=== PATIENT | female | born 1930 ===

== ENCOUNTER 2017-01-09 14:21 | Inpatient (IN) | payer MEDICAID, OTHER ==
--- NOTE | 2017-01-09 15:48 | C.PDOC ---
History Of Present Illness 86 y/o female, with history of left sided hemiparesis s/p stroke 2 months ago, presents to ED for evaluation of ulcer to left heel with drainage for the past week. Daughter states that pt recently immigrated to this country. As per daughter, pt was admitted at [facility] for stroke but was not provided with any referral for follow up or rehab due to insurance reasons. Pt is currently being cared at home by daughter. Pt also complaints of burning on urination, and redness to left axilla and perineum area. Otherwise, denies any nausea, vomiting , abdominal pain, hematuria, back pain, chest pain, shortness of breath, headache, dizziness, fever, chills, or any other associated symptoms at this time. Chief Complaint (Nursing): Abnormal Skin Integrity History Per: Patient, Family History/Exam Limitations: no limitations Onset/Duration Of Symptoms: Days (1 week) Current Symptoms Are (Timing): Still Present Location Of Injury: Left: Foot Quality Of Symptoms: Draining Recent travel outside of the [place]: Yes Additional History Per: Patient Past Medical History Reviewed: Historical Data, Nursing Documentation, Vital Signs Vital Signs: Last Vital Signs Temp 97.9 F 01/09/17 17:15 Pulse 118 H 01/09/17 17:57 Resp 18 01/09/17 17:57 BP 121/72 01/09/17 17:57 Pulse Ox 97 01/09/17 18:13 - Medical History PMH: Cardia Arrhythmia, Kidney Stones Surgical History: Appendectomy Family History: States: Unknown Family Hx - Social History Hx Alcohol Use: No Hx Substance Use: No - Immunization History Hx Tetanus Toxoid Vaccination: No Hx Influenza Vaccination: No Hx Pneumococcal Vaccination: No Review Of Systems Except As Marked, All Systems Reviewed And Found Negative. Constitutional: Negative for: Fever, Chills Cardiovascular: Negative for: Chest Pain, Palpitations Respiratory: Negative for: Cough, Shortness of Breath Gastrointestinal: Negative for: Nausea, Vomiting, Abdominal Pain Genitourinary: Positive for: Dysuria. Negative for: Frequency, Hematuria Musculoskeletal: Negative for: Back Pain Skin: Positive for: Rash (left axilla, and perineum area), Other (ulcer to left heel) Neurological: Negative for: Weakness, Numbness, Headache, Dizziness Physical Exam - Physical Exam Appears: Non-toxic, No Acute Distress Skin: Warm, Dry, Rash (erythematous rash to left axilla and perineal area), Other (left heel open wound with foul discharge) Head: Atraumatic, Normacephalic Eye(s): bilateral: Other (gaze turned to right) Oral Mucosa: Moist Neck: Supple Cardiovascular: Rhythm Regular, No Murmur Respiratory: Normal Breath Sounds, No Rales, No Rhonchi, No Wheezing Gastrointestinal/Abdominal: Soft, No Tenderness Extremity: No Deformity, Other (left side hemiparesis ) Pulses: Left Dorsalis Pedis: Normal, Right Dorsalis Pedis: Normal Neurological/Psych: Oriented x3, Normal Speech ED Course And Treatment - Laboratory Results Result Diagrams: 01/09/17 16:21 01/09/17 16:21 ECG: Interpreted By Me, Viewed By Me ECG Rhythm: Atrial Fibrillation, R BBB ECG Interpretation: Abnormal Rate From EC (bpm) O2 Sat by Pulse Oximetry: 97 (RA) Pulse Ox Interpretation: Normal - Other Rad Left heel x-ray X-Ray: Viewed By Me, Read By Radiologist Interpretation: PROCEDURE: Radiographs of the left calcaneus/hindfoot. HISTORY : pressure ulcer. COMPARISON: None available. TECHNIQUE: Frontal and lateral radiographs of the calcaneus. FINDINGS: No acute displaced fracture or dislocation identified. Mild soft tissue irregularity posterior heel. No evidence of radiopaque foreign body. IMPRESSION: Mild soft tissue irregularity involving the posterior heel. No acute osseous abnormality is detected. Progress Note: Plan: Blood work, urinalysis, urine/blood/wound culture, left heel x-ray, EKG. Pt was given Vancomycin, Fentanyl, Maxipime, Lopressor, and Cardizem. On re-eval,still in rapid afib. case was d/w who accepted patient to [facility] for admission. Disposition - Disposition Disposition: HOSPITALIZED Disposition Time: 17:41 Condition: FAIR - Clinical Impression Clinical Impression: Rapid atrial fibrillation, Hemiparesis, UTI (urinary tract infection), Pressure ulcer of left heel, Fungal infection of skin - PA / FLOODPLAIN MANAGER / Resident Statement MD/DO has reviewed & agrees with the documentation as recorded. - Scribe Statement The provider has reviewed the documentation as recorded by the Scribe Pro Ray All medical record entries made by the Scribe were at my direction and personally dictated by me. I have reviewed the chart and agree that the record accurately reflects my personal performance of the history, physical exam, medical decision making, and the department course for this patient. I have also personally directed, reviewed, and agree with the discharge instructions and disposition. Decision To Admit - Pt Status Changed To: Hospital Disposition Of: Inpatient - Admit Certification Admit to Inpatient:: After my assessment, the patient will require hospitalization for at least two midnights. This is because of the severity of symptoms shown, intensity of services needed, and/or the medical risk in this patient being treated as an outpatient. - InPatient: Physician Admission Certification: I certify that this patient requires 2 or more midnights of care for the following reason:: Pt will need IV antibiotics for more than 2 days. - . Bed Request Type: Telemetry Admitting Physician: Ezekiel Baer Patient Diagnosis: Rapid atrial fibrillation, Hemiparesis, UTI (urinary tract infection), Pressure ulcer of left heel, Fungal infection of skin
[2017-01-09] MEDS ORDERED: Cefepime 1 GM in Sodium Chloride 0.9% 50 ML IVPB STA (15:50)
[2017-01-09] MEDS ORDERED: Cefepime 1 GM in Sodium Chloride 0.9% 100 ML IVPB STA (16:08)
[2017-01-09 16:23] LABS: BASO % 0.5 % (0.0-2.0); EOS # 0.2 K/uL (0.0-0.7); EOS % 3.3 % (0.0-4.0); HEMATOCRIT 38.8 % (34.0-47.0); LYMPH # 1.7 K/uL (1.0-4.3); LYMPH % 24.2 % (20.0-40.0); MEAN CELL VOLUME 93.8 fL (81.0-99.0); MEAN CORPUSCULAR HEMOGLOBIN 31.3 pg (27.0-31.0); MEAN CORPUSCULAR HGB CONC 33.3 g/dL (33.0-37.0); MEAN PLATELET VOLUME 8.6 fL (7.2-11.7); MONO # 0.7 K/uL (0.0-0.8); MONO % 10.6 % (0.0-10.0); RED CELL DISTRIBUTION WIDTH 16.5 % (11.5-14.5)
[2017-01-09 16:34] LABS: POTASSIUM 4.7 mmol/L (3.6-5.2)
[2017-01-09 16:36] LABS: BILIRUBIN,TOTAL 0.7 mg/dL (0.2-1.3)
[2017-01-09 16:37] LABS: ALB/GLOB RATIO 1.1 (1.0-2.1); CALCIUM 8.8 mg/dl (8.6-10.4); TOTAL PROTEIN 6.2 g/dL (6.3-8.3)
[2017-01-09 16:38] LABS: INR 1.7
--- NOTE | 2017-01-09 16:47 | RAD ---
PROCEDURE: Radiographs of the left calcaneus/hindfoot. HISTORY: pressure ulcer COMPARISON: None available. TECHNIQUE: Frontal and lateral radiographs of the calcaneus. FINDINGS: No acute displaced fracture or dislocation identified. Mild soft tissue irregularity posterior heel. No evidence of radiopaque foreign body. IMPRESSION: Mild soft tissue irregularity involving the posterior heel. No acute osseous abnormality is detected.
[2017-01-09 16:48] LABS: TROPONIN I 0.027 ng/mL (0.00-0.120)
[2017-01-09 16:57] LABS: RBC URINE 24 /hpf (0-3); URINE BACTERIA MANY (<OCC); URINE BILIRUBIN NEGATIVE (NEGATIVE); URINE BLOOD 1+ (NEGATIVE); URINE COLOR Yellow (YELLOW); URINE GLUCOSE (UA) NORMAL (Normal); URINE KETONE TRACE mg/dL (NEGATIVE); URINE LEUKOCYTE ESTERASE 2+ Leu/uL (Negative); URINE PROTEIN 3+ mg/dL (NEGATIVE); URINE UROBILINOGEN NORMAL mg/dL (0.2-1.0); WBC URINE 397 /hpf (0-5)
[2017-01-09] MEDS ORDERED: Metoprolol 1 mg/ml Inj IVP STA (17:21)
[2017-01-09] MEDS ORDERED: Metoprolol 1 mg/ml Inj IVP ONE (17:30)
[2017-01-09] MEDS ORDERED: Vancomycin 1 GM 1 GM/250 ML BAG IV STA (17:39)
[2017-01-09] MEDS ORDERED: Sodium Chloride 0.9% 1,000 ML ONE (19:05)
[2017-01-09] MEDS ORDERED: Vancomycin 1 GM 1 GM/250 ML BAG IVPB ONE (19:05)
[2017-01-09] MEDS: Sodium Chloride 0.9% 1,000 ML IV SCH (19:15)
--- NOTE | 2017-01-09 19:18 | CP.PCM.HP ---
<Troy Arvizu - Last Filed: 01/09/17 19:45> History of Present Illness - History of Present Illness History of Present Illness: PGY1 Note for Dr. Baer HPI: Patient is a 86 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 Daughter provides the history. It started 1 week ago and is associated with L. sided pain, insomnia, and mild constipation. She is also complaining of a cough, PRASAD, abdominal pain and increased Urine output. She denies any blood in her urine. She denies recent travel or sick contacts. Patient arrived here from [place] to Live with her daughter. PMH: Stroke, HLD, afib, gluacoma PSH: Carla Leung leg surgery FH: Mom had an DC, Dad was healthy, cancer and DM in the siblings SH: patient lives with her daughter, son in law and grandson, Denies smoking, etoh or illegal drugs Meds: eliquis 2.5, metoprolol 50, atorvastatin 40mg Allergies: none FULL CODE Present on Admission - Present on Admission Any Indicators Present on Admission: No History of DVT/PE: No History of Uncontrolled Diabetes: No Urinary Catheter: No Decubitus Ulcer Present: No Review of Systems - Constitutional Constitutional: As Per HPI - EENT Eyes: As Per HPI Ears: As Per HPI Nose/Mouth/Throat: As Per HPI - Breasts Breasts: As Per HPI - Cardiovascular Cardiovascular: As Per HPI - Respiratory Respiratory: As Per HPI - Gastrointestinal Gastrointestinal: As Per HPI - Genitourinary Genitourinary: As Per HPI - Reproductive: Female Reproductive:Female: As Per HPI - Menstruation Menstruation: As Per HPI - Musculoskeletal Musculoskeletal: As Per HPI - Integumentary Integumentary: As Per HPI - Neurological Neurological: As Per HPI - Psychiatric Psychiatric: As Per HPI - Endocrine Endocrine: As Per HPI - Hematologic/Lymphatic Hematologic: As Per HPI Past Patient History - Past Social History Smoking Status: Never Smoked - CARDIAC Hx Cardia Arrhythmia: Yes - NEUROLOGICAL HX Cerebrovascular Accident: Yes - HEENT Hx Glaucoma: Yes - RENAL Hx Kidney Stones: Yes - PSYCHIATRIC Hx Substance Use: No - SURGICAL HISTORY Hx Appendectomy: Yes - ANESTHESIA Hx Anesthesia: Yes Hx Anesthesia Reactions: No Meds Allergies/Adverse Reactions: Allergies Allergy/AdvReac Type Severity Reaction Status Date / Time No Known Allergies Allergy Verified 01/09/17 15:07 Physical Exam - Constitutional Appears: Confused, Cachectic - Head Exam Head Exam: ATRAUMATIC, NORMAL INSPECTION, NORMOCEPHALIC - Eye Exam Eye Exam: absent: Conjunctival injection, Periorbital swelling - ENT Exam ENT Exam: Mucous Membranes Moist - Respiratory Exam Respiratory Exam: Clear to Auscultation Bilateral, NORMAL BREATHING PATTERN. absent: Rales, Rhonchi, Wheezes, Stridor - Cardiovascular Exam Cardiovascular Exam: Tachycardia, REGULAR RHYTHM - GI/Abdominal Exam GI & Abdominal Exam: Normal Bowel Sounds, Soft. absent: Distended, Firm, Tenderness - Extremities Exam Extremities exam: Negative for: joint swelling Additional comments: L. heel ulcer with necrotic tissue in the center - Neurological Exam Neurological exam: Altered, Motor Sensory Deficit - Psychiatric Exam Psychiatric exam: Normal Affect, Normal Mood - Skin Skin Exam: Dry, Intact, Normal Color, Warm Results - Vital Signs Recent Vital Signs: Last Vital Signs Temp 97.9 F 01/09/17 17:15 Pulse 118 H 01/09/17 17:57 Resp 18 01/09/17 17:57 BP 121/72 01/09/17 17:57 Pulse Ox 97 01/09/17 18:38 - Labs Result Diagrams: 01/09/17 16:21 01/09/17 16:21 Assessment & Plan - Assessment and Plan (Free Text) Assessment: UTI * Cefepime 1g IV Q12 * Vanco 1g IV Q24 * Vanc trough Heel Ulcer * Consulted Podiatry ([facility]) - F/U reccs Afib * Eliquis 2.5 mg BID * Cardazim 30 mg Q6 AMS * CT of head w/o contrast - F/U PPX * Pepcid 20mg QD * PT consult - Date & Time Date: 01/09/17 Time: 20:11 Decision To Admit - Pt Status Changed To: Hospital Disposition Of: Inpatient - Admit Certification Admit to Inpatient:: After my assessment, the patient will require hospitalization for at least two midnights. This is because of the severity of symptoms shown, intensity of services needed, and/or the medical risk in this patient being treated as an outpatient. - InPatient: Physician Admission Certification:: . - . Bed Request Type: Telemetry <Ezekiel Baer - Last Filed: 01/10/17 14:18> Results - Vital Signs Recent Vital Signs: Last Vital Signs Temp 98.3 F 01/10/17 07:07 Pulse 73 01/10/17 11:38 Resp 18 01/10/17 07:07 BP 106/69 01/10/17 07:07 Pulse Ox 94 L 01/10/17 11:38 - Labs Result Diagrams: 01/10/17 06:46 01/10/17 06:46 Labs: Laboratory Results - last 24 hr 01/10/17 01/10/17 01/10/17 06:46 06:46 06:46 WBC 6.3 RBC 3.96 Hgb 12.2 Hct 37.5 MCV 94.5 MCH 30.8 MCHC 32.6 L RDW 16.9 H Plt Count 211 MPV 8.9 Neut % (Auto) 60.9 Lymph % (Auto) 25.2 Ransom % (Auto) 9.2 Eos % (Auto) 4.4 H Baso % (Auto) 0.3 Neut # 3.8 Lymph # 1.6 Ransom # 0.6 Eos # 0.3 Baso # 0.0 PT 15.4 H INR 1.4 APTT 33 Sodium 138 Potassium 4.5 Chloride 108 H Carbon Dioxide 21 L Anion Gap 14 BUN 37 H Creatinine 0.8 Est GFR ( Amer) > 60 Est GFR (Non-Af Amer) > 60 Random Glucose 88 Calcium 8.6 Total Bilirubin 0.7 AST 31 ALT 37 Alkaline Phosphatase 106 Total Protein 5.6 L Albumin 2.8 L Globulin 2.8 Albumin/Globulin Ratio 1.0 Vancomycin Trough 01/10/17 06:46 WBC RBC Hgb Hct MCV MCH MCHC RDW Plt Count MPV Neut % (Auto) Lymph % (Auto) Ransom % (Auto) Eos % (Auto) Baso % (Auto) Neut # Lymph # Ransom # Eos # Baso # PT INR APTT Sodium Potassium Chloride Carbon Dioxide Anion Gap BUN Creatinine Est GFR ( Amer) Est GFR (Non-Af Amer) Random Glucose Calcium Total Bilirubin AST ALT Alkaline Phosphatase Total Protein Albumin Globulin Albumin/Globulin Ratio Vancomycin Trough 24.9 H Attending/Attestation - Attestation I have personally seen and examined this patient.: Yes I have fully participated in the care of the patient.: Yes I have reviewed all pertinent clinical information: Yes Notes (Text): 01/10/17 14:17 Patient was seen and examined at bedside with the resident Patient to has an ulcer on the left heel. We will start IV antibiotics and we will request podiatry consultation for possible debridement Patient also has UTI and we'll start antibiotics. We will obtain a CT scan of the head to rule out any new intracranial bleed We will also request physical therapy evaluation for the patient I discussed the plan of care with the family at bedside Discussed the plan of care with the resident and agree with the history and physical and assessment/plan documented.
[2017-01-09] MEDS ORDERED: Bacitracin 500 Units/gm Oint Foilpak UD ONE (20:29)
--- NOTE | 2017-01-09 20:36 | CP.PCM.CON ---
History of Present Illness - History of Present Illness History of Present Illness: 86 y/o female with PMHx of strokes, arrhythmia, hyperlipidemia, glaucoma presents to ED with chills and nausea x2 days with constipation and bladder pain. Patient seen by podiatry in ED for left heel ulceration. Patient's daughter relays patient history. Daughter states that the patient recently traveled here from [place] approx 4 months ago but had a stroke in October which has since made her bed bound. Patient's daughter denies any trauma to the heel or lower extremity. Patient's daughter denies any history of foot complaints or diabetes and states this is the first time she has ever had a wound like this. Patient's daughter states she has had the heel wound for 1 week now and admits to seeing only blood draining from the heel. Patient's daughter denies seeing any redness in the area of the foot outside the area of the wound. Patient's daughter applied Neosporin and a bandaid to the area for the past few days. Patient's daughter denies that her mother has experienced any fever or vomiting. Patient has been experiencing intermittent pain in the area of the heel throughout the week, specifically when something touches the wound. PSHx: glaucoma surgery, right ankle surgery, peritonitis, cholecystectomy, recurrent UTIs All: NKDA Review of Systems - Review of Systems All systems: reviewed and no additional remarkable complaints except (per HPI) Past Patient History - Past Social History Smoking Status: Never Smoked - CARDIAC Hx Cardia Arrhythmia: Yes - NEUROLOGICAL HX Cerebrovascular Accident: Yes - HEENT Hx Glaucoma: Yes - RENAL Hx Kidney Stones: Yes - PSYCHIATRIC Hx Substance Use: No - SURGICAL HISTORY Hx Appendectomy: Yes - ANESTHESIA Hx Anesthesia: Yes Hx Anesthesia Reactions: No Meds Allergies/Adverse Reactions: Allergies Allergy/AdvReac Type Severity Reaction Status Date / Time No Known Allergies Allergy Verified 01/09/17 15:07 - Medications Medications: Current Medications Acetaminophen (Tylenol 325mg Tab) 650 mg PO Q6 PRN PRN Reason: Fever >100.4 F Apixaban (Eliquis) 2.5 mg PO BID [facility] Collagenase (Santyl) 0 gm TOP DAILY [facility] Diltiazem HCl (Cardizem) 30 mg PO Q6 [facility] Docusate Sodium (Colace) 100 mg PO BID [facility] Famotidine (Pepcid) 20 mg PO DAILY [facility] Sodium Chloride (Sodium Chloride 0.9%) 1,000 mls @ 75 mls/hr IV .[id number] [facility] Last Admin: 01/09/17 19:15 Dose: 75 mls/hr Vancomycin HCl 1 gm/ Sodium (Chloride) 250 mls @ 166.7 mls/hr IVPB Q24H [facility] Cefepime HCl 1 gm/ Sodium (Chloride) 100 mls @ 100 mls/hr IVPB Q12H [facility] Ondansetron HCl (Zofran Inj) 4 mg IVP Q6 PRN PRN Reason: Nausea/Vomiting Rosuvastatin Calcium (Crestor) 5 mg PO HS [facility] Physical Exam - Constitutional Appears: Well, Non-toxic, No Acute Distress - Extremities Exam Additional comments: Lower extremity focused examination: Vasc: DP/PT pulses 2/4 B/L. CFT < 3 sec to all digits. Temperature gradient warm to cool from proximal to distal. No pedal edema. Neuro: Protective sensation grossly diminished on L, grossly intact on R. Derm: 3.3 cm x 1.8 cm x 0.1cm ulceration noted to posteroplantar L heel. Fibrotic base noted. No malodor, no active drainage, no tunneling, no undermining, no fluctuance, no probe to bone. No clinical signs of infection present. Ortho: tenderness to palpation of left plantar posterior heel ulceration - Neurological Exam Neurological exam: Alert, Oriented x3 - Psychiatric Exam Psychiatric exam: Normal Affect, Normal Mood Results - Vital Signs Recent Vital Signs: Last Vital Signs Temp 97.9 F 01/09/17 20:10 Pulse 118 H 01/09/17 20:10 Resp 18 01/09/17 20:10 BP 102/67 01/09/17 20:10 Pulse Ox 98 01/09/17 20:10 - Labs Result Diagrams: 01/09/17 16:21 01/09/17 16:21 Assessment & Plan - Assessment and Plan (Free Text) Assessment: 86 y/o female with left heel pressure ulceration secondary to recent bed immobilization following stroke Plan: Pt seen and evaluated in ED Discussed plan in detail with attending Dr. Hilliard X-rays of L heel reviewed: revealed mild soft tissue irregularity, no osseous changes, no evidence of OM, no fractures or dislocations Applied Bacitracin and DSD to L heel Rx Santyl to be applied daily with DSD Ordered offloading boots to be worn at all times Pt currently on Cefepime and Vancomycin due to possible UTI Podiatry will continue to follow while in house thank you for this consult
--- NOTE | 2017-01-09 20:47 | CT ---
EXAM: CT Head Without Intravenous Contrast EXAM DATE/TIME: Exam ordered 01/09/2017 6:49 PM CLINICAL HISTORY: 86 years old, female; Signs and symptoms; Altered mental status/memory loss; Additional info: AMS TECHNIQUE: Axial computed tomography images of the head/brain without intravenous contrast. All CT scans at this facility use one or more dose reduction techniques, viz.: automated exposure control; ma/kV adjustment per patient size (including targeted exams where dose is matched to indication; i.e. head); or iterative reconstruction technique. COMPARISON: No relevant prior studies available. FINDINGS: Brain: There is a large area of abnormal low density noted within the right temporal parietal lobe representing encephalomalacia or. Encephalomalacia extends into the right frontal lobe as well. An area of cystic encephalomalacia is noted within the right basal ganglia. Calcification is suggested within the area of cystic change.No hemorrhage. Ventricles: There is dilatation of the ipsilateral right lateral ventricle. Bones/joints: Unremarkable. No acute fracture. Soft tissues: Unremarkable. Sinuses: Unremarkable as visualized. No acute sinusitis. Mastoid air cells: There is soft tissue opacification noted of the left mastoid antrum. Air fluid level is noted in the right mastoid antrum. There is sclerosis of both mastoids. Other findings: IMPRESSION: 1. No acute findings. 2. 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 Cystic encephalomalacia with laminar necrosis. 3. 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
[2017-01-09] MEDS ORDERED: Cefepime 1 GM in Sodium Chloride 0.9% 100 ML IVPB SCH (21:00)
[2017-01-09] MEDS ORDERED: Tmp-Smz 800 mg-160 mg DS Tab ONE (23:31)
[2017-01-10] MEDS: Cefepime 1 GM in Sodium Chloride 0.9% 100 ML IVPB SCH ×2 (05:44→17:21)
[2017-01-10 07:13] LABS: CHLORIDE 108 mmol/L (98-107); SODIUM 138 mmol/L (132-148)
[2017-01-10 07:14] LABS: POTASSIUM 4.5 mmol/L (3.6-5.2)
[2017-01-10 07:16] LABS: ALKALINE PHOSPHATASE 106 U/L (38-126); ALT/SGPT 37 U/L (9-52); AST/SGOT 31 U/L (14-36); BILIRUBIN,TOTAL 0.7 mg/dL (0.2-1.3); BLOOD UREA NITROGEN 37 mg/dL (7-17); CALCIUM 8.6 mg/dl (8.6-10.4); CARBON DIOXIDE 21 mmol/L (22-30); GFR AFRICAN-AMERICAN > 60; GLUCOSE,RANDOM 88 mg/dL (65-105); TOTAL PROTEIN 5.6 g/dL (6.3-8.3)
[2017-01-10 07:20] LABS: INR 1.4
[2017-01-10 07:22] LABS: BASO % 0.3 % (0.0-2.0); EOS # 0.3 K/uL (0.0-0.7); EOS % 4.4 % (0.0-4.0); HEMATOCRIT 37.5 % (34.0-47.0); LYMPH # 1.6 K/uL (1.0-4.3); LYMPH % 25.2 % (20.0-40.0); MEAN CELL VOLUME 94.5 fL (81.0-99.0); MEAN CORPUSCULAR HEMOGLOBIN 30.8 pg (27.0-31.0); MEAN CORPUSCULAR HGB CONC 32.6 g/dL (33.0-37.0); MEAN PLATELET VOLUME 8.9 fL (7.2-11.7); MONO # 0.6 K/uL (0.0-0.8); MONO % 9.2 % (0.0-10.0); RED CELL DISTRIBUTION WIDTH 16.9 % (11.5-14.5); WHITE BLOOD COUNT 6.3 K/uL (4.8-10.8)
--- NOTE | 2017-01-10 07:50 | RAD ---
HISTORY: admission COMPARISON: No prior. FINDINGS: LUNGS: No active pulmonary disease. PLEURA: No significant pleural effusion identified, no pneumothorax apparent. CARDIOVASCULAR: Suspicious for cardiomegaly. OSSEOUS STRUCTURES: No significant abnormalities. VISUALIZED UPPER ABDOMEN: Normal. OTHER FINDINGS: None. IMPRESSION: Suspicious for cardiomegaly. No evidence of acute pulmonary disease.
--- NOTE | 2017-01-10 09:25 | CP.PCM.PN ---
Subjective - Date & Time of Evaluation Date of Evaluation: 01/10/17 Time of Evaluation: 09:25 - Subjective Subjective: 86 y/o female was seen resting comfortably in bed for left heel ulceration. Patient NAD. Objective - Vital Signs/Intake and Output Vital Signs (last 24 hours): Temp Pulse Resp BP Pulse Ox 98.3 F 96 H 18 106/69 99 01/10/17 07:07 01/10/17 07:07 01/10/17 07:07 01/10/17 07:07 01/10/17 07:07 - Medications Medications: Current Medications Acetaminophen (Tylenol 325mg Tab) 650 mg PO Q6 PRN PRN Reason: Fever >100.4 F Apixaban (Eliquis) 2.5 mg PO BID [facility] Collagenase (Santyl) 0 gm TOP DAILY [facility] Diltiazem HCl (Cardizem) 30 mg PO Q6 [facility] Last Admin: 01/10/17 05:45 Dose: 30 mg Docusate Sodium (Colace) 100 mg PO BID [facility] Famotidine (Pepcid) 20 mg PO DAILY [facility] Sodium Chloride (Sodium Chloride 0.9%) 1,000 mls @ 75 mls/hr IV .[id number] [facility] Last Admin: 01/09/17 19:15 Dose: 75 mls/hr Vancomycin HCl 1 gm/ Sodium (Chloride) 250 mls @ 166.7 mls/hr IVPB Q24H [facility] Last Admin: 01/09/17 22:55 Dose: 166.7 mls/hr Cefepime HCl 1 gm/ Sodium (Chloride) 100 mls @ 100 mls/hr IVPB Q12H [facility] Last Admin: 01/10/17 05:44 Dose: 100 mls/hr Ondansetron HCl (Zofran Inj) 4 mg IVP Q6 PRN PRN Reason: Nausea/Vomiting Rosuvastatin Calcium (Crestor) 5 mg PO HS [facility] Last Admin: 01/09/17 22:55 Dose: 5 mg - Labs Labs: 01/10/17 06:46 01/10/17 06:46 PT 15.4 SECONDS (9.7-12.2) H 01/10/17 06:46 INR 1.4 01/10/17 06:46 APTT 33 SECONDS (21-34) 01/10/17 06:46 - Constitutional Appears: Non-toxic, No Acute Distress - Extremities Exam Additional comments: Left lower extremity focused examination: Vasc: DP and PT pulses 2/4. CFT < 3 sec to all digits. Temperature gradient warm to cool from proximal to distal. No pedal edema. Neuro: Protective sensation grossly diminished Derm: An approximately 3.3 cm x 1.8 cm x 0.1 cm ulceration noted to posteroplantar L heel. Fibrotic base noted. No malodor, no active drainage, no tunneling, no undermining, no fluctuance, no probe to bone. No clinical signs of infection present. Ortho: tenderness to palpation of left plantar posterior heel ulceration - Neurological Exam Neurological Exam: Alert, Awake Assessment and Plan - Assessment and Plan (Free Text) Assessment: 86 y/o female with left heel pressure ulceration secondary to recent bed immobilization following stroke Plan: Pt seen and evaluated Discussed with attending Dr. Hilliard X-rays of L heel reviewed: revealed mild soft tissue irregularity, no osseous changes, no evidence of OM, no fractures or dislocations Left heel dressed with DSD Rx Santyl to be applied daily with DSD Ordered offloading boots to be worn at all times, currently patient only has offloading boot on her left LE Continue IV abx Podiatry will continue to follow while in house
[2017-01-10] MEDS: Sodium Chloride 0.9% 1,000 ML IV SCH ×3 (10:16→23:35)
[2017-01-10] MEDS: Collagenase 250 Units/gm Ointment(30 gm) TOP SCH (10:16)
--- NOTE | 2017-01-10 17:18 | RAD ---
PROCEDURE: Radiographs of the chest and abdomen (obstructive series) HISTORY: Constipation COMPARISON: Chest x-ray performed 01/09/17 FINDINGS: CHEST: Examination limited by habitus and patient obliquity. The patient's chin obscures evaluation of the lung apices, in particular the right lung apex. Cardiomegaly. Dense atherosclerotic calcifications of the aorta. Mild bibasilar atelectasis. No significant pleural effusion or definite pneumothorax. Please note that chest x-ray has limited sensitivity for the detection of pulmonary masses. Degenerative changes of the spine and shoulders. Density involving the mid thoracic spine, possibly related to prior vertebroplasty suboptimally visualized on AP views; correlate with clinical history. ABDOMEN AND PELVIS: Right upper quadrant surgical clips. Nonobstructive bowel gas pattern. Calcifications and possible tiny radiopaque densities project over the left and right pelvic wings. Osseous demineralization. Degenerative changes of the spine and pelvis. IMPRESSION: Cardiomegaly. Nonspecific bowel gas pattern. Additional findings as above.
--- NOTE | 2017-01-10 17:30 | CP.PCM.PN ---
Subjective - Date & Time of Evaluation Date of Evaluation: 01/10/17 Time of Evaluation: 17:26 - Subjective Subjective: PGY1 Note for Maria Victoria HPI: Patient seen and examined at bedside. Pt is nonverbal due to a previous stroke but looks more comfortable than yesterday. Objective - Vital Signs/Intake and Output Vital Signs (last 24 hours): Temp Pulse Resp BP Pulse Ox 98.1 F 73 20 116/69 100 01/10/17 15:00 01/10/17 15:00 01/10/17 15:00 01/10/17 17:21 01/10/17 15:00 Intake and Output: 01/10/17 01/10/17 06:59 18:59 Output Total 250 Balance -250 - Medications Medications: Current Medications Acetaminophen (Tylenol 325mg Tab) 650 mg PO Q6 PRN PRN Reason: Fever >100.4 F Last Admin: 01/10/17 14:10 Dose: 650 mg Apixaban (Eliquis) 2.5 mg PO BID [facility] Last Admin: 01/10/17 17:20 Dose: 2.5 mg Collagenase (Santyl) 0 gm TOP DAILY [facility] Last Admin: 01/10/17 10:16 Dose: Not Given Diltiazem HCl (Cardizem) 30 mg PO Q6 [facility] Last Admin: 01/10/17 17:20 Dose: 30 mg Docusate Sodium (Colace) 100 mg PO BID [facility] Last Admin: 01/10/17 17:20 Dose: 100 mg Famotidine (Pepcid) 20 mg PO DAILY [facility] Last Admin: 01/10/17 10:16 Dose: 20 mg Sodium Chloride (Sodium Chloride 0.9%) 1,000 mls @ 75 mls/hr IV .[id number] [facility] Last Admin: 01/10/17 10:16 Dose: Not Given Vancomycin HCl 1 gm/ Sodium (Chloride) 250 mls @ 166.7 mls/hr IVPB Q24H [facility] Last Admin: 01/09/17 22:55 Dose: 166.7 mls/hr Cefepime HCl 1 gm/ Sodium (Chloride) 100 mls @ 100 mls/hr IVPB Q12H [facility] Last Admin: 01/10/17 17:21 Dose: 100 mls/hr Metoprolol Tartrate (Lopressor) 25 mg PO BID [facility] Last Admin: 01/10/17 17:21 Dose: 25 mg Ondansetron HCl (Zofran Inj) 4 mg IVP Q6 PRN PRN Reason: Nausea/Vomiting Rosuvastatin Calcium (Crestor) 5 mg PO HS [facility] Last Admin: 01/09/17 22:55 Dose: 5 mg - Labs Labs: 01/10/17 06:46 01/10/17 06:46 PT 15.4 SECONDS (9.7-12.2) H 01/10/17 06:46 INR 1.4 01/10/17 06:46 APTT 33 SECONDS (21-34) 01/10/17 06:46 - Constitutional Appears: Cachectic, Chronically Ill - Head Exam Head Exam: ATRAUMATIC, NORMAL INSPECTION, NORMOCEPHALIC - ENT Exam ENT Exam: Mucous Membranes Moist - Respiratory Exam Respiratory Exam: Clear to Ausculation Bilateral - Cardiovascular Exam Cardiovascular Exam: Tachycardia, Irregular Rhythm - GI/Abdominal Exam GI & Abdominal Exam: Soft, Normal Bowel Sounds. absent: Distended, Tenderness - Neurological Exam Neurological Exam: Alert, Awake - Skin Skin Exam: Dry, Intact, Normal Color, Warm Assessment and Plan - Assessment and Plan (Free Text) Assessment: UTI * Cefepime 1g IV Q12 * Vanco 1g IV Q24 * Gleason Heel Ulcer * Consulted Podiatry ([facility]) * Bacitracin applied * Santyl and DSD daily Afib * Eliquis 2.5 mg BID * Cardazim 30 mg Q6 AMS * CT of head w/o contrast - no acute findings * Probably 2/2 UTI * looked much calmer today Constipation * Abdominal xray did not show any sings of obstruction * Colace 100mg BID PPX * Pepcid 20mg QD * PT consult
--- NOTE | 2017-01-10 18:02 | CARD ---
APPROVED REPORT EKG Measurement Heart [id number] <Conclusion> Atrial fibrillation with rapid ventricular response Right bundle branch block Left anterior fascicular block Bifascicular block Abnormal ECG
[2017-01-10] MEDS ORDERED: Tramadol 25 mg PO ONE (21:45)
[2017-01-11] MEDS: Cefepime 1 GM in Sodium Chloride 0.9% 100 ML IVPB SCH ×2 (05:40→17:47)
[2017-01-11] MEDS: Collagenase 250 Units/gm Ointment(30 gm) TOP SCH (11:03)
[2017-01-11] MEDS: Sodium Chloride 0.9% 1,000 ML IV SCH (11:03)
--- NOTE | 2017-01-11 11:04 | CP.PCM.PN ---
Subjective - Date & Time of Evaluation Date of Evaluation: 01/11/17 Time of Evaluation: 11:01 - Subjective Subjective: 86 year old female was seen resting comfortably at bedside this morning regarding left heel ulceration. Patient NAD. Objective - Vital Signs/Intake and Output Vital Signs (last 24 hours): Temp Pulse Resp BP Pulse Ox 97.5 F L 112 H 20 113/74 98 01/11/17 08:00 01/11/17 09:10 01/11/17 08:00 01/11/17 08:00 01/11/17 08:00 Intake and Output: 01/11/17 01/11/17 06:59 18:59 Intake Total 940 Output Total 600 Balance 340 - Medications Medications: Current Medications Acetaminophen (Tylenol 325mg Tab) 650 mg PO Q6 PRN PRN Reason: Fever >100.4 F Last Admin: 01/11/17 11:00 Dose: 650 mg Apixaban (Eliquis) 2.5 mg PO BID [facility] Last Admin: 01/11/17 10:40 Dose: 2.5 mg Collagenase (Santyl) 0 gm TOP DAILY [facility] Last Admin: 01/10/17 10:16 Dose: Not Given Diltiazem HCl (Cardizem) 30 mg PO Q6 [facility] Last Admin: 01/11/17 05:39 Dose: 30 mg Docusate Sodium (Colace) 100 mg PO BID [facility] Last Admin: 01/11/17 10:34 Dose: 100 mg Famotidine (Pepcid) 20 mg PO DAILY [facility] Last Admin: 01/11/17 10:34 Dose: 20 mg Sodium Chloride (Sodium Chloride 0.9%) 1,000 mls @ 75 mls/hr IV .[id number] [facility] Last Admin: 01/10/17 23:35 Dose: 75 mls/hr Cefepime HCl 1 gm/ Sodium (Chloride) 100 mls @ 100 mls/hr IVPB Q12H [facility] Last Admin: 01/11/17 05:40 Dose: 100 mls/hr Metoprolol Tartrate (Lopressor) 25 mg PO BID [facility] Last Admin: 01/11/17 10:40 Dose: Not Given Ondansetron HCl (Zofran Inj) 4 mg IVP Q6 PRN PRN Reason: Nausea/Vomiting Last Admin: 01/10/17 18:49 Dose: 4 mg Rosuvastatin Calcium (Crestor) 5 mg PO HS [facility] Last Admin: 01/10/17 21:53 Dose: 5 mg - Labs Labs: 01/10/17 06:46 01/10/17 06:46 PT 15.4 SECONDS (9.7-12.2) H 01/10/17 06:46 INR 1.4 01/10/17 06:46 APTT 33 SECONDS (21-34) 01/10/17 06:46 - Constitutional Appears: Non-toxic, No Acute Distress - Extremities Exam Additional comments: Left lower extremity focused examination: Vasc: DP and PT pulses 2/4. CFT < 3 sec to all digits. Temperature gradient warm to cool from proximal to distal. No pedal edema. Neuro: Protective sensation grossly diminished Derm: An approximately 3.3 cm x 1.8 cm x 0.1 cm ulceration noted to posteroplantar L heel. Fibrotic base noted. No malodor, no active drainage, no tunneling, no undermining, no fluctuance, no probe to bone. No clinical signs of infection present. Ortho: tenderness to palpation of left plantar posterior heel ulceration - Neurological Exam Neurological Exam: Alert, Awake - Psychiatric Exam Psychiatric exam: Normal Affect Assessment and Plan - Assessment and Plan (Free Text) Assessment: 86 y/o female with left heel pressure ulceration secondary to recent bed immobilization following stroke Plan: Pt seen and evaluated Discussed with attending Dr. Babak azevedo, chart, vitals reviewed X-rays of L heel reviewed: revealed mild soft tissue irregularity, no osseous changes, no evidence of OM, no fractures or dislocations Left heel dressed with santyl, DSD Offloading boots to be worn at all times, currently patient only has offloading boot on her left LE Continue IV abx Patient stable for d/c from podiatry stand point Podiatry will continue to follow while in house
[2017-01-11 11:43] LABS: BASO % 0.2 % (0.0-2.0); EOS # 0.2 K/uL (0.0-0.7); EOS % 2.7 % (0.0-4.0); HEMATOCRIT 33.4 % (34.0-47.0); LYMPH # 1.3 K/uL (1.0-4.3); MEAN CELL VOLUME 94.2 fL (81.0-99.0); MEAN CORPUSCULAR HEMOGLOBIN 30.7 pg (27.0-31.0); MEAN CORPUSCULAR HGB CONC 32.6 g/dL (33.0-37.0); MEAN PLATELET VOLUME 8.9 fL (7.2-11.7); MONO # 0.5 K/uL (0.0-0.8); MONO % 7.6 % (0.0-10.0); RED CELL DISTRIBUTION WIDTH 16.3 % (11.5-14.5); WHITE BLOOD COUNT 6.1 K/uL (4.8-10.8)
[2017-01-11 11:58] LABS: CHLORIDE 108 mmol/L (98-107)
[2017-01-11 11:59] LABS: POTASSIUM 3.8 mmol/L (3.6-5.2); SODIUM 137 mmol/L (132-148)
[2017-01-11 12:01] LABS: BILIRUBIN,TOTAL 0.7 mg/dL (0.2-1.3); CARBON DIOXIDE 21 mmol/L (22-30); GFR AFRICAN-AMERICAN > 60
[2017-01-11 12:02] LABS: ALKALINE PHOSPHATASE 100 U/L (38-126); ALT/SGPT 39 U/L (9-52); AST/SGOT 30 U/L (14-36); BLOOD UREA NITROGEN 15 mg/dL (7-17); CALCIUM 8.4 mg/dl (8.6-10.4); GLUCOSE,RANDOM 78 mg/dL (65-105)
--- NOTE | 2017-01-11 14:22 | CP.PCM.DIS ---
Provider - Provider Date of Admission: 01/09/17 17:39 Attending physician: Ezekiel Baer MD Primary care physician: Clinic Consults: Podiatry Time Spent in preparation of Discharge (in minutes): 60 Hospital Course - Lab Results Lab Results: Most Recent Lab Values WBC 6.1 K/uL (4.8-10.8) 01/11/17 11:30 RBC 3.55 Mil/uL (3.80-5.20) L 01/11/17 11:30 Hgb 10.9 g/dL (11.0-16.0) L 01/11/17 11:30 Hct 33.4 % (34.0-47.0) L 01/11/17 11:30 MCV 94.2 fL (81.0-99.0) 01/11/17 11:30 MCH 30.7 pg (27.0-31.0) 01/11/17 11:30 MCHC 32.6 g/dL (33.0-37.0) L 01/11/17 11:30 RDW 16.3 % (11.5-14.5) H 01/11/17 11:30 Plt Count 182 K/uL (130-400) 01/11/17 11:30 MPV 8.9 fL (7.2-11.7) 01/11/17 11:30 Neut % (Auto) 68.5 % (50.0-75.0) 01/11/17 11:30 Lymph % (Auto) 21.0 % (20.0-40.0) 01/11/17 11:30 Surry % (Auto) 7.6 % (0.0-10.0) 01/11/17 11:30 Eos % (Auto) 2.7 % (0.0-4.0) 01/11/17 11:30 Baso % (Auto) 0.2 % (0.0-2.0) 01/11/17 11:30 Neut # 4.2 K/uL (1.8-7.0) 01/11/17 11:30 Lymph # 1.3 K/uL (1.0-4.3) 01/11/17 11:30 Surry # 0.5 K/uL (0.0-0.8) 01/11/17 11:30 Eos # 0.2 K/uL (0.0-0.7) 01/11/17 11:30 Baso # 0.0 K/uL (0.0-0.2) 01/11/17 11:30 PT 15.4 SECONDS (9.7-12.2) H 01/10/17 06:46 INR 1.4 01/10/17 06:46 APTT 33 SECONDS (21-34) 01/10/17 06:46 Sodium 137 mmol/L (132-148) 01/11/17 11:30 Potassium 3.8 mmol/L (3.6-5.2) 01/11/17 11:30 Chloride 108 mmol/L (98-107) H 01/11/17 11:30 Carbon Dioxide 21 mmol/L (22-30) L 01/11/17 11:30 Anion Gap 12 (10-20) 01/11/17 11:30 BUN 15 mg/dL (7-17) 01/11/17 11:30 Creatinine 0.6 MG/DL (0.7-1.2) L 01/11/17 11:30 Est GFR ( Amer) > 60 01/11/17 11:30 Est GFR (Non-Af Amer) > 60 01/11/17 11:30 Random Glucose 78 mg/dL (65-105) 01/11/17 11:30 Calcium 8.4 mg/dl (8.6-10.4) L 01/11/17 11:30 Total Bilirubin 0.7 mg/dL (0.2-1.3) 01/11/17 11:30 AST 30 U/L (14-36) 01/11/17 11:30 ALT 39 U/L (9-52) 01/11/17 11:30 Alkaline Phosphatase 100 U/L (38-126) 01/11/17 11:30 Total Creatine Kinase 426 U/L (30-135) H 01/09/17 16:21 Troponin I 0.0270 ng/mL (0.00-0.120) 01/09/17 16:21 Total Protein 5.0 g/dL (6.3-8.3) L 01/11/17 11:30 Albumin 2.5 g/dL (3.5-5.0) L 01/11/17 11:30 Globulin 2.5 gm/dL (2.2-3.9) 01/11/17 11:30 Albumin/Globulin Ratio 1.0 (1.0-2.1) 01/11/17 11:30 Urine Color Yellow (YELLOW) 01/09/17 15:56 Urine Clarity Turbid (Clear) 01/09/17 15:56 Urine pH 7.0 (5.0-8.0) 01/09/17 15:56 Ur Specific [place] 1.023 (1.003-1.030) 01/09/17 15:56 Urine Protein 3+ mg/dL (NEGATIVE) H 01/09/17 15:56 Urine Glucose (UA) Normal mg/dL (Normal) 01/09/17 15:56 Urine Ketones Trace mg/dL (NEGATIVE) 01/09/17 15:56 Urine Blood 1+ (NEGATIVE) H 01/09/17 15:56 Urine Nitrate Negative (NEGATIVE) 01/09/17 15:56 Urine Bilirubin Negative (NEGATIVE) 01/09/17 15:56 Urine Urobilinogen Normal mg/dL (0.2-1.0) 01/09/17 15:56 Ur Leukocyte Esterase 2+ Esequiel/uL (Negative) H 01/09/17 15:56 Urine WBC (Auto) 397 /hpf (0-5) H 01/09/17 15:56 Urine RBC (Auto) 24 /hpf (0-3) H 01/09/17 15:56 Urine Bacteria Many (<OCC) H 01/09/17 15:56 Vancomycin Trough 24.9 ug/mL (5.0-10.0) H 01/10/17 06:46 - Hospital Course Hospital Course: Patient is a 86 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 Daughter provides the history. It started 1 week ago and is associated with L. sided pain, insomnia, and mild constipation. She is also complaining of a cough, PRASAD, abdominal pain and increased Urine output. She denies any blood in her urine. She denies recent travel or sick contacts. Patient arrived here from [place] to Live with her daughter. 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 EKG done in ED showed A fib with rapid ventricular response, RBBB, and Left anterior fascicular block. CXR done in ED showed no evidence of pulmonary disease, possible cardiomegaly. Heel XR done in ED showed mild soft tissue irregularity in posterior left heel with no bone abnormalities. Patient admitted on 01/09/17 due to severity of symptoms and intensity of services needed. Head CT performed on 01/09/17 showed abnormal areas in the right temporal parietal lobe representing encephalomalacia extending into right frontal lobe, cystic area of encephalomalacia noted in right basal ganglia with suggested calcification within the cystic change, and dilation of the ipsilateral right lateral ventricle. Dr. Serrano consulted on 01/10/17 for podiatry issues. Abdominal obstructive series performed on 01/10/17 and showed nonobstructive bowel gas patterns and cardiomegaly. Pt seen at beside by Dr. Arvizu on 01/11/17 and was in no acute distress, pt is nonverbal but appeared comfortable. - Date & Time of H&P Date of H&P: 01/09/17 Time of H&P: 18:59 Discharge Exam - Head Exam Head Exam: ATRAUMATIC, NORMAL INSPECTION, NORMOCEPHALIC - ENT Exam ENT Exam: Mucous Membranes Moist - Respiratory Exam Respiratory Exam: NORMAL BREATHING PATTERN. absent: Clear to PA & Lateral, Stridor - Cardiovascular Exam Cardiovascular Exam: Irregular Rhythm - GI/Abdominal Exam GI & Abdominal Exam: Normal Bowel Sounds, Soft. absent: Distended, Firm, Guarding, Tenderness - Neurological Exam Neurological exam: Alert, Oriented x3 - Psychiatric Exam Psychiatric exam: Normal Affect, Normal Mood - Skin Skin Exam: Dry, Intact, Normal Color, Warm Discharge Plan - Discharge Medications Prescriptions: Apixaban [Eliquis] 2.5 mg PO BID #60 tab Atorvastatin [Lipitor] 40 mg PO ONCE #30 tab [id number] CD [Cardizem CD] 120 mg PO DAILY #30 c24 Docusate [Colace] 100 mg PO BID #60 cap Famotidine [Pepcid] 20 mg PO DAILY #30 tab Metoprolol Tartrate [Lopressor] 50 mg PO BID #60 tab - Follow Up Plan Condition: FAIR Disposition: HOME/ ROUTINE Instructions: Urinary Tract Infection in Women (DC), Urinary Tract Infection in Men (DC), Dysuria (GEN) Additional Instructions: Patient is medically stable and cleared for D/c Patient is cleared for d/c by podiatry Patient needs to follow up in the clinic for management of her heel ulcer and Afib given her recent change in medication. If symptoms return patient should return to the ER Prescription instructions to be provided at D/c Referrals: at [facility] [Outside]
[2017-01-11] MEDS ORDERED: Tramadol 25 mg PO ONE (21:19)
--- NOTE | 2017-01-12 05:49 | CP.PCM.PN ---
Subjective - Date & Time of Evaluation Date of Evaluation: 01/12/17 Time of Evaluation: 05:46 - Subjective Subjective: PGY1 Note for Dr. Irene HPI: patient was seen and examined at bedside. Was supposed to leave yesterday but daughter was unable to pick her up. Complaining of mild pain in her arm. Has a mitten on her L. arm. ROS unattainable because of previous stroke Objective - Vital Signs/Intake and Output Vital Signs (last 24 hours): Temp Pulse Resp BP Pulse Ox 97.6 F 78 20 107/74 98 01/11/17 23:27 01/11/17 23:27 01/11/17 23:27 01/11/17 23:27 01/11/17 23:27 Intake and Output: 01/11/17 01/12/17 18:59 06:59 Intake Total 560 Output Total 350 300 Balance -350 260 - Medications Medications: Current Medications Acetaminophen (Tylenol 325mg Tab) 650 mg PO Q6 PRN PRN Reason: Fever >100.4 F Last Admin: 01/11/17 17:47 Dose: 650 mg Apixaban (Eliquis) 2.5 mg PO BID [facility] Last Admin: 01/11/17 17:47 Dose: 2.5 mg Collagenase (Santyl) 0 gm TOP DAILY [facility] Last Admin: 01/11/17 11:03 Dose: Not Given Diltiazem HCl (Cardizem) 30 mg PO Q6 [facility] Last Admin: 01/12/17 01:10 Dose: 30 mg Docusate Sodium (Colace) 100 mg PO BID [facility] Last Admin: 01/11/17 17:47 Dose: 100 mg Famotidine (Pepcid) 20 mg PO DAILY [facility] Last Admin: 01/11/17 10:34 Dose: 20 mg Sodium Chloride (Sodium Chloride 0.9%) 1,000 mls @ 75 mls/hr IV .[id number] [facility] Last Admin: 01/11/17 11:03 Dose: Not Given Cefepime HCl 1 gm/ Sodium (Chloride) 100 mls @ 100 mls/hr IVPB Q12H [facility] Last Admin: 01/11/17 17:47 Dose: 100 mls/hr Metoprolol Tartrate (Lopressor) 50 mg PO BID [facility] Ondansetron HCl (Zofran Inj) 4 mg IVP Q6 PRN PRN Reason: Nausea/Vomiting Last Admin: 01/10/17 18:49 Dose: 4 mg Rosuvastatin Calcium (Crestor) 5 mg PO HS [facility] Last Admin: 01/11/17 21:37 Dose: 5 mg Tramadol HCl (Ultram) 25 mg PO TID [facility] - Labs Labs: 01/11/17 11:30 01/11/17 11:30 PT 15.4 SECONDS (9.7-12.2) H 01/10/17 06:46 INR 1.4 01/10/17 06:46 APTT 33 SECONDS (21-34) 01/10/17 06:46 - Constitutional Appears: Chronically Ill - Head Exam Head Exam: ATRAUMATIC, NORMAL INSPECTION, NORMOCEPHALIC - ENT Exam ENT Exam: Mucous Membranes Moist - Respiratory Exam Respiratory Exam: Clear to Ausculation Bilateral. absent: Rhonchi, Wheezes, Stridor - Cardiovascular Exam Cardiovascular Exam: REGULAR RHYTHM - GI/Abdominal Exam GI & Abdominal Exam: Soft. absent: Distended, Rigid, Tenderness Additional comments: suprapubic fullnes - Extremities Exam Additional comments: ] Podiatry boot on R. foot - Neurological Exam Neurological Exam: Awake - Skin Skin Exam: Abrasion, Dry, Intact, Normal Color, Warm Assessment and Plan - Assessment and Plan (Free Text) Assessment: Urinary Retention * Repeat bladder scan @ 0930 * Follow up U/A * Tramadol 25mg PO Once * Straight cath
[2017-01-12] MEDS: Cefepime 1 GM in Sodium Chloride 0.9% 100 ML IVPB SCH ×2 (06:40→18:00)
[2017-01-12] MEDS: Sodium Chloride 0.9% 1,000 ML IV SCH ×3 (06:46→18:03)
[2017-01-12] MEDS: Tramadol 25 mg PO SCH ×3 (10:55→18:00)
[2017-01-12] MEDS: Collagenase 250 Units/gm Ointment(30 gm) TOP SCH (11:00)
[2017-01-12 11:43] LABS: BASO % 0.2 % (0.0-2.0); EOS # 0.1 K/uL (0.0-0.7); EOS % 1.6 % (0.0-4.0); HEMATOCRIT 34.6 % (34.0-47.0); LYMPH # 1.1 K/uL (1.0-4.3); LYMPH % 17.2 % (20.0-40.0); MEAN CELL VOLUME 94.2 fL (81.0-99.0); MEAN CORPUSCULAR HEMOGLOBIN 30.7 pg (27.0-31.0); MEAN CORPUSCULAR HGB CONC 32.6 g/dL (33.0-37.0); MEAN PLATELET VOLUME 8.7 fL (7.2-11.7); MONO # 0.5 K/uL (0.0-0.8); MONO % 7.8 % (0.0-10.0); RED CELL DISTRIBUTION WIDTH 16.4 % (11.5-14.5); WHITE BLOOD COUNT 6.2 K/uL (4.8-10.8)
[2017-01-12 11:50] LABS: CHLORIDE 108 mmol/L (98-107)
[2017-01-12 11:51] LABS: POTASSIUM 3.4 mmol/L (3.6-5.2); SODIUM 137 mmol/L (132-148)
[2017-01-12 11:53] LABS: BILIRUBIN,TOTAL 0.6 mg/dL (0.2-1.3); GFR AFRICAN-AMERICAN > 60
[2017-01-12 11:54] LABS: ALB/GLOB RATIO 0.9 (1.0-2.1); ALKALINE PHOSPHATASE 98 U/L (38-126); ALT/SGPT 38 U/L (9-52); AST/SGOT 30 U/L (14-36); BLOOD UREA NITROGEN 11 mg/dL (7-17); CALCIUM 8.4 mg/dl (8.6-10.4); CARBON DIOXIDE 19 mmol/L (22-30); GLUCOSE,RANDOM 116 mg/dL (65-105); TOTAL PROTEIN 5.2 g/dL (6.3-8.3)
--- NOTE | 2017-01-12 14:49 | CP.PCM.PN ---
Subjective - Date & Time of Evaluation Date of Evaluation: 01/12/17 Time of Evaluation: 14:48 - Subjective Subjective: 86 year old female was seen resting comfortably at bedside this afternoon regarding left heel ulceration. Patient NAD. Objective - Vital Signs/Intake and Output Vital Signs (last 24 hours): Temp Pulse Resp BP Pulse Ox 98.9 F 85 20 106/56 L 95 01/12/17 07:00 01/12/17 07:00 01/12/17 07:00 01/12/17 07:00 01/12/17 07:00 Intake and Output: 01/12/17 01/12/17 06:59 18:59 Intake Total 560 Output Total 300 Balance 260 - Labs Labs: 01/12/17 11:34 01/12/17 11:34 PT 15.4 SECONDS (9.7-12.2) H 01/10/17 06:46 INR 1.4 01/10/17 06:46 APTT 33 SECONDS (21-34) 01/10/17 06:46 - Constitutional Appears: Non-toxic, No Acute Distress - Extremities Exam Additional comments: Left lower extremity focused examination: Vasc: DP and PT pulses 2/4. CFT < 3 sec to all digits. Temperature gradient warm to cool from proximal to distal. No pedal edema. Neuro: Protective sensation grossly diminished Derm: An approximately 3.3 cm x 1.8 cm x 0.1 cm ulceration noted to posteroplantar L heel. Fibrotic base noted. No malodor, no active drainage, no tunneling, no undermining, no fluctuance, no probe to bone. No clinical signs of infection present. Ortho: tenderness to palpation of left plantar posterior heel ulceration - Neurological Exam Neurological Exam: Alert, Awake - Psychiatric Exam Psychiatric exam: Normal Affect, Normal Mood Assessment and Plan - Assessment and Plan (Free Text) Assessment: 86 year old female with left heel pressure ulceration secondary to recent bed immobilization following stroke Plan: Pt seen and evaluated Discussed with attending Dr. Hilliard lab, chart, vitals reviewed Left heel dressed with santyl, DSD Offloading boots to be worn at all times Continue IV abx Patient stable for d/c from podiatry stand point Podiatry will continue to follow while in house
[2017-01-12 16:48] LABS: RBC URINE 41 /hpf (0-3); URINE BILIRUBIN NEGATIVE (NEGATIVE); URINE BLOOD 2+ (NEGATIVE); URINE COLOR Yellow (YELLOW); URINE GLUCOSE (UA) NORMAL (Normal); URINE KETONE TRACE mg/dL (NEGATIVE); URINE LEUKOCYTE ESTERASE TRACE Leu/uL (Negative); URINE PROTEIN NEGATIVE (NEGATIVE); URINE UROBILINOGEN NORMAL mg/dL (0.2-1.0); WBC URINE 14 /hpf (0-5)
[2017-01-13] MEDS: Cefepime 1 GM in Sodium Chloride 0.9% 100 ML IVPB SCH ×2 (05:55→18:01)
[2017-01-13] MEDS: Tramadol 25 mg PO SCH ×3 (10:21→18:01)
[2017-01-13] MEDS: Collagenase 250 Units/gm Ointment(30 gm) TOP SCH (10:23)
[2017-01-13] MEDS: Sodium Chloride 0.9% 1,000 ML IV SCH ×2 (10:24→21:15)
--- NOTE | 2017-01-13 12:01 | CP.PCM.PN ---
<Troy Arvizu - Last Filed: 01/13/17 11:58> Subjective - Date & Time of Evaluation Date of Evaluation: 01/13/17 Time of Evaluation: 11:58 - Subjective Subjective: PGY1 Note for Dr. Coates HPI: Patient seen and examined at bedside. Doing well with no complaints at this time. Pateint is s/p stroke so ROS was not easily obtained but she does look much more comfortable than she did previously. Currently her only problem is urinary retention. Objective - Vital Signs/Intake and Output Vital Signs (last 24 hours): Temp Pulse Resp BP Pulse Ox 98.5 F 91 H 18 116/75 97 01/13/17 07:20 01/13/17 07:20 01/13/17 07:20 01/13/17 07:20 01/13/17 07:20 Intake and Output: 01/13/17 01/13/17 06:59 18:59 Output Total 400 Balance -400 - Medications Medications: Current Medications Acetaminophen (Tylenol 325mg Tab) 650 mg PO Q6 PRN PRN Reason: Pain, Mild (1-3) Apixaban (Eliquis) 2.5 mg PO BID [facility] Last Admin: 01/13/17 10:23 Dose: 2.5 mg Collagenase (Santyl) 0 gm TOP DAILY [facility] Last Admin: 01/13/17 10:23 Dose: 1 applic Diltiazem HCl (Cardizem) 30 mg PO Q6 [facility] Last Admin: 01/13/17 05:49 Dose: Not Given Docusate Sodium (Colace) 100 mg PO BID [facility] Last Admin: 01/13/17 10:21 Dose: 100 mg Famotidine (Pepcid) 20 mg PO DAILY [facility] Last Admin: 01/13/17 10:22 Dose: 20 mg Cefepime HCl 1 gm/ Sodium (Chloride) 100 mls @ 100 mls/hr IVPB Q12H [facility] Last Admin: 01/13/17 05:55 Dose: 100 mls/hr Sodium Chloride (Sodium Chloride 0.9%) 1,000 mls @ 75 mls/hr IV .[id number] [facility] Last Admin: 01/13/17 10:24 Dose: Not Given Potassium Chloride (Potassium Chloride 20 Meq/100 Ml) 20 meq in 100 mls @ 50 mls/hr IVPB ONCE ONE Stop: 01/13/17 13:51 Metoprolol Tartrate (Lopressor) 50 mg PO BID [facility] Last Admin: 01/13/17 10:22 Dose: 50 mg Ondansetron HCl (Zofran Inj) 4 mg IVP Q6 PRN PRN Reason: Nausea/Vomiting Rosuvastatin Calcium (Crestor) 5 mg PO HS [facility] Last Admin: 01/12/17 22:08 Dose: 5 mg Tramadol HCl (Ultram) 25 mg PO TID [facility] Last Admin: 01/13/17 10:21 Dose: 25 mg - Labs Labs: 01/12/17 11:34 01/12/17 11:34 PT 15.4 SECONDS (9.7-12.2) H 01/10/17 06:46 INR 1.4 01/10/17 06:46 APTT 33 SECONDS (21-34) 01/10/17 06:46 - Constitutional Appears: Well, No Acute Distress - ENT Exam ENT Exam: Mucous Membranes Moist - Respiratory Exam Respiratory Exam: Clear to Ausculation Bilateral - Cardiovascular Exam Cardiovascular Exam: Tachycardia - GI/Abdominal Exam GI & Abdominal Exam: Soft. absent: Distended, Firm, Rigid, Tenderness - Neurological Exam Neurological Exam: Alert, Awake - Psychiatric Exam Psychiatric exam: Normal Affect, Normal Mood - Skin Skin Exam: Dry, Intact, Normal Color, Warm Assessment and Plan - Assessment and Plan (Free Text) Assessment: Urinary Retention * U/A * 2+ blood * 14 WBC * 41 RBC * Much improved since admission * Leggett * Uro (Mary Carmen Schofield) consulted - F/U reccs AMS * Much improved since admission * Most likely secondary to UTI Heel Ulcer * Off loading boot per podiatry * Following while in house * F/U in clinic after D/c <Bernard Coates H - Last Filed: 01/13/17 13:21> Objective - Vital Signs/Intake and Output Vital Signs (last 24 hours): Temp Pulse Resp BP Pulse Ox 98.5 F 91 H 18 116/75 97 01/13/17 07:20 01/13/17 07:20 01/13/17 07:20 01/13/17 07:20 01/13/17 07:20 Intake and Output: 01/13/17 01/13/17 06:59 18:59 Output Total 400 Balance -400 - Medications Medications: Current Medications Acetaminophen (Tylenol 325mg Tab) 650 mg PO Q6 PRN PRN Reason: Pain, Mild (1-3) Apixaban (Eliquis) 2.5 mg PO BID [facility] Last Admin: 01/13/17 10:23 Dose: 2.5 mg Collagenase (Santyl) 0 gm TOP DAILY [facility] Last Admin: 01/13/17 10:23 Dose: 1 applic Diltiazem HCl (Cardizem) 30 mg PO Q6 [facility] Last Admin: 01/13/17 05:49 Dose: Not Given Docusate Sodium (Colace) 100 mg PO BID [facility] Last Admin: 01/13/17 10:21 Dose: 100 mg Famotidine (Pepcid) 20 mg PO DAILY [facility] Last Admin: 01/13/17 10:22 Dose: 20 mg Cefepime HCl 1 gm/ Sodium (Chloride) 100 mls @ 100 mls/hr IVPB Q12H [facility] Last Admin: 01/13/17 05:55 Dose: 100 mls/hr Sodium Chloride (Sodium Chloride 0.9%) 1,000 mls @ 75 mls/hr IV .[id number] [facility] Last Admin: 01/13/17 10:24 Dose: Not Given Potassium Chloride (Potassium Chloride 20 Meq/100 Ml) 20 meq in 100 mls @ 50 mls/hr IVPB ONCE ONE Stop: 01/13/17 13:51 Metoprolol Tartrate (Lopressor) 50 mg PO BID [facility] Last Admin: 01/13/17 10:22 Dose: 50 mg Ondansetron HCl (Zofran Inj) 4 mg IVP Q6 PRN PRN Reason: Nausea/Vomiting Rosuvastatin Calcium (Crestor) 5 mg PO HS [facility] Last Admin: 01/12/17 22:08 Dose: 5 mg Tramadol HCl (Ultram) 25 mg PO TID [facility] Last Admin: 01/13/17 10:21 Dose: 25 mg - Labs Labs: 01/13/17 12:45 01/13/17 12:45 PT 15.2 SECONDS (9.7-12.2) H 01/13/17 12:45 INR 1.3 01/13/17 12:45 APTT 35 SECONDS (21-34) H 01/13/17 12:45 Attending/Attestation - Attestation I have personally seen and examined this patient.: Yes I have fully participated in the care of the patient.: Yes I have reviewed all pertinent clinical information, including history, physical exam and plan: Yes Notes (Text): Medical Attending: Patient was seen and examined by me. Agree with the above note by the resident. The patient is currently on IV Cefepime, as mentioned previously the urine culture as well as wound culture are showing growth of E coli and Proteus that is sensitive to the Cefepime From what I understand, the plan was for patient to be discharged previously however it was noted that she has been retaining a lot of urine and has required straight cath several times and now has a leggett cathter. There is a history of a recent stroke that occured in the past. thank you Bernard Coates
[2017-01-13 12:56] LABS: BASO % 0.5 % (0.0-2.0); EOS # 0.1 K/uL (0.0-0.7); EOS % 2.7 % (0.0-4.0); HEMATOCRIT 32.7 % (34.0-47.0); LYMPH # 1.1 K/uL (1.0-4.3); LYMPH % 20.7 % (20.0-40.0); MEAN CELL VOLUME 93.5 fL (81.0-99.0); MEAN CORPUSCULAR HEMOGLOBIN 30.4 pg (27.0-31.0); MEAN CORPUSCULAR HGB CONC 32.5 g/dL (33.0-37.0); MEAN PLATELET VOLUME 8.4 fL (7.2-11.7); MONO # 0.5 K/uL (0.0-0.8); MONO % 9.4 % (0.0-10.0); NRBC % 0.1 % (0.0-2.0); RED CELL DISTRIBUTION WIDTH 17.1 % (11.5-14.5); WHITE BLOOD COUNT 5.1 K/uL (4.8-10.8)
[2017-01-13 13:03] LABS: INR 1.3
[2017-01-13 13:07] LABS: CHLORIDE 109 mmol/L (98-107)
[2017-01-13 13:08] LABS: POTASSIUM 3.4 mmol/L (3.6-5.2); SODIUM 136 mmol/L (132-148)
[2017-01-13 13:10] LABS: ALB/GLOB RATIO 0.9 (1.0-2.1); AST/SGOT 35 U/L (14-36); BILIRUBIN,TOTAL 0.7 mg/dL (0.2-1.3); CARBON DIOXIDE 20 mmol/L (22-30); GFR AFRICAN-AMERICAN > 60; TOTAL PROTEIN 4.9 g/dL (6.3-8.3)
[2017-01-13 13:11] LABS: ALKALINE PHOSPHATASE 82 U/L (38-126); ALT/SGPT 38 U/L (9-52); BLOOD UREA NITROGEN 6 mg/dL (7-17); CALCIUM 8.2 mg/dl (8.6-10.4); GLUCOSE,RANDOM 86 mg/dL (65-105); MAGNESIUM 1.7 mg/dL (1.6-2.3); PHOSPHOROUS 2.4 mg/dL (2.5-4.5)
[2017-01-13 13:25] VITALS: RESP 20
--- NOTE | 2017-01-13 14:27 | CP.PCM.PN ---
Subjective - Date & Time of Evaluation Date of Evaluation: 01/13/17 Time of Evaluation: 11:40 - Subjective Subjective: 86 year old female was seen resting comfortably at bedside this afternoon regarding left heel ulceration. Patient NAD. Objective - Vital Signs/Intake and Output Vital Signs (last 24 hours): Temp Pulse Resp BP Pulse Ox 98 F 122 H 20 105/77 98 01/13/17 13:24 01/13/17 13:24 01/13/17 13:24 01/13/17 13:24 01/13/17 13:24 Intake and Output: 01/13/17 01/13/17 06:59 18:59 Output Total 400 Balance -400 - Medications Medications: Current Medications Acetaminophen (Tylenol 325mg Tab) 650 mg PO Q6 PRN PRN Reason: Pain, Mild (1-3) Apixaban (Eliquis) 2.5 mg PO BID [facility] Last Admin: 01/13/17 10:23 Dose: 2.5 mg Collagenase (Santyl) 0 gm TOP DAILY [facility] Last Admin: 01/13/17 10:23 Dose: 1 applic Diltiazem HCl (Cardizem) 30 mg PO Q6 [facility] Last Admin: 01/13/17 13:32 Dose: 30 mg Docusate Sodium (Colace) 100 mg PO BID [facility] Last Admin: 01/13/17 10:21 Dose: 100 mg Famotidine (Pepcid) 20 mg PO DAILY [facility] Last Admin: 01/13/17 10:22 Dose: 20 mg Cefepime HCl 1 gm/ Sodium (Chloride) 100 mls @ 100 mls/hr IVPB Q12H [facility] Last Admin: 01/13/17 05:55 Dose: 100 mls/hr Sodium Chloride (Sodium Chloride 0.9%) 1,000 mls @ 75 mls/hr IV .[id number] [facility] Last Admin: 01/13/17 10:24 Dose: Not Given Metoprolol Tartrate (Lopressor) 50 mg PO BID [facility] Last Admin: 01/13/17 10:22 Dose: 50 mg Ondansetron HCl (Zofran Inj) 4 mg IVP Q6 PRN PRN Reason: Nausea/Vomiting Rosuvastatin Calcium (Crestor) 5 mg PO HS [facility] Last Admin: 01/12/17 22:08 Dose: 5 mg Tramadol HCl (Ultram) 25 mg PO TID [facility] Last Admin: 01/13/17 13:31 Dose: 25 mg - Labs Labs: 01/13/17 12:45 01/13/17 12:45 PT 15.2 SECONDS (9.7-12.2) H 01/13/17 12:45 INR 1.3 01/13/17 12:45 APTT 35 SECONDS (21-34) H 01/13/17 12:45 - Constitutional Appears: Well, Non-toxic, No Acute Distress - Extremities Exam Additional comments: Left lower extremity focused examination: Vasc: DP and PT pulses 2/4. CFT < 3 sec to all digits. Temperature gradient warm to cool from proximal to distal. No pedal edema. Neuro: Protective sensation grossly diminished Derm: An approximately 3.3 cm x 1.8 cm x 0.1 cm ulceration noted to posteroplantar L heel. Fibrotic base noted. No malodor, no active drainage, no tunneling, no undermining, no fluctuance, no probe to bone. No clinical signs of infection present. Ortho: tenderness to palpation of left plantar posterior heel ulceration - Neurological Exam Neurological Exam: Alert, Awake, Oriented x3 Assessment and Plan - Assessment and Plan (Free Text) Assessment: 86 year old female with left heel pressure ulceration secondary to recent bed immobilization following stroke Plan: Pt seen and evaluated Discussed with attending Dr. Hilliard lab, chart, vitals reviewed Left heel dressed with santyl, DSD Offloading boots to be worn at all times Continue IV abx Patient stable for d/c from podiatry stand point Podiatry will continue to follow while in house
--- NOTE | 2017-01-14 02:04 | CP.PCM.PN ---
Addendum entered and electronically signed by Troy Arvizu DO 01/14/17 10: 49: L. Arm Swelling * Has been present on admission * If there is a thrombosis causing the swelling she is already on the proper anticoagulation and has been since admission Original Note: <Garima Cooley - Last Filed: 01/14/17 02:01> Subjective - Date & Time of Evaluation Date of Evaluation: 01/14/17 Time of Evaluation: 02:00 - Subjective Subjective: Medicine Note for Dr. Kishan Ray Patient was seen and examined at bedside. Patient is resting. No acute complaints. Denied fever, chills, headache, chest pain, abdominal pain, n/v/d/c , or urinary symptoms Objective - Vital Signs/Intake and Output Vital Signs (last 24 hours): Temp Pulse Resp BP Pulse Ox 98.7 F 99 H 20 108/74 95 01/13/17 23:15 01/13/17 23:40 01/13/17 23:15 01/13/17 23:15 01/13/17 23:15 Intake and Output: 01/13/17 01/14/17 18:59 06:59 Intake Total 1080 Output Total 650 500 Balance 430 -500 - Medications Medications: Current Medications Acetaminophen (Tylenol 325mg Tab) 650 mg PO Q6 PRN PRN Reason: Pain, Mild (1-3) Last Admin: 01/13/17 22:11 Dose: 650 mg Apixaban (Eliquis) 2.5 mg PO BID [facility] Last Admin: 01/13/17 18:01 Dose: 2.5 mg Collagenase (Santyl) 0 gm TOP DAILY [facility] Last Admin: 01/13/17 10:23 Dose: 1 applic Diltiazem HCl (Cardizem) 30 mg PO Q6 [facility] Last Admin: 01/14/17 00:09 Dose: 30 mg Docusate Sodium (Colace) 100 mg PO BID [facility] Last Admin: 01/13/17 18:01 Dose: 100 mg Famotidine (Pepcid) 20 mg PO DAILY [facility] Last Admin: 01/13/17 10:22 Dose: 20 mg Cefepime HCl 1 gm/ Sodium (Chloride) 100 mls @ 100 mls/hr IVPB Q12H [facility] Last Admin: 01/13/17 18:01 Dose: 100 mls/hr Sodium Chloride (Sodium Chloride 0.9%) 1,000 mls @ 75 mls/hr IV .[id number] [facility] Last Admin: 01/13/17 21:15 Dose: 75 mls/hr Metoprolol Tartrate (Lopressor) 50 mg PO BID [facility] Last Admin: 01/13/17 18:01 Dose: 50 mg Ondansetron HCl (Zofran Inj) 4 mg IVP Q6 PRN PRN Reason: Nausea/Vomiting Rosuvastatin Calcium (Crestor) 5 mg PO HS [facility] Last Admin: 01/13/17 22:11 Dose: 5 mg Tramadol HCl (Ultram) 25 mg PO TID [facility] Last Admin: 01/13/17 18:01 Dose: 25 mg - Labs Labs: 01/13/17 12:45 01/13/17 12:45 PT 15.2 SECONDS (9.7-12.2) H 01/13/17 12:45 INR 1.3 01/13/17 12:45 APTT 35 SECONDS (21-34) H 01/13/17 12:45 - Constitutional Appears: No Acute Distress - Head Exam Head Exam: NORMAL INSPECTION, NORMOCEPHALIC - Eye Exam Eye Exam: EOMI, Normal appearance, PERRL - ENT Exam ENT Exam: Mucous Membranes Moist - Respiratory Exam Respiratory Exam: Clear to Ausculation Bilateral, NORMAL BREATHING PATTERN - Cardiovascular Exam Cardiovascular Exam: REGULAR RHYTHM. absent: RRR - GI/Abdominal Exam GI & Abdominal Exam: Soft, Normal Bowel Sounds. absent: Distended, Tenderness - Extremities Exam Extremities Exam: Normal Inspection. absent: Pedal Edema, Tenderness - Neurological Exam Neurological Exam: Alert, Awake, Oriented x3 - Psychiatric Exam Psychiatric exam: Normal Affect, Normal Mood - Skin Skin Exam: Dry, Intact, Normal Color, Warm Assessment and Plan - Assessment and Plan (Free Text) Plan: UTI * U/A: 2+ LE * UC: E coli and Proteus * Started on Cefepime * Urine culture as well as wound culture are showing growth of that is sensitive to the Cefepime Urinary Retention * Gleason inserted * Uro (Mary Carmen Schofield) consulted - F/U reccs AMS * Much improved since admission * Most likely secondary to UTI Heel Ulcer * Off loading boot per podiatry * Following while in house * F/U in clinic after D/C <Frederic Ray - Last Filed: 01/14/17 16:52> Objective - Vital Signs/Intake and Output Vital Signs (last 24 hours): Temp Pulse Resp BP Pulse Ox 97.0 F L 103 H 20 99/61 L 95 01/14/17 10:00 01/14/17 14:00 01/14/17 10:00 01/14/17 11:42 01/13/17 23:15 Intake and Output: 01/14/17 01/14/17 06:59 18:59 Output Total 900 Balance -900 - Medications Medications: Current Medications Acetaminophen (Tylenol 325mg Tab) 650 mg PO Q6 PRN PRN Reason: Pain, Mild (1-3) Last Admin: 01/13/17 22:11 Dose: 650 mg Apixaban (Eliquis) 2.5 mg PO BID [facility] Last Admin: 01/14/17 09:32 Dose: 2.5 mg Collagenase (Santyl) 0 gm TOP DAILY [facility] Last Admin: 01/14/17 10:34 Dose: Not Given Diltiazem HCl (Cardizem) 30 mg PO Q6 [facility] Last Admin: 01/14/17 11:42 Dose: Not Given Docusate Sodium (Colace) 100 mg PO BID [facility] Last Admin: 01/14/17 09:32 Dose: 100 mg Famotidine (Pepcid) 20 mg PO DAILY [facility] Last Admin: 01/14/17 09:32 Dose: 20 mg Cefepime HCl 1 gm/ Sodium (Chloride) 100 mls @ 100 mls/hr IVPB Q12H [facility] Last Admin: 01/14/17 05:51 Dose: 100 mls/hr Sodium Chloride (Sodium Chloride 0.9%) 1,000 mls @ 75 mls/hr IV .[id number] [facility] Last Admin: 01/14/17 12:48 Dose: 75 mls/hr Metoprolol Tartrate (Lopressor) 50 mg PO BID [facility] Last Admin: 01/14/17 09:32 Dose: 50 mg Ondansetron HCl (Zofran Inj) 4 mg IVP Q6 PRN PRN Reason: Nausea/Vomiting Rosuvastatin Calcium (Crestor) 5 mg PO HS [facility] Last Admin: 01/13/17 22:11 Dose: 5 mg Tramadol HCl (Ultram) 25 mg PO TID [facility] Last Admin: 01/14/17 13:42 Dose: 25 mg - Labs Labs: 01/14/17 08:32 01/14/17 08:32 PT 15.2 SECONDS (9.7-12.2) H 01/13/17 12:45 INR 1.3 01/13/17 12:45 APTT 35 SECONDS (21-34) H 01/13/17 12:45 Attending/Attestation - Attestation I have personally seen and examined this patient.: Yes I have fully participated in the care of the patient.: Yes I have reviewed all pertinent clinical information, including history, physical exam and plan: Yes Notes (Text): 01/14/17 16:46 Patient was seen and examined at 10:30 AM 01/14/17 556 B ROS Not possible Exam including the above: Left Heal Stage II Ulcer Left Arm greater in circumference than the Right Arm (this is a chronic issue) Assessments: UTI: E.coli and treated with Vanco and Cefepime. F/U Repeat Urine Culture done today 01/14/17 Left Heal Ulcer: Podiatry Dr. Hilliard. Bacitracin and Santyl Hx Atrial Fibrillation: rate controlled. Eliquis 2.5 mg PO 2x/day, Cardizem 30 mg PO Q6H Hx AMS: CT Head showed NO acute findings. Likely secondary to UTI Hx Constipation: no bowel movement today as per nurse. Obstruction Series showed nonspecific bowel gas pattern. Colace 100 mg PO 2x/day Possible Urinary Retention: Gleason is currently in place. Pending Urology Dr. Schofield evaluation. Medicine Team will discontinue the Gleason on morning 01/15/17 and note Urine output and there is none then will order Bladder Scan to note if there is any retention by 1 PM 01/15/17. Frederic Ray D.O.
[2017-01-14] MEDS: Cefepime 1 GM in Sodium Chloride 0.9% 100 ML IVPB SCH ×2 (05:51→17:32)
[2017-01-14 08:57] LABS: BASO % 0.5 % (0.0-2.0); EOS # 0.3 K/uL (0.0-0.7); EOS % 5.3 % (0.0-4.0); LYMPH # 1.6 K/uL (1.0-4.3); LYMPH % 27.1 % (20.0-40.0); MEAN PLATELET VOLUME 8.4 fL (7.2-11.7); MONO # 0.6 K/uL (0.0-0.8); MONO % 9.3 % (0.0-10.0); RED CELL DISTRIBUTION WIDTH 16.7 % (11.5-14.5)
[2017-01-14] MEDS: Tramadol 25 mg PO SCH ×3 (09:34→17:31)
[2017-01-14 09:42] LABS: ALKALINE PHOSPHATASE 100 U/L (38-126); ALT/SGPT 37 U/L (9-52); AST/SGOT 42 U/L (14-36); BILIRUBIN,TOTAL 0.6 mg/dL (0.2-1.3); BLOOD UREA NITROGEN 4 mg/dL (7-17); CALCIUM 8.6 mg/dl (8.6-10.4); CARBON DIOXIDE 23 mmol/L (22-30); CHLORIDE 106 mmol/L (98-107); GFR AFRICAN-AMERICAN > 60; GLUCOSE,RANDOM 81 mg/dL (65-105); MAGNESIUM 1.8 mg/dL (1.6-2.3); PHOSPHOROUS 2.4 mg/dL (2.5-4.5); POTASSIUM 3.3 mmol/L (3.6-5.2); SODIUM 136 mmol/L (132-148); TOTAL PROTEIN 5.2 g/dL (6.3-8.3)
--- NOTE | 2017-01-14 10:21 | CP.PCM.PN ---
Subjective - Date & Time of Evaluation Date of Evaluation: 01/14/17 Time of Evaluation: 11:10 - Subjective Subjective: 86 year old female was seen resting comfortably at bedside this afternoon regarding left heel ulceration. Pt is still confused and muttering incoherently , though nursing reports she is no longer erratic. Patient NAD. Objective - Vital Signs/Intake and Output Vital Signs (last 24 hours): Temp Pulse Resp BP Pulse Ox 98.7 F 99 H 20 114/77 95 01/13/17 23:15 01/14/17 07:00 01/13/17 23:15 01/14/17 05:50 01/13/17 23:15 Intake and Output: 01/14/17 01/14/17 06:59 18:59 Output Total 900 Balance -900 - Medications Medications: Current Medications Acetaminophen (Tylenol 325mg Tab) 650 mg PO Q6 PRN PRN Reason: Pain, Mild (1-3) Last Admin: 01/13/17 22:11 Dose: 650 mg Apixaban (Eliquis) 2.5 mg PO BID [facility] Last Admin: 01/14/17 09:32 Dose: 2.5 mg Collagenase (Santyl) 0 gm TOP DAILY [facility] Last Admin: 01/13/17 10:23 Dose: 1 applic Diltiazem HCl (Cardizem) 30 mg PO Q6 [facility] Last Admin: 01/14/17 05:51 Dose: 30 mg Docusate Sodium (Colace) 100 mg PO BID [facility] Last Admin: 01/14/17 09:32 Dose: 100 mg Famotidine (Pepcid) 20 mg PO DAILY [facility] [place] Last Admin: 01/14/17 09:32 Dose: 20 mg Cefepime HCl 1 gm/ Sodium (Chloride) 100 mls @ 100 mls/hr IVPB Q12H [facility] Last Admin: 01/14/17 05:51 Dose: 100 mls/hr Sodium Chloride (Sodium Chloride 0.9%) 1,000 mls @ 75 mls/hr IV .[id number] [facility] Last Admin: 01/13/17 21:15 Dose: 75 mls/hr Metoprolol Tartrate (Lopressor) 50 mg PO BID [facility] Last Admin: 01/14/17 09:32 Dose: 50 mg Ondansetron HCl (Zofran Inj) 4 mg IVP Q6 PRN PRN Reason: Nausea/Vomiting Rosuvastatin Calcium (Crestor) 5 mg PO HS [facility] Last Admin: 01/13/17 22:11 Dose: 5 mg Tramadol HCl (Ultram) 25 mg PO TID [facility] Last Admin: 01/14/17 09:34 Dose: 25 mg - Labs Labs: 01/14/17 08:32 01/14/17 08:32 PT 15.2 SECONDS (9.7-12.2) H 01/13/17 12:45 INR 1.3 01/13/17 12:45 APTT 35 SECONDS (21-34) H 01/13/17 12:45 - Constitutional Appears: Well, Non-toxic, No Acute Distress, Confused - Extremities Exam Additional comments: Left lower extremity focused examination: Vasc: DP and PT pulses 2/4. CFT < 3 sec to all digits. Temperature gradient warm to cool from proximal to distal. No pedal edema. Neuro: Protective sensation grossly diminished Derm: An approximately 3.3 cm x 1.8 cm x 0.1 cm ulceration noted to posteroplantar L heel. Fibrotic base noted. No malodor, no active drainage, no tunneling, no undermining, no fluctuance, no probe to bone. No clinical signs of infection present. Ortho: tenderness to palpation of left plantar posterior heel ulceration - Neurological Exam Neurological Exam: Alert, Altered, Awake Assessment and Plan - Assessment and Plan (Free Text) Assessment: 86 year old female with left heel pressure ulceration secondary to recent bed immobilization following stroke Plan: Pt seen and evaluated Discussed with attending Dr. Hilliard Lab, chart, vitals reviewed Left heel dressed with santyl, DSD Offloading boots to be worn at all times Continue IV abx Patient stable for d/c from podiatry stand point Podiatry will continue to follow while in house
[2017-01-14] MEDS: Collagenase 250 Units/gm Ointment(30 gm) TOP SCH (10:34)
[2017-01-14] MEDS: Sodium Chloride 0.9% 1,000 ML IV SCH (12:48)
[2017-01-15] MEDS: Sodium Chloride 0.9% 1,000 ML IV SCH ×2 (04:22→20:46)
[2017-01-15] MEDS: Cefepime 1 GM in Sodium Chloride 0.9% 100 ML IVPB SCH ×2 (05:19→17:26)
--- NOTE | 2017-01-15 08:26 | CP.PCM.PN ---
Subjective - Date & Time of Evaluation Date of Evaluation: 01/15/17 Time of Evaluation: 08:26 - Subjective Subjective: 86 year old female was seen resting comfortably at bedside this afternoon with attending, Dr. Hilliard regarding left heel ulceration. Patient NAD. Objective - Vital Signs/Intake and Output Vital Signs (last 24 hours): Temp Pulse Resp BP Pulse Ox 98.6 F 93 H 20 96/57 L 95 01/15/17 00:00 01/15/17 04:05 01/15/17 00:00 01/15/17 00:00 01/15/17 00:00 Intake and Output: 01/15/17 01/15/17 06:59 18:59 Intake Total 600 Output Total 1650 Balance -1050 - Medications Medications: Current Medications Acetaminophen (Tylenol 325mg Tab) 650 mg PO Q6 PRN PRN Reason: Pain, Mild (1-3) Last Admin: 01/13/17 22:11 Dose: 650 mg Apixaban (Eliquis) 2.5 mg PO BID [facility] Last Admin: 01/14/17 18:00 Dose: 2.5 mg Collagenase (Santyl) 0 gm TOP DAILY [facility] Last Admin: 01/14/17 10:34 Dose: Not Given Diltiazem HCl (Cardizem) 30 mg PO Q6 [facility] Last Admin: 01/15/17 05:43 Dose: Not Given Docusate Sodium (Colace) 100 mg PO BID [facility] Last Admin: 01/14/17 17:32 Dose: 100 mg Famotidine (Pepcid) 20 mg PO DAILY [facility] Last Admin: 01/14/17 09:32 Dose: 20 mg Gabapentin (Neurontin) 300 mg PO BID [facility] Last Admin: 01/14/17 22:11 Dose: 300 mg Cefepime HCl 1 gm/ Sodium (Chloride) 100 mls @ 100 mls/hr IVPB Q12H [facility] Last Admin: 01/15/17 05:19 Dose: 100 mls/hr Sodium Chloride (Sodium Chloride 0.9%) 1,000 mls @ 75 mls/hr IV .[id number] [facility] Last Admin: 01/15/17 04:22 Dose: 75 mls/hr Metoprolol Tartrate (Lopressor) 50 mg PO BID [facility] Last Admin: 01/14/17 17:32 Dose: 50 mg Ondansetron HCl (Zofran Inj) 4 mg IVP Q6 PRN PRN Reason: Nausea/Vomiting Rosuvastatin Calcium (Crestor) 5 mg PO HS [facility] Last Admin: 01/14/17 22:12 Dose: 5 mg - Labs Labs: 01/14/17 08:32 01/14/17 08:32 PT 15.2 SECONDS (9.7-12.2) H 01/13/17 12:45 INR 1.3 01/13/17 12:45 APTT 35 SECONDS (21-34) H 01/13/17 12:45 - Constitutional Appears: No Acute Distress, Confused - Extremities Exam Additional comments: Left lower extremity focused examination: Vasc: DP and PT pulses 2/4. CFT < 3 sec to all digits. Temperature gradient warm to cool from proximal to distal. No pedal edema. Neuro: Protective sensation grossly diminished Derm: An approximately 3.3 cm x 1.8 cm x 0.1 cm ulceration noted to posteroplantar left heel with a fibrotic base, the periwound is granular, with healing noted. No malodor, no active drainage, no tunneling, no undermining, no fluctuance, no probe to bone. No clinical signs of infection present. Ortho: tenderness to palpation of left plantar posterior heel ulceration - Neurological Exam Neurological Exam: Awake Assessment and Plan - Assessment and Plan (Free Text) Assessment: 86 year old female with left heel pressure ulceration secondary to recent bed immobilization following stroke Plan: Pt examined and evaluated with attending Dr. Hilliard lab, chart, vitals reviewed Left heel dressed with santyl, DSD Offloading boots to be worn at all times Continue IV abx Patient stable for d/c from podiatry stand point Podiatry will continue to follow while in house
--- NOTE | 2017-01-15 09:05 | CP.PCM.PN ---
<Troy Arvizu - Last Filed: 01/15/17 15:57> Subjective - Date & Time of Evaluation Date of Evaluation: 01/15/17 Time of Evaluation: 09:05 - Subjective Subjective: PGY1 Note for Dr. Ray HPI: Patient was seen and examined at bedside. Not as confused as yesterday. Patient with history of stroke, no acute distress. Pt confirmed bilateral leg pain and denied fever, headache, nausea, vomiting. No longer yelling for Sachin. Kept saying she wanted me to feed the chickens in [place]. No other complaints at this time. Objective - Vital Signs/Intake and Output Vital Signs (last 24 hours): Temp Pulse Resp BP Pulse Ox 97.8 F 77 20 107/73 94 L 01/15/17 08:00 01/15/17 08:00 01/15/17 08:00 01/15/17 08:00 01/15/17 08:00 Intake and Output: 01/15/17 01/15/17 06:59 18:59 Intake Total 600 Output Total 1650 Balance -1050 - Medications Medications: Current Medications Acetaminophen (Tylenol 325mg Tab) 650 mg PO Q6 PRN PRN Reason: Pain, Mild (1-3) Last Admin: 01/13/17 22:11 Dose: 650 mg Apixaban (Eliquis) 2.5 mg PO BID [facility] Last Admin: 01/14/17 18:00 Dose: 2.5 mg Collagenase (Santyl) 0 gm TOP DAILY [facility] Last Admin: 01/14/17 10:34 Dose: Not Given Diltiazem HCl (Cardizem) 30 mg PO Q6 [facility] Last Admin: 01/15/17 05:43 Dose: Not Given Docusate Sodium (Colace) 100 mg PO BID [facility] Last Admin: 01/14/17 17:32 Dose: 100 mg Famotidine (Pepcid) 20 mg PO DAILY [facility] Last Admin: 01/14/17 09:32 Dose: 20 mg Gabapentin (Neurontin) 300 mg PO BID [facility] Last Admin: 01/14/17 22:11 Dose: 300 mg Cefepime HCl 1 gm/ Sodium (Chloride) 100 mls @ 100 mls/hr IVPB Q12H [facility] Last Admin: 01/15/17 05:19 Dose: 100 mls/hr Sodium Chloride (Sodium Chloride 0.9%) 1,000 mls @ 75 mls/hr IV .[id number] [facility] Last Admin: 01/15/17 04:22 Dose: 75 mls/hr Metoprolol Tartrate (Lopressor) 50 mg PO BID [facility] Last Admin: 01/14/17 17:32 Dose: 50 mg Ondansetron HCl (Zofran Inj) 4 mg IVP Q6 PRN PRN Reason: Nausea/Vomiting Rosuvastatin Calcium (Crestor) 5 mg PO HS [facility] Last Admin: 01/14/17 22:12 Dose: 5 mg - Labs Labs: 01/14/17 08:32 01/14/17 08:32 PT 15.2 SECONDS (9.7-12.2) H 01/13/17 12:45 INR 1.3 01/13/17 12:45 APTT 35 SECONDS (21-34) H 01/13/17 12:45 - Constitutional Appears: Non-toxic, No Acute Distress, Cachectic, Chronically Ill - Head Exam Head Exam: ATRAUMATIC, NORMAL INSPECTION, NORMOCEPHALIC - ENT Exam ENT Exam: Mucous Membranes Moist - Respiratory Exam Respiratory Exam: Clear to Ausculation Bilateral, Wheezes - Cardiovascular Exam Cardiovascular Exam: Tachycardia, Irregular Rhythm - GI/Abdominal Exam GI & Abdominal Exam: Soft, Normal Bowel Sounds. absent: Distended, Tenderness - Neurological Exam Neurological Exam: Alert, Awake. absent: Oriented x3 - Skin Skin Exam: Dry, Intact, Normal Color, Warm Assessment and Plan - Assessment and Plan (Free Text) Assessment: L. Arm Swelling * Has been present on admission * If there is a thrombosis causing the swelling she is already on the proper anticoagulation and has been since admission SOB * CXR = small pleural effusion. Atalectasis UTI * U/A: 2+ LE * UC: E coli and Proteus * Started on Cefepime * Urine culture as well as wound culture are showing growth of that is sensitive to the Cefepime Urinary Retention * Removed leggett. Will do bladder scan and see of still retaining. * Uro (Mary Carmen Schofield) consulted - F/U reccs AMS * Much improved since admission * Most likely secondary to UTI Heel Ulcer * Off loading boot per podiatry * Following while in house * F/U in clinic after D/C <Frederic Ray - Last Filed: 01/15/17 19:09> Objective - Vital Signs/Intake and Output Vital Signs (last 24 hours): Temp Pulse Resp BP Pulse Ox 98.6 F 102 H 20 96/68 L 96 01/15/17 15:32 01/15/17 15:32 01/15/17 15:32 01/15/17 15:32 01/15/17 15:32 Intake and Output: 01/15/17 01/16/17 18:59 06:59 Intake Total 810 Output Total 500 Balance 310 - Medications Medications: Current Medications Acetaminophen (Tylenol 325mg Tab) 650 mg PO Q6 PRN PRN Reason: Pain, Mild (1-3) Last Admin: 01/13/17 22:11 Dose: 650 mg Apixaban (Eliquis) 2.5 mg PO BID [facility] Last Admin: 01/15/17 17:28 Dose: 2.5 mg Collagenase (Santyl) 0 gm TOP DAILY [facility] Last Admin: 01/15/17 10:45 Dose: 1 applic Diltiazem HCl (Cardizem) 30 mg PO Q6 [facility] Last Admin: 01/15/17 17:28 Dose: 30 mg Docusate Sodium (Colace) 100 mg PO BID [facility] Last Admin: 01/15/17 17:28 Dose: 100 mg Famotidine (Pepcid) 20 mg PO DAILY [facility] Last Admin: 01/15/17 10:45 Dose: 20 mg Gabapentin (Neurontin) 300 mg PO BID [facility] Last Admin: 01/15/17 17:28 Dose: 300 mg Cefepime HCl 1 gm/ Sodium (Chloride) 100 mls @ 100 mls/hr IVPB Q12H [facility] Last Admin: 01/15/17 17:26 Dose: 100 mls/hr Sodium Chloride (Sodium Chloride 0.9%) 1,000 mls @ 75 mls/hr IV .[id number] [facility] Last Admin: 01/15/17 04:22 Dose: 75 mls/hr Metoprolol Tartrate (Lopressor) 50 mg PO BID [facility] Last Admin: 01/15/17 17:28 Dose: 50 mg Ondansetron HCl (Zofran Inj) 4 mg IVP Q6 PRN PRN Reason: Nausea/Vomiting Rosuvastatin Calcium (Crestor) 5 mg PO HS [facility] Last Admin: 01/14/17 22:12 Dose: 5 mg - Labs Labs: 01/15/17 10:57 01/15/17 10:57 PT 15.2 SECONDS (9.7-12.2) H 01/13/17 12:45 INR 1.3 01/13/17 12:45 APTT 35 SECONDS (21-34) H 01/13/17 12:45 Attending/Attestation - Attestation I have personally seen and examined this patient.: Yes I have fully participated in the care of the patient.: Yes I have reviewed all pertinent clinical information, including history, physical exam and plan: Yes Notes (Text): 01/15/17 19:03 Patient was seen and examined at 5 PM 01/15/17 556 B ROS Not possible Exam including the above: Left Heal Stage II Ulcer Left Arm greater in circumference than the Right Arm (this is a chronic issue) Assessments: UTI: E.coli and treated with Vanco and Cefepime. F/U Repeat Urine Culture done and it shows NO growth Left Heal Ulcer: Podiatry Dr. Hilliard. Bacitracin and Santyl Hx Atrial Fibrillation: rate controlled. Eliquis 2.5 mg PO 2x/day, Cardizem 30 mg PO Q6H Hx AMS: CT Head showed NO acute findings. Likely secondary to UTI. Neurology Consultation obtained with Dr. Aiden Tracey at the request of family (Rob [phone] Ketty and Son in law) to determine if patient has dementia. I spoke with Dr. Tracey and he recommended evaluation for dementia once her acute issues have resolved as an outpatient. Hx Constipation: no bowel movement today as per nurse. Obstruction Series showed nonspecific bowel gas pattern. Colace 100 mg PO 2x/day Possible Urinary Retention: Leggett was discontinued at 1 PM today 01/15/17 and by 5 PM, bladder scan showed 128 ml urine in bladder. Nurse notified Dr. Rosa Schofield of results and ok without leggett from his standpoint as per nurse. I have asked Nurse to repeat Bladder Scan at 10 PM tonight 01/15/17. I spoke with Training Administrator Adriana and patient does not qualify for [facility] or Home PT because of lack of insurance. Patient will likely be discharged back to home tomorrow 01/16/17. Frederic Ray D.O.
[2017-01-15] MEDS: Collagenase 250 Units/gm Ointment(30 gm) TOP SCH (10:45)
[2017-01-15 11:10] LABS: BASO % 0.4 % (0.0-2.0); EOS # 0.3 K/uL (0.0-0.7); EOS % 5.3 % (0.0-4.0); HEMATOCRIT 34.7 % (34.0-47.0); LYMPH # 1.4 K/uL (1.0-4.3); LYMPH % 23.7 % (20.0-40.0); MEAN CELL VOLUME 93.8 fL (81.0-99.0); MEAN CORPUSCULAR HEMOGLOBIN 30.8 pg (27.0-31.0); MEAN CORPUSCULAR HGB CONC 32.9 g/dL (33.0-37.0); MEAN PLATELET VOLUME 8.5 fL (7.2-11.7); MONO # 0.5 K/uL (0.0-0.8); NRBC % 0.1 % (0.0-2.0); RED CELL DISTRIBUTION WIDTH 17.3 % (11.5-14.5); WHITE BLOOD COUNT 5.7 K/uL (4.8-10.8)
[2017-01-15 11:23] LABS: CHLORIDE 109 mmol/L (98-107); SODIUM 139 mmol/L (132-148)
[2017-01-15 11:24] LABS: POTASSIUM 3.2 mmol/L (3.6-5.2)
[2017-01-15 11:26] LABS: ALKALINE PHOSPHATASE 81 U/L (38-126); AST/SGOT 30 U/L (14-36); BILIRUBIN,TOTAL 0.6 mg/dL (0.2-1.3); BLOOD UREA NITROGEN 4 mg/dL (7-17); CARBON DIOXIDE 20 mmol/L (22-30); GFR AFRICAN-AMERICAN > 60; GLUCOSE,RANDOM 83 mg/dL (65-105); PHOSPHOROUS 2.6 mg/dL (2.5-4.5); TOTAL PROTEIN 4.8 g/dL (6.3-8.3)
[2017-01-15 11:27] LABS: ALB/GLOB RATIO 0.8 (1.0-2.1); ALT/SGPT 33 U/L (9-52); CALCIUM 8.1 mg/dl (8.6-10.4); MAGNESIUM 1.7 mg/dL (1.6-2.3)
--- NOTE | 2017-01-15 13:04 | RAD ---
HISTORY: Wheezing COMPARISON: Alec made with prior chest radiograph 01/09/2017 FINDINGS: LUNGS: Suspect minor bibasilar atelectasis with questionable small left-sided effusion PLEURA: As above. No pneumothorax apparent. CARDIOVASCULAR: Heart remains enlarged. Aorta is slightly ectatic and uncoiled with calcification of the aortic knob OSSEOUS STRUCTURES: No significant abnormalities. VISUALIZED UPPER ABDOMEN: Normal. OTHER FINDINGS: IMPRESSION: Suspect minor bibasilar atelectasis with questionable small left-sided effusion. Cardiomegaly.
--- NOTE | 2017-01-15 16:57 | PCM.URO ---
Urology Progress Note - Subjective Abdominal Pain: Yes Hematuria: Yes Other: retention - Objective Lab Studies: Reviewed Lab Results Last 24 Hours: Laboratory Results - last 24 hr 01/14/17 01/15/17 01/15/17 20:12 10:57 10:57 WBC 5.7 RBC 3.70 L Hgb 11.4 Hct 34.7 MCV 93.8 MCH 30.8 MCHC 32.9 L RDW 17.3 H Plt Count 187 MPV 8.5 Neut % (Auto) 61.6 Lymph % (Auto) 23.7 [place] % (Auto) 9.0 Eos % (Auto) 5.3 H Baso % (Auto) 0.4 Neut # 3.5 Lymph # 1.4 [place] # 0.5 Eos # 0.3 Baso # 0.0 Sodium 139 Potassium 3.2 L Chloride 109 H Carbon Dioxide 20 L Anion Gap 13 BUN 4 L Creatinine 0.3 L Est GFR ( Amer) > 60 Est GFR (Non-Af Amer) > 60 Random Glucose 83 Calcium 8.1 L Phosphorus 2.6 Magnesium 1.7 Total Bilirubin 0.6 AST 30 ALT 33 Alkaline Phosphatase 81 Troponin I 0.0170 Total Protein 4.8 L Albumin 2.2 L Globulin 2.6 Albumin/Globulin Ratio 0.8 L Intake & Output: Intake & Output 01/14/17 01/15/17 01/15/17 18:59 06:59 18:59 Intake Total 600 650 Output Total 1650 500 Balance -1050 150 Intake: Intake, IV Amount 600 600 Right Antecubital 600 600 Oral 50 Output: Urine 1650 500 Urethral (Gleason) 1650 500 Vital Signs: Vital Signs - 24 hr 01/14/17 01/14/17 01/15/17 18:00 23:00 00:00 Temperature 98.6 F Pulse Rate 91 H 112 H 97 H Respiratory 20 Rate Blood Pressure 96/57 L O2 Sat by Pulse 95 Oximetry 01/15/17 01/15/17 01/15/17 04:05 08:00 15:32 Temperature 97.8 F 98.6 F Pulse Rate 93 H 77 102 H Respiratory 20 20 Rate Blood Pressure 107/73 96/68 L O2 Sat by Pulse 94 L 96 Oximetry
[2017-01-15] MEDS ORDERED: Potassium Chloride 20 mEq/15 ml LIQ UD PO ONE (20:30)
[2017-01-16] MEDS: Sodium Chloride 0.9% 1,000 ML IV SCH ×2 (04:51→12:39)
[2017-01-16] MEDS: Cefepime 1 GM in Sodium Chloride 0.9% 100 ML IVPB SCH (05:12)
--- NOTE | 2017-01-16 05:51 | CON ---
DATE: 01/15/2017 CHIEF COMPLAINT: Evaluation for dementia. HISTORY OF PRESENT ILLNESS: This is an 86-year-old woman with past medical history of hypertension, frequent urinary tract infections, and dyslipidemia, who came into the hospital with urinary retention, found to have urinary tract infection, growing E. coli and Proteus, on cefepime and had some left arm swelling and shortness of breath, for which has been evaluated, was consulted to evaluate for dementia. A CAT scan of the head on 01/09/2017, showed chronic infarct in the right frontotemporal lobe area with cystic encephalomalacia and laminar necrosis. She also had transient cerebral hypoperfusion with low systolic and diastolic blood pressures seen on her trend of vital signs and metabolic derangements. She follows simple commands. She is moving all extremities and has slight spastic left-sided weakness from prior CVA. She withdraws from noxious stimulus. Follows simple commands, dos not know the month, date, or year, but follows simple commands. PAST MEDICAL HISTORY: History of right frontotemporal lobe infarct, history of mild residual weakness, degenerative arthritis, hypertension, dyslipidemia. FAMILY HISTORY: Noncontributory. SOCIAL HISTORY: No illicit drug use, smoking, or EtOH abuse. REVIEW OF SYSTEMS: A 14-point review systems as per HPI. ALLERGIES: NO KNOWN DRUG ALLERGIES. MEDICATIONS: Reviewed by nurse practitioner, see med reconciliation sheet. PHYSICAL EXAMINATION GENERAL: The patient is seen up in bed, in no distress. VITAL SIGNS: Temperature 98.6, pulse rate of 77, blood pressure 98/68, respiratory rate 20, O2 saturation 96% on room air. HEENT: Atraumatic and normocephalic. PERRLA. Extraocular muscles intact. NECK: Supple. No JVD. No adenopathy noted. LUNGS: Clear to auscultation. No adventitious sounds. HEART: S1, S2. Normal rate and rhythm. No murmurs, rubs, or gallops. ABDOMEN: Soft, nontender, and nondistended. Bowel sounds present. EXTREMITIES: No clubbing, no cyanosis. Peripheral pulses 2+ felt bilaterally. NEUROLOGIC: The patient is alert, oriented to person and place, but not year. Recall after 5 minutes, 0/2. Poor attention. Slow thought process. Cranial nerve II through XII intact. Motor exam, slight increased tone throughout, has some spastic movement and left-sided weakness from prior CVA. DTRs are 2+ throughout and 1 at the ankles. Coordination, [id number] intact. No tremors seen. Sensory exam, withdraws from noxious stimulus. Light touch is intact, as well as proprioception. ASSESSMENT: This is an 86-year-old woman with history of hypertension and dyslipidemia, who came in with change in mental status, having urinary retention. She is being followed by Urology and was consulted to evaluate for dementia. She has underlying urinary tract infection with her urine culture growing Escherichia coli and Proteus and is on cefepime. She has some small pleural effusion on chest x-ray and transient drop in systolic and diastolic blood pressures along with metabolic derangements. Altered mental status is likely secondary to underlying urinary tract infection and is superimposed on underlying likely vascular dementia. At this time, I recommend, 1. To better assess her degree of dementia, it would be better when she is outside of the hospital setting, to evaluate in my office. 2. Continue Namenda XR 14 mg p.o. daily for underlying cognitive impairment as well as Coenzyme Q10 400 mg p.o. daily for cognition. 3. Monitor electrolytes and correct accordingly. 4. Continue with treatment for underlying urinary tract infection with cefepime given that it is sensitive to Escherichia coli and Proteus. Cefepime can cause altered mental status also in an elderly patient, so Infectious Disease's recommendation is to a better medication, otherwise. 5. Keep her systolic blood pressures above 120. 6. Likely will need some underlying subacute rehab, generalized weakness, and deconditioned state. At this time, continue current present medical management. Xu Tracey MD
[2017-01-16 07:44] LABS: BASO % 0.5 % (0.0-2.0); EOS # 0.3 K/uL (0.0-0.7); EOS % 5.1 % (0.0-4.0); HEMATOCRIT 35.2 % (34.0-47.0); LYMPH % 30.4 % (20.0-40.0); MEAN CELL VOLUME 93.8 fL (81.0-99.0); MEAN CORPUSCULAR HEMOGLOBIN 30.9 pg (27.0-31.0); MEAN CORPUSCULAR HGB CONC 32.9 g/dL (33.0-37.0); MEAN PLATELET VOLUME 8.4 fL (7.2-11.7); MONO # 0.7 K/uL (0.0-0.8); MONO % 10.1 % (0.0-10.0); NRBC % 0.1 % (0.0-2.0); RED CELL DISTRIBUTION WIDTH 17.9 % (11.5-14.5); WHITE BLOOD COUNT 6.5 K/uL (4.8-10.8)
[2017-01-16 07:50] LABS: CHLORIDE 111 mmol/L (98-107)
[2017-01-16 07:51] LABS: POTASSIUM 3.5 mmol/L (3.6-5.2); SODIUM 141 mmol/L (132-148)
[2017-01-16 07:53] LABS: BILIRUBIN,TOTAL 0.6 mg/dL (0.2-1.3); CARBON DIOXIDE 22 mmol/L (22-30); GFR AFRICAN-AMERICAN > 60
[2017-01-16 07:54] LABS: ALB/GLOB RATIO 0.9 (1.0-2.1); ALKALINE PHOSPHATASE 89 U/L (38-126); ALT/SGPT 33 U/L (9-52); AST/SGOT 29 U/L (14-36); BLOOD UREA NITROGEN 3 mg/dL (7-17); CALCIUM 8.4 mg/dl (8.6-10.4); GLUCOSE,RANDOM 75 mg/dL (65-105); PHOSPHOROUS 2.6 mg/dL (2.5-4.5); TOTAL PROTEIN 4.9 g/dL (6.3-8.3)
[2017-01-16 07:55] LABS: MAGNESIUM 1.6 mg/dL (1.6-2.3)
[2017-01-16 08:35] VITALS: PULSE 78
[2017-01-16] MEDS: Collagenase 250 Units/gm Ointment(30 gm) TOP SCH (09:46)
--- NOTE | 2017-01-16 11:18 | CP.PCM.PN ---
Subjective - Date & Time of Evaluation Date of Evaluation: 01/16/17 Time of Evaluation: 10:40 - Subjective Subjective: Hospitalist Progress Note Patient was seen and examined at 10:40 AM 01/16/17 ROS She does not answer ROS questions and she is confused and likely has dementia Review of Nursing notes indicated that she did void urine on her own last night and therefore second Bladder Scan was not done Moved her bowels this morning - Constitutional Appears: No Acute Distress - Head Exam Head Exam: NORMAL INSPECTION, NORMOCEPHALIC - Eye Exam Eye Exam: EOMI, Normal appearance, PERRL - ENT Exam ENT Exam: Mucous Membranes Moist - Respiratory Exam Respiratory Exam: Clear to Ausculation Bilateral, NORMAL BREATHING PATTERN - Cardiovascular Exam Cardiovascular Exam: REGULAR RHYTHM. absent: RRR - GI/Abdominal Exam GI & Abdominal Exam: Soft, Normal Bowel Sounds. absent: Distended, Tenderness - Extremities Exam Extremities Exam: Normal Inspection. absent: Pedal Edema, Tenderness Left heal ulcer without surrounding signs of cellulitis. Stage II - Neurological Exam Neurological Exam: She is awake but she is not oriented to person place or time and follows instructions - Skin Skin Exam: Dry, Intact, Normal Color, Warm Assessments: UTI: E.coli and treated with Vanco and Cefepime. F/U Repeat Urine Culture done and it shows NO growth Left Heal Ulcer: Podiatry Dr. Hilliard. Bacitracin and Santyl Hx Atrial Fibrillation: rate controlled. Eliquis 2.5 mg PO 2x/day, Cardizem 30 mg PO Q6H Hx AMS: CT Head showed NO acute findings. Likely secondary to UTI. Neurology Consultation obtained with Dr. Aiden Tracey at the request of family (Rob [phone] [facility] and Son in law) to determine if patient has dementia. I spoke with Dr. Tracey 01/15/17 and he recommended evaluation for dementia once her acute issues have resolved as an outpatient. Hx Constipation: bowel movement today. Obstruction Series 01/10/17 showed nonspecific bowel gas pattern. Colace 100 mg PO 2x/day Possible Urinary Retention: Leggett was discontinued at 1 PM 01/15/17 and by 5 PM, bladder scan showed 128 ml urine in bladder. Nurse notified Dr. Rosa Schofield of results and ok without leggett from his standpoint as per nurse. Patient spontaneously voided during the night therefore second Bladder Scan was not done. The following instructions should be provided to patient Daughter upon discharge : 1). Schedule follow up wit the [facility] Floor [address] in [address] in [place], [place] before you are discharged to home today. Through this clinic you will need to arrange follow up with the following doctors: Neurology for evaluation of Dementia Podiatry for follow up of the left heal ulcer 2). You were provided with the following precriptions: Cardizem 60 mg, 1 tablet by mouth 4x/day (7 AM, 12 PM, 5 PM, 10 PM), Disp #120, NO refills Eliquis 2.5 mg, 1 tablet by mouth 2x/day (breakfast and dinner), Disp #60, NO refills Colace 100 mg, 1 tablet by mouth 2x/day (breakfast and dinner), Disp #60, NO refills Gabapentin 300 mg, 1 tablet by mouth 2x/day (breakfast and dinner) , Disp #30, NO refills Metoprolol Tartrate 50 mg, 1 tablet by mouth 2x/day (10 AM and 10 PM), Disp #60 , NO refills Lipitor 40 mg, 1 tablet by mouth 1x/day (dinner), Disp #30, NO refills Collagenase 250 units/gram ointment, Apply to the Left Heal 1x/day in the morning and then place nonadhesive dressing over the ulcer and then wrap with bandage, Disp 50 gram tube, NO refills Rx stating that you have the following medical problems: Chronic Left Heal Ulcer , Atrial Fibrillation, Constipation, Likely Dementia, CVA, [place] 3). You were provided with nonadhesive dressings and wrap bandages. 4). Please take care and be well. Frederic Ray D.O. Objective - Vital Signs/Intake and Output Vital Signs (last 24 hours): Temp Pulse Resp BP Pulse Ox 98.7 F 78 20 118/79 96 01/16/17 08:00 01/16/17 08:00 01/16/17 08:00 01/16/17 08:00 01/16/17 08:00 Intake and Output: 01/16/17 01/16/17 06:59 18:59 Intake Total 1115 Balance 1115 - Medications Medications: Current Medications Acetaminophen (Tylenol 325mg Tab) 650 mg PO Q6 PRN PRN Reason: Pain, Mild (1-3) Last Admin: 01/13/17 22:11 Dose: 650 mg Apixaban (Eliquis) 2.5 mg PO BID [facility] Last Admin: 01/16/17 09:47 Dose: 2.5 mg Collagenase (Santyl) 0 gm TOP DAILY [facility] Last Admin: 01/16/17 09:46 Dose: Not Given Diltiazem HCl (Cardizem) 30 mg PO Q6 [facility] Last Admin: 01/16/17 05:13 Dose: 30 mg Docusate Sodium (Colace) 100 mg PO BID [facility] Last Admin: 01/16/17 09:46 Dose: 100 mg Famotidine (Pepcid) 20 mg PO DAILY [facility] Last Admin: 01/16/17 09:46 Dose: 20 mg Gabapentin (Neurontin) 300 mg PO BID [facility] Last Admin: 01/16/17 09:46 Dose: 300 mg Cefepime HCl 1 gm/ Sodium (Chloride) 100 mls @ 100 mls/hr IVPB Q12H [facility] Last Admin: 01/16/17 05:12 Dose: 100 mls/hr Sodium Chloride (Sodium Chloride 0.9%) 1,000 mls @ 75 mls/hr IV .[id number] [facility] Last Admin: 01/16/17 04:51 Dose: Not Given Metoprolol Tartrate (Lopressor) 50 mg PO BID [facility] Last Admin: 01/16/17 09:46 Dose: 50 mg Ondansetron HCl (Zofran Inj) 4 mg IVP Q6 PRN PRN Reason: Nausea/Vomiting Rosuvastatin Calcium (Crestor) 5 mg PO HS [facility] Last Admin: 01/15/17 21:27 Dose: 5 mg - Labs Labs: 01/16/17 07:20 01/16/17 07:20 PT 15.2 SECONDS (9.7-12.2) H 01/13/17 12:45 INR 1.3 01/13/17 12:45 APTT 35 SECONDS (21-34) H 01/13/17 12:45
--- NOTE | 2017-01-16 11:55 | CP.PCM.DIS ---
Provider - Provider Date of Admission: 01/09/17 17:39 Attending physician: Ezekiel Baer MD Consults: Podiatry Chase Mijares Time Spent in preparation of Discharge (in minutes): 60 Hospital Course - Lab Results Lab Results: Micro Results 01/14/17 11:10 Urine,Leggett Urine Culture - Final No Growth (<1,000 CFU/ML) Most Recent Lab Values WBC 6.5 K/uL (4.8-10.8) 01/16/17 07:20 RBC 3.75 Mil/uL (3.80-5.20) L 01/16/17 07:20 Hgb 11.6 g/dL (11.0-16.0) 01/16/17 07:20 Hct 35.2 % (34.0-47.0) 01/16/17 07:20 MCV 93.8 fL (81.0-99.0) 01/16/17 07:20 MCH 30.9 pg (27.0-31.0) 01/16/17 07:20 MCHC 32.9 g/dL (33.0-37.0) L 01/16/17 07:20 RDW 17.9 % (11.5-14.5) H 01/16/17 07:20 Plt Count 186 K/uL (130-400) 01/16/17 07:20 MPV 8.4 fL (7.2-11.7) 01/16/17 07:20 Neut % (Auto) 53.9 % (50.0-75.0) 01/16/17 07:20 Lymph % (Auto) 30.4 % (20.0-40.0) 01/16/17 07:20 Haywood % (Auto) 10.1 % (0.0-10.0) H 01/16/17 07:20 Eos % (Auto) 5.1 % (0.0-4.0) H 01/16/17 07:20 Baso % (Auto) 0.5 % (0.0-2.0) 01/16/17 07:20 Neut # 3.5 K/uL (1.8-7.0) 01/16/17 07:20 Lymph # 2.0 K/uL (1.0-4.3) 01/16/17 07:20 Haywood # 0.7 K/uL (0.0-0.8) 01/16/17 07:20 Eos # 0.3 K/uL (0.0-0.7) 01/16/17 07:20 Baso # 0.0 K/uL (0.0-0.2) 01/16/17 07:20 PT 15.2 SECONDS (9.7-12.2) H 01/13/17 12:45 INR 1.3 01/13/17 12:45 APTT 35 SECONDS (21-34) H 01/13/17 12:45 Sodium 141 mmol/L (132-148) 01/16/17 07:20 Potassium 3.5 mmol/L (3.6-5.2) L 01/16/17 07:20 Chloride 111 mmol/L (98-107) H 01/16/17 07:20 Carbon Dioxide 22 mmol/L (22-30) 01/16/17 07:20 Anion Gap 11 (10-20) 01/16/17 07:20 BUN 3 mg/dL (7-17) L 01/16/17 07:20 Creatinine 0.4 MG/DL (0.7-1.2) L 01/16/17 07:20 Est GFR ( Amer) > 60 01/16/17 07:20 Est GFR (Non-Af Amer) > 60 01/16/17 07:20 POC Glucose (mg/dL) 131 mg/dL (65-110) H 01/15/17 21:03 Random Glucose 75 mg/dL (65-105) 01/16/17 07:20 Calcium 8.4 mg/dl (8.6-10.4) L 01/16/17 07:20 Phosphorus 2.6 mg/dL (2.5-4.5) 01/16/17 07:20 Magnesium 1.6 mg/dL (1.6-2.3) 01/16/17 07:20 Total Bilirubin 0.6 mg/dL (0.2-1.3) 01/16/17 07:20 AST 29 U/L (14-36) 01/16/17 07:20 ALT 33 U/L (9-52) 01/16/17 07:20 Alkaline Phosphatase 89 U/L (38-126) 01/16/17 07:20 Total Creatine Kinase 426 U/L (30-135) H 01/09/17 16:21 Troponin I 0.0170 ng/mL (0.00-0.120) 01/14/17 20:12 Total Protein 4.9 g/dL (6.3-8.3) L 01/16/17 07:20 Albumin 2.3 g/dL (3.5-5.0) L 01/16/17 07:20 Globulin 2.6 gm/dL (2.2-3.9) 01/16/17 07:20 Albumin/Globulin Ratio 0.9 (1.0-2.1) L 01/16/17 07:20 Urine Color Yellow (YELLOW) 01/12/17 07:07 Urine Clarity Clear (Clear) 01/12/17 07:07 Urine pH 6.0 (5.0-8.0) 01/12/17 07:07 Ur Specific [place] 1.013 (1.003-1.030) 01/12/17 07:07 Urine Protein Negative mg/dL (NEGATIVE) 01/12/17 07:07 Urine Glucose (UA) Normal mg/dL (Normal) 01/12/17 07:07 Urine Ketones Trace mg/dL (NEGATIVE) 01/12/17 07:07 Urine Blood 2+ (NEGATIVE) H 01/12/17 07:07 Urine Nitrate Negative (NEGATIVE) 01/12/17 07:07 Urine Bilirubin Negative (NEGATIVE) 01/12/17 07:07 Urine Urobilinogen Normal mg/dL (0.2-1.0) 01/12/17 07:07 Ur Leukocyte Esterase Trace Esequiel/uL (Negative) 01/12/17 07:07 Urine WBC (Auto) 14 /hpf (0-5) H 01/12/17 07:07 Urine RBC (Auto) 41 /hpf (0-3) H 01/12/17 07:07 Ur Squamous Epith Cells 3 /hpf (0-5) 01/12/17 07:07 Urine Bacteria Many (<OCC) H 01/09/17 15:56 Vancomycin Trough 24.9 ug/mL (5.0-10.0) H 01/10/17 06:46 - Hospital Course Hospital Course: Patient is a 86 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 Daughter provides the history. It started 1 week ago and is associated with L. sided pain, insomnia, and mild constipation. She is also complaining of a cough, PRASAD, abdominal pain and increased Urine output. She denies any blood in her urine. She denies recent travel or sick contacts. Patient arrived here from [place] [facility] [place] with her daughter. 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 EKG done in ED showed A fib with rapid ventricular response, RBBB, and Left anterior fascicular block. CXR done in ED showed no evidence of pulmonary disease, possible cardiomegaly. Heel XR done in ED showed mild soft tissue irregularity in posterior left heel with no bone abnormalities. Patient admitted on 01/09/17 due to severity of symptoms and intensity of services needed. Head CT performed on 01/09/17 showed abnormal areas in the right temporal parietal lobe representing encephalomalacia extending into right frontal lobe, cystic area of encephalomalacia noted in right basal ganglia with suggested calcification within the cystic change, and dilation of the ipsilateral right lateral ventricle. Dr. Serrano consulted on 01/10/17 for podiatry issues. Abdominal obstructive series performed on 01/10/17 and showed nonobstructive bowel gas patterns and cardiomegaly. Pt seen at beside by Dr. Avrizu on 01/11/17 and was in no acute distress later the patients leggett was removed and a bladder scan was done which showed urinary retention. The leggett was reinserted and urology was consulted. Urology recommended that we send her home with the leggett in or try to remove it again and see if she was continue to retain. The leggett was later removed and a bladder scan was done again. This time the bladder scan did not show any significant retention. She urinated on her own and the patient was sent home in a stable condition. - Date & Time of H&P Date of H&P: 01/09/17 Time of H&P: 18:59 Discharge Exam - Head Exam Head Exam: ATRAUMATIC, NORMAL INSPECTION, NORMOCEPHALIC Discharge Plan - Discharge Medications Prescriptions: Apixaban [Eliquis] 2.5 mg PO BID #60 tab Atorvastatin [Lipitor] 40 mg PO ONCE #30 tab diltiaZEM [Cardizem] 60 mg PO Q6 #120 tab Docusate [Colace] 100 mg PO BID #60 cap Gabapentin [Neurontin] 300 mg PO BID #60 cap Metoprolol Tartrate [Lopressor] 50 mg PO BID #60 tab - Follow Up Plan Condition: FAIR Disposition: HOME/ ROUTINE Instructions: Metoprolol (By mouth), Diltiazem (By mouth), Laxative, Stool Softeners (By mouth), Gabapentin (By mouth), Atorvastatin (By mouth), Apixaban ( By mouth), Urinary Tract Infection in Women (DC), Urinary Tract Infection in Men (DC), Diabetic Foot Care (GEN), Acute Urinary Retention in Women (GEN), Chronic Urinary Retention in Women (GEN), Dysuria (GEN), Diabetes and Your Skin (GEN), Venous Insufficiency (GEN) Additional Instructions: Patient is medically stable and cleared for D/c Patient is cleared for d/c by podiatry Patient needs to follow up in the clinic for management of her heel ulcer and Afib given her recent change in medication. If symptoms return patient should return to the ER Prescription instructions to be provided at D/C. Paciente esta estable para dealta a casa. Paciente tiene que pedir chung en la clinica para tratamiento de el ulcero del marino reese y fibrilacion auricular. Si los simptomas regresan, porfavor regresar a la rafa de emergencia. Las recetas escritas son para medicaciones que la paciente debe de ame especificamente benedicto ordenadas. 1. Con la chung en la clinica, debes de organizar para evaluacion de neurologia y podologia. 2. Las prescripciones suministradas son: Cardizem 60mg, 1 tableta por boca 4 veces/leigh. (7AM, 12PM, 5PM, 10PM) Eliquis 2.5mg, 1 tableta por boca 2 veces/leigh. (desayuno y comida) Colace 100mg, 1 tableta por boca 2 veces/leigh (desayuno y comida) Gabapentin 300mg, 1 tableta por boca 2 veces/leigh (desayuno y comida) Metoprolol Tartate 50mg, 1 tableta por boca 2 veces/leigh (10AM, 10PM) Lipitor 40mg, 1 tableta por la noche antes de dormir Medihoney, applicar a tobillo reese 1 vez en la manana y tapar con gasa. 3. Ann prescripcion con los problemas medicos de la paciente fue suministrada. Referrals: [facility] [Outside]
--- NOTE | 2017-01-16 14:25 | CP.PCM.PN ---
Subjective - Date & Time of Evaluation Date of Evaluation: 01/16/17 Time of Evaluation: 14:23 - Subjective Subjective: 86 year old female was seen resting comfortably at bedside this afternoon regarding left heel ulceration. Patient NAD. Her daughter was present at bedside. Objective - Vital Signs/Intake and Output Vital Signs (last 24 hours): Temp Pulse Resp BP Pulse Ox 98.7 F 78 20 118/79 96 01/16/17 08:00 01/16/17 08:00 01/16/17 08:00 01/16/17 08:00 01/16/17 08:00 Intake and Output: 01/16/17 01/16/17 06:59 18:59 Intake Total 1115 Balance 1115 - Medications Medications: Current Medications Acetaminophen (Tylenol 325mg Tab) 650 mg PO Q6 PRN PRN Reason: Pain, Mild (1-3) Last Admin: 01/13/17 22:11 Dose: 650 mg Apixaban (Eliquis) 2.5 mg PO BID [facility] Last Admin: 01/16/17 09:47 Dose: 2.5 mg Collagenase (Santyl) 0 gm TOP DAILY [facility] Last Admin: 01/16/17 09:46 Dose: Not Given Diltiazem HCl (Cardizem) 30 mg PO Q6 [facility] Last Admin: 01/16/17 12:37 Dose: 30 mg Docusate Sodium (Colace) 100 mg PO BID [facility] Last Admin: 01/16/17 09:46 Dose: 100 mg Famotidine (Pepcid) 20 mg PO DAILY [facility] Last Admin: 01/16/17 09:46 Dose: 20 mg Gabapentin (Neurontin) 300 mg PO BID [facility] Last Admin: 01/16/17 09:46 Dose: 300 mg Cefepime HCl 1 gm/ Sodium (Chloride) 100 mls @ 100 mls/hr IVPB Q12H [facility] Last Admin: 01/16/17 05:12 Dose: 100 mls/hr Sodium Chloride (Sodium Chloride 0.9%) 1,000 mls @ 75 mls/hr IV .[id number] [facility] Last Admin: 01/16/17 12:39 Dose: 75 mls/hr Metoprolol Tartrate (Lopressor) 50 mg PO BID [facility] Last Admin: 01/16/17 09:46 Dose: 50 mg Ondansetron HCl (Zofran Inj) 4 mg IVP Q6 PRN PRN Reason: Nausea/Vomiting Rosuvastatin Calcium (Crestor) 5 mg PO HS [facility] Last Admin: 01/15/17 21:27 Dose: 5 mg - Labs Labs: 01/16/17 07:20 01/16/17 07:20 PT 15.2 SECONDS (9.7-12.2) H 01/13/17 12:45 INR 1.3 01/13/17 12:45 APTT 35 SECONDS (21-34) H 01/13/17 12:45 - Constitutional Appears: Non-toxic, No Acute Distress - Extremities Exam Additional comments: Left lower extremity focused examination: Vasc: DP and PT pulses 2/4. CFT < 3 sec to all digits. Temperature gradient warm to cool from proximal to distal. No pedal edema. Neuro: Protective sensation grossly diminished Derm: An approximately 3.1 cm x 1.8 cm x 0.1 cm ulceration noted to posteroplantar left heel with a fibrotic base, the periwound is granular, with healing noted. No malodor, no active drainage, no tunneling, no undermining, no fluctuance, no probe to bone. No clinical signs of infection present. Ortho: tenderness to palpation of left plantar posterior heel ulceration - Neurological Exam Neurological Exam: Awake Assessment and Plan - Assessment and Plan (Free Text) Assessment: 86 year old female with left heel pressure ulceration secondary to recent bed immobilization following stroke Plan: Pt examined and evaluated with attending Dr. Hilliard lab, chart, vitals reviewed Left heel dressed with santyl, DSD Offloading boots to be worn at all times Continue IV abx Patient stable for d/c from podiatry stand point Patient to f/u in podiatry clinic upon D/C Podiatry will continue to follow while in house
--- NOTE | 2017-01-16 15:55 | PCM.URO ---
Urology Progress Note - Objective Lab Results Last 24 Hours: Laboratory Results - last 24 hr 01/15/17 01/15/17 01/16/17 18:51 21:03 07:20 WBC 6.5 RBC 3.75 L Hgb 11.6 Hct 35.2 MCV 93.8 MCH 30.9 MCHC 32.9 L RDW 17.9 H Plt Count 186 MPV 8.4 Neut % (Auto) 53.9 Lymph % (Auto) 30.4 Loving % (Auto) 10.1 H Eos % (Auto) 5.1 H Baso % (Auto) 0.5 Neut # 3.5 Lymph # 2.0 Loving # 0.7 Eos # 0.3 Baso # 0.0 Sodium Potassium Chloride Carbon Dioxide Anion Gap BUN Creatinine Est GFR ( Amer) Est GFR (Non-Af Amer) POC Glucose (mg/dL) 97 131 H Random Glucose Calcium Phosphorus Magnesium Total Bilirubin AST ALT Alkaline Phosphatase Total Protein Albumin Globulin Albumin/Globulin Ratio 01/16/17 07:20 WBC RBC Hgb Hct MCV MCH MCHC RDW Plt Count MPV Neut % (Auto) Lymph % (Auto) Loving % (Auto) Eos % (Auto) Baso % (Auto) Neut # Lymph # Loving # Eos # Baso # Sodium 141 Potassium 3.5 L Chloride 111 H Carbon Dioxide 22 Anion Gap 11 BUN 3 L Creatinine 0.4 L Est GFR ( Amer) > 60 Est GFR (Non-Af Amer) > 60 POC Glucose (mg/dL) Random Glucose 75 Calcium 8.4 L Phosphorus 2.6 Magnesium 1.6 Total Bilirubin 0.6 AST 29 ALT 33 Alkaline Phosphatase 89 Total Protein 4.9 L Albumin 2.3 L Globulin 2.6 Albumin/Globulin Ratio 0.9 L Intake & Output: Intake & Output 01/15/17 01/16/17 01/16/17 18:59 06:59 18:59 Intake Total 810 1115 625 Output Total 500 Balance 310 1115 625 Intake: Intake, IV Amount 700 945 525 Right Antecubital 700 945 525 Oral 110 170 100 Output: Urine 500 Urethral (Gleason) 500 Other: # Voids Urethral (Gleason) 1 1 Urine, Voided 0 Vital Signs: Vital Signs - 24 hr 01/15/17 01/16/17 01/16/17 23:19 05:00 08:00 Temperature 98.3 F 98.7 F Pulse Rate 108 H 90 78 Respiratory 20 20 Rate Blood Pressure 117/72 112/68 118/79 O2 Sat by Pulse 93 L 94 L 96 Oximetry
[2017-01-16 16:11] VITALS: BP 113/72; TEMP 99.7; O2SAT 99
--- NOTE | 2017-01-16 17:55 | CARD ---
APPROVED REPORT EKG Measurement Heart [id number] <Conclusion> Atrial fibrillation with premature ventricular or aberrantly conducted complexes Right bundle branch block Left anterior fascicular block Bifascicular block Abnormal ECG
--- NOTE | 2017-01-16 17:55 | CARD ---
APPROVED REPORT EKG Measurement Heart [id number] <Conclusion> Atrial fibrillation Right bundle branch block Left anterior fascicular block Bifascicular block Abnormal ECG
[2017-01-16] MEDS ORDERED: Potassium Chloride 20 mEq ER Tab PO ONE (19:30)
== END 2017-01-16 16:22 | disposition home or self-care (01) | DRG 593 ==
LOC: C.ER 14:21 → C.9E 17:39 → C.5T 19:51 → UNDODISIN 01-12 14:43
PROVIDERS: ADMIT Internal Medicine; ATTEND Internal Medicine
DX: L89.622 Pressure ulcer of left heel, stage 2 (principal); N39.0 Urinary tract infection, site not specified; G93.89 Other specified disorders of brain; I69.354 Hemiplegia and hemiparesis following cerebral infarction affecting left non-dominant side; I11.9 Hypertensive heart disease without heart failure; F01.50 Vascular dementia, unspecified severity, without behavioral disturbance, psychotic disturbance, mood disturbance, and anxiety; I48.91 Unspecified atrial fibrillation; B36.9 Superficial mycosis, unspecified; K59.00 Constipation, unspecified; H40.9 Unspecified glaucoma; B96.20 Unspecified Escherichia coli [E. coli] as the cause of diseases classified elsewhere; E78.5 Hyperlipidemia, unspecified; R33.9 Retention of urine, unspecified; I45.10 Unspecified right bundle-branch block; Z79.01 Long term (current) use of anticoagulants; Z87.440 Personal history of urinary (tract) infections; Z83.3 Family history of diabetes mellitus; Z87.442 Personal history of urinary calculi; Z74.01 Bed confinement status

== ENCOUNTER 2017-02-09 12:38 | Inpatient (IN) | payer OTHER ==
[2017-02-09] MEDS ORDERED: Sodium Chloride 0.9% 500 ML IV ONE ×5 (13:29→21:47)
[2017-02-09] MEDS ORDERED: Sodium Chloride 0.9% 1,000 ML ONE ×2 (13:32→23:33)
--- NOTE | 2017-02-09 13:48 | RAD ---
PROCEDURE: CHEST RADIOGRAPH, 1 VIEW HISTORY: CP COMPARISON: 01/15/2017 FINDINGS: LUNGS: Examination limited due to oblique positioning. PLEURA: No pneumothorax or pleural fluid seen. CARDIOVASCULAR: Mild cardiomegaly. No congestive change. OSSEOUS STRUCTURES: No significant abnormalities. VISUALIZED UPPER ABDOMEN: Normal. OTHER FINDINGS: None. IMPRESSION: No active disease.
[2017-02-09 13:51] LABS: BASO # 0.1 K/uL (0.0-0.2); BASO % 0.4 % (0.0-2.0); EOS # 0.3 K/uL (0.0-0.7); EOS % 1.9 % (0.0-4.0); HEMATOCRIT 38.1 % (34.0-47.0); LYMPH # 2.2 K/uL (1.0-4.3); LYMPH % 15.7 % (20.0-40.0); MEAN CELL VOLUME 96.3 fL (81.0-99.0); MEAN CORPUSCULAR HEMOGLOBIN 31.6 pg (27.0-31.0); MEAN CORPUSCULAR HGB CONC 32.8 g/dL (33.0-37.0); MEAN PLATELET VOLUME 7.8 fL (7.2-11.7); MONO # 1.3 K/uL (0.0-0.8); MONO % 9.1 % (0.0-10.0); RED CELL DISTRIBUTION WIDTH 18.8 % (11.5-14.5)
[2017-02-09 13:54] LABS: ALB/GLOB RATIO 0.9 (1.0-2.1); ALKALINE PHOSPHATASE 163 U/L (38-126); ALT/SGPT 32 U/L (9-52); AST/SGOT 21 U/L (14-36); BILIRUBIN,TOTAL 0.3 mg/dL (0.2-1.3); BLOOD UREA NITROGEN 32 mg/dL (7-17); CALCIUM 8.7 mg/dl (8.6-10.4); CARBON DIOXIDE 20 mmol/L (22-30); CHLORIDE 102 mmol/L (98-107); GFR AFRICAN-AMERICAN > 60; GLUCOSE,RANDOM 79 mg/dL (65-105); POTASSIUM 4.1 mmol/L (3.6-5.2); SODIUM 138 mmol/L (132-148); TOTAL PROTEIN 6.2 g/dL (6.3-8.3)
[2017-02-09 13:56] LABS: INR 1.4
[2017-02-09 13:59] LABS: WHITE BLOOD COUNT 14.1 K/uL (4.8-10.8)
[2017-02-09 16:20] LABS: RBC URINE 5 /hpf (0-3); TRANSITIONAL EPITHIAL 1 /hpf (0-3); URINE BACTERIA MANY (<OCC); URINE BILIRUBIN NEGATIVE (NEGATIVE); URINE BLOOD 2+ (NEGATIVE); URINE GLUCOSE (UA) NORMAL (Normal); URINE KETONE NEGATIVE (NEGATIVE); URINE LEUKOCYTE ESTERASE 3+ Leu/uL (Negative); URINE PROTEIN 2+ mg/dL (NEGATIVE); URINE UROBILINOGEN NORMAL mg/dL (0.2-1.0)
[2017-02-09 16:21] LABS: WBC URINE 229 /hpf (0-5)
[2017-02-09 16:25] LABS: URINE COLOR YELLOW (YELLOW)
--- NOTE | 2017-02-09 16:39 | CT ---
PROCEDURE: CT HEAD WITHOUT CONTRAST. HISTORY: Hit head 2 days ago, on oral anticoagulation COMPARISON: Head CT without contrast 01/09/2017. TECHNIQUE: Axial computed tomography images were obtained through the head/brain without intravenous contrast. Radiation dose: Total exam DLP = 3195 mGy-cm. This CT exam was performed using one or more of the following dose reduction techniques: Automated exposure control, adjustment of the mA and/or kV according to patient size, and/or use of iterative reconstruction technique. FINDINGS: HEMORRHAGE: No intracranial hemorrhage. BRAIN: A large chronic right MCA infarct is again identified with ex vacuo expansion of a right lateral ventricle noted. No cortical lucency is appreciated otherwise to suggest an acute separate brain infarction at this time. There is no positive mass effect. The midline brain and appears unremarkable including the craniocervical junction. No suspicious extra-axial fluid collection is identified. Diffuse cerebral atrophy chronic microangiopathy are reiterated. VENTRICLES: No hydrocephalus. CALVARIUM: No fracture or suspicious lytic or blastic change identified. . PARANASAL SINUSES: Unremarkable as visualized. No significant inflammatory changes. MASTOID AIR CELLS: Bilateral mastoid effusions are identified. OTHER FINDINGS: None. IMPRESSION: 1. No acute intracranial findings by standard CT criteria including hemorrhage or fracture. 2. Chronic right MCA distribution infarct again evident. 3. Age-related neuro degenerative changes are identified. 4. No significant interval change appreciated.
--- NOTE | 2017-02-09 16:44 | CT ---
PROCEDURE: CT Cervical Spine without contrast HISTORY: <Hit head 2 days ago> COMPARISON: None available. TECHNIQUE: Axial computed tomography images were obtained of the cervical spine without the use of intravenous contrast. Coronal and sagittal reformatted images were created and reviewed. Radiation dose: Total exam DLP = 439 mGy-cm. This CT exam was performed using one or more of the following dose reduction techniques: Automated exposure control, adjustment of the mA and/or kV according to patient size, and/or use of iterative reconstruction technique. FINDINGS: VERTEBRAE: Normal curvature is appreciate without definite fracture or spondylolisthesis. [id number] multilevel cervical spondylosis appreciated with the C1-2 articulation also degenerate. The craniocervical junction appears intact as well as the cervicothoracic junction. No suspicious lytic or blastic change. Vacuum disc changes are identified at C5-6 and C6-7. DISCS/SPINAL CANAL/NEURAL FORAMINA: Marked degenerative neural foraminal stenosis appears the C4 root foramen, moderate the left C5 root foramen with no definite additional significant foramina appreciate the central canal appears widely patent throughout, as far as bony margins are involved. . PARASPINAL SOFT TISSUES: Unremarkable. OTHER FINDINGS: None. IMPRESSION: No fracture or spondylolisthesis appreciable or suspicious lytic or blastic change. [id number] multilevel cervical spondylosis noted with a few advanced neural foraminal stenoses identified at C4 and C5 root foramina left side only. Further care station divided by MRI if clinically warranted.
[2017-02-09 16:49] LABS: VENOUS BLOOD GAS BASE EXCESS -5.3 mmol/L (0.0-2.0); VENOUS BLOOD GAS PCO2 44 mmHg (40-60); VENOUS BLOOD PH 7.29 (7.32-7.43)
--- NOTE | 2017-02-09 17:05 | CT ---
PROCEDURE: CT Chest, Abdomen and Pelvis without intravenous contrast HISTORY: Chest pain. Hematuria. s/p fall on anticoagulation COMPARISON: None. TECHNIQUE: Radiation dose: Total exam DLP = 790 mGy-cm. This CT exam was performed using one or more of the following dose reduction techniques: Automated exposure control, adjustment of the mA and/or kV according to patient size, and/or use of iterative reconstruction technique. FINDINGS: CT CHEST WITHOUT CONTRAST: LUNGS: Clear. No nodule, mass or consolidation. Trace ground-glass opacity is seen the bilateral apices. MEDIASTINUM: Unremarkable. The ascending thoracic aorta is mildly dilated up to greatest transverse dimension. The main pulmonary artery is normal in caliber. And pulmonary arterial trunk. Normal size heart. LYMPH NODES: Unremarkable. PLEURA: Unremarkable. No pneumothorax. No pleural fluid. BONES: An old healed left 9th rib fractures identified posteriorly. Remaining ribs appear intact as captured. 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 A moderate severe compression fracture of the T7 to body is appreciated a without gross retropulsion of fracture fragments appreciated. These are indeterminate in age. OTHER FINDINGS: None. CT ABDOMEN AND PELVIS: The lack of contrast agents limits the interpretation throughout the abdomen and pelvis LIVER: Unremarkable. No gross lesion or ductal dilatation. GALLBLADDER AND BILE DUCTS: Surgical clips in the gallbladder fossa suggesting prior cholecystectomy. Clinically correlate. PANCREAS: Unremarkable. No gross lesion or ductal dilatation. SPLEEN: Unremarkable. ADRENALS: Unremarkable. No mass. KIDNEYS AND URETERS: A few defects are identified in the periphery of the cortex at the mid pole bilateral kidneys and lower pole right kidney suggestive of chronic infarcts. Punctate intrarenal calcified in the lower pole left kidney with no obstructive uropathy bilaterally. There is a 9 mm hyperdensity in the periphery of the lower pole left kidney probably reflecting a hyperdense cyst. Follow-up CT or MRI without contrast is advised to exclude potential nodule here. VASCULATURE: Unremarkable. No aortic aneurysm. BOWEL: No bowel obstruction appreciated and there is moderate fecal loading throughout the large bowel. Sigmoid diverticula are identified without acute findings to suggest diverticulitis. APPENDIX: Appendix not identified, however, there is no CT pattern of suggest appendicitis at this time. PERITONEUM: Unremarkable. No free fluid. No free air. LYMPH NODES: Unremarkable. No enlarged lymph nodes. BLADDER: Urinary bladder is prominently distended but otherwise unremarkable appearing. REPRODUCTIVE: Prior hysterectomy suggested. BONES: Severe L1 vertebral body compression fracture is appreciated with some retropulsion of the upper endplate posteriorly likely resulting in stenosis. Age of the fracture is indeterminate. OTHER FINDINGS: None. IMPRESSION: 1. A moderate to severe compression fracture T7 vertebral body is with a severe L1-2 but a compression fracture. Age of these fractures is indeterminate. L1 compression fracture results and retropulsion of the upper endplate to cause a central canal stenosis. No additional potential acute fracture appreciable throughout the main of the chest abdomen or pelvis. Old healed left 9th rib fractures appreciated. A likely degenerate spondylolisthesis at L5-S1 is appreciated, minimal. 2. No pleural or pericardial effusion or evidence of pulmonary contusion the chest. No obvious CT pattern of abdominal visceral injury as well. No pneumoperitoneum or hemoperitoneum identified. 3. Sigmoid diverticulosis without diverticulitis. 4. Prior cholecystectomy suggested. Clinically correlate. 5. Prior hysterectomy. 6. Prominent urinary bladder distension with the bladder otherwise unremarkable appearing.
[2017-02-09] MEDS ORDERED: cefTRIAXone IV 1 gm in Dextros 50 ML IVPB STA (17:21)
[2017-02-09] MEDS ORDERED: cefTRIAXone IV 1 gm in Dextros 50 ML IVPB ONE (17:26)
--- NOTE | 2017-02-09 18:04 | C.PDOC ---
History Of Present Illness Pt fell and hit her head 2 days ago. Pt is on oral anticoagulation due to Afib and previous CVA. Pt was found to be hypotensive and lethargic on arrival. - HPI Time Seen by Provider: 02/09/17 13:20 Chief Complaint (Nursing): Trauma History Per: Patient, Family (daughter) History/Exam Limitations: clinical condition Injury Occurred (Timing): Days Ago: (2) Location Of Injury: Anterior: Head Severity: Severe Additional History Per: Prior Records Past Medical History Reviewed: Historical Data, Nursing Documentation, Vital Signs Vital Signs: Last Vital Signs Temp 97.4 F L 02/09/17 17:30 Pulse 127 H 02/09/17 17:30 Resp 22 02/09/17 17:30 BP 118/76 02/09/17 17:30 Pulse Ox 98 02/09/17 17:30 - Medical History PMH: Cardia Arrhythmia (AFIB WITH RVR), CVA (Left sided hemiparesis), Kidney Stones Surgical History: Appendectomy Family History: States: Unknown Family Hx - Social History Hx Alcohol Use: No Hx Substance Use: No - Immunization History Hx Tetanus Toxoid Vaccination: No Hx Influenza Vaccination: No Hx Pneumococcal Vaccination: No Review Of Systems Constitutional: Positive for: Weakness Cardiovascular: Positive for: Chest Pain Respiratory: Negative for: Hemoptysis Gastrointestinal: Negative for: Vomiting Genitourinary: Positive for: Hematuria Musculoskeletal: Positive for: Neck Pain Neurological: Positive for: Weakness (left sided, old), Headache Physical Exam - Physical Exam Appears: In Acute Distress, Chronically Ill, Other (Lethargic) Skin: Warm, Dry Head: Swelling (Forehead contusion) Eye(s): bilateral: Abnormal Pupil (due to glaucoma) Neck: Normal ROM, Midline Cervical Tenderness, Supple Cardiovascular: Rhythm Irregular Respiratory: Normal Breath Sounds Gastrointestinal/Abdominal: Soft Neurological/Psych: No Normal Motor (Left sided hemiparesis due to old CVA), Eyes Open With Command Gait: Unable To Assess ED Course And Treatment - Laboratory Results Result Diagrams: 02/09/17 13:36 02/09/17 13:36 Lab Interpretation: Abnormal Interpretation Of Abnormal: Elevated BUN. Leukocytosis. UTI. ECG: Interpreted By Me, Viewed By Me ECG Rhythm: Atrial Flutter (with variable conduction), Nonspecific Changes ECG Interpretation: Abnormal Rate From EC O2 Sat by Pulse Oximetry: 98 Pulse Ox Interpretation: Normal - Radiology CXR: Viewed By Me, Read By Radiologist CXR Interpretation: Yes: No Acute Disease - CT Scan/US CT head Other Rad Studies (CT/US): Read By Radiologist, Radiology Report Reviewed CT/US Interpretation: IMPRESSION: 1. No acute intracranial findings by standard CT criteria including hemorrhage or fracture. 2. Chronic right MCA distribution infarct again evident. 3. Age-related neuro degenerative changes are identified. 4. No significant interval change appreciated. CT C-spine Other Rad Studies (CT/US): Read By Radiologist, Radiology Report Reviewed CT/US Interpretation: IMPRESSION: No fracture or spondylolisthesis appreciable or suspicious lytic or blastic change. [id number] multilevel cervical spondylosis noted with a few advanced neural foraminal stenoses identified at C4 and C5 root foramina left side only. Further care station divided by MRI if clinically warranted. CT Chest/abd/pelv Other Rad Studies (CT/US): Read By Radiologist, Radiology Report Reviewed CT/US Interpretation: IMPRESSION: 1. A moderate to severe compression fracture T7 vertebral body is with a severe L1-2 but a compression fracture. Age of these fractures is indeterminate. L1 compression fracture results and retropulsion of the upper endplate to cause a central canal stenosis. No additional potential acute fracture appreciable throughout the main of the chest abdomen or pelvis. Old healed left 9th rib fractures appreciated. A likely degenerate spondylolisthesis at L5-S1 is appreciated, minimal. 2. No pleural or pericardial effusion or evidence of pulmonary contusion the chest. No obvious CT pattern of abdominal visceral injury as well. No pneumoperitoneum or hemoperitoneum identified. 3. Sigmoid diverticulosis without diverticulitis. 4. Prior cholecystectomy suggested. Clinically correlate. 5. Prior hysterectomy. 6. Prominent urinary bladder distension with the bladder otherwise unremarkable appearing. Progress Note: Pt is now awake and alert after IV fluids. BP has improved. Reassessment Condition: Improved Progress - Interventions Interventions:: Observation, Intravenous fluid, Oxygen - Data Reviewed Data Reviewed: Lab, Diagnostic imaging, EKG, Old records - Patient Status Patient status: Partially improved - Critical Care Citical Care: Excluding Proc Time Critical Care Time: 60 minutes - Continuity of Care Discussed patient case with:: Patient, Family-HIPPA compliant, ED Nurse, On- call PMD-pt unassigned - Patient Plan Patient Plan: Admission, Telemetry Disposition Discussed With : Viri Garner Comment: She accepted pt on hospitalist service. Doctor Will See Patient In The: Hospital Counseled Patient/Family Regarding: Studies Performed, Diagnosis - Disposition Disposition: HOSPITALIZED Disposition Time: 18:10 Condition: GUARDED - Clinical Impression Clinical Impression: Dehydration, UTI (urinary tract infection), Transient hypotension, Atrial flutter, Closed head injury
[2017-02-09] MEDS ORDERED: Digoxin 500 mcg/2ml (0.5 mg/2ml) Inj IVP ONE (21:47)
[2017-02-09] MEDS ORDERED: Piperacillin/Tazobact 3.375 gm 100 ML IVPB ONE (22:11)
[2017-02-09] MEDS ORDERED: Digoxin 500 mcg/2ml (0.5 mg/2ml) Inj ONE (22:11)
[2017-02-09] MEDS: Piperacillin/Tazobact 3.375 GM in Sodium Chloride 100 ML IVPB SCH (22:24)
--- NOTE | 2017-02-09 22:53 | CP.PCM.HP ---
<HuertasKelly hollowayJh - Last Filed: 02/10/17 04:21> History of Present Illness - History of Present Illness History of Present Illness: CC: Altered Mental Status HPI: Patient is a 86 y/o with a PMH a stroke, HLD, Afib, [place] who presents to the emergency room due to altered mental status and low blood pressure. The daughter states they were at the health clinic earlier today when they went to give a urine sample and it was found to have blood and due to her altered mental status they sent the patient to the ER. The daughter states that about 2 days ago she did fall while sitting to her side and did hit her head but did not loose consciousness. Per daughter she did not bring her mom to the ER because she knew she had the appointment at the clinic in a few days. Since then she has been complaining of pain on urination. Per the daughter the patient asks her to use the bathroom and does urinate on her own but sometimes does urinate in the bed. Per daughter the mother is usually better mentally and this is not her baseline. Per daughter the patient has not had fever, nausea, vomiting, constipation or diarrhea. The daughter states since she was hospitalized 3 months ago for her stroke she has lost about 20lbs. PMD: [facility] at [facility] Past Medical History: Stroke 2017; Atrial fibrillation, HLD; glaucoma Past Surgical History: Lap Jessica, Right leg surgery; appendectomy Family History: Mom had an SC passed at the age of 95; Dad pass of cancer Social: Denies smoking, drinking or illicit drugs; Lives at home with daughter and daughter's Allergies: NKDA Present on Admission - Present on Admission Any Indicators Present on Admission: Yes History of DVT/PE: No Decubitus Ulcer Present: Yes Decubitus Ulcer Location: Left foot Decubitus Ulcer Stage: III Review of Systems - Review of Systems Systems not reviewed;Unavailable: Altered Mental Status - Constitutional Constitutional: Headache. absent: Chills, Fever - EENT Eyes: absent: Blurred Vision, Change in Vision, Pain Ears: absent: Other Nose/Mouth/Throat: absent: Nasal Congestion, Hoarsness, Sore Throat - Cardiovascular Cardiovascular: Chest Pain, Palpitations. absent: Dyspnea, Pedal Edema - Respiratory Respiratory: absent: Cough, Wheezing, Stridor - Gastrointestinal Gastrointestinal: absent: Abdominal Pain, Constipation, Diarrhea, Nausea, Vomiting - Genitourinary Genitourinary: Dysuria, Hematuria - Musculoskeletal Musculoskeletal: Numbness. absent: Tingling - Integumentary Integumentary: Skin Ulcer (left ulcer on heel of foot ) - Neurological Neurological: Focal Weakness. absent: Dizziness - Endocrine Endocrine: Palpitations Past Patient History - Past Medical History & Family History Past Medical History?: Yes - Past Social History Smoking Status: Never Smoked - CARDIAC Hx Cardia Arrhythmia: Yes (AFIB WITH RVR) - PULMONARY Hx Respiratory Disorders: No - NEUROLOGICAL HX Cerebrovascular Accident: Yes (OCTOBER 2016) Other/Comment: HEMIPARESIS POST CVA - HEENT Hx Glaucoma: Yes - RENAL Hx Kidney Stones: Yes - ENDOCRINE/METABOLIC Hx Endocrine Disorders: No - HEMATOLOGICAL/ONCOLOGICAL Hx Blood Disorders: No - INTEGUMENTARY Hx Dermatological Problems: No Other/Comment: PRESSURE ULCER LEFT HEEL - MUSCULOSKELETAL/RHEUMATOLOGICAL Hx Falls: No Hx Myasthenia Gravis: Yes (?) - GASTROINTESTINAL Hx Gastrointestinal Disorders: No - GENITOURINARY/GYNECOLOGICAL Hx Genitourinary Disorders: No Hx Urinary Tract Infection: Yes - PSYCHIATRIC Hx Substance Use: No - SURGICAL HISTORY Hx Appendectomy: Yes - ANESTHESIA Hx Anesthesia: Yes Hx Anesthesia Reactions: No Meds Allergies/Adverse Reactions: Allergies Allergy/AdvReac Type Severity Reaction Status Date / Time No Known Allergies Allergy Verified 02/09/17 12:49 Physical Exam - Constitutional Appears: In Acute Distress - Head Exam Head Exam: absent: ATRAUMATIC (left sided bruise ) - Eye Exam Eye Exam: EOMI, Normal appearance, PERRL Pupil Exam: NORMAL ACCOMODATION - ENT Exam ENT Exam: Mucous Membranes Moist - Respiratory Exam Respiratory Exam: Clear to Auscultation Bilateral, NORMAL BREATHING PATTERN - Cardiovascular Exam Cardiovascular Exam: Tachycardia, REGULAR RHYTHM, RRR, +S1, +S2 - GI/Abdominal Exam GI & Abdominal Exam: Normal Bowel Sounds, Soft, Tenderness (lower abdominal tenderness) - Extremities Exam Extremities exam: Negative for: normal inspection (left heel ulcer stage III) - Neurological Exam Neurological exam: Alert - Expanded Neurological Exam Expanded Neurological exam: Memory Loss-Recent Event Patient oriented to: person, place Cranial nerves: EOM's Intact: Normal Sensory exam: Lower Extremity Light Touch: Abnormal Right, Upper Extremity Light Touch: Abnormal Right Neuro motor strength exam: Left Upper Extremity: 3, Right Upper Extremity: 4, Left Lower Extremity: 3, Right Lower Extremity: 4 Coma Scale Eye Opening: SPONTANEOUS Coma Scale Motor Response: OBEYS COMMANDS Coma Scale Verbal: Oriented Coma Scale Total: 15 - Skin Skin Exam: Normal Color, Warm Additional comments: ulcer on the heel of the left foot Results - Vital Signs Recent Vital Signs: Last Vital Signs Temp 97.4 F L 02/09/17 17:30 Pulse 134 H 02/09/17 22:30 Resp 16 02/09/17 22:30 BP 96/70 L 02/09/17 22:30 Pulse Ox 97 02/09/17 22:30 - Labs Result Diagrams: 02/09/17 13:36 02/09/17 13:36 Assessment & Plan - Assessment and Plan (Free Text) Assessment: AMS secondary possibly to UTI vs. s/p fall Head CT: No acute intracranial findings by standard CT criteria including hemorrhage or fracture. Chronic right MCA distribution infarct again evident; age-related neuro degenerative changes are identified; no significant interval change appreciated Cervical Spine CT: No fracture or spondylolisthesis appreciable or suspicious lytic or blastic change. Mild to moderate multilevel cervical spondylosis noted with a few advanced neural foraminal stenosis identified at C4 and C5 root foramina left side only. Chest/Abdomen/Pelvis CT: 1. A moderate to severe compression fracture T7 vertebral body is with a severe L1-2 but a compression fracture. Age of these fractures is indeterminate. L1 compression fracture results and retropulsion of the upper endplate to cause a central canal stenosis. No additional potential acute fracture appreciable throughout the main of the chest abdomen or pelvis. Old healed left 9th rib fractures appreciated. A likely degenerate spondylolisthesis at L5-S1 is appreciated, minimal. 2. No pleural or pericardial effusion or evidence of pulmonary contusion the chest. No obvious CT pattern of abdominal visceral injury as well. No pneumoperitoneum or hemoperitoneum identified. 3. Sigmoid diverticulosis without diverticulitis. 4. Prior cholecystectomy suggested. Clinically correlate. 5. Prior hysterectomy. 6. Prominent urinary bladder distension with the bladder otherwise unremarkable appearing. * Zyosn 3.375 Q6H * bladder scan/leggett was placed * n/s @100cc/hr * f/u blood and urine culture History of Afib * Eliquis 2.5 mg BID - to start 02/10 * Cardazim 30 mg Q6 - on hold * 0.5mg digoxin once * f/u ECHO History of CAD * Crestor 20mg * f/u ECHO History of Heel Ulcer * wound care PPX * Pepcid 20mg QD * Eliquis 2.5 mg BID * Colace 100mg BID Case discussed with Dr. Jose Cruz Huertas PGY-1 <Cole Billingsley P - Last Filed: 02/10/17 07:49> Results - Vital Signs Recent Vital Signs: Last Vital Signs Temp 98.5 F 02/09/17 23:26 Pulse 101 H 02/10/17 06:20 Resp 16 02/10/17 06:20 BP 101/63 02/10/17 06:20 Pulse Ox 96 02/10/17 06:20 - Labs Result Diagrams: 02/09/17 13:36 02/09/17 13:36 Attending/Attestation - Attestation I have personally seen and examined this patient.: Yes I have fully participated in the care of the patient.: Yes I have reviewed all pertinent clinical information: Yes Notes (Text): Assessment * UTI and urinary retention * Dehydration due to poor intake * Afib with rvr due to above likely, on eliquis * hypotensive mainly from dehydration rather afib * Left hemiperisis, continent for bowel, bladder, can talk and swallow Plan * ABX * Gentle ivf as EF not known * Avoid BP meds till bp improves with ivf, echo today. * Control HR with digoxin started loading 0.5mg last night * DVT prophylaxis with eliquis * PPI * See orders for detail.
[2017-02-10] MEDS: Sodium Chloride 0.9% 1,000 ML IV SCH ×3 (00:02→21:57)
[2017-02-10] MEDS ORDERED: Piperacillin/Tazobact 3.375 gm 100 ML IVPB ONE (06:08)
[2017-02-10] MEDS: Piperacillin/Tazobact 3.375 GM in Sodium Chloride 100 ML IVPB SCH ×4 (06:21→21:55)
[2017-02-10] MEDS ORDERED: Metoprolol 1 mg/ml Inj IVP ONE (10:30)
[2017-02-10] MEDS ORDERED: Digoxin 500 mcg/2ml (0.5 mg/2ml) Inj IVP ONE (15:38)
--- NOTE | 2017-02-10 17:19 | RAD ---
PROCEDURE: Left Foot Radiographs. HISTORY: ulcer COMPARISON: None. FINDINGS: BONES: No evidence of destructive bony lesion. No radiographic evidence of osteomyelitis. Diffuse osteopenia. JOINTS: Moderate arthritic and degenerative changes. SOFT TISSUES: Heterogeneous soft tissue density at the heel. No evidence of soft tissue pneumatosis. OTHER FINDINGS: None. IMPRESSION: No radiographic evidence of osteomyelitis.
--- NOTE | 2017-02-10 18:31 | CP.PCM.PN ---
<Robyn Billings - Last Filed: 02/10/17 18:27> Subjective - Date & Time of Evaluation Date of Evaluation: 02/10/17 Time of Evaluation: 07:00 - Subjective Subjective: PGY1- Medicine Note- Dr. Coates's Service Patient seen and examined at bedside. Patient complaining of left leg and hip pain. Patient confused and full ROS unobtainable. Patient denies shortness of breath or chest pain. Objective - Vital Signs/Intake and Output Vital Signs (last 24 hours): Temp Pulse Resp BP Pulse Ox 99 F 101 H 16 122/62 96 02/10/17 16:00 02/10/17 06:20 02/10/17 06:20 02/10/17 18:05 02/10/17 06:20 Intake and Output: 02/10/17 02/10/17 06:59 18:59 Intake Total 1000 Output Total 450 425 Balance -450 575 - Medications Medications: Current Medications Apixaban (Eliquis) 2.5 mg PO BID [facility] Last Admin: 02/10/17 18:05 Dose: 2.5 mg Diltiazem HCl (Cardizem) 60 mg PO Q6 [facility] Last Admin: 02/10/17 13:36 Dose: 60 mg Docusate Sodium (Colace) 100 mg PO BID [facility] Last Admin: 02/10/17 18:05 Dose: 100 mg Piperacillin Sod/Tazobactam (Sod 3.375 gm/ Sodium Chloride) 100 mls @ 200 mls/ hr IVPB Q6H [facility] Last Admin: 02/10/17 16:20 Dose: 200 mls/hr Sodium Chloride (Sodium Chloride 0.9%) 1,000 mls @ 100 mls/hr IV .Q10H [facility] Last Admin: 02/10/17 09:54 Dose: 100 mls/hr Metoprolol Tartrate (Lopressor) 25 mg PO BID [facility] Last Admin: 02/10/17 18:05 Dose: 25 mg Rosuvastatin Calcium (Crestor) 20 mg PO HS [facility] - Labs Labs: PT 15.3 SECONDS (9.7-12.2) H 02/09/17 13:36 INR 1.4 02/09/17 13:36 APTT 40 SECONDS (21-34) H 02/09/17 13:36 - Constitutional Appears: Non-toxic, No Acute Distress - Head Exam Head Exam: ATRAUMATIC, NORMAL INSPECTION, NORMOCEPHALIC - Eye Exam Eye Exam: EOMI, Normal appearance - ENT Exam ENT Exam: Mucous Membranes Moist - Respiratory Exam Respiratory Exam: Clear to Ausculation Bilateral, NORMAL BREATHING PATTERN. absent: Rales, Rhonchi, Wheezes, Respiratory Distress, Stridor - Cardiovascular Exam Cardiovascular Exam: Irregular Rhythm. absent: Gallop, Rubs, Murmur - GI/Abdominal Exam GI & Abdominal Exam: Soft, Normal Bowel Sounds - Extremities Exam Additional comments: left foot internally rotated legs b/l in offloading boots left heel ulcer wrapped in dry, clean, intact dressing - Neurological Exam Neurological Exam: Alert, Awake. absent: Oriented x3 - Psychiatric Exam Psychiatric exam: Normal Affect, Normal Mood - Skin Skin Exam: Intact, Normal Color, Warm Additional comments: left heel ulcer stage 3 Assessment and Plan - Assessment and Plan (Free Text) Assessment: AMS secondary possibly to UTI vs. s/p fall Head CT: No acute intracranial findings by standard CT criteria including hemorrhage or fracture. Chronic right MCA distribution infarct again evident; age-related neuro degenerative changes are identified; no significant interval change appreciated Cervical Spine CT: No fracture or spondylolisthesis appreciable or suspicious lytic or blastic change. Mild to moderate multilevel cervical spondylosis noted with a few advanced neural foraminal stenosis identified at C4 and C5 root foramina left side only. Chest/Abdomen/Pelvis CT: 1. A moderate to severe compression fracture T7 vertebral body is with a severe L1-2 but a compression fracture. Age of these fractures is indeterminate. L1 compression fracture results and retropulsion of the upper endplate to cause a central canal stenosis. No additional potential acute fracture appreciable throughout the main of the chest abdomen or pelvis. Old healed left 9th rib fractures appreciated. A likely degenerate spondylolisthesis at L5-S1 is appreciated, minimal. 2. No pleural or pericardial effusion or evidence of pulmonary contusion the chest. No obvious CT pattern of abdominal visceral injury as well. No pneumoperitoneum or hemoperitoneum identified. 3. Sigmoid diverticulosis without diverticulitis. 4. Prior cholecystectomy suggested. Clinically correlate. 5. Prior hysterectomy. 6. Prominent urinary bladder distension with the bladder otherwise unremarkable appearing. * Zyosn 3.375 Q6H * bladder scan/leggett was placed * n/s @100cc/hr * urine culture- prelim gram neg nanda * f/u blood culture * f/u abg shock panel History of Afib * Eliquis 2.5 mg BID - to start 02/10 * Cardazim 30 mg Q6 - on hold * 0.5mg digoxin once * f/u ECHO History of CAD * Crestor 20mg * f/u ECHO History of Heel Ulcer * wound care * podiatry consulted, Dr. Roland, help appreciated Left leg and foot pain * foot xray: no radiographic evidence of osteomyelitis * f/u left hip xray * morphine 1 mg q4h prn PPX * Pepcid 20mg QD * Eliquis 2.5 mg BID * Colace 100mg BID Case discussed with Dr. Jose Cruz Huertas PGY-1 <Bernard Coates - Last Filed: 02/12/17 07:48> Objective - Vital Signs/Intake and Output Vital Signs (last 24 hours): Temp Pulse Resp BP Pulse Ox 98 F 69 13 104/58 L 100 02/12/17 06:00 02/12/17 06:00 02/12/17 06:00 02/12/17 06:00 02/12/17 06:00 Intake and Output: 02/12/17 02/12/17 06:59 18:59 Intake Total 200 Output Total 200 Balance 0 - Medications Medications: Current Medications Apixaban (Eliquis) 2.5 mg PO BID [facility] Last Admin: 02/11/17 17:21 Dose: 2.5 mg Collagenase (Santyl) 0 gm TOP DAILY [facility] Last Admin: 02/11/17 11:47 Dose: 1 applic Digoxin (Lanoxin) 0.25 mg PO DAILY@1800 [facility] Last Admin: 02/11/17 17:21 Dose: 0.25 mg Diltiazem HCl (Cardizem) 60 mg PO Q6 [facility] Last Admin: 02/12/17 05:22 Dose: 60 mg Docusate Sodium (Colace) 100 mg PO BID [facility] Last Admin: 02/11/17 17:20 Dose: 100 mg Meropenem 1 gm/ Sodium (Chloride) 100 mls @ 100 mls/hr IVPB Q12H [facility] Last Admin: 02/12/17 00:20 Dose: 100 mls/hr Metoprolol Tartrate (Lopressor) 25 mg PO BID [facility] Last Admin: 02/11/17 17:21 Dose: 25 mg Morphine Sulfate (Morphine) 1 mg IVP Q8 PRN PRN Reason: Pain, severe (8-10) Last Admin: 02/11/17 21:57 Dose: 1 mg Rosuvastatin Calcium (Crestor) 20 mg PO HS [facility] Last Admin: 02/11/17 21:57 Dose: 20 mg Tramadol HCl (Ultram) 25 mg PO TID PRN PRN Reason: Pain, moderate (4-7) Last Admin: 02/11/17 18:44 Dose: 25 mg - Labs Labs: 02/11/17 11:32 02/11/17 11:32 PT 15.3 SECONDS (9.7-12.2) H 02/09/17 13:36 INR 1.4 02/09/17 13:36 APTT 40 SECONDS (21-34) H 02/09/17 13:36 Attending/Attestation - Attestation I have personally seen and examined this patient.: Yes I have fully participated in the care of the patient.: Yes I have reviewed all pertinent clinical information, including history, physical exam and plan: Yes Notes (Text): Medical Attending: Patient was seen and examined by me as well. Agree with the above note by the resident. She is having likely some source of infection and so at this moment are still pending blood as well as urine cultures. The patient also has atrial fibrillation as well - per discussion with nursing the patient will sometimes take her PO rate control medication and sometimes would not so will add on digoxin as well. thank you Bernard Coates
[2017-02-10 18:54] LABS: DRAW SITE RRA
[2017-02-10] MEDS ORDERED: Sod Polystyrene Sulf 15 gm/60 ml Susp PO ONE ×2 (19:07→20:45)
[2017-02-10] MEDS ORDERED: Calcium Gluconate 4.65 mEq/10 ml Inj IVP ONE ×2 (19:07→21:15)
[2017-02-10 21:15] LABS: CHLORIDE 113 mmol/L (98-107); POTASSIUM 3.6 mmol/L (3.6-5.2); SODIUM 139 mmol/L (132-148)
[2017-02-10 21:18] LABS: BLOOD UREA NITROGEN 10 mg/dL (7-17); CARBON DIOXIDE 18 mmol/L (22-30); GFR AFRICAN-AMERICAN > 60; GLUCOSE,RANDOM 78 mg/dL (65-105)
[2017-02-10 21:19] LABS: CALCIUM 7.4 mg/dl (8.6-10.4)
[2017-02-11] MEDS: Piperacillin/Tazobact 3.375 GM in Sodium Chloride 100 ML IVPB SCH ×2 (04:30→10:50)
[2017-02-11] MEDS: Sodium Chloride 0.9% 1,000 ML IV SCH ×3 (05:41→10:51)
[2017-02-11] MEDS ORDERED: Meropenem 1 GM in Sodium Chloride 0.9% 100 ML IVPB SCH (10:00)
--- NOTE | 2017-02-11 10:16 | RAD ---
PROCEDURE: Left Hip X-ray Radiographs. HISTORY: internal rotation, hip pain COMPARISON: None. FINDINGS: BONES: Diffuse osteopenia seen. No evidence of acute fracture. JOINTS: [id number] osteoarthritic changes. The pubic symphysis is not clearly visualized. SOFT TISSUES: Normal. OTHER FINDINGS: None. IMPRESSION: No evidence of acute fracture or dislocation.
[2017-02-11 11:39] LABS: BASO # 0.1 K/uL (0.0-0.2); BASO % 0.5 % (0.0-2.0); EOS # 0.2 K/uL (0.0-0.7); EOS % 1.7 % (0.0-4.0); HEMATOCRIT 33.3 % (34.0-47.0); LYMPH # 1.4 K/uL (1.0-4.3); LYMPH % 13.7 % (20.0-40.0); MEAN CELL VOLUME 95.8 fL (81.0-99.0); MEAN CORPUSCULAR HEMOGLOBIN 32.1 pg (27.0-31.0); MEAN CORPUSCULAR HGB CONC 33.5 g/dL (33.0-37.0); MEAN PLATELET VOLUME 7.4 fL (7.2-11.7); MONO # 0.8 K/uL (0.0-0.8); MONO % 7.4 % (0.0-10.0); RED CELL DISTRIBUTION WIDTH 18.7 % (11.5-14.5); WHITE BLOOD COUNT 10.2 K/uL (4.8-10.8)
[2017-02-11] MEDS: Collagenase 250 Units/gm Ointment(30 gm) TOP SCH (11:47)
[2017-02-11 11:52] LABS: ALB/GLOB RATIO 0.9 (1.0-2.1); ALKALINE PHOSPHATASE 139 U/L (38-126); ALT/SGPT 33 U/L (9-52); AST/SGOT 23 U/L (14-36); BILIRUBIN,TOTAL 0.5 mg/dL (0.2-1.3); BLOOD UREA NITROGEN 5 mg/dL (7-17); CALCIUM 7.7 mg/dl (8.6-10.4); CARBON DIOXIDE 18 mmol/L (22-30); CHLORIDE 111 mmol/L (98-107); GFR AFRICAN-AMERICAN > 60; GLUCOSE,RANDOM 78 mg/dL (65-105); MAGNESIUM 1.6 mg/dL (1.6-2.3); PHOSPHOROUS 2.6 mg/dL (2.5-4.5); POTASSIUM 3.6 mmol/L (3.6-5.2); SODIUM 141 mmol/L (132-148); TOTAL PROTEIN 5.1 g/dL (6.3-8.3)
[2017-02-11] MEDS: Meropenem 1 GM in Sodium Chloride 0.9% 100 ML IVPB SCH (13:45)
--- NOTE | 2017-02-11 14:59 | CP.PCM.CON ---
History of Present Illness - History of Present Illness History of Present Illness: 86 y/o female with PMHx of stroke, arrhythmia, atrial fibrillation, HLD and glaucoma seen by podiatry at bedside in ICU for left plantar heel ulceration. . Pt is known to Dr. Hilliard's service and was recently treated for left heel ulceration. Patient's daughter relays patient history. Patient's daughter denies any trauma to the heel or lower extremity. Pt fell and hit her head approx 4 days ago but sustained no traumatic injury to the left heel. Daughter states that they were planning to have her follow up at podiatry clinic but she has been in and out of the hospital for urinary tract infections. Daughter states that she has cleaned and changed dressings to her mother's foot in the mean time using Neosporin and gauze. Patient denies any significant pain to the left heel wound but says that she has diffuse pain in the feet. Daughter states that her mother spends the majority of her time in bed. PSHx: glaucoma surgery, right ankle surgery, peritonitis, cholecystectomy, recurrent UTIs All: NKDA Review of Systems - Review of Systems All systems: reviewed and no additional remarkable complaints except (per HPI) Past Patient History - Past Medical History & Family History Past Medical History?: Yes - Past Social History Smoking Status: Never Smoked - CARDIAC Hx Cardia Arrhythmia: Yes (AFIB WITH RVR) - PULMONARY Hx Respiratory Disorders: No - NEUROLOGICAL HX Cerebrovascular Accident: Yes (OCTOBER 2016) Other/Comment: HEMIPARESIS POST CVA - HEENT Hx Glaucoma: Yes - RENAL Hx Kidney Stones: Yes - ENDOCRINE/METABOLIC Hx Endocrine Disorders: No - HEMATOLOGICAL/ONCOLOGICAL Hx Blood Disorders: No - INTEGUMENTARY Hx Dermatological Problems: No Other/Comment: PRESSURE ULCER LEFT HEEL - MUSCULOSKELETAL/RHEUMATOLOGICAL Hx Falls: Yes - GASTROINTESTINAL Hx Gastrointestinal Disorders: No - GENITOURINARY/GYNECOLOGICAL Hx Genitourinary Disorders: No Hx Urinary Tract Infection: Yes - PSYCHIATRIC Hx Substance Use: No - SURGICAL HISTORY Hx Appendectomy: Yes - ANESTHESIA Hx Anesthesia: Yes Hx Anesthesia Reactions: No Meds Allergies/Adverse Reactions: Allergies Allergy/AdvReac Type Severity Reaction Status Date / Time No Known Allergies Allergy Verified 02/09/17 12:49 - Medications Medications: Current Medications Apixaban (Eliquis) 2.5 mg PO BID [facility] Last Admin: 02/11/17 10:25 Dose: 2.5 mg Collagenase (Santyl) 0 gm TOP DAILY [facility] Last Admin: 02/11/17 11:47 Dose: 1 applic Diltiazem HCl (Cardizem) 60 mg PO Q6 [facility] Last Admin: 02/11/17 13:44 Dose: 60 mg Docusate Sodium (Colace) 100 mg PO BID [facility] Last Admin: 02/11/17 10:25 Dose: 100 mg Meropenem 1 gm/ Sodium (Chloride) 100 mls @ 100 mls/hr IVPB Q12H [facility] Last Admin: 02/11/17 13:45 Dose: 100 mls/hr Metoprolol Tartrate (Lopressor) 25 mg PO BID [facility] Last Admin: 02/11/17 10:25 Dose: 25 mg Morphine Sulfate (Morphine) 1 mg IVP Q8 PRN PRN Reason: Pain, severe (8-10) Rosuvastatin Calcium (Crestor) 20 mg PO HS [facility] Last Admin: 02/10/17 21:58 Dose: 20 mg Physical Exam - Constitutional Appears: Well, Non-toxic, No Acute Distress - Extremities Exam Additional comments: Left lower extremity focused examination: Vasc: DP and PT pulses 2/4. CFT < 3 sec to all digits. Temperature gradient warm to cool from proximal to distal. No pedal edema. Neuro: Protective sensation grossly diminished Derm: An approximately 3.0cm x 1.2 cm x 0.1 cm ulceration noted to posteroplantar left heel with a fibrotic base, the periwound is granular, with healing noted to distal aspect of wound with new skin growing in over ulceration. No malodor, no active drainage, no tunneling, no undermining, no fluctuance, no probe to bone. No clinical signs of infection present. Ortho: minimal tenderness to palpation of left plantar posterior heel ulceration - Neurological Exam Neurological exam: Alert, Oriented x3 - Psychiatric Exam Psychiatric exam: Normal Affect, Normal Mood Results - Vital Signs Recent Vital Signs: Last Vital Signs Temp 97.3 F L 02/10/17 22:00 Pulse 94 H 02/11/17 08:00 Resp 17 02/11/17 06:00 BP 110/66 02/11/17 10:25 Pulse Ox 96 02/11/17 06:00 - Labs Result Diagrams: 02/11/17 11:32 02/11/17 11:32 Labs: Laboratory Results - last 24 hr 02/10/17 02/10/17 02/11/17 18:45 20:53 11:32 WBC 10.2 RBC 3.48 L Hgb 11.2 Hct 33.3 L MCV 95.8 MCH 32.1 H MCHC 33.5 RDW 18.7 H Plt Count 330 MPV 7.4 Neut % (Auto) 76.7 H Lymph % (Auto) 13.7 L [place] % (Auto) 7.4 Eos % (Auto) 1.7 Baso % (Auto) 0.5 Neut # 7.9 H Lymph # 1.4 [place] # 0.8 Eos # 0.2 Baso # 0.1 Puncture Site Rra pCO2 21 L pO2 162 H HCO3 18.6 L ABG pH 7.43 ABG Total CO2 14.5 L ABG O2 Saturation 105.5 H ABG Base Excess -8.2 L Fredi Test Na ABG Potassium 7.5 H* A-a O2 Difference -39.0 Respiratory Index -0.2 Sodium 137.0 139 Chloride 122.0 H 113 H Glucose 79 Lactate 1.1 FiO2 21.0 Crit Value Called To [facility] nurse beulah Crit Value Called By Ranjit rt Crit Value Read Back Y Blood Gas Notified Time 1854 Potassium 3.6 Carbon Dioxide 18 L Anion Gap 12 BUN 10 Creatinine 0.4 L Est GFR ( Amer) > 60 Est GFR (Non-Af Amer) > 60 Random Glucose 78 Calcium 7.4 L Phosphorus Magnesium Total Bilirubin AST ALT Alkaline Phosphatase Total Protein Albumin Globulin Albumin/Globulin Ratio Arterial Blood Potassium 7.5 H* 02/11/17 11:32 WBC RBC Hgb Hct MCV MCH MCHC RDW Plt Count MPV Neut % (Auto) Lymph % (Auto) [place] % (Auto) Eos % (Auto) Baso % (Auto) Neut # Lymph # [place] # Eos # Baso # Puncture Site pCO2 pO2 HCO3 ABG pH ABG Total CO2 ABG O2 Saturation ABG Base Excess Fredi Test ABG Potassium A-a O2 Difference Respiratory Index Sodium 141 Chloride 111 H Glucose Lactate FiO2 Crit Value Called To Crit Value Called By Crit Value Read Back Blood Gas Notified Time Potassium 3.6 Carbon Dioxide 18 L Anion Gap 16 BUN 5 L Creatinine 0.3 L Est GFR ( Amer) > 60 Est GFR (Non-Af Amer) > 60 Random Glucose 78 Calcium 7.7 L Phosphorus 2.6 Magnesium 1.6 Total Bilirubin 0.5 AST 23 ALT 33 Alkaline Phosphatase 139 H Total Protein 5.1 L Albumin 2.4 L Globulin 2.7 Albumin/Globulin Ratio 0.9 L Arterial Blood Potassium Assessment & Plan - Assessment and Plan (Free Text) Assessment: 86 year old female with left heel pressure ulceration secondary to bed bound status Plan: Pt examined and evaluated Discussed plan with attending Dr. Hilliard lab, chart, vitals reviewed - afebrile, WBC 10.2 Left heel dressed with santyl, DSD Offloading boots to be worn at all times in bed Continue IV abx Patient to f/u in podiatry clinic upon D/C Podiatry will continue to follow while in house
--- NOTE | 2017-02-11 15:50 | CP.PCM.PN ---
<Robyn Billings - Last Filed: 02/11/17 17:44> Subjective - Date & Time of Evaluation Date of Evaluation: 02/11/17 Time of Evaluation: 07:00 - Subjective Subjective: PGY1- Medicine Note- Dr. Irene's Service Patient seen and examined at bedside and in no acute distress. Patient complaining of left leg and hip pain. Patient having some nausea and suprapubic pain. Patient confused and full ROS unobtainable. Patient denies shortness of breath or chest pain. Objective - Vital Signs/Intake and Output Vital Signs (last 24 hours): Temp Pulse Resp BP Pulse Ox 97.3 F L 94 H 17 110/66 96 02/10/17 22:00 02/11/17 08:00 02/11/17 06:00 02/11/17 10:25 02/11/17 06:00 Intake and Output: 02/11/17 02/11/17 06:59 18:59 Intake Total 700 20 Output Total 300 300 Balance 400 -280 - Medications Medications: Current Medications Apixaban (Eliquis) 2.5 mg PO BID [facility] Last Admin: 02/11/17 10:25 Dose: 2.5 mg Collagenase (Santyl) 0 gm TOP DAILY [facility] Last Admin: 02/11/17 11:47 Dose: 1 applic Diltiazem HCl (Cardizem) 60 mg PO Q6 [facility] Last Admin: 02/11/17 13:44 Dose: 60 mg Docusate Sodium (Colace) 100 mg PO BID [facility] Last Admin: 02/11/17 10:25 Dose: 100 mg Meropenem 1 gm/ Sodium (Chloride) 100 mls @ 100 mls/hr IVPB Q12H [facility] Last Admin: 02/11/17 13:45 Dose: 100 mls/hr Metoprolol Tartrate (Lopressor) 25 mg PO BID [facility] Last Admin: 02/11/17 10:25 Dose: 25 mg Morphine Sulfate (Morphine) 1 mg IVP Q8 PRN PRN Reason: Pain, severe (8-10) Rosuvastatin Calcium (Crestor) 20 mg PO HS [facility] Last Admin: 02/10/17 21:58 Dose: 20 mg - Labs Labs: 02/11/17 11:32 02/11/17 11:32 PT 15.3 SECONDS (9.7-12.2) H 02/09/17 13:36 INR 1.4 02/09/17 13:36 APTT 40 SECONDS (21-34) H 02/09/17 13:36 - Constitutional Appears: Non-toxic, No Acute Distress, Chronically Ill - Head Exam Head Exam: ATRAUMATIC, NORMAL INSPECTION, NORMOCEPHALIC - Eye Exam Eye Exam: EOMI, Normal appearance - ENT Exam ENT Exam: Mucous Membranes Moist - Neck Exam Neck Exam: Full ROM. absent: Tenderness - Respiratory Exam Respiratory Exam: Clear to Ausculation Bilateral, NORMAL BREATHING PATTERN. absent: Rales, Rhonchi, Wheezes, Respiratory Distress, Stridor - Cardiovascular Exam Cardiovascular Exam: Tachycardia, Irregular Rhythm - GI/Abdominal Exam GI & Abdominal Exam: Soft, Tenderness, Normal Bowel Sounds - Extremities Exam Extremities Exam: Tenderness. absent: Full ROM, Pedal Edema - Neurological Exam Neurological Exam: Alert, Awake. absent: Oriented x3 - Psychiatric Exam Psychiatric exam: Agitated, Normal Affect - Skin Skin Exam: Intact, Normal Color, Rash, Warm Additional comments: stage 3 ulcer on left heel - present since admission stage 3 sacral ulcer- present sine admission rash under breasts b/l Assessment and Plan - Assessment and Plan (Free Text) Assessment: AMS secondary possibly to UTI vs. s/p fall Head CT: No acute intracranial findings by standard CT criteria including hemorrhage or fracture. Chronic right MCA distribution infarct again evident; age-related neuro degenerative changes are identified; no significant interval change appreciated Cervical Spine CT: No fracture or spondylolisthesis appreciable or suspicious lytic or blastic change. Mild to moderate multilevel cervical spondylosis noted with a few advanced neural foraminal stenosis identified at C4 and C5 root foramina left side only. Chest/Abdomen/Pelvis CT: 1. A moderate to severe compression fracture T7 vertebral body is with a severe L1-2 but a compression fracture. Age of these fractures is indeterminate. L1 compression fracture results and retropulsion of the upper endplate to cause a central canal stenosis. No additional potential acute fracture appreciable throughout the main of the chest abdomen or pelvis. Old healed left 9th rib fractures appreciated. A likely degenerate spondylolisthesis at L5-S1 is appreciated, minimal. 2. No pleural or pericardial effusion or evidence of pulmonary contusion the chest. No obvious CT pattern of abdominal visceral injury as well. No pneumoperitoneum or hemoperitoneum identified. 3. Sigmoid diverticulosis without diverticulitis. 4. Prior cholecystectomy suggested. Clinically correlate. 5. Prior hysterectomy. 6. Prominent urinary bladder distension with the bladder otherwise unremarkable appearing. * Zyosn 3.375 Q6H * n/s @100cc/hr stopped on 02/11 * urine culture- ESBL positive, meropenem 1 gm q12h started by Dr. Fitzgerald on () * blood culture negative * abg shock panel : pC02 21, p02 162, HCO3 18.6 pH 7.43 ABG K: 7.5 * bmp ordered: K+: 3.6 History of Afib * Eliquis 2.5 mg BID - to start 02/10 * Cardizem 30 mg Q6 * cardiology consulted, Dr. Reddy, help appreciated * f/u ECHO History of CAD * Crestor 20mg * f/u ECHO History of Heel Ulcer * wound care * podiatry consulted, Dr. Roland, help appreciated Left leg and foot pain * foot xray: no radiographic evidence of osteomyelitis * left hip xray: no evidence of acute fracture or dislocation * morphine 1 mg q8h prn * ortho consulted, Dr. Oneill, help appreciated PPX * Pepcid 20mg QD * Eliquis 2.5 mg BID * Colace 100mg BID * leggett removed on 02/[address] Irene <Raymond Irene - Last Filed: 02/13/17 12:11> Objective - Vital Signs/Intake and Output Vital Signs (last 24 hours): Temp Pulse Resp BP Pulse Ox 98.7 F 84 17 109/57 L 97 02/13/17 11:29 02/13/17 07:30 02/13/17 06:00 02/13/17 09:15 02/13/17 06:00 Intake and Output: 02/13/17 02/13/17 06:59 18:59 Intake Total 200 70 Balance 200 70 - Medications Medications: Current Medications Apixaban (Eliquis) 2.5 mg PO BID [facility] Last Admin: 02/13/17 09:15 Dose: 2.5 mg Betamethasone/Clotrimazole (Lotrisone) 0 gm TOP BID [facility] Last Admin: 02/13/17 09:17 Dose: 1 applic Collagenase (Santyl) 0 gm TOP DAILY [facility] Last Admin: 02/13/17 09:17 Dose: 1 applic Digoxin (Lanoxin) 0.25 mg IVP DAILY@1800 [facility] Last Admin: 02/12/17 17:15 Dose: 0.25 mg Diltiazem HCl (Cardizem) 60 mg PO Q6 [facility] Last Admin: 02/13/17 06:41 Dose: 60 mg Docusate Sodium (Colace) 100 mg PO BID [facility] Last Admin: 02/13/17 09:15 Dose: 100 mg Meropenem 1 gm/ Sodium (Chloride) 100 mls @ 100 mls/hr IVPB Q12H [facility] Last Admin: 02/13/17 00:01 Dose: 100 mls/hr Sodium Chloride (Sodium Chloride 0.9%) 1,000 mls @ 75 mls/hr IV .[id number] ON [facility] Last Admin: 02/13/17 09:00 Dose: 75 mls/hr Potassium Chloride (Potassium Chloride 20 Meq/100 Ml) 20 meq in 100 mls @ 50 mls/hr IVPB ONCE ONE Stop: 02/13/17 13:59 Ketorolac Tromethamine (Toradol) 30 mg IVP Q6 PRN PRN Reason: Pain, moderate (4-7) Metoprolol Tartrate (Lopressor) 25 mg PO BID [facility] Last Admin: 02/13/17 09:15 Dose: 25 mg Morphine Sulfate (Morphine) 1 mg IVP Q8 PRN PRN Reason: Pain, severe (8-10) Last Admin: 02/12/17 21:49 Dose: 1 mg Rosuvastatin Calcium (Crestor) 20 mg PO HS [facility] Last Admin: 02/12/17 21:49 Dose: 20 mg - Labs Labs: 02/13/17 06:19 02/13/17 06:19 PT 15.3 SECONDS (9.7-12.2) H 02/09/17 13:36 INR 1.4 02/09/17 13:36 APTT 40 SECONDS (21-34) H 02/09/17 13:36 Attending/Attestation - Attestation I have personally seen and examined this patient.: Yes I have fully participated in the care of the patient.: Yes I have reviewed all pertinent clinical information, including history, physical exam and plan: Yes Notes (Text): UTI with Change in metal status Toxic metabolic encephalopathy Heel Ulcer Afib - rate controlled currently
[2017-02-11] MEDS ORDERED: Digoxin 250 mcg (0.25 mg) Tab PO SCH (18:00)
[2017-02-11] MEDS: Tramadol 25 mg PO PRN (18:44)
--- NOTE | 2017-02-11 19:08 | CP.PCM.CON ---
History of Present Illness - History of Present Illness History of Present Illness: dictated Past Patient History - Past Medical History & Family History Past Medical History?: Yes - Past Social History Smoking Status: Never Smoked - CARDIAC Hx Cardia Arrhythmia: Yes (AFIB WITH RVR) - PULMONARY Hx Respiratory Disorders: No - NEUROLOGICAL HX Cerebrovascular Accident: Yes (OCTOBER 2016) Other/Comment: HEMIPARESIS POST CVA - HEENT Hx Glaucoma: Yes - RENAL Hx Kidney Stones: Yes - ENDOCRINE/METABOLIC Hx Endocrine Disorders: No - HEMATOLOGICAL/ONCOLOGICAL Hx Blood Disorders: No - INTEGUMENTARY Hx Dermatological Problems: No Other/Comment: PRESSURE ULCER LEFT HEEL - MUSCULOSKELETAL/RHEUMATOLOGICAL Hx Falls: Yes - GASTROINTESTINAL Hx Gastrointestinal Disorders: No - GENITOURINARY/GYNECOLOGICAL Hx Genitourinary Disorders: No Hx Urinary Tract Infection: Yes - PSYCHIATRIC Hx Substance Use: No - SURGICAL HISTORY Hx Appendectomy: Yes - ANESTHESIA Hx Anesthesia: Yes Hx Anesthesia Reactions: No Meds Allergies/Adverse Reactions: Allergies Allergy/AdvReac Type Severity Reaction Status Date / Time No Known Allergies Allergy Verified 02/09/17 12:49 - Medications Medications: Current Medications Apixaban (Eliquis) 2.5 mg PO BID [facility] Last Admin: 02/11/17 17:21 Dose: 2.5 mg Collagenase (Santyl) 0 gm TOP DAILY [facility] Last Admin: 02/11/17 11:47 Dose: 1 applic Digoxin (Lanoxin) 0.25 mg PO DAILY@1800 [facility] Last Admin: 02/11/17 17:21 Dose: 0.25 mg Diltiazem HCl (Cardizem) 60 mg PO Q6 [facility] Last Admin: 02/11/17 17:21 Dose: 60 mg Docusate Sodium (Colace) 100 mg PO BID [facility] Last Admin: 02/11/17 17:20 Dose: 100 mg Meropenem 1 gm/ Sodium (Chloride) 100 mls @ 100 mls/hr IVPB Q12H [facility] Last Admin: 02/11/17 13:45 Dose: 100 mls/hr Metoprolol Tartrate (Lopressor) 25 mg PO BID [facility] Last Admin: 02/11/17 17:21 Dose: 25 mg Morphine Sulfate (Morphine) 1 mg IVP Q8 PRN PRN Reason: Pain, severe (8-10) Rosuvastatin Calcium (Crestor) 20 mg PO HS [facility] Last Admin: 02/10/17 21:58 Dose: 20 mg Tramadol HCl (Ultram) 25 mg PO TID PRN PRN Reason: Pain, moderate (4-7) Last Admin: 02/11/17 18:44 Dose: 25 mg Results - Vital Signs Recent Vital Signs: Last Vital Signs Temp 98.5 F 02/11/17 14:00 Pulse 103 H 02/11/17 14:00 Resp 15 02/11/17 14:00 BP 116/68 02/11/17 17:21 Pulse Ox 99 02/11/17 14:00 - Labs Result Diagrams: 02/11/17 11:32 02/11/17 11:32 Labs: Laboratory Results - last 24 hr 02/10/17 02/11/17 02/11/17 20:53 11:32 11:32 WBC 10.2 RBC 3.48 L Hgb 11.2 Hct 33.3 L MCV 95.8 MCH 32.1 H MCHC 33.5 RDW 18.7 H Plt Count 330 MPV 7.4 Neut % (Auto) 76.7 H Lymph % (Auto) 13.7 L [place] % (Auto) 7.4 Eos % (Auto) 1.7 Baso % (Auto) 0.5 Neut # 7.9 H Lymph # 1.4 [place] # 0.8 Eos # 0.2 Baso # 0.1 Sodium 139 141 Potassium 3.6 3.6 Chloride 113 H 111 H Carbon Dioxide 18 L 18 L Anion Gap 12 16 BUN 10 5 L Creatinine 0.4 L 0.3 L Est GFR ( Amer) > 60 > 60 Est GFR (Non-Af Amer) > 60 > 60 Random Glucose 78 78 Calcium 7.4 L 7.7 L Phosphorus 2.6 Magnesium 1.6 Total Bilirubin 0.5 AST 23 ALT 33 Alkaline Phosphatase 139 H Total Protein 5.1 L Albumin 2.4 L Globulin 2.7 Albumin/Globulin Ratio 0.9 L Assessment & Plan (1) Infection due to ESBL-producing Escherichia coli Status: Acute (2) Atrial flutter Status: Acute (3) Closed head injury Status: Acute (4) Hemiparesis Status: Acute
[2017-02-12] MEDS: Meropenem 1 GM in Sodium Chloride 0.9% 100 ML IVPB SCH ×2 (00:20→12:17)
[2017-02-12] MEDS: Tramadol 25 mg PO PRN (09:05)
--- NOTE | 2017-02-12 12:19 | CON ---
DATE: INFECTIOUS DISEASE CONSULTATION REQUESTED BY: Dr. Bernard Coates. HISTORY OF PRESENT ILLNESS: This patient is an 86-year-old female. She has history of stroke, hyperlipidemia, atrial fibrillation, and glaucoma. She was following up with the doctor in the clinic yesterday and then as there was some urine infection and she has history of altered mental, she was sent to the ER with altered mental status. She also complained of some left-sided pain on the chest and two days ago she had fallen and she showed a bump on her forehead and the doctor at that time got concerned about the head trauma and the patient was sent for evaluation. At present, the patient is in ICU. I am asked to see her and the daughter says that she also had an urine infection few months ago and she has had many strokes in the past and she was yelling and verbalizing and while she was alone in the room, so she may have suffered from dementia because of the stroke and the daughter just walked in when I saw with her . The patient has no fever, no nausea, no vomiting, has had urine infection in the past and I told them it is a resistant urine infection and she is in isolation. PAST MEDICAL HISTORY: Significant for stroke in 2017, three months ago I think, atrial fibrillation, hyperlipidemia, glaucoma. PAST SURGICAL HISTORY: Cholecystectomy, laparoscopic, right leg surgery and appendicectomy. FAMILY HISTORY: She has a family history of mother had NM and father of cancer recorded by the resident. SOCIAL HISTORY: Negative for smoking or drinking and the daughter takes care of her with her . ALLERGIES: SHE IS NOT ALLERGIC TO ANY MEDICINES. MEDICATIONS: At the present time, she is on Eliquis 250 b.i.d., Santyl, Lenoxin, Cardizem, Colace and I just started her on meropenem and she is on metoprolol and Crestor and also Ultram. She came in on 02/09/2017 and her urine culture was reported to be Escherichia coli, urine culture, which was on the 02/09/2017, it is ESBL positive and sensitive only to meropenem, imipenem, gentamicin, ertapenem, and nitrofurantoin. The patient was seen, but she has slight dementia from [facility]. PHYSICAL EXAMINATION: VITAL SIGNS: T max is 98.5, heart rate is 103. She is also incontinent of urine, blood pressure is 101/65, respirations are 15. HEENT: Head is atraumatic, normocephalic. No head trauma noted. She does have some ecchymosis on the left forehead. Head is atraumatic otherwise. Pupils are reacting to light. Eye movements are unremarkable. Mucous membrane is moist. NECK: Supple. No tenderness. LUNGS: Clear. No crackles or rales present. HEART: S1, S2, is irregularly irregular. Tachycardia present. ABDOMEN: Soft and nontender. No guarding. No rigidity present. EXTREMITIES: Were with foot protectors. She does have stage III sacral ulcer, which is reported and stage III ulcer on the left heel. We will evaluate when she is more stable. ASSESSMENT AND PLAN: At this time, she came in after a fall and also has resisting UTI and is on meropenem. She has history of cerebrovascular accident. She also had chest, abdomen and pelvis CT and she had other CT to rule out fractures and she does have a [id number] compression fracture on T7 with severe L1-L2 as a result of some fractures, old healed rib fractures, likely degenerative spondylolisthesis, but the liver, gallbladder, pancreas, and kidneys show chronic few defects in the periphery of the cortex, bilateral kidney and lower pole suggestive of chronic infarcts, some punctate lesions, calcified with no obstructive uropathy. There is a 9 mm hyperdensity in the periphery of the lower pole, left kidney, probably reflecting the hypodense cyst that she may have a cyst, other than that there is nothing acute for me to follow, so we will put her on meropenem. Blood culture is negative and follow with the team and she will be on . Walt Fitzgerald MD
--- NOTE | 2017-02-12 13:26 | CP.PCM.CON ---
History of Present Illness - History of Present Illness History of Present Illness: Orthopedic consultation requested Dr. Oneill for left leg pain 86F complains of left leg pain since admission. Patient admitted for blood in urine and AMS. History per chart, daughter stated patient did have fall a few days prior to admission. When asked, patient complains of pain in her left leg and points to lower thigh and knee area. She also complains of pain in her back when asked specifically. She denies pain in her right side. During exam she keeps complaining of so pain in her left leg. Admits to sensation, follows some commands only. patient with heel and sacral decubiti PMH: CVA with left hemiplegia EBSL+ UTI on admit Review of Systems - Review of Systems Systems not reviewed;Unavailable: Altered Mental Status All systems: reviewed and no additional remarkable complaints except - Musculoskeletal Musculoskeletal: As Per HPI - Neurological Neurological: As Per HPI Past Patient History - Past Medical History & Family History Past Medical History?: Yes Past Family History: Reviewed and not pertinent - Past Social History Smoking Status: Never Smoked - CARDIAC Hx Cardia Arrhythmia: Yes (AFIB WITH RVR) - PULMONARY Hx Respiratory Disorders: No - NEUROLOGICAL HX Cerebrovascular Accident: Yes (OCTOBER 2016) Other/Comment: HEMIPARESIS POST CVA - HEENT Hx Glaucoma: Yes - RENAL Hx Kidney Stones: Yes - ENDOCRINE/METABOLIC Hx Endocrine Disorders: No - HEMATOLOGICAL/ONCOLOGICAL Hx Blood Disorders: No - INTEGUMENTARY Hx Dermatological Problems: No Other/Comment: PRESSURE ULCER LEFT HEEL - MUSCULOSKELETAL/RHEUMATOLOGICAL Hx Falls: Yes - GASTROINTESTINAL Hx Gastrointestinal Disorders: No - GENITOURINARY/GYNECOLOGICAL Hx Genitourinary Disorders: No Hx Urinary Tract Infection: Yes - PSYCHIATRIC Hx Substance Use: No - SURGICAL HISTORY Hx Appendectomy: Yes - ANESTHESIA Hx Anesthesia: Yes Hx Anesthesia Reactions: No Meds Allergies/Adverse Reactions: Allergies Allergy/AdvReac Type Severity Reaction Status Date / Time No Known Allergies Allergy Verified 02/09/17 12:49 - Medications Medications: Current Medications Apixaban (Eliquis) 2.5 mg PO BID [facility] Last Admin: 02/12/17 09:03 Dose: 2.5 mg Collagenase (Santyl) 0 gm TOP DAILY [facility] Last Admin: 02/11/17 11:47 Dose: 1 applic Digoxin (Lanoxin) 0.25 mg PO DAILY@1800 [facility] Last Admin: 02/11/17 17:21 Dose: 0.25 mg Diltiazem HCl (Cardizem) 60 mg PO Q6 [facility] Last Admin: 02/12/17 12:16 Dose: 60 mg Docusate Sodium (Colace) 100 mg PO BID [facility] Last Admin: 02/12/17 09:03 Dose: 100 mg Meropenem 1 gm/ Sodium (Chloride) 100 mls @ 100 mls/hr IVPB Q12H [facility] Last Admin: 02/12/17 12:17 Dose: 100 mls/hr Metoprolol Tartrate (Lopressor) 25 mg PO BID [facility] Last Admin: 02/12/17 09:27 Dose: 25 mg Morphine Sulfate (Morphine) 1 mg IVP Q8 PRN PRN Reason: Pain, severe (8-10) Last Admin: 02/12/17 11:05 Dose: 1 mg Rosuvastatin Calcium (Crestor) 20 mg PO HS [facility] Last Admin: 02/11/17 21:57 Dose: 20 mg Tramadol HCl (Ultram) 25 mg PO TID PRN PRN Reason: Pain, moderate (4-7) Last Admin: 02/12/17 09:05 Dose: 25 mg Physical Exam - Constitutional Appears: Well - Extremities Exam Additional comments: LLE: complains of TTP to mid 1/3 left thigh and to lumbar spine No TTP knee or hip or lower leg calves soft NT neg homans sensation appears intact +ROM ankle DF/PF,, doesn't bend knee when instructed No pain with passive flex/ext/int/ext rotation/log roll/loading of left hip no pain with palpation of knee or PROM of knee no lax to varus/valgus/lizzy no swelling or discoloration to leg neg SLR - Back Exam Back exam: NORMAL INSPECTION, paraspinal tenderness, vertebral tenderness - Neurological Exam Neurological exam: Alert - Psychiatric Exam Psychiatric exam: Normal Affect - Skin Skin Exam: Dry, Intact, Normal Color, Warm Results - Vital Signs Recent Vital Signs: Last Vital Signs Temp 98 F 02/12/17 06:00 Pulse 69 02/12/17 06:00 Resp 13 02/12/17 06:00 BP 102/70 02/12/17 09:27 Pulse Ox 100 02/12/17 06:00 - Labs Result Diagrams: 02/11/17 11:32 02/11/17 11:32 Assessment & Plan (1) Compression fracture of L1 lumbar vertebra Assessment and Plan: unclear if due to recent fall Could be lumbar radiculopathy to LLE MRI lumbar spine recommend spine/neurosurgical consultation Status: Acute (2) Leg pain, left Assessment and Plan: 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 Oneill, agrees with above Status: Acute Radiology Interpretation - Radiology Interpretation #2 Interpretation: Patient Name / ID : NOLA CRUZ / [id number] Exam Date : 02/10/2017 19:04:43 ( Approved ) Study Comment : Sex / Age : F / 86Y Creator : William Truong Dictator : William Truong Senior Radiation Therapist : Inspector Filters : William Truong Approver2 : Report Date : 02/11/2017 10:11:13 My Comment : PROCEDURE: Left Hip X-ray Radiographs. HISTORY: internal rotation, hip pain COMPARISON: None. FINDINGS: BONES: Diffuse osteopenia seen. No evidence of acute fracture. JOINTS: [id number] osteoarthritic changes. The pubic symphysis is not clearly visualized. SOFT TISSUES: Normal. OTHER FINDINGS: None. IMPRESSION: No evidence of acute fracture or dislocation. Patient Name / ID : NOLA CRUZ / [id number] Exam Date : 02/09/2017 14:56:22 ( Approved ) Study Comment : Sex / Age : F / 86Y Creator : Troy Naranjo MD Dictator : Troy Naranjo MD Senior Radiation Therapist : Inspector Filters : Troy Naranjo MD Approver2 : Report Date : 02/09/2017 17:03:38 My Comment : PROCEDURE: CT Chest, Abdomen and Pelvis without intravenous contrast HISTORY: Chest pain. Hematuria. s/p fall on anticoagulation COMPARISON: None. TECHNIQUE: Radiation dose: Total exam DLP = 790 mGy-cm. This CT exam was performed using one or more of the following dose reduction techniques: Automated exposure control, adjustment of the mA and/or kV according to patient size, and/or use of iterative reconstruction technique. FINDINGS: CT CHEST WITHOUT CONTRAST: LUNGS: Clear. No nodule, mass or consolidation. Trace ground-glass opacity is seen the bilateral apices. MEDIASTINUM: Unremarkable. The ascending thoracic aorta is mildly dilated up to greatest transverse dimension. The main pulmonary artery is normal in caliber. And pulmonary arterial trunk. Normal size heart. LYMPH NODES: Unremarkable. PLEURA: Unremarkable. No pneumothorax. No pleural fluid. BONES: An old healed left 9th rib fractures identified posteriorly. Remaining ribs appear intact as captured. 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 A moderate severe compression fracture of the T7 to body is appreciated a without gross retropulsion of fracture fragments appreciated. These are indeterminate in age. OTHER FINDINGS: None. CT ABDOMEN AND PELVIS: The lack of contrast agents limits the interpretation throughout the abdomen and pelvis LIVER: Unremarkable. No gross lesion or ductal dilatation. GALLBLADDER AND BILE DUCTS: Surgical clips in the gallbladder fossa suggesting prior cholecystectomy. Clinically correlate. PANCREAS: Unremarkable. No gross lesion or ductal dilatation. SPLEEN: Unremarkable. ADRENALS: Unremarkable. No mass. KIDNEYS AND URETERS: A few defects are identified in the periphery of the cortex at the mid pole bilateral kidneys and lower pole right kidney suggestive of chronic infarcts. Punctate intrarenal calcified in the lower pole left kidney with no obstructive uropathy bilaterally. There is a 9 mm hyperdensity in the periphery of the lower pole left kidney probably reflecting a hyperdense cyst. Follow-up CT or MRI without contrast is advised to exclude potential nodule here. VASCULATURE: Unremarkable. No aortic aneurysm. BOWEL: No bowel obstruction appreciated and there is moderate fecal loading throughout the large bowel. Sigmoid diverticula are identified without acute findings to suggest diverticulitis. APPENDIX: Appendix not identified, however, there is no CT pattern of suggest appendicitis at this time. PERITONEUM: Unremarkable. No free fluid. No free air. LYMPH NODES: Unremarkable. No enlarged lymph nodes. BLADDER: Urinary bladder is prominently distended but otherwise unremarkable appearing. REPRODUCTIVE: Prior hysterectomy suggested. BONES: Severe L1 vertebral body compression fracture is appreciated with some retropulsion of the upper endplate posteriorly likely resulting in stenosis. Age of the fracture is indeterminate. OTHER FINDINGS: None. IMPRESSION: 1. A moderate to severe compression fracture T7 vertebral body is with a severe L1-2 but a compression fracture. Age of these fractures is indeterminate. L1 compression fracture results and retropulsion of the upper endplate to cause a central canal stenosis. No additional potential acute fracture appreciable throughout the main of the chest abdomen or pelvis. Old healed left 9th rib fractures appreciated. A likely degenerate spondylolisthesis at L5-S1 is appreciated, minimal. 2. No pleural or pericardial effusion or evidence of pulmonary contusion the chest. No obvious CT pattern of abdominal visceral injury as well. No pneumoperitoneum or hemoperitoneum identified. 3. Sigmoid diverticulosis without diverticulitis. 4. Prior cholecystectomy suggested. Clinically correlate. 5. Prior hysterectomy. 6. Prominent urinary bladder distension with the bladder otherwise unremarkable appearing.
[2017-02-12] MEDS: Collagenase 250 Units/gm Ointment(30 gm) TOP SCH (13:36)
[2017-02-12] MEDS ORDERED: Digoxin 250 mcg (0.25 mg) Tab PO SCH (15:14)
[2017-02-12] MEDS: Digoxin 500 mcg/2ml (0.5 mg/2ml) Inj IVP SCH (17:15)
--- NOTE | 2017-02-12 17:57 | CP.PCM.PN ---
<Troy Arvizu - Last Filed: 02/12/17 17:54> Subjective - Date & Time of Evaluation Date of Evaluation: 02/12/17 Time of Evaluation: 17:54 - Subjective Subjective: PGY1 Note for Dr. Coates HPI: Patient seen and examined at bedside. Patient appears comfortable. ROS unattainable due to history of stroke Objective - Vital Signs/Intake and Output Vital Signs (last 24 hours): Temp Pulse Resp BP Pulse Ox 98.3 F 69 13 105/67 100 02/12/17 15:33 02/12/17 06:00 02/12/17 06:00 02/12/17 17:14 02/12/17 06:00 Intake and Output: 02/12/17 02/12/17 06:59 18:59 Intake Total 200 120 Output Total 200 300 Balance 0 -180 - Medications Medications: Current Medications Apixaban (Eliquis) 2.5 mg PO BID [facility] Last Admin: 02/12/17 17:13 Dose: 2.5 mg Collagenase (Santyl) 0 gm TOP DAILY [facility] Last Admin: 02/12/17 13:36 Dose: 1 applic Digoxin (Lanoxin) 0.25 mg IVP DAILY@1800 [facility] Last Admin: 02/12/17 17:15 Dose: 0.25 mg Diltiazem HCl (Cardizem) 60 mg PO Q6 [facility] Last Admin: 02/12/17 17:13 Dose: 60 mg Docusate Sodium (Colace) 100 mg PO BID [facility] Last Admin: 02/12/17 17:13 Dose: 100 mg Meropenem 1 gm/ Sodium (Chloride) 100 mls @ 100 mls/hr IVPB Q12H [facility] Last Admin: 02/12/17 12:17 Dose: 100 mls/hr Metoprolol Tartrate (Lopressor) 25 mg PO BID [facility] Last Admin: 02/12/17 17:14 Dose: 25 mg Morphine Sulfate (Morphine) 1 mg IVP Q8 PRN PRN Reason: Pain, severe (8-10) Last Admin: 02/12/17 11:05 Dose: 1 mg Rosuvastatin Calcium (Crestor) 20 mg PO HS [facility] Last Admin: 02/11/17 21:57 Dose: 20 mg Tramadol HCl (Ultram) 25 mg PO TID PRN PRN Reason: Pain, moderate (4-7) Last Admin: 02/12/17 09:05 Dose: 25 mg - Labs Labs: 02/11/17 11:32 02/11/17 11:32 PT 15.3 SECONDS (9.7-12.2) H 02/09/17 13:36 INR 1.4 02/09/17 13:36 APTT 40 SECONDS (21-34) H 02/09/17 13:36 - Constitutional Appears: Non-toxic, No Acute Distress, Chronically Ill - Head Exam Head Exam: ATRAUMATIC, NORMAL INSPECTION, NORMOCEPHALIC - Eye Exam Eye Exam: EOMI Pupil Exam: NORMAL ACCOMODATION - ENT Exam ENT Exam: Mucous Membranes Moist - Respiratory Exam Respiratory Exam: Clear to Ausculation Bilateral, NORMAL BREATHING PATTERN - Cardiovascular Exam Cardiovascular Exam: REGULAR RHYTHM - GI/Abdominal Exam GI & Abdominal Exam: Soft, Normal Bowel Sounds. absent: Distended, Tenderness - Extremities Exam Extremities Exam: absent: Joint Swelling, Tenderness - Neurological Exam Neurological Exam: Awake - Psychiatric Exam Psychiatric exam: Normal Affect, Normal Mood - Skin Skin Exam: Dry, Intact, Normal Color, Warm Assessment and Plan - Assessment and Plan (Free Text) Assessment: AMS secondary possibly to UTI vs. s/p fall * Head CT: No acute intracranial findings by standard CT criteria including hemorrhage or fracture. Chronic right MCA distribution infarct * Cervical Spine CT: No fracture * Chest/Abdomen/Pelvis CT: 1. A moderate to severe compression fracture T7 vertebral body is with a severe L1-2 but a compression fracture. Age of these fractures is indeterminate. L1 compression fracture results and retropulsion of the upper endplate to cause a central canal stenosis. Prominent urinary bladder distension with the bladder otherwise unremarkable appearing. * Zyosn 3.375 Q6H * n/s @100cc/hr stopped on 02/11 * urine culture - ESBL positive, meropenem 1 gm q12h started by Dr. Fitzgerald on ( 02/11) * blood culture negative History of Afib * Eliquis 2.5 mg BID - to start 02/10 * Cardizem 30 mg Q6 * Dig IV 0.25mg @ 1800 * cardiology consulted, Dr. Reddy, help appreciated * f/u ECHO History of CAD * Crestor 20mg * f/u ECHO History of Heel Ulcer * wound care * podiatry consulted, Dr. Roland, help appreciated Left leg and foot pain * foot xray: no radiographic evidence of osteomyelitis * left hip xray: no evidence of acute fracture or dislocation * morphine 1 mg q8h prn * ortho consulted, Dr. Oneill, help appreciated PPX * Pepcid 20mg QD * Toradol IV 30mg Q6 * Eliquis 2.5 mg BID * Colace 100mg BID * leggett removed on 02/11 <Bernard Coates H - Last Filed: 02/12/17 18:54> Objective - Vital Signs/Intake and Output Vital Signs (last 24 hours): Temp Pulse Resp BP Pulse Ox 98.3 F 69 13 105/67 100 02/12/17 15:33 02/12/17 06:00 02/12/17 06:00 02/12/17 17:14 02/12/17 06:00 Intake and Output: 02/12/17 02/12/17 06:59 18:59 Intake Total 200 240 Output Total 200 500 Balance 0 -260 - Medications Medications: Current Medications Apixaban (Eliquis) 2.5 mg PO BID [facility] Last Admin: 02/12/17 17:13 Dose: 2.5 mg Betamethasone/Clotrimazole (Lotrisone) 0 gm TOP BID [facility] Collagenase (Santyl) 0 gm TOP DAILY [facility] Last Admin: 02/12/17 13:36 Dose: 1 applic Digoxin (Lanoxin) 0.25 mg IVP DAILY@1800 [facility] Last Admin: 02/12/17 17:15 Dose: 0.25 mg Diltiazem HCl (Cardizem) 60 mg PO Q6 [facility] Last Admin: 02/12/17 17:13 Dose: 60 mg Docusate Sodium (Colace) 100 mg PO BID [facility] Last Admin: 02/12/17 17:13 Dose: 100 mg Meropenem 1 gm/ Sodium (Chloride) 100 mls @ 100 mls/hr IVPB Q12H [facility] Last Admin: 02/12/17 12:17 Dose: 100 mls/hr Ketorolac Tromethamine (Toradol) 30 mg IVP Q6 [facility] Metoprolol Tartrate (Lopressor) 25 mg PO BID [facility] Last Admin: 02/12/17 17:14 Dose: 25 mg Morphine Sulfate (Morphine) 1 mg IVP Q8 PRN PRN Reason: Pain, severe (8-10) Last Admin: 02/12/17 11:05 Dose: 1 mg Rosuvastatin Calcium (Crestor) 20 mg PO HS [facility] Last Admin: 02/11/17 21:57 Dose: 20 mg - Labs Labs: 02/11/17 11:32 02/11/17 11:32 PT 15.3 SECONDS (9.7-12.2) H 02/09/17 13:36 INR 1.4 02/09/17 13:36 APTT 40 SECONDS (21-34) H 02/09/17 13:36 Attending/Attestation - Attestation I have personally seen and examined this patient.: Yes I have fully participated in the care of the patient.: Yes I have reviewed all pertinent clinical information, including history, physical exam and plan: Yes Notes (Text): 02/12/17 18:52 Medical attending: Patient was seen and examined by me. The patient since I last saw her has + ESBL E coli. Currently recivieng IV meropenem 1 gm Her HR is still relatively fast with the telemetry in the 110s to 120s. Added IV digoxin. Per my discussion with nursing sometimes the patient is refusing her PO medications for rate control. Also her mental status is confused - however she is much more awake and alert than when I first met her on Sunday. thank you Bernard Coates
[2017-02-12] MEDS ORDERED: Digoxin 500 mcg/2ml (0.5 mg/2ml) Inj IVP SCH ×2 (18:00)
[2017-02-12] MEDS: Clotrimazole/Betamethasone Cream(15 gm) TOP SCH (19:18)
--- NOTE | 2017-02-12 21:30 | CP.PCM.PN ---
Subjective - Date & Time of Evaluation Date of Evaluation: 02/12/17 Time of Evaluation: 05:00 - Subjective Subjective: dictated Objective - Vital Signs/Intake and Output Vital Signs (last 24 hours): Temp Pulse Resp BP Pulse Ox 98.3 F 69 13 105/67 100 02/12/17 15:33 02/12/17 06:00 02/12/17 06:00 02/12/17 17:14 02/12/17 06:00 Intake and Output: 02/12/17 02/13/17 18:59 06:59 Intake Total 240 Output Total 500 Balance -260 - Medications Medications: Current Medications Apixaban (Eliquis) 2.5 mg PO BID [facility] Last Admin: 02/12/17 17:13 Dose: 2.5 mg Betamethasone/Clotrimazole (Lotrisone) 0 gm TOP BID [facility] Last Admin: 02/12/17 19:18 Dose: 1 applic Collagenase (Santyl) 0 gm TOP DAILY [facility] Last Admin: 02/12/17 13:36 Dose: 1 applic Digoxin (Lanoxin) 0.25 mg IVP DAILY@1800 [facility] Last Admin: 02/12/17 17:15 Dose: 0.25 mg Diltiazem HCl (Cardizem) 60 mg PO Q6 [facility] Last Admin: 02/12/17 17:13 Dose: 60 mg Docusate Sodium (Colace) 100 mg PO BID [facility] Last Admin: 02/12/17 17:13 Dose: 100 mg Meropenem 1 gm/ Sodium (Chloride) 100 mls @ 100 mls/hr IVPB Q12H [facility] Last Admin: 02/12/17 12:17 Dose: 100 mls/hr Ketorolac Tromethamine (Toradol) 30 mg IVP Q6 [facility] Metoprolol Tartrate (Lopressor) 25 mg PO BID [facility] Last Admin: 02/12/17 17:14 Dose: 25 mg Morphine Sulfate (Morphine) 1 mg IVP Q8 PRN PRN Reason: Pain, severe (8-10) Last Admin: 02/12/17 11:05 Dose: 1 mg Rosuvastatin Calcium (Crestor) 20 mg PO HS [facility] Last Admin: 02/11/17 21:57 Dose: 20 mg - Labs Labs: 02/11/17 11:32 02/11/17 11:32 PT 15.3 SECONDS (9.7-12.2) H 02/09/17 13:36 INR 1.4 02/09/17 13:36 APTT 40 SECONDS (21-34) H 02/09/17 13:36 Assessment and Plan (1) Infection due to ESBL-producing Escherichia coli Status: Acute (2) Atrial flutter Status: Acute (3) Closed head injury Status: Acute (4) Hemiparesis Status: Acute
[2017-02-13] MEDS: Meropenem 1 GM in Sodium Chloride 0.9% 100 ML IVPB SCH ×2 (00:01→14:05)
--- NOTE | 2017-02-13 02:48 | PN ---
SUBJECTIVE: The patient is seen today and she remains in atrial fibrillation with tachycardia, and the patient's nurse told me that she had hematuria and she also keeps verbalizing and remains confused, but she has had history of stroke and she is however awake, appears to be in no acute respiratory distress. She did complain of lower extremity pain and was seen by orthopedics, and she has CVA with left hemiplegia. PHYSICAL EXAMINATION VITAL SIGNS: Today 98.3, pulse remains 117 in atrial fibrillation and blood pressure 105/67, respirations are 18. HEENT: Head is atraumatic and normocephalic. NECK: Supple. LUNGS: Clear. No crackles or rales present at this time. HEART: S1 and S2, irregularly irregular. ABDOMEN: Soft and nontender. No guarding, no rigidity present. EXTREMITIES: She has left hemiplegia. LABORATORY DATA: Noted. Labs show white count is 10.2 today, it is better than 14.1 on . This from yesterday and has no new labs today and BUN is 16, creatinine 0.3. The patient is having hematuria with UTI, maybe she has hemorrhagic cystitis; however, she has atrial fibrillation and she is also on Eliquis, so we have to monitor and if she continues to bleed, we may need urology eval; otherwise, she has a UTI with ESBL. 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 Walt Fitzgerald MD
[2017-02-13 06:25] LABS: BASO % 0.5 % (0.0-2.0); EOS # 0.4 K/uL (0.0-0.7); EOS % 6.1 % (0.0-4.0); HEMATOCRIT 30.2 % (34.0-47.0); LYMPH # 1.5 K/uL (1.0-4.3); LYMPH % 23.9 % (20.0-40.0); MEAN CELL VOLUME 95.2 fL (81.0-99.0); MEAN CORPUSCULAR HEMOGLOBIN 32.2 pg (27.0-31.0); MEAN CORPUSCULAR HGB CONC 33.8 g/dL (33.0-37.0); MEAN PLATELET VOLUME 7.7 fL (7.2-11.7); MONO # 0.7 K/uL (0.0-0.8); MONO % 11.6 % (0.0-10.0); RED CELL DISTRIBUTION WIDTH 18.4 % (11.5-14.5); WHITE BLOOD COUNT 6.1 K/uL (4.8-10.8)
[2017-02-13 06:51] LABS: CHLORIDE 106 mmol/L (98-107); SODIUM 141 mmol/L (132-148)
[2017-02-13 06:52] LABS: POTASSIUM 3.1 mmol/L (3.6-5.2)
[2017-02-13 06:54] LABS: ALB/GLOB RATIO 0.9 (1.0-2.1); ALKALINE PHOSPHATASE 130 U/L (38-126); ALT/SGPT 31 U/L (9-52); AST/SGOT 18 U/L (14-36); BILIRUBIN,TOTAL 0.3 mg/dL (0.2-1.3); BLOOD UREA NITROGEN 3 mg/dL (7-17); CARBON DIOXIDE 25 mmol/L (22-30); GFR AFRICAN-AMERICAN > 60; GLUCOSE,RANDOM 88 mg/dL (65-105); TOTAL PROTEIN 4.7 g/dL (6.3-8.3)
[2017-02-13 06:55] LABS: CALCIUM 8.1 mg/dl (8.6-10.4)
--- NOTE | 2017-02-13 07:28 | CP.PCM.PN ---
<Troy Arvizu - Last Filed: 02/13/17 19:32> Subjective - Date & Time of Evaluation Date of Evaluation: 02/13/17 Time of Evaluation: 07:23 - Subjective Subjective: PGY1 Note for Dr. Coates HPI: Patient seen and examined at bedside. ROS unattainable due to previous stroke. Pateint loos much more calm and comfortable than prior interviews. She is able to answer some questions. Objective - Vital Signs/Intake and Output Vital Signs (last 24 hours): Temp Pulse Resp BP Pulse Ox 98.6 F 82 17 92/49 L 97 02/13/17 06:00 02/13/17 06:00 02/13/17 06:00 02/13/17 06:00 02/13/17 06:00 Intake and Output: 02/13/17 02/13/17 06:59 18:59 Intake Total 200 Balance 200 - Medications Medications: Current Medications Apixaban (Eliquis) 2.5 mg PO BID [facility] Last Admin: 02/12/17 17:13 Dose: 2.5 mg Betamethasone/Clotrimazole (Lotrisone) 0 gm TOP BID [facility] Last Admin: 02/12/17 19:18 Dose: 1 applic Collagenase (Santyl) 0 gm TOP DAILY [facility] Last Admin: 02/12/17 13:36 Dose: 1 applic Digoxin (Lanoxin) 0.25 mg IVP DAILY@1800 [facility] Last Admin: 02/12/17 17:15 Dose: 0.25 mg Diltiazem HCl (Cardizem) 60 mg PO Q6 [facility] Last Admin: 02/13/17 06:41 Dose: 60 mg Docusate Sodium (Colace) 100 mg PO BID [facility] Last Admin: 02/12/17 17:13 Dose: 100 mg Meropenem 1 gm/ Sodium (Chloride) 100 mls @ 100 mls/hr IVPB Q12H [facility] Last Admin: 02/13/17 00:01 Dose: 100 mls/hr Ketorolac Tromethamine (Toradol) 30 mg IVP Q6 [facility] Metoprolol Tartrate (Lopressor) 25 mg PO BID [facility] Last Admin: 02/12/17 17:14 Dose: 25 mg Morphine Sulfate (Morphine) 1 mg IVP Q8 PRN PRN Reason: Pain, severe (8-10) Last Admin: 02/12/17 21:49 Dose: 1 mg Rosuvastatin Calcium (Crestor) 20 mg PO HS [facility] Last Admin: 02/12/17 21:49 Dose: 20 mg - Labs Labs: 02/13/17 06:19 02/13/17 06:19 PT 15.3 SECONDS (9.7-12.2) H 02/09/17 13:36 INR 1.4 02/09/17 13:36 APTT 40 SECONDS (21-34) H 02/09/17 13:36 - Constitutional Appears: Well, Non-toxic, Chronically Ill - Head Exam Head Exam: ATRAUMATIC, NORMAL INSPECTION, NORMOCEPHALIC - Eye Exam Eye Exam: EOMI Pupil Exam: NORMAL ACCOMODATION - ENT Exam ENT Exam: Mucous Membranes Moist - Respiratory Exam Respiratory Exam: Clear to Ausculation Bilateral, NORMAL BREATHING PATTERN - Cardiovascular Exam Cardiovascular Exam: REGULAR RHYTHM - GI/Abdominal Exam GI & Abdominal Exam: Soft, Normal Bowel Sounds. absent: Distended, Tenderness - Extremities Exam Extremities Exam: absent: Joint Swelling, Tenderness - Neurological Exam Neurological Exam: Altered - Skin Skin Exam: Dry, Intact, Normal Color, Warm Assessment and Plan - Assessment and Plan (Free Text) Assessment: AMS secondary 2/2 UTI (ESBL) * Head CT: No acute intracranial findings by standard CT criteria including hemorrhage or fracture. Chronic right MCA distribution infarct * Cervical Spine CT: No fracture * Chest/Abdomen/Pelvis CT: 1. A moderate to severe compression fracture T7 vertebral body is with a severe L1-2 but a compression fracture. Age of these fractures is indeterminate. L1 compression fracture results and retropulsion of the upper endplate to cause a central canal stenosis. Prominent urinary bladder distension with the bladder otherwise unremarkable appearing. * NS @75 * ID (Amilcar) * Merem 1g Q12 (02/11) * blood culture negative History of Afib * Eliquis 2.5 mg BID - to start 02/10 * Cardizem 30 mg Q6 * Dig IV 0.25mg @ 1800 * cardiology consulted, Dr. Reddy * f/u ECHO History of CAD * Crestor 20mg * f/u ECHO History of Heel Ulcer * wound care * podiatry consulted, Dr. Roland, help appreciated Left leg and foot pain * foot xray: no radiographic evidence of osteomyelitis * left hip xray: no evidence of acute fracture or dislocation * morphine 1 mg q8h prn * ortho consulted, Dr. Oneill, help appreciated Hypokalemia * IV KCl 20mg once PPX * Pepcid 20mg QD * Toradol IV 30mg Q6 * Eliquis 2.5 mg BID * Colace 100mg BID * leggett removed on 02/11 <Bernard Coates H - Last Filed: 02/14/17 07:50> Objective - Vital Signs/Intake and Output Vital Signs (last 24 hours): Temp Pulse Resp BP Pulse Ox 99 F 94 H 20 111/65 97 02/13/17 23:40 02/13/17 23:40 02/13/17 23:40 02/13/17 23:40 02/13/17 23:40 - Medications Medications: Current Medications Apixaban (Eliquis) 2.5 mg PO BID [facility] Last Admin: 02/13/17 19:29 Dose: 2.5 mg Betamethasone/Clotrimazole (Lotrisone) 0 gm TOP BID [facility] Last Admin: 02/13/17 17:27 Dose: 1 applic Collagenase (Santyl) 0 gm TOP DAILY [facility] Last Admin: 02/13/17 09:17 Dose: 1 applic Digoxin (Lanoxin) 0.25 mg IVP DAILY@1800 [facility] Last Admin: 02/13/17 17:27 Dose: 0.25 mg Diltiazem HCl (Cardizem) 60 mg PO Q6 [facility] Last Admin: 02/14/17 06:42 Dose: Not Given Docusate Sodium (Colace) 100 mg PO BID [facility] Last Admin: 02/13/17 19:29 Dose: 100 mg Meropenem 1 gm/ Sodium (Chloride) 100 mls @ 100 mls/hr IVPB Q12H [facility] Last Admin: 02/14/17 01:08 Dose: 100 mls/hr Sodium Chloride (Sodium Chloride 0.9%) 1,000 mls @ 75 mls/hr IV .[id number] [facility] Last Admin: 02/14/17 04:22 Dose: 75 mls/hr Ketorolac Tromethamine (Toradol) 30 mg IVP Q6 PRN PRN Reason: Pain, moderate (4-7) Metoprolol Tartrate (Lopressor) 25 mg PO BID [facility] Last Admin: 02/13/17 19:26 Dose: 25 mg Morphine Sulfate (Morphine) 1 mg IVP Q8 PRN PRN Reason: Pain, severe (8-10) Last Admin: 02/13/17 21:18 Dose: 1 mg Rosuvastatin Calcium (Crestor) 20 mg PO HS [facility] Last Admin: 02/13/17 21:18 Dose: 20 mg - Labs Labs: 02/14/17 07:12 02/13/17 06:19 PT 15.3 SECONDS (9.7-12.2) H 02/09/17 13:36 INR 1.4 02/09/17 13:36 APTT 40 SECONDS (21-34) H 02/09/17 13:36 Attending/Attestation - Attestation I have personally seen and examined this patient.: Yes I have fully participated in the care of the patient.: Yes I have reviewed all pertinent clinical information, including history, physical exam and plan: Yes Notes (Text): 02/14/17 07:47 Medical Attending: Patient was seen and examined by me. Agree with the above note by the resident. The patient from what I understand has returned to her baseline mental status. There is dementa, however she is able to follow some basic commands in [place] - she is very awake and alert - however dementia. at this time we are continue with the IV abx for the ESBL E coli. Will need to recheck blood and urine cultures at this time as well. thank you Bernard Coates
--- NOTE | 2017-02-13 07:44 | CP.PCM.PN ---
Subjective - Date & Time of Evaluation Date of Evaluation: 02/13/17 Time of Evaluation: 07:41 - Subjective Subjective: Patient sleeping, when awakened, immediately complains of left leg pain. WHen asked about back, she complains of back pain also. Review of Systems - Review of Systems Systems not reviewed;Unavailable: Altered Mental Status Objective - Vital Signs/Intake and Output Vital Signs (last 24 hours): Temp Pulse Resp BP Pulse Ox 98.6 F 82 17 92/49 L 97 02/13/17 06:00 02/13/17 06:00 02/13/17 06:00 02/13/17 06:00 02/13/17 06:00 Intake and Output: 02/13/17 02/13/17 06:59 18:59 Intake Total 200 Balance 200 - Medications Medications: Current Medications Apixaban (Eliquis) 2.5 mg PO BID [facility] Last Admin: 02/12/17 17:13 Dose: 2.5 mg Betamethasone/Clotrimazole (Lotrisone) 0 gm TOP BID [facility] Last Admin: 02/12/17 19:18 Dose: 1 applic Collagenase (Santyl) 0 gm TOP DAILY [facility] Last Admin: 02/12/17 13:36 Dose: 1 applic Digoxin (Lanoxin) 0.25 mg IVP DAILY@1800 [facility] Last Admin: 02/12/17 17:15 Dose: 0.25 mg Diltiazem HCl (Cardizem) 60 mg PO Q6 [facility] Last Admin: 02/13/17 06:41 Dose: 60 mg Docusate Sodium (Colace) 100 mg PO BID [facility] Last Admin: 02/12/17 17:13 Dose: 100 mg Meropenem 1 gm/ Sodium (Chloride) 100 mls @ 100 mls/hr IVPB Q12H [facility] Last Admin: 02/13/17 00:01 Dose: 100 mls/hr Sodium Chloride (Sodium Chloride 0.9%) 1,000 mls @ 75 mls/hr IV .[id number] [facility] Ketorolac Tromethamine (Toradol) 30 mg IVP Q6 [facility] Metoprolol Tartrate (Lopressor) 25 mg PO BID [facility] Last Admin: 02/12/17 17:14 Dose: 25 mg Morphine Sulfate (Morphine) 1 mg IVP Q8 PRN PRN Reason: Pain, severe (8-10) Last Admin: 02/12/17 21:49 Dose: 1 mg Rosuvastatin Calcium (Crestor) 20 mg PO HS [facility] Last Admin: 02/12/17 21:49 Dose: 20 mg - Labs Labs: 02/13/17 06:19 02/13/17 06:19 PT 15.3 SECONDS (9.7-12.2) H 02/09/17 13:36 INR 1.4 02/09/17 13:36 APTT 40 SECONDS (21-34) H 02/09/17 13:36 - Constitutional Appears: No Acute Distress - Extremities Exam Additional comments: reacts to light touch to foot, toes, lower leg\ no pain with PROM hip or knee admits to pain with palpation left anterior thigh, no TTP knee, lateral thigh - Neurological Exam Neurological Exam: Awake Neuro motor strength exam: Left Lower Extremity: 5 (great toe extension, flexion of toes (patient moves toes with much prompting, doesn't move ankle when asked)) - Skin Skin Exam: Dry, Intact, Normal Color, Warm Assessment and Plan (1) Compression fracture of L1 lumbar vertebra Assessment & Plan: awaiting MRI f/u official readings lumbar spine and femur imaging recommend neurosurgery consultation, on CT pelvis appeared to be some retropulsion of fragments Status: Acute (2) Leg pain, left Assessment & Plan: f/u femur films possibly radicular pain mild left hip DJD, no fracture of left hip noted on xrays or pelvis CT d/w Dr. Oneill, agrees with above Status: Acute (3) Spondylolisthesis at L5-S1 level Assessment & Plan: appears Gr I recommend neurosurgery consultation Status: Acute
[2017-02-13] MEDS: Sodium Chloride 0.9% 1,000 ML IV SCH ×2 (09:00→20:54)
[2017-02-13] MEDS: Clotrimazole/Betamethasone Cream(15 gm) TOP SCH ×2 (09:17→17:27)
[2017-02-13] MEDS: Collagenase 250 Units/gm Ointment(30 gm) TOP SCH (09:17)
--- NOTE | 2017-02-13 13:00 | CP.PCM.PN ---
Subjective - Date & Time of Evaluation Date of Evaluation: 02/13/17 Time of Evaluation: 11:00 - Subjective Subjective: 86 y/o female patient seen at bedside in ICU today for f/u of left plantar heel ulceration. Pt seen resting in bed at time of visit. Pt does complain of some back pain and leg pain today, but denies any foot pain at this time. Offloading heel cushions seen applied to bilateral feet. Objective - Vital Signs/Intake and Output Vital Signs (last 24 hours): Temp Pulse Resp BP Pulse Ox 98.7 F 84 17 109/57 L 97 02/13/17 11:29 02/13/17 07:30 02/13/17 06:00 02/13/17 09:15 02/13/17 06:00 Intake and Output: 02/13/17 02/13/17 06:59 18:59 Intake Total 200 70 Balance 200 70 - Medications Medications: Current Medications Apixaban (Eliquis) 2.5 mg PO BID [facility] Last Admin: 02/13/17 09:15 Dose: 2.5 mg Betamethasone/Clotrimazole (Lotrisone) 0 gm TOP BID [facility] Last Admin: 02/13/17 09:17 Dose: 1 applic Collagenase (Santyl) 0 gm TOP DAILY [facility] Last Admin: 02/13/17 09:17 Dose: 1 applic Digoxin (Lanoxin) 0.25 mg IVP DAILY@1800 [facility] Last Admin: 02/12/17 17:15 Dose: 0.25 mg Diltiazem HCl (Cardizem) 60 mg PO Q6 [facility] Last Admin: 02/13/17 06:41 Dose: 60 mg Docusate Sodium (Colace) 100 mg PO BID [facility] Last Admin: 02/13/17 09:15 Dose: 100 mg Meropenem 1 gm/ Sodium (Chloride) 100 mls @ 100 mls/hr IVPB Q12H [facility] Last Admin: 02/13/17 00:01 Dose: 100 mls/hr Sodium Chloride (Sodium Chloride 0.9%) 1,000 mls @ 75 mls/hr IV .[id number] [facility] Last Admin: 02/13/17 09:00 Dose: 75 mls/hr Potassium Chloride (Potassium Chloride 20 Meq/100 Ml) 20 meq in 100 mls @ 50 mls/hr IVPB ONCE ONE Stop: 02/13/17 13:59 Ketorolac Tromethamine (Toradol) 30 mg IVP Q6 PRN PRN Reason: Pain, moderate (4-7) Metoprolol Tartrate (Lopressor) 25 mg PO BID [facility] Last Admin: 02/13/17 09:15 Dose: 25 mg Morphine Sulfate (Morphine) 1 mg IVP Q8 PRN PRN Reason: Pain, severe (8-10) Last Admin: 02/12/17 21:49 Dose: 1 mg Rosuvastatin Calcium (Crestor) 20 mg PO [facility] Last Admin: 02/12/17 21:49 Dose: 20 mg - Labs Labs: 02/13/17 06:19 02/13/17 06:19 PT 15.3 SECONDS (9.7-12.2) H 02/09/17 13:36 INR 1.4 02/09/17 13:36 APTT 40 SECONDS (21-34) H 02/09/17 13:36 - Constitutional Appears: Non-toxic, No Acute Distress - Extremities Exam Additional comments: Left lower extremity exam: Vasc: DP/PT pulses palpable, skin temp runs warm to cool (proximal to distal), cap refill < 3sec to all digits, no pedal edema noted Neuro: light and sharp touch intact Derm: An approximately 3.0cm x 1.2 cm x 0.1 cm ulceration noted to posteroplantar left heel with a fibrotic base, the periwound is granular, with healing noted to distal aspect of wound with new skin growing in over ulceration. No malodor, no active drainage, no tunneling, no undermining, no fluctuance, no probe to bone. No clinical signs of infection present. Ortho: minimal tenderness to palpation of left plantar posterior heel ulceration - Psychiatric Exam Additional comments: unable to assess Assessment and Plan - Assessment and Plan (Free Text) Assessment: 86 year old female with superficial left heel ulceration 2/2 to pressure Plan: Pt S&E Discussed plan with attending Dr. Hilliard lab, chart, vitals reviewed: afebrile, no leukocytosis Left heel cleansed with sterile normal saline, santyl and DSD applied Offloading boots to be worn at all times in bed Continue IV abx Patient to f/u in podiatry clinic upon D/C Podiatry will continue to follow while in house
--- NOTE | 2017-02-13 14:09 | RAD ---
PROCEDURE: Radiographs of the Lumbar Spine. HISTORY: LBP COMPARISON: Obstructive series 01/10/2017 FINDINGS: BONES: . Marked osteopenia. Probable osteopenic compression fracture type L1 -chronicity unknown greater than 50 percent loss of vertebral body height suspect. No gross retropulsion of ossific fragments into the spinal canal apparent lesser degrees of superior compression deformity and/or prominent Schmorl's node indentations superior L2 and L3 and possibly L4 endplates 7 to 8 mm anterior subluxation of L5 relative to S1. . Marked facet hypertrophic arthrosis. Subluxation likely due to ligamentous laxity. DISC SPACES: Unremarkable. OTHER FINDINGS: Prominent coaster cartilaginous junctional calcifications. Cholecystectomy clips. In each lower quadrant of the abdomen pelvis are multiple metallic like densities probably relating to old injury IMPRESSION: Marked osteopenia. Marked L1 compression fracture and osteopenic osteoporotic type inferred. Gross retropulsion. Chronicity unknown. Probable Schmorl's node indentations and/or much lesser degrees of superior endplate compression deformities of other lumbar spine vertebrae Bilateral L5-S1 facet hypertrophic arthrosis with mild anterior subluxation of L5 relative to S1 attributed to ligamentous laxity.
--- NOTE | 2017-02-13 14:11 | RAD ---
PROCEDURE: HISTORY: left thigh pain COMPARISON: None TECHNIQUE: Five views FINDINGS: Generalized osteopenia. No fracture or dislocation appreciated Mild left hip arthrosis and left knee arthrosis IMPRESSION: No fracture or lytic lesion. Generalized osteopenia Left hip and left knee arthrosis
[2017-02-13] MEDS: Digoxin 500 mcg/2ml (0.5 mg/2ml) Inj IVP SCH (17:27)
[2017-02-13] MEDS ORDERED: Metoprolol 1 mg/ml Inj IVP ONE (18:08)
--- NOTE | 2017-02-13 19:16 | CP.PCM.CON ---
History of Present Illness - History of Present Illness History of Present Illness: Consult requested for evaluation and treatment of atrial fibrillation HPI: 86-year-old female with past medical history significant for multiple CVAs chronic atrial fibrillation on oral anticoagulation with Eliquis hyperlipidemia glaucoma who was brought in on 16 secondary to altered mental status and low blood pressure. According to the patient's daughter she there were at the healthcare clinic when a urine sample was noted to have some degree of hematuria and secondary to her altered mental status she was sent to the emergency room. Patient apparently had a fall 2 days prior to presentation while she was sitting his thumb to her side and hit her head and lost consciousness. Patient unable to give any meaningful information and most of the history obtained from review of medical records and talking to the nursing staff I was eval consulted for evaluation and treatment of atrial fibrillation. Patient at the time of my evaluation in the ICU heart rate was in the low 100s at which time the nurse was going to give her dose of Cardizem and digoxin. Past medical history as stated above significant for multiple recurrent CVAs chronic atrial fibrillation hyperlipidemia and glaucoma past surgical history significant for cholecystectomy right lower lower extremity surgery and appendectomy family history significant for [place] mom of [place] at age of 95 dad of cancer social history no history of smoking alcohol or illicit drug use lives at home with her niece and her daughter's allergies no known drug allergies. Review of Systems - Review of Systems All systems: reviewed and no additional remarkable complaints except - Constitutional Constitutional: As Per HPI - EENT Eyes: As Per HPI Ears: As Per HPI Nose/Mouth/Throat: As Per HPI - Breasts Breasts: As Per HPI - Cardiovascular Cardiovascular: As Per HPI - Respiratory Respiratory: As Per HPI - Gastrointestinal Gastrointestinal: As Per HPI - Genitourinary Genitourinary: As Per HPI, Hematuria - Reproductive: Female Reproductive:Female: As Per HPI - Menstruation Menstruation: As Per HPI - Musculoskeletal Musculoskeletal: As Per HPI - Integumentary Integumentary: As Per HPI - Neurological Neurological: As Per HPI - Psychiatric Psychiatric: As Per HPI - Endocrine Endocrine: As Per HPI - Hematologic/Lymphatic Hematologic: As Per HPI Past Patient History - Past Medical History & Family History Past Medical History?: Yes Past Family History: Reviewed and not pertinent - Past Social History Smoking Status: Never Smoked - CARDIAC Hx Cardia Arrhythmia: Yes (AFIB WITH RVR) - PULMONARY Hx Respiratory Disorders: No - NEUROLOGICAL HX Cerebrovascular Accident: Yes (OCTOBER 2016) Other/Comment: HEMIPARESIS POST CVA - HEENT Hx Glaucoma: Yes - RENAL Hx Kidney Stones: Yes - ENDOCRINE/METABOLIC Hx Endocrine Disorders: No - HEMATOLOGICAL/ONCOLOGICAL Hx Blood Disorders: No - INTEGUMENTARY Hx Dermatological Problems: No Other/Comment: PRESSURE ULCER LEFT HEEL - MUSCULOSKELETAL/RHEUMATOLOGICAL Hx Falls: Yes - GASTROINTESTINAL Hx Gastrointestinal Disorders: No - GENITOURINARY/GYNECOLOGICAL Hx Genitourinary Disorders: No Hx Urinary Tract Infection: Yes - PSYCHIATRIC Hx Substance Use: No - SURGICAL HISTORY Hx Appendectomy: Yes - ANESTHESIA Hx Anesthesia: Yes Hx Anesthesia Reactions: No Meds Allergies/Adverse Reactions: Allergies Allergy/AdvReac Type Severity Reaction Status Date / Time No Known Allergies Allergy Verified 02/09/17 12:49 - Medications Medications: Current Medications Apixaban (Eliquis) 2.5 mg PO BID [facility] Last Admin: 02/13/17 18:00 Dose: Not Given Betamethasone/Clotrimazole (Lotrisone) 0 gm TOP BID [facility] Last Admin: 02/13/17 17:27 Dose: 1 applic Collagenase (Santyl) 0 gm TOP DAILY [facility] Last Admin: 02/13/17 09:17 Dose: 1 applic Digoxin (Lanoxin) 0.25 mg IVP DAILY@1800 [facility] Last Admin: 02/13/17 17:27 Dose: 0.25 mg Diltiazem HCl (Cardizem) 60 mg PO Q6 [facility] Last Admin: 02/13/17 12:00 Dose: Not Given Docusate Sodium (Colace) 100 mg PO BID [facility] Last Admin: 02/13/17 09:15 Dose: 100 mg Meropenem 1 gm/ Sodium (Chloride) 100 mls @ 100 mls/hr IVPB Q12H [facility] Last Admin: 02/13/17 14:05 Dose: 100 mls/hr Sodium Chloride (Sodium Chloride 0.9%) 1,000 mls @ 75 mls/hr IV .[id number] [facility] Last Admin: 02/13/17 09:00 Dose: 75 mls/hr Ketorolac Tromethamine (Toradol) 30 mg IVP Q6 PRN PRN Reason: Pain, moderate (4-7) Metoprolol Tartrate (Lopressor) 25 mg PO BID [facility] Last Admin: 02/13/17 09:15 Dose: 25 mg Morphine Sulfate (Morphine) 1 mg IVP Q8 PRN PRN Reason: Pain, severe (8-10) Last Admin: 02/12/17 21:49 Dose: 1 mg Rosuvastatin Calcium (Crestor) 20 mg PO HS [facility] Last Admin: 02/12/17 21:49 Dose: 20 mg Physical Exam - Constitutional Appears: Well, Confused - Head Exam Head Exam: ATRAUMATIC, NORMAL INSPECTION, NORMOCEPHALIC - Eye Exam Eye Exam: EOMI, Normal appearance, PERRL Pupil Exam: NORMAL ACCOMODATION, PERRL - ENT Exam ENT Exam: Mucous Membranes Dry, Normal Exam - Neck Exam Neck exam: Positive for: Normal Inspection - Respiratory Exam Respiratory Exam: Clear to Auscultation Bilateral, NORMAL BREATHING PATTERN - Cardiovascular Exam Cardiovascular Exam: Irregular Rhythm, +S1, +S2, Systolic Murmur - GI/Abdominal Exam GI & Abdominal Exam: Normal Bowel Sounds, Soft. absent: Tenderness - Extremities Exam Extremities exam: Positive for: normal inspection - Neurological Exam Neurological exam: Altered, Reflexes Normal - Psychiatric Exam Psychiatric exam: Flat Affect - Skin Skin Exam: Dry, Intact, Normal Color, Warm Results - Vital Signs Recent Vital Signs: Last Vital Signs Temp 98.3 F 02/13/17 15:56 Pulse 97 H 02/13/17 14:00 Resp 17 02/13/17 06:00 BP 118/77 02/13/17 14:00 Pulse Ox 97 02/13/17 06:00 - Labs Result Diagrams: 02/13/17 06:19 02/13/17 06:19 Labs: Laboratory Results - last 24 hr 02/13/17 02/13/17 06:19 06:19 WBC 6.1 RBC 3.17 L Hgb 10.2 L Hct 30.2 L MCV 95.2 MCH 32.2 H MCHC 33.8 RDW 18.4 H Plt Count 307 MPV 7.7 Neut % (Auto) 57.9 Lymph % (Auto) 23.9 Bleck[place] % (Auto) 11.6 H Eos % (Auto) 6.1 H Baso % (Auto) 0.5 Neut # 3.5 Lymph # 1.5 [place] # 0.7 Eos # 0.4 Baso # 0.0 Sodium 141 Potassium 3.1 L Chloride 106 Carbon Dioxide 25 Anion Gap 13 BUN 3 L Creatinine 0.3 L Est GFR ( Amer) > 60 Est GFR (Non-Af Amer) > 60 Random Glucose 88 Calcium 8.1 L Total Bilirubin 0.3 AST 18 ALT 31 Alkaline Phosphatase 130 H Total Protein 4.7 L Albumin 2.2 L Globulin 2.4 Albumin/Globulin Ratio 0.9 L Assessment & Plan (1) Rapid atrial fibrillation Assessment and Plan: cont with BB and CCB cont with eliquis 2.5mg po bid echo reviewed - low normal LVEF, grade II diastolic dysfunction, moderately sclerotic AV with no , mild to mod MR Status: Acute (2) Closed head injury Status: Acute (3) Dehydration Assessment and Plan: gentle hydration Status: Acute (4) Infection due to ESBL-producing Escherichia coli Assessment and Plan: abx per primary team Status: Acute (5) Transient hypotension Status: Acute (6) UTI (urinary tract infection) Status: Acute (7) Hemiparesis Status: Acute
--- NOTE | 2017-02-13 19:16 | CP.PCM.PN ---
Subjective - Date & Time of Evaluation Date of Evaluation: 02/13/17 Time of Evaluation: 19:16 - Subjective Subjective: HR controlled more awake and responsive today niece at bedside feeding patient Objective - Vital Signs/Intake and Output Vital Signs (last 24 hours): Temp Pulse Resp BP Pulse Ox 98.3 F 97 H 17 118/77 97 02/13/17 15:56 02/13/17 14:00 02/13/17 06:00 02/13/17 14:00 02/13/17 06:00 Intake and Output: 02/13/17 02/14/17 18:59 06:59 Intake Total 70 Balance 70 - Medications Medications: Current Medications Apixaban (Eliquis) 2.5 mg PO BID [facility] Last Admin: 02/13/17 18:00 Dose: Not Given Betamethasone/Clotrimazole (Lotrisone) 0 gm TOP BID [facility] Last Admin: 02/13/17 17:27 Dose: 1 applic Collagenase (Santyl) 0 gm TOP DAILY [facility] Last Admin: 02/13/17 09:17 Dose: 1 applic Digoxin (Lanoxin) 0.25 mg IVP DAILY@1800 [facility] Last Admin: 02/13/17 17:27 Dose: 0.25 mg Diltiazem HCl (Cardizem) 60 mg PO Q6 [facility] Last Admin: 02/13/17 12:00 Dose: Not Given Docusate Sodium (Colace) 100 mg PO BID [facility] Last Admin: 02/13/17 09:15 Dose: 100 mg Meropenem 1 gm/ Sodium (Chloride) 100 mls @ 100 mls/hr IVPB Q12H [facility] Last Admin: 02/13/17 14:05 Dose: 100 mls/hr Sodium Chloride (Sodium Chloride 0.9%) 1,000 mls @ 75 mls/hr IV .[id number] [facility] Last Admin: 02/13/17 09:00 Dose: 75 mls/hr Ketorolac Tromethamine (Toradol) 30 mg IVP Q6 PRN PRN Reason: Pain, moderate (4-7) Metoprolol Tartrate (Lopressor) 25 mg PO BID [facility] Last Admin: 02/13/17 09:15 Dose: 25 mg Morphine Sulfate (Morphine) 1 mg IVP Q8 PRN PRN Reason: Pain, severe (8-10) Last Admin: 02/12/17 21:49 Dose: 1 mg Rosuvastatin Calcium (Crestor) 20 mg PO HS [facility] Last Admin: 02/12/17 21:49 Dose: 20 mg - Labs Labs: 02/13/17 06:19 02/13/17 06:19 PT 15.3 SECONDS (9.7-12.2) H 02/09/17 13:36 INR 1.4 02/09/17 13:36 APTT 40 SECONDS (21-34) H 02/09/17 13:36 - Constitutional Appears: Well - Head Exam Head Exam: ATRAUMATIC, NORMAL INSPECTION, NORMOCEPHALIC - Eye Exam Eye Exam: EOMI, Normal appearance, PERRL Pupil Exam: NORMAL ACCOMODATION, PERRL - ENT Exam ENT Exam: Mucous Membranes Moist, Normal Exam - Neck Exam Neck Exam: Full ROM, Normal Inspection. absent: Lymphadenopathy - Respiratory Exam Respiratory Exam: Clear to Ausculation Bilateral, Rales, NORMAL BREATHING PATTERN - Cardiovascular Exam Cardiovascular Exam: Irregular Rhythm, +S1, +S2, Murmur - GI/Abdominal Exam GI & Abdominal Exam: Soft, Normal Bowel Sounds. absent: Tenderness - Extremities Exam Extremities Exam: Full ROM, Normal Capillary Refill, Normal Inspection. absent : Joint Swelling, Pedal Edema - Back Exam Back Exam: NORMAL INSPECTION - Neurological Exam Neurological Exam: Alert, Awake Neuro motor strength exam: Left Upper Extremity: 2/1, Left Lower Extremity: 2/1 - Psychiatric Exam Psychiatric exam: Flat Affect - Skin Skin Exam: Dry, Intact, Normal Color, Warm Assessment and Plan (1) Rapid atrial fibrillation Assessment & Plan: cont BB, CCB cont with eliquis Status: Acute (2) Dehydration Status: Acute (3) Infection due to ESBL-producing Escherichia coli Assessment & Plan: abx per primary team Status: Acute (4) Transient hypotension Status: Acute (5) UTI (urinary tract infection) Status: Acute
--- NOTE | 2017-02-13 23:21 | PN ---
DATE: SUBJECTIVE: The patient is drowsy today when I saw. No new complaints. She was going to be moved to the floor. PHYSICAL EXAMINATION: VITAL SIGNS: HEENT: Head atraumatic. NECK: Supple. LUNGS: Clear. HEART: S1 and S2, irregularly irregular. ABDOMEN: Soft, nontender. No guarding. No rigidity present. EXTREMITIES: She had cushions present. He is being treated for UTI. Her urine from 02/09/2017 had ESBL and she is on Merrem and she is on blood thinner and we will repeat the urine culture tomorrow and we will follow. Walt Fitzgerald MD
--- NOTE | 2017-02-13 23:25 | CP.PCM.PN ---
Subjective - Date & Time of Evaluation Date of Evaluation: 02/13/17 Time of Evaluation: 03:15 - Subjective Subjective: dictated Objective - Vital Signs/Intake and Output Vital Signs (last 24 hours): Temp Pulse Resp BP Pulse Ox 97.5 F L 82 18 105/67 82 L 02/13/17 22:56 02/13/17 22:56 02/13/17 22:56 02/13/17 22:56 02/13/17 22:56 Intake and Output: 02/13/17 02/14/17 18:59 06:59 Intake Total 1470 Balance 1470 - Medications Medications: Current Medications Apixaban (Eliquis) 2.5 mg PO BID [facility] Last Admin: 02/13/17 19:29 Dose: 2.5 mg Betamethasone/Clotrimazole (Lotrisone) 0 gm TOP BID [facility] Last Admin: 02/13/17 17:27 Dose: 1 applic Collagenase (Santyl) 0 gm TOP DAILY [facility] Last Admin: 02/13/17 09:17 Dose: 1 applic Digoxin (Lanoxin) 0.25 mg IVP DAILY@1800 [facility] Last Admin: 02/13/17 17:27 Dose: 0.25 mg Diltiazem HCl (Cardizem) 60 mg PO Q6 [facility] Last Admin: 02/13/17 19:26 Dose: 60 mg Docusate Sodium (Colace) 100 mg PO BID [facility] Last Admin: 02/13/17 19:29 Dose: 100 mg Meropenem 1 gm/ Sodium (Chloride) 100 mls @ 100 mls/hr IVPB Q12H [facility] Last Admin: 02/13/17 14:05 Dose: 100 mls/hr Sodium Chloride (Sodium Chloride 0.9%) 1,000 mls @ 75 mls/hr IV .[id number] [facility] Last Admin: 02/13/17 20:54 Dose: Not Given Ketorolac Tromethamine (Toradol) 30 mg IVP Q6 PRN PRN Reason: Pain, moderate (4-7) Metoprolol Tartrate (Lopressor) 25 mg PO BID [facility] Last Admin: 02/13/17 19:26 Dose: 25 mg Morphine Sulfate (Morphine) 1 mg IVP Q8 PRN PRN Reason: Pain, severe (8-10) Last Admin: 02/13/17 21:18 Dose: 1 mg Rosuvastatin Calcium (Crestor) 20 mg PO HS [facility] Last Admin: 02/13/17 21:18 Dose: 20 mg - Labs Labs: 02/13/17 06:19 02/13/17 06:19 PT 15.3 SECONDS (9.7-12.2) H 02/09/17 13:36 INR 1.4 02/09/17 13:36 APTT 40 SECONDS (21-34) H 02/09/17 13:36 Assessment and Plan (1) Infection due to ESBL-producing Escherichia coli Status: Acute (2) Atrial flutter Status: Acute (3) Closed head injury Status: Acute (4) Hemiparesis Status: Acute
[2017-02-14] MEDS: Meropenem 1 GM in Sodium Chloride 0.9% 100 ML IVPB SCH ×2 (01:08→12:46)
[2017-02-14] MEDS: Sodium Chloride 0.9% 1,000 ML IV SCH ×3 (04:22→22:27)
[2017-02-14 07:29] LABS: BASO % 0.5 % (0.0-2.0); EOS # 0.5 K/uL (0.0-0.7); EOS % 8.7 % (0.0-4.0); HEMATOCRIT 30.3 % (34.0-47.0); LYMPH # 1.4 K/uL (1.0-4.3); LYMPH % 25.1 % (20.0-40.0); MEAN CORPUSCULAR HEMOGLOBIN 32.6 pg (27.0-31.0); MEAN CORPUSCULAR HGB CONC 34.3 g/dL (33.0-37.0); MEAN PLATELET VOLUME 7.6 fL (7.2-11.7); MONO # 0.7 K/uL (0.0-0.8); MONO % 12.3 % (0.0-10.0); NRBC % 0.1 % (0.0-2.0); RED CELL DISTRIBUTION WIDTH 18.8 % (11.5-14.5); WHITE BLOOD COUNT 5.4 K/uL (4.8-10.8)
[2017-02-14 07:43] LABS: CHLORIDE 109 mmol/L (98-107)
[2017-02-14 07:44] LABS: POTASSIUM 3.4 mmol/L (3.6-5.2); SODIUM 139 mmol/L (132-148)
[2017-02-14 07:46] LABS: ALKALINE PHOSPHATASE 119 U/L (38-126); AST/SGOT 21 U/L (14-36); BILIRUBIN,TOTAL 0.4 mg/dL (0.2-1.3); CARBON DIOXIDE 24 mmol/L (22-30); GFR AFRICAN-AMERICAN > 60; GLUCOSE,RANDOM 78 mg/dL (65-105); TOTAL PROTEIN 4.8 g/dL (6.3-8.3)
[2017-02-14 07:47] LABS: ALT/SGPT 32 U/L (9-52); CALCIUM 7.5 mg/dl (8.6-10.4)
[2017-02-14 07:50] LABS: ALB/GLOB RATIO 0.8 (1.0-2.1); BLOOD UREA NITROGEN < 2 mg/dL (7-17)
--- NOTE | 2017-02-14 09:03 | CP.PCM.PN ---
<Troy Arvizu - Last Filed: 02/14/17 20:16> Subjective - Date & Time of Evaluation Date of Evaluation: 02/14/17 Time of Evaluation: 09:01 - Subjective Subjective: PGY1 Note for Dr. Coates HPI: Patient seen and examined at bedside. Doing well. ROS unattainable due to previous stroke. Seems more comfortable and less altered. Objective - Vital Signs/Intake and Output Vital Signs (last 24 hours): Temp Pulse Resp BP Pulse Ox 98.9 F 92 H 20 136/82 99 02/14/17 08:00 02/14/17 08:00 02/14/17 08:00 02/14/17 08:00 02/14/17 08:00 - Medications Medications: Current Medications Apixaban (Eliquis) 2.5 mg PO BID [facility] Last Admin: 02/13/17 19:29 Dose: 2.5 mg Betamethasone/Clotrimazole (Lotrisone) 0 gm TOP BID [facility] Last Admin: 02/13/17 17:27 Dose: 1 applic Collagenase (Santyl) 0 gm TOP DAILY [facility] Last Admin: 02/13/17 09:17 Dose: 1 applic Digoxin (Lanoxin) 0.25 mg IVP DAILY@1800 [facility] Last Admin: 02/13/17 17:27 Dose: 0.25 mg Diltiazem HCl (Cardizem) 60 mg PO Q6 [facility] Last Admin: 02/14/17 06:42 Dose: Not Given Docusate Sodium (Colace) 100 mg PO BID [facility] Last Admin: 02/13/17 19:29 Dose: 100 mg Meropenem 1 gm/ Sodium (Chloride) 100 mls @ 100 mls/hr IVPB Q12H [facility] Last Admin: 02/14/17 01:08 Dose: 100 mls/hr Sodium Chloride (Sodium Chloride 0.9%) 1,000 mls @ 75 mls/hr IV .[id number] [facility] Last Admin: 02/14/17 04:22 Dose: 75 mls/hr Ketorolac Tromethamine (Toradol) 30 mg IVP Q6 PRN PRN Reason: Pain, moderate (4-7) Metoprolol Tartrate (Lopressor) 25 mg PO BID [facility] Last Admin: 02/13/17 19:26 Dose: 25 mg Morphine Sulfate (Morphine) 1 mg IVP Q8 PRN PRN Reason: Pain, severe (8-10) Last Admin: 02/13/17 21:18 Dose: 1 mg Rosuvastatin Calcium (Crestor) 20 mg PO HS [facility] Last Admin: 02/13/17 21:18 Dose: 20 mg - Labs Labs: 02/14/17 07:12 02/14/17 07:12 PT 15.3 SECONDS (9.7-12.2) H 02/09/17 13:36 INR 1.4 02/09/17 13:36 APTT 40 SECONDS (21-34) H 02/09/17 13:36 - Constitutional Appears: Chronically Ill - Head Exam Head Exam: ATRAUMATIC, NORMAL INSPECTION, NORMOCEPHALIC - Eye Exam Eye Exam: EOMI - ENT Exam ENT Exam: Mucous Membranes Moist - Respiratory Exam Respiratory Exam: Clear to Ausculation Bilateral, NORMAL BREATHING PATTERN - Cardiovascular Exam Cardiovascular Exam: REGULAR RHYTHM - GI/Abdominal Exam GI & Abdominal Exam: Soft, Normal Bowel Sounds. absent: Distended, Tenderness - Extremities Exam Extremities Exam: absent: Joint Swelling, Tenderness - Back Exam Back Exam: absent: CVA tenderness (L), CVA tenderness (R) - Neurological Exam Neurological Exam: Alert - Skin Skin Exam: Dry, Intact, Normal Color, Warm Assessment and Plan - Assessment and Plan (Free Text) Assessment: AMS secondary 2/2 UTI (ESBL) * Head CT: No acute intracranial findings by standard CT criteria including hemorrhage or fracture. Chronic right MCA distribution infarct * Cervical Spine CT: No fracture * Chest/Abdomen/Pelvis CT: 1. A moderate to severe compression fracture T7 vertebral body is with a severe L1-2 but a compression fracture. Age of these fractures is indeterminate. L1 compression fracture results and retropulsion of the upper endplate to cause a central canal stenosis. Prominent urinary bladder distension with the bladder otherwise unremarkable appearing. * NS @75 * ID (Amilcar) * Merem 1g Q12 (02/11) * blood culture negative * Repeat Blood and Urine cultures History of Afib * Eliquis 2.5 mg BID - to start 02/10 * Cardizem 30 mg Q6 * Dig IV 0.25mg @ 1800 * cardiology consulted, Dr. Reddy * f/u ECHO History of CAD * Crestor 20mg * f/u ECHO History of Heel Ulcer * wound care * podiatry consulted, Dr. Roland, help appreciated Left leg and foot pain * foot xray: no radiographic evidence of osteomyelitis * left hip xray: no evidence of acute fracture or dislocation * morphine 1 mg q8h prn * ortho consulted, Dr. Oneill, help appreciated Hypokalemia * IV KCl 20mg once PPX * Pepcid 20mg QD * Toradol IV 30mg Q6 * Eliquis 2.5 mg BID * Colace 100mg BID * leggett removed on 02/11 <Bernard Coates H - Last Filed: 02/15/17 09:43> Objective - Vital Signs/Intake and Output Vital Signs (last 24 hours): Temp Pulse Resp BP Pulse Ox 98.1 F 78 20 103/75 96 02/15/17 00:13 02/15/17 00:13 02/15/17 00:13 02/15/17 00:13 02/15/17 00:13 Intake and Output: 02/15/17 02/15/17 06:59 18:59 Intake Total 800 Balance 800 - Medications Medications: Current Medications Apixaban (Eliquis) 2.5 mg PO BID [facility] Last Admin: 02/14/17 18:53 Dose: 2.5 mg Betamethasone/Clotrimazole (Lotrisone) 0 gm TOP BID [facility] Last Admin: 02/14/17 18:54 Dose: 1 applic Collagenase (Santyl) 0 gm TOP DAILY [facility] Last Admin: 02/14/17 12:46 Dose: 1 applic Digoxin (Lanoxin) 0.25 mg IVP DAILY@1800 [facility] Last Admin: 02/14/17 18:51 Dose: 0.25 mg Diltiazem HCl (Cardizem) 60 mg PO Q6 [facility] Last Admin: 02/15/17 05:49 Dose: 60 mg Docusate Sodium (Colace) 100 mg PO BID [facility] Last Admin: 02/14/17 18:53 Dose: 100 mg Meropenem 1 gm/ Sodium (Chloride) 100 mls @ 100 mls/hr IVPB Q12H [facility] Last Admin: 02/15/17 00:04 Dose: Not Given Sodium Chloride (Sodium Chloride 0.9%) 1,000 mls @ 75 mls/hr IV .[id number] [facility] Last Admin: 02/14/17 22:27 Dose: 75 mls/hr Lorazepam (Ativan) 0.25 mg IVP Q6H PRN PRN Reason: Anxiety Last Admin: 02/14/17 18:53 Dose: 0.25 mg Metoprolol Tartrate (Lopressor) 25 mg PO BID [facility] Last Admin: 02/14/17 18:53 Dose: 25 mg Morphine Sulfate (Morphine) 1 mg IVP Q8 PRN PRN Reason: Pain, severe (8-10) Last Admin: 02/15/17 06:18 Dose: 1 mg Rosuvastatin Calcium (Crestor) 20 mg PO HS [facility] Last Admin: 02/14/17 21:13 Dose: 20 mg - Labs Labs: 02/14/17 07:12 02/15/17 08:16 PT 15.3 SECONDS (9.7-12.2) H 02/09/17 13:36 INR 1.4 02/09/17 13:36 APTT 40 SECONDS (21-34) H 02/09/17 13:36 Attending/Attestation - Attestation I have personally seen and examined this patient.: Yes I have fully participated in the care of the patient.: Yes I have reviewed all pertinent clinical information, including history, physical exam and plan: Yes Notes (Text): Medical Attending: Patient was seen and examined by me. Agree with the above note by the resident. The patient as mentioned previously is very awake and alert however has susbtatial dementia. From what I understand this is the patient's baseline mental status. She is currently being treated for a ESBL+ E coli in urine cultures. She remains on IV meropenom at this time. The blood cultures have been negative at this time/ thank you Bernard Coates 02/15/17 09:42
--- NOTE | 2017-02-14 09:11 | CP.PCM.PN ---
Subjective - Date & Time of Evaluation Date of Evaluation: 02/14/17 Time of Evaluation: 09:10 - Subjective Subjective: Patient more cooperate and alert today. She denies pain at first, and when specifically asked about her leg, she admits to feeling cramping pain in her left leg. Review of Systems - Review of Systems Systems not reviewed;Unavailable: Altered Mental Status All systems: reviewed and no additional remarkable complaints except - Cardiovascular Cardiovascular: UNREMARKABLE - Respiratory Respiratory: UNREMARKABLE - Musculoskeletal Musculoskeletal: As Par HPI - Integumentary Integumentary: UNREMARKABLE - Neurological Neurological: Radicular Pain - Hematologic/Lymphatic Hematologic: UNREMARKABLE Objective - Vital Signs/Intake and Output Vital Signs (last 24 hours): Temp Pulse Resp BP Pulse Ox 98.9 F 92 H 20 136/82 99 02/14/17 08:00 02/14/17 08:00 02/14/17 08:00 02/14/17 08:00 02/14/17 08:00 - Medications Medications: Current Medications Apixaban (Eliquis) 2.5 mg PO BID [facility] Last Admin: 02/13/17 19:29 Dose: 2.5 mg Betamethasone/Clotrimazole (Lotrisone) 0 gm TOP BID [facility] Last Admin: 02/13/17 17:27 Dose: 1 applic Collagenase (Santyl) 0 gm TOP DAILY [facility] Last Admin: 02/13/17 09:17 Dose: 1 applic Digoxin (Lanoxin) 0.25 mg IVP DAILY@1800 [facility] Last Admin: 02/13/17 17:27 Dose: 0.25 mg Diltiazem HCl (Cardizem) 60 mg PO Q6 [facility] Last Admin: 02/14/17 06:42 Dose: Not Given Docusate Sodium (Colace) 100 mg PO BID [facility] Last Admin: 02/13/17 19:29 Dose: 100 mg Meropenem 1 gm/ Sodium (Chloride) 100 mls @ 100 mls/hr IVPB Q12H [facility] Last Admin: 02/14/17 01:08 Dose: 100 mls/hr Sodium Chloride (Sodium Chloride 0.9%) 1,000 mls @ 75 mls/hr IV .[id number] [facility] Last Admin: 02/14/17 04:22 Dose: 75 mls/hr Ketorolac Tromethamine (Toradol) 30 mg IVP Q6 PRN PRN Reason: Pain, moderate (4-7) Metoprolol Tartrate (Lopressor) 25 mg PO BID [facility] Last Admin: 02/13/17 19:26 Dose: 25 mg Morphine Sulfate (Morphine) 1 mg IVP Q8 PRN PRN Reason: Pain, severe (8-10) Last Admin: 02/13/17 21:18 Dose: 1 mg Rosuvastatin Calcium (Crestor) 20 mg PO HS [facility] Last Admin: 02/13/17 21:18 Dose: 20 mg - Labs Labs: 02/14/17 07:12 02/14/17 07:12 PT 15.3 SECONDS (9.7-12.2) H 02/09/17 13:36 INR 1.4 02/09/17 13:36 APTT 40 SECONDS (21-34) H 02/09/17 13:36 - Constitutional Appears: Well, No Acute Distress - Head Exam Head Exam: ATRAUMATIC - Respiratory Exam Respiratory Exam: NORMAL BREATHING PATTERN - Cardiovascular Exam Additional comments: calves soft NT neg homans +DP/PT pulses - Neurological Exam Neurological Exam: Alert, Awake Neuro motor strength exam: Left Lower Extremity: 5 (+ROM ankle/toes, actively moving knee and hip more, no pain with passive ROM) - Psychiatric Exam Psychiatric exam: Normal Affect, Normal Mood - Skin Skin Exam: Dry, Intact, Normal Color, Warm Assessment and Plan (1) Compression fracture of L1 lumbar vertebra Assessment & Plan: patient more alert and comfortable today recommend neurosurgery consultation MRI reading pending, noted central cord compression, d/w resident regarding spine consult as outside of Dr. Oneill scope femur films negative d/w Dr. Oneill, agrees with above Status: Acute (2) Leg pain, left Assessment & Plan: improving clinically patient complaining much less today recommend PT/OT Status: Acute (3) Spondylolisthesis at L5-S1 level Assessment & Plan: chronic Status: Chronic Radiology Interpretation - Radiology Interpretation #3 Interpretation: Patient Name / ID : NOLA CRUZ / [id number] Exam Date : 02/12/2017 16:38:47 ( Approved ) Study Comment : Sex / Age : F / 86Y Creator : Jasmin Cantrell V. Dictator : Jasmin Cantrell V. Real Property Evaluator : Helper Electrical : Jasmin Cantrell V. Approver2 : Report Date : 02/13/2017 14:05:23 My Comment : PROCEDURE: HISTORY: left thigh pain COMPARISON: None TECHNIQUE: Five views FINDINGS: Generalized osteopenia. No fracture or dislocation appreciated Mild left hip arthrosis and left knee arthrosis IMPRESSION: No fracture or lytic lesion. Generalized osteopenia Left hip and left knee arthrosis Patient Name / ID : NOLA CRUZ / [id number] Exam Date : 02/12/2017 16:32:03 ( Approved ) Study Comment : Sex / Age : F / 86Y Creator : Jasmin Cantrell V. Dictator : Jasmin Cantrell V. Real Property Evaluator : Helper Electrical : Jasmin Cantrell V. Approver2 : Report Date : 02/13/2017 14:03:16 My Comment : PROCEDURE: Radiographs of the Lumbar Spine. HISTORY: LBP COMPARISON: Obstructive series 01/10/2017 FINDINGS: BONES: . Marked osteopenia. Probable osteopenic compression fracture type L1 - chronicity unknown greater than 50 percent loss of vertebral body height suspect. No gross retropulsion of ossific fragments into the spinal canal apparent lesser degrees of superior compression deformity and/or prominent Schmorl's node indentations superior L2 and L3 and possibly L4 endplates 7 to 8 mm anterior subluxation of L5 relative to S1. . Marked facet hypertrophic arthrosis. Subluxation likely due to ligamentous laxity. DISC SPACES: Unremarkable. OTHER FINDINGS: Prominent coaster cartilaginous junctional calcifications. Cholecystectomy clips. In each lower quadrant of the abdomen pelvis are multiple metallic like densities probably relating to old injury IMPRESSION: Marked osteopenia. Marked L1 compression fracture and osteopenic osteoporotic type inferred. Gross retropulsion. Chronicity unknown. Probable Schmorl's node indentations and/or much lesser degrees of superior endplate compression deformities of other lumbar spine vertebrae Bilateral L5-S1 facet hypertrophic arthrosis with mild anterior subluxation of L5 relative to S1 attributed to ligamentous laxity.
[2017-02-14] MEDS: Collagenase 250 Units/gm Ointment(30 gm) TOP SCH (12:46)
[2017-02-14] MEDS: Clotrimazole/Betamethasone Cream(15 gm) TOP SCH ×2 (12:46→18:54)
--- NOTE | 2017-02-14 14:29 | MRI ---
PROCEDURE: MR LUMBAR SPINE WITHOUT CONTRAST HISTORY: L1 compression fracture COMPARISON: None available. TECHNIQUE: Multiecho multiplanar sequences were performed through the lumbar spine without the use of intravenous contrast. FINDINGS: There is mild approximately 4 millimeter anterior spondylolisthesis of L5 relative to S1. There is moderate to severe compression deformity of L1 vertebral body. The STIR images demonstrate no bone marrow edema to suggest acute or subacute infarct. Heterogeneous bone marrow signal without evidence of bone marrow edema or destructive bony lesion. Conus medullaris unremarkable at the level of T12-L1 Paraspinal soft tissues are unremarkable. T12-L1: There is bony retropulsion at T12-L1 associated with mild spinal stenosis. L1-2: No disc herniation, spinal canal stenosis or neural foraminal narrowing. L2-3: No disc herniation, spinal canal stenosis or neural foraminal narrowing. L3-4: No disc herniation, spinal canal stenosis or neural foraminal narrowing. L4-5: There is a broad-based disc bulging associated with posterior ligament and facet joint hypertrophy which resulting in [id number] spinal stenosis. L5-S1: No There is broad-based disc bulging associated with posterior ligament and facet joint hypertrophy which resulting in moderate to mildly severe spinal stenosis. Disc herniation, spinal canal stenosis or neural foraminal narrowing. OTHER FINDINGS: None. IMPRESSION: Moderate to mildly severe compression deformity of L1 vertebral body without evidence of bone marrow edema suggestive of old fracture. Moderate degenerative disc changes. Bony retropulsion at T12-L1 associated with mild to moderate spinal stenosis. Osteophyte disc bulge complex at L4-L5 associated with posterior ligament hypertrophy which resulting in [id number] spinal stenosis. Moderate size disc bulge associated with posterior ligament and facet joint hypertrophy at L5-S1 which resulting in moderate to mildly severe spinal stenosis.
[2017-02-14] MEDS: Digoxin 500 mcg/2ml (0.5 mg/2ml) Inj IVP SCH (18:51)
--- NOTE | 2017-02-14 21:12 | CP.PCM.PN ---
Subjective - Date & Time of Evaluation Date of Evaluation: 02/14/17 Time of Evaluation: 05:30 - Subjective Subjective: dictated Objective - Vital Signs/Intake and Output Vital Signs (last 24 hours): Temp Pulse Resp BP Pulse Ox 98.3 F 84 20 134/81 98 02/14/17 15:21 02/14/17 15:21 02/14/17 15:21 02/14/17 18:53 02/14/17 15:21 Intake and Output: 02/14/17 02/15/17 18:59 06:59 Intake Total 575 Balance 575 - Medications Medications: Current Medications Apixaban (Eliquis) 2.5 mg PO BID [facility] Last Admin: 02/14/17 18:53 Dose: 2.5 mg Betamethasone/Clotrimazole (Lotrisone) 0 gm TOP BID [facility] Last Admin: 02/14/17 18:54 Dose: 1 applic Collagenase (Santyl) 0 gm TOP DAILY [facility] Last Admin: 02/14/17 12:46 Dose: 1 applic Digoxin (Lanoxin) 0.25 mg IVP DAILY@1800 [facility] Last Admin: 02/14/17 18:51 Dose: 0.25 mg Diltiazem HCl (Cardizem) 60 mg PO Q6 [facility] Last Admin: 02/14/17 18:53 Dose: 60 mg Docusate Sodium (Colace) 100 mg PO BID [facility] Last Admin: 02/14/17 18:53 Dose: 100 mg Meropenem 1 gm/ Sodium (Chloride) 100 mls @ 100 mls/hr IVPB Q12H [facility] Last Admin: 02/14/17 12:46 Dose: 100 mls/hr Sodium Chloride (Sodium Chloride 0.9%) 1,000 mls @ 75 mls/hr IV .[id number] [facility] Last Admin: 02/14/17 11:55 Dose: Not Given Ketorolac Tromethamine (Toradol) 30 mg IVP Q6 PRN PRN Reason: Pain, moderate (4-7) Lorazepam (Ativan) 0.25 mg IVP Q6H PRN PRN Reason: Anxiety Last Admin: 02/14/17 18:53 Dose: 0.25 mg Metoprolol Tartrate (Lopressor) 25 mg PO BID [facility] Last Admin: 02/14/17 18:53 Dose: 25 mg Morphine Sulfate (Morphine) 1 mg IVP Q8 PRN PRN Reason: Pain, severe (8-10) Last Admin: 02/13/17 21:18 Dose: 1 mg Rosuvastatin Calcium (Crestor) 20 mg PO HS [facility] Last Admin: 02/13/17 21:18 Dose: 20 mg - Labs Labs: 02/14/17 07:12 02/14/17 07:12 PT 15.3 SECONDS (9.7-12.2) H 02/09/17 13:36 INR 1.4 02/09/17 13:36 APTT 40 SECONDS (21-34) H 02/09/17 13:36 Assessment and Plan (1) Infection due to ESBL-producing Escherichia coli Status: Acute (2) Atrial flutter Status: Acute (3) Closed head injury Status: Acute (4) Hemiparesis Status: Acute
--- NOTE | 2017-02-14 22:37 | CP.PCM.PN ---
Subjective - Date & Time of Evaluation Date of Evaluation: 02/14/17 Time of Evaluation: 02:30 - Subjective Subjective: more awake and responsive today Objective - Vital Signs/Intake and Output Vital Signs (last 24 hours): Temp Pulse Resp BP Pulse Ox 98.3 F 87 20 134/81 98 02/14/17 15:21 02/14/17 18:00 02/14/17 15:21 02/14/17 18:53 02/14/17 15:21 Intake and Output: 02/14/17 02/15/17 18:59 06:59 Intake Total 575 Balance 575 - Medications Medications: Current Medications Apixaban (Eliquis) 2.5 mg PO BID [facility] Last Admin: 02/14/17 18:53 Dose: 2.5 mg Betamethasone/Clotrimazole (Lotrisone) 0 gm TOP BID [facility] Last Admin: 02/14/17 18:54 Dose: 1 applic Collagenase (Santyl) 0 gm TOP DAILY [facility] Last Admin: 02/14/17 12:46 Dose: 1 applic Digoxin (Lanoxin) 0.25 mg IVP DAILY@1800 [facility] Last Admin: 02/14/17 18:51 Dose: 0.25 mg Diltiazem HCl (Cardizem) 60 mg PO Q6 [facility] Last Admin: 02/14/17 18:53 Dose: 60 mg Docusate Sodium (Colace) 100 mg PO BID [facility] Last Admin: 02/14/17 18:53 Dose: 100 mg Meropenem 1 gm/ Sodium (Chloride) 100 mls @ 100 mls/hr IVPB Q12H [facility] Last Admin: 02/14/17 12:46 Dose: 100 mls/hr Sodium Chloride (Sodium Chloride 0.9%) 1,000 mls @ 75 mls/hr IV .[id number] [facility] Last Admin: 02/14/17 22:27 Dose: 75 mls/hr Ketorolac Tromethamine (Toradol) 30 mg IVP Q6 PRN PRN Reason: Pain, moderate (4-7) Lorazepam (Ativan) 0.25 mg IVP Q6H PRN PRN Reason: Anxiety Last Admin: 02/14/17 18:53 Dose: 0.25 mg Metoprolol Tartrate (Lopressor) 25 mg PO BID [facility] Last Admin: 09/20/17 18:53 Dose: 25 mg Morphine Sulfate (Morphine) 1 mg IVP Q8 PRN PRN Reason: Pain, severe (8-10) Last Admin: 02/13/17 21:18 Dose: 1 mg Rosuvastatin Calcium (Crestor) 20 mg PO HS [facility] Last Admin: 02/14/17 21:13 Dose: 20 mg - Labs Labs: 02/14/17 07:12 02/14/17 07:12 PT 15.3 SECONDS (9.7-12.2) H 02/09/17 13:36 INR 1.4 02/09/17 13:36 APTT 40 SECONDS (21-34) H 02/09/17 13:36 - Constitutional Appears: Well, No Acute Distress - Head Exam Head Exam: ATRAUMATIC, NORMAL INSPECTION, NORMOCEPHALIC - Eye Exam Eye Exam: EOMI, Normal appearance, PERRL Pupil Exam: NORMAL ACCOMODATION, PERRL - ENT Exam ENT Exam: Mucous Membranes Moist, Normal Exam - Neck Exam Neck Exam: Full ROM, Normal Inspection. absent: Lymphadenopathy - Respiratory Exam Respiratory Exam: Clear to Ausculation Bilateral, NORMAL BREATHING PATTERN - Cardiovascular Exam Cardiovascular Exam: Irregular Rhythm, +S1, +S2, Murmur - GI/Abdominal Exam GI & Abdominal Exam: Soft, Normal Bowel Sounds. absent: Tenderness - Extremities Exam Extremities Exam: Full ROM, Normal Capillary Refill, Normal Inspection. absent : Joint Swelling, Pedal Edema - Back Exam Back Exam: NORMAL INSPECTION - Neurological Exam Neurological Exam: Alert, Awake, CN II-XII Intact Neuro motor strength exam: Left Upper Extremity: 2/1, Left Lower Extremity: 2/1 - Psychiatric Exam Psychiatric exam: Flat Affect, Normal Mood - Skin Skin Exam: Dry, Intact, Normal Color, Warm Assessment and Plan (1) Rapid atrial fibrillation Assessment & Plan: rate controlled on bb,ccb on eliquis Status: Acute (2) Dehydration Assessment & Plan: improving on gentle hydration Status: Acute (3) Infection due to ESBL-producing Escherichia coli Assessment & Plan: on meropenem per ID Status: Acute (4) Transient hypotension Status: Acute (5) UTI (urinary tract infection) Status: Acute
[2017-02-15] MEDS: Meropenem 1 GM in Sodium Chloride 0.9% 100 ML IVPB SCH ×2 (00:04→15:12)
--- NOTE | 2017-02-15 00:11 | CARD ---
APPROVED REPORT EXAM: Two-dimensional and M-mode echocardiogram with Doppler and color Doppler. Other Information Technically limited study due to INDICATION Chest Pain M-Mode DIMENSIONS Left Atrium (MM)5.31 (2.5-4.0cm)IVSd1.28 (0.7-1.1cm) Aortic Root3.05 (2.2-3.7cm)LVDd5.28 (4.0-5.6cm) Aortic Cusp Exc.1.25 (1.5-2.0cm)PWd1.28 (0.7-1.1cm) FS (%) 30 %LVDs3.71 (2.0-3.8cm) LVEF (%)56 (>50%) Mitral Valve MV E Eewdwdsd873.3cm/sMV A Rraimvic21.0cm/sE/A ratio2.4 TDI E/Lateral E'0.0E/Medial E'0.0 Tricuspid Valve TR Peak Sdrsidtp291gt/sTR Peak Gr.[id number] LEFT VENTRICLE The left ventricle is normal size. There is mild concentric left ventricular hypertrophy. The left ventricular function is normal. The left ventricular ejection fraction is within the normal range. There is normal LV segmental wall motion. ABNORMAL, AT LEAST GRADE 1 No left ventricle thrombus noted on this study. RIGHT VENTRICLE The right ventricle is normal size. There is normal right ventricular wall thickness. The right ventricular systolic function is normal. ATRIA The left atrium is severely dilated. The right atrium is mildly dilated. The interatrial septum is intact with no evidence for an atrial septal defect. AORTIC VALVE The aortic valve is mildly to moderately sclerotic. The aortic valve is mildly calcified. No aortic regurgitation is present. There is no aortic valvular stenosis. MITRAL VALVE Mitral annular calcification is mild. There is no evidence of mitral valve prolapse. There is no mitral valve stenosis. Mitral regurgitation is AT LEAST mild. TRICUSPID VALVE The tricuspid valve is normal in structure. There is mild tricuspid regurgitation. There is no tricuspid valve prolapse or vegetation. There is no tricuspid valve stenosis. PULMONIC VALVE NWV There is no pulmonic valvular regurgitation. There is no pulmonic valvular stenosis. GREAT VESSELS The aortic root is normal in size. The ascending aorta is normal in size. The IVC is normal in size and collapses >50% with inspiration. <Conclusion> PT IS IN AFIB, LIMITING THE EVALUATION OF EF, DIASTOLIC FUNCTION AND SEVERITY OF VALVULAR DISEASE. There is mild concentric left ventricular hypertrophy. The left ventricular ejection fraction is within the normal range. ABNORMAL, AT LEAST GRADE 1 The left atrium is severely dilated. The right atrium is mildly dilated. The aortic valve is mildly to moderately sclerotic. The aortic valve is mildly calcified. Mitral annular calcification is mild. Mitral regurgitation is AT LEAST mild. There is mild tricuspid regurgitation.
--- NOTE | 2017-02-15 01:01 | CARD ---
APPROVED REPORT EKG Measurement Heart [id number] <Conclusion> Atrial flutter with variable AV block Left axis deviation Right bundle branch block Abnormal ECG
--- NOTE | 2017-02-15 01:19 | PN ---
SUBJECTIVE: The patient is verbalizing, keeps on talking, mostly in Romanian, but she is in no acute respiratory distress, has left hemiplegia, is not in any acute distress. PHYSICAL EXAMINATION: VITAL SIGNS: T-max is 98.9, blood pressure is 134/81, respirations are 20, heart rate is 76. She is on antibiotics for UTI which is meropenem and I had ordered a repeat UA and urine culture to see if we can get one, but she is probably incontinent and we will give meropenem for 5 to 7 days to cover for UTI and cystitis at this time and this was started on , today is the 4th day. We will follow. Walt Fitzgerald MD
--- NOTE | 2017-02-15 07:26 | CP.PCM.PN ---
Subjective - Date & Time of Evaluation Date of Evaluation: 02/15/17 Time of Evaluation: 07:54 - Subjective Subjective: Patient says she only has pain in her left leg when you push it too much. Denies back pain today. Denies new pain. Denies CP/SOB/nausea/vomiting/tingling. Review of Systems - Review of Systems All systems: reviewed and no additional remarkable complaints except - Cardiovascular Cardiovascular: As Per HPI - Respiratory Respiratory: As Per HPI - Musculoskeletal Musculoskeletal: As Par HPI - Integumentary Integumentary: UNREMARKABLE - Neurological Neurological: As Per HPI Objective - Vital Signs/Intake and Output Vital Signs (last 24 hours): Temp Pulse Resp BP Pulse Ox 98.1 F 78 20 103/75 96 02/15/17 00:13 02/15/17 00:13 02/15/17 00:13 02/15/17 00:13 02/15/17 00:13 Intake and Output: 02/15/17 02/15/17 06:59 18:59 Intake Total 800 Balance 800 - Medications Medications: Current Medications Apixaban (Eliquis) 2.5 mg PO BID [facility] Last Admin: 02/14/17 18:53 Dose: 2.5 mg Betamethasone/Clotrimazole (Lotrisone) 0 gm TOP BID [facility] Last Admin: 02/14/17 18:54 Dose: 1 applic Collagenase (Santyl) 0 gm TOP DAILY [facility] Last Admin: 02/14/17 12:46 Dose: 1 applic Digoxin (Lanoxin) 0.25 mg IVP DAILY@1800 [facility] Last Admin: 02/14/17 18:51 Dose: 0.25 mg Diltiazem HCl (Cardizem) 60 mg PO Q6 [facility] Last Admin: 02/15/17 05:49 Dose: 60 mg Docusate Sodium (Colace) 100 mg PO BID [facility] Last Admin: 02/14/17 18:53 Dose: 100 mg Meropenem 1 gm/ Sodium (Chloride) 100 mls @ 100 mls/hr IVPB Q12H [facility] Last Admin: 02/14/17 12:46 Dose: 100 mls/hr Sodium Chloride (Sodium Chloride 0.9%) 1,000 mls @ 75 mls/hr IV .[id number] [facility] Last Admin: 02/14/17 22:27 Dose: 75 mls/hr Ketorolac Tromethamine (Toradol) 30 mg IVP Q6 PRN PRN Reason: Pain, moderate (4-7) Lorazepam (Ativan) 0.25 mg IVP Q6H PRN PRN Reason: Anxiety Last Admin: 02/14/17 18:53 Dose: 0.25 mg Metoprolol Tartrate (Lopressor) 25 mg PO BID [facility] Last Admin: 02/14/17 18:53 Dose: 25 mg Morphine Sulfate (Morphine) 1 mg IVP Q8 PRN PRN Reason: Pain, severe (8-10) Last Admin: 02/15/17 06:18 Dose: 1 mg Rosuvastatin Calcium (Crestor) 20 mg PO HS [facility] Last Admin: 02/14/17 21:13 Dose: 20 mg - Labs Labs: 02/14/17 07:12 02/14/17 07:12 PT 15.3 SECONDS (9.7-12.2) H 02/09/17 13:36 INR 1.4 02/09/17 13:36 APTT 40 SECONDS (21-34) H 02/09/17 13:36 - Constitutional Appears: Well, No Acute Distress - Respiratory Exam Respiratory Exam: NORMAL BREATHING PATTERN - Extremities Exam Additional comments: admits to sensation calves soft NT neg homans - Neurological Exam Neurological Exam: Alert, Awake Neuro motor strength exam: Left Lower Extremity: 5 (complains of pain with attempts to passively move leg today, more spasms/stiff today), Right Lower Extremity: 5 - Psychiatric Exam Psychiatric exam: Normal Affect, Normal Mood - Skin Skin Exam: Dry, Intact, Normal Color, Warm Assessment and Plan (1) Compression fracture of L1 lumbar vertebra Assessment & Plan: Per radiology, mod to severe old fracture, mild stenosis from retropulsion PT/OT recommend neurosurgery consult [facility] proph d/w Dr. Oneill, agrees with above Status: Acute (2) Leg pain, left Assessment & Plan: improving clinically Status: Acute (3) Spondylolisthesis at L5-S1 level Assessment & Plan: mod to severe stenosis with disc bulge L4/5 and moderate stenosis Status: Chronic Radiology Interpretation - Artistic Director Artistic Director:: Radiologist - Radiology Interpretation #2 Interpretation: Patient Name / ID : NOLA CRUZ / [id number] Exam Date : 02/14/2017 10:27:47 ( Approved ) Study Comment : Sex / Age : F / 86Y Creator : William Truong Dictator : William Truong Lan Specialist : Craft Demonstrator : William Truong Approver2 : Report Date : 02/14/2017 14:23:48 My Comment : PROCEDURE: MR LUMBAR SPINE WITHOUT CONTRAST HISTORY: L1 compression fracture COMPARISON: None available. TECHNIQUE: Multiecho multiplanar sequences were performed through the lumbar spine without the use of intravenous contrast. FINDINGS: There is mild approximately 4 millimeter anterior spondylolisthesis of L5 relative to S1. There is moderate to severe compression deformity of L1 vertebral body. The STIR images demonstrate no bone marrow edema to suggest acute or subacute infarct. Heterogeneous bone marrow signal without evidence of bone marrow edema or destructive bony lesion. Conus medullaris unremarkable at the level of T12-L1 Paraspinal soft tissues are unremarkable. T12-L1: There is bony retropulsion at T12-L1 associated with mild spinal stenosis. L1-2: No disc herniation, spinal canal stenosis or neural foraminal narrowing. L2-3: No disc herniation, spinal canal stenosis or neural foraminal narrowing. L3-4: No disc herniation, spinal canal stenosis or neural foraminal narrowing. L4-5: There is a broad-based disc bulging associated with posterior ligament and facet joint hypertrophy which resulting in [id number] spinal stenosis. L5-S1: No There is broad-based disc bulging associated with posterior ligament and facet joint hypertrophy which resulting in moderate to mildly severe spinal stenosis. Disc herniation, spinal canal stenosis or neural foraminal narrowing. OTHER FINDINGS: None. IMPRESSION: Moderate to mildly severe compression deformity of L1 vertebral body without evidence of bone marrow edema suggestive of old fracture. Moderate degenerative disc changes. Bony retropulsion at T12-L1 associated with mild to moderate spinal stenosis. Osteophyte disc bulge complex at L4-L5 associated with posterior ligament hypertrophy which resulting in [id number]-[id number] spinal stenosis. Moderate size disc bulge associated with posterior ligament and facet joint hypertrophy at L5-S1 which resulting in moderate to mildly severe spinal stenosis.
[2017-02-15 08:48] LABS: CHLORIDE 107 mmol/L (98-107); POTASSIUM 3.7 mmol/L (3.6-5.2); SODIUM 137 mmol/L (132-148)
[2017-02-15 08:50] LABS: AST/SGOT 35 U/L (14-36); BILIRUBIN,TOTAL 0.7 mg/dL (0.2-1.3); CARBON DIOXIDE 22 mmol/L (22-30); GFR AFRICAN-AMERICAN > 60
[2017-02-15 08:51] LABS: ALB/GLOB RATIO 0.9 (1.0-2.1); ALKALINE PHOSPHATASE 121 U/L (38-126); ALT/SGPT 27 U/L (9-52); CALCIUM 7.6 mg/dl (8.6-10.4); GLUCOSE,RANDOM 85 mg/dL (65-105); TOTAL PROTEIN 5.4 g/dL (6.3-8.3)
[2017-02-15 08:53] LABS: BLOOD UREA NITROGEN < 2 mg/dL (7-17)
--- NOTE | 2017-02-15 08:55 | CP.PCM.PN ---
<Troy Arvizu - Last Filed: 02/15/17 14:36> Subjective - Date & Time of Evaluation Date of Evaluation: 02/15/17 Time of Evaluation: 08:53 - Subjective Subjective: PGY1 Note for Dr. Coates HPI: Patient seen and examined at bedside. Looks comfortable. Further ROS unavailable due to previous CVA. Objective - Vital Signs/Intake and Output Vital Signs (last 24 hours): Temp Pulse Resp BP Pulse Ox 98.1 F 78 20 103/75 96 02/15/17 00:13 02/15/17 00:13 02/15/17 00:13 02/15/17 00:13 02/15/17 00:13 Intake and Output: 02/15/17 02/15/17 06:59 18:59 Intake Total 800 Balance 800 - Medications Medications: Current Medications Apixaban (Eliquis) 2.5 mg PO BID [facility] Last Admin: 02/14/17 18:53 Dose: 2.5 mg Betamethasone/Clotrimazole (Lotrisone) 0 gm TOP BID [facility] Last Admin: 02/14/17 18:54 Dose: 1 applic Collagenase (Santyl) 0 gm TOP DAILY [facility] Last Admin: 02/14/17 12:46 Dose: 1 applic Digoxin (Lanoxin) 0.25 mg IVP DAILY@1800 [facility] Last Admin: 02/14/17 18:51 Dose: 0.25 mg Diltiazem HCl (Cardizem) 60 mg PO Q6 [facility] Last Admin: 02/15/17 05:49 Dose: 60 mg Docusate Sodium (Colace) 100 mg PO BID [facility] Last Admin: 02/14/17 18:53 Dose: 100 mg Meropenem 1 gm/ Sodium (Chloride) 100 mls @ 100 mls/hr IVPB Q12H [facility] Last Admin: 02/15/17 00:04 Dose: Not Given Sodium Chloride (Sodium Chloride 0.9%) 1,000 mls @ 75 mls/hr IV .[id number] [facility] Last Admin: 02/14/17 22:27 Dose: 75 mls/hr Lorazepam (Ativan) 0.25 mg IVP Q6H PRN PRN Reason: Anxiety Last Admin: 02/14/17 18:53 Dose: 0.25 mg Metoprolol Tartrate (Lopressor) 25 mg PO BID [facility] Last Admin: 02/14/17 18:53 Dose: 25 mg Morphine Sulfate (Morphine) 1 mg IVP Q8 PRN PRN Reason: Pain, severe (8-10) Last Admin: 02/15/17 06:18 Dose: 1 mg Rosuvastatin Calcium (Crestor) 20 mg PO HS [facility] Last Admin: 02/14/17 21:13 Dose: 20 mg - Labs Labs: 02/14/17 07:12 02/15/17 08:16 PT 15.3 SECONDS (9.7-12.2) H 02/09/17 13:36 INR 1.4 02/09/17 13:36 APTT 40 SECONDS (21-34) H 02/09/17 13:36 - Constitutional Appears: Chronically Ill - Head Exam Head Exam: ATRAUMATIC, NORMAL INSPECTION, NORMOCEPHALIC - Eye Exam Eye Exam: EOMI Pupil Exam: NORMAL ACCOMODATION - ENT Exam ENT Exam: Mucous Membranes Moist - Respiratory Exam Respiratory Exam: Clear to Ausculation Bilateral, NORMAL BREATHING PATTERN - Cardiovascular Exam Cardiovascular Exam: Tachycardia, Irregular Rhythm Additional comments: afib on tele - GI/Abdominal Exam GI & Abdominal Exam: Soft, Normal Bowel Sounds. absent: Distended, Tenderness - Extremities Exam Extremities Exam: absent: Joint Swelling, Tenderness - Back Exam Back Exam: absent: CVA tenderness (L), CVA tenderness (R) - Neurological Exam Neurological Exam: Alert, Awake, Oriented x3 - Psychiatric Exam Psychiatric exam: Normal Affect, Normal Mood - Skin Skin Exam: Dry, Intact, Normal Color, Warm Assessment and Plan - Assessment and Plan (Free Text) Assessment: AMS secondary 2/2 UTI (ESBL) * Head CT: No acute intracranial findings by standard CT criteria including hemorrhage or fracture. Chronic right MCA distribution infarct * Cervical Spine CT: No fracture * Chest/Abdomen/Pelvis CT: 1. A moderate to severe compression fracture T7 vertebral body is with a severe L1-2 but a compression fracture. Age of these fractures is indeterminate. L1 compression fracture results and retropulsion of the upper endplate to cause a central canal stenosis. Prominent urinary bladder distension with the bladder otherwise unremarkable appearing. * NS @75 * ID (Amilcar) * Merem 1g Q12 (02/11) * blood culture negative * Repeat Blood and Urine cultures History of Afib * Eliquis 2.5 mg BID - to start 02/10 * Cardizem 30 mg Q6 * Dig IV 0.25mg @ 1800 * cardiology consulted, Dr. Reddy * ECHO - EF 56%, Afib * today she spit up her eliquis and BB so I gave the BB IV (Lopressor 5mg). Will try again to taker the PO Eliquis History of CAD * Crestor 20mg * ECHO - EF 56%, Afib History of Heel Ulcer * wound care * podiatry consulted, Dr. Roland, help appreciated Left leg and foot pain * foot xray: no radiographic evidence of osteomyelitis * left hip xray: no evidence of acute fracture or dislocation * MRI showed significant compression. Ortho is recommending neurosurgical consult. Patient has been bed bound since her stroke and has multiple comorbidities. Neurosurgical intervention in not practical in this case. * morphine 1 mg q8h prn * ortho consulted, Dr. Oneill Hypokalemia * IV KCl 20mg once PPX * Pepcid 20mg QD * Toradol IV 30mg Q6 * Eliquis 2.5 mg BID * Colace 100mg BID * leggett removed on 02/11 <Bernard Coates H - Last Filed: 02/15/17 16:02> Objective - Vital Signs/Intake and Output Vital Signs (last 24 hours): Temp Pulse Resp BP Pulse Ox 98.7 F 83 20 114/73 96 02/15/17 15:05 02/15/17 15:05 02/15/17 15:05 02/15/17 15:05 02/15/17 15:05 Intake and Output: 02/15/17 02/15/17 06:59 18:59 Intake Total 800 Balance 800 - Medications Medications: Current Medications Apixaban (Eliquis) 2.5 mg PO BID [facility] Last Admin: 02/15/17 11:03 Dose: Not Given Collagenase (Santyl) 0 gm TOP DAILY [facility] Last Admin: 02/15/17 10:48 Dose: 1 applic Digoxin (Lanoxin) 0.25 mg IVP DAILY@1800 [facility] Last Admin: 02/14/17 18:51 Dose: 0.25 mg Diltiazem HCl (Cardizem) 60 mg PO Q6 [facility] Last Admin: 02/15/17 05:49 Dose: 60 mg Docusate Sodium (Colace) 100 mg PO BID [facility] Last Admin: 02/15/17 11:02 Dose: Not Given Meropenem 1 gm/ Sodium (Chloride) 100 mls @ 100 mls/hr IVPB Q12H [facility] Last Admin: 02/15/17 15:12 Dose: 100 mls/hr Sodium Chloride (Sodium Chloride 0.9%) 1,000 mls @ 75 mls/hr IV .[id number] [facility] Last Admin: 02/14/17 22:27 Dose: 75 mls/hr Lorazepam (Ativan) 0.25 mg IVP Q6H PRN PRN Reason: Anxiety Last Admin: 02/14/17 18:53 Dose: 0.25 mg Metoprolol Tartrate (Lopressor) 25 mg PO BID [facility] Last Admin: 02/15/17 11:03 Dose: Not Given Morphine Sulfate (Morphine) 1 mg IVP Q8 PRN PRN Reason: Pain, severe (8-10) Last Admin: 02/15/17 15:13 Dose: 1 mg Rosuvastatin Calcium (Crestor) 20 mg PO HS [facility] Last Admin: 02/14/17 21:13 Dose: 20 mg - Labs Labs: 02/14/17 07:12 02/15/17 08:16 PT 15.3 SECONDS (9.7-12.2) H 02/09/17 13:36 INR 1.4 02/09/17 13:36 APTT 40 SECONDS (21-34) H 02/09/17 13:36 Attending/Attestation - Attestation I have personally seen and examined this patient.: Yes I have fully participated in the care of the patient.: Yes I have reviewed all pertinent clinical information, including history, physical exam and plan: Yes Notes (Text): Medical attending: Patient was seen and examined by me, agree with the above note by nuclear medical tech. As mentioned previously the the patient has been awake alert, and has a very pleasant affect. However it needs to be pointed out that she has rather extensive dementia. Furthermore were treating the patient for an ESBL Escherichia coli. She is currently receiving IV meropenem. An MRI of her lumbar spine was done was suggestive of moderate to mild the severe stenosis. The patient from what I understand has not been able to walk for quite some time now on this is secondary to a complication from a CVA. In light of the MRI findings I am more concerned about potential urinary retention. We will check some bladder scans to see if she is retaining urine as this could be a significant problem she may develop another UTI become uroseptic again With regards to the patient's atrial fibrillation, were currently giving the patient IV digoxin. She also has PO Cardizem for rate control as well however per my understanding the nurses say that she oftentimes is very picky about her medications and can refuse her oral medications. So if she does have rapid runs of A. fib we might have to give such as IV Lopressor or IV Cardizem pushes if her blood pressure tolerates this Thank you very much, Bernard Coates
[2017-02-15] MEDS: Collagenase 250 Units/gm Ointment(30 gm) TOP SCH (10:48)
[2017-02-15] MEDS: Clotrimazole/Betamethasone Cream(15 gm) TOP SCH (10:51)
--- NOTE | 2017-02-15 11:20 | CP.PCM.PN ---
Subjective - Date & Time of Evaluation Date of Evaluation: 02/15/17 Time of Evaluation: 10:30 - Subjective Subjective: Podiatry Progress Note- Dr. Hilliard 86 y/o female patient seen at bedside today for f/u of left plantar heel ulceration. Pt seen resting in bed at time of visit, appears quite lethargic and unable to respond to questions at this time. Is responsive to painful stimulus to foot. Offloading heel cushions seen applied to b/l lower extremities. Objective - Vital Signs/Intake and Output Vital Signs (last 24 hours): Temp Pulse Resp BP Pulse Ox 98.1 F 78 20 103/75 96 02/15/17 00:13 02/15/17 00:13 02/15/17 00:13 02/15/17 00:13 02/15/17 00:13 Intake and Output: 02/15/17 02/15/17 06:59 18:59 Intake Total 800 Balance 800 - Medications Medications: Current Medications Apixaban (Eliquis) 2.5 mg PO BID [facility] Last Admin: 02/15/17 11:03 Dose: Not Given Betamethasone/Clotrimazole (Lotrisone) 0 gm TOP BID [facility] Last Admin: 02/15/17 10:51 Dose: Not Given Collagenase (Santyl) 0 gm TOP DAILY [facility] Last Admin: 02/15/17 10:48 Dose: 1 applic Digoxin (Lanoxin) 0.25 mg IVP DAILY@1800 [facility] Last Admin: 02/14/17 18:51 Dose: 0.25 mg Diltiazem HCl (Cardizem) 60 mg PO Q6 [facility] Last Admin: 02/15/17 05:49 Dose: 60 mg Docusate Sodium (Colace) 100 mg PO BID [facility] Last Admin: 02/15/17 11:02 Dose: Not Given Meropenem 1 gm/ Sodium (Chloride) 100 mls @ 100 mls/hr IVPB Q12H [facility] Last Admin: 02/15/17 00:04 Dose: Not Given Sodium Chloride (Sodium Chloride 0.9%) 1,000 mls @ 75 mls/hr IV .[id number] [facility] Last Admin: 02/14/17 22:27 Dose: 75 mls/hr Lorazepam (Ativan) 0.25 mg IVP Q6H PRN PRN Reason: Anxiety Last Admin: 02/14/17 18:53 Dose: 0.25 mg Metoprolol Tartrate (Lopressor) 25 mg PO BID [facility] Last Admin: 02/15/17 11:03 Dose: Not Given Morphine Sulfate (Morphine) 1 mg IVP Q8 PRN PRN Reason: Pain, severe (8-10) Last Admin: 02/15/17 06:18 Dose: 1 mg Rosuvastatin Calcium (Crestor) 20 mg PO HS [facility] Last Admin: 02/14/17 21:13 Dose: 20 mg - Labs Labs: 02/14/17 07:12 02/15/17 08:16 PT 15.3 SECONDS (9.7-12.2) H 02/09/17 13:36 INR 1.4 02/09/17 13:36 APTT 40 SECONDS (21-34) H 02/09/17 13:36 - Constitutional Appears: Non-toxic, No Acute Distress - Extremities Exam Additional comments: Left lower extremity exam: Vasc: DP/PT pulses palpable, skin temp runs warm to cool (proximal to distal), cap refill < 3sec to all digits, no pedal edema noted Neuro: light and sharp touch intact Derm: An approximately 3.0cm x 1.2 cm x 0.1 cm ulceration noted to posteroplantar left heel with a fibrotic base, the periwound is granular, with healing noted to distal aspect of wound with new skin growing in over ulceration. No malodor, no active drainage, no tunneling, no undermining, no fluctuance, no probe to bone. No clinical signs of infection present. Ortho: minimal tenderness to palpation of left plantar posterior heel ulceration - Neurological Exam Neurological Exam: absent: Awake - Psychiatric Exam Additional comments: unable to assess Assessment and Plan - Assessment and Plan (Free Text) Assessment: 86 year old female with superficial left heel ulceration 2/2 to pressure Plan: Pt S&E Discussed plan with attending Dr. Hilliard Chart, labs, vitals reviewed: afebrile, no leukocytosis Left heel cleansed with sterile normal saline, santyl and DSD applied Offloading boots to be worn at all times in bed Continue IV abx Patient to f/u in podiatry clinic upon D/C Podiatry will continue to follow while in house
[2017-02-15] MEDS ORDERED: Metoprolol 1 mg/ml Inj IVP ONE (12:30)
[2017-02-15] MEDS: Sodium Chloride 0.9% 1,000 ML IV SCH (13:05)
[2017-02-15] MEDS: Digoxin 500 mcg/2ml (0.5 mg/2ml) Inj IVP SCH (18:14)
--- NOTE | 2017-02-15 19:14 | CP.PCM.PN ---
Subjective - Date & Time of Evaluation Date of Evaluation: 02/15/17 Time of Evaluation: 04:00 - Subjective Subjective: dictated Objective - Vital Signs/Intake and Output Vital Signs (last 24 hours): Temp Pulse Resp BP Pulse Ox 98.7 F 75 20 144/71 96 02/15/17 15:05 02/15/17 15:30 02/15/17 15:05 02/15/17 18:14 02/15/17 15:05 Intake and Output: 02/15/17 02/16/17 18:59 06:59 Intake Total 585 Balance 585 - Medications Medications: Current Medications Apixaban (Eliquis) 2.5 mg PO BID [facility] Last Admin: 02/15/17 18:14 Dose: 2.5 mg Clotrimazole (Lotrimin 1%) 1 gm TOP DAILY [facility] Collagenase (Santyl) 0 gm TOP DAILY [facility] Last Admin: 02/15/17 10:48 Dose: 1 applic Digoxin (Lanoxin) 0.25 mg IVP DAILY@1800 [facility] Last Admin: 02/15/17 18:14 Dose: 0.25 mg Diltiazem HCl (Cardizem) 60 mg PO Q6 [facility] Last Admin: 02/15/17 12:30 Dose: Not Given Docusate Sodium (Colace) 100 mg PO BID [facility] Last Admin: 02/15/17 18:14 Dose: 100 mg Meropenem 1 gm/ Sodium (Chloride) 100 mls @ 100 mls/hr IVPB Q12H [facility] Last Admin: 02/15/17 15:12 Dose: 100 mls/hr Sodium Chloride (Sodium Chloride 0.9%) 1,000 mls @ 75 mls/hr IV .[id number] [facility] Last Admin: 02/15/17 13:05 Dose: Not Given Lorazepam (Ativan) 0.25 mg IVP Q6H PRN PRN Reason: Anxiety Last Admin: 02/15/17 18:02 Dose: 0.25 mg Metoprolol Tartrate (Lopressor) 25 mg PO BID [facility] Last Admin: 02/15/17 18:14 Dose: 25 mg Morphine Sulfate (Morphine) 1 mg IVP Q8 PRN PRN Reason: Pain, severe (8-10) Last Admin: 02/15/17 15:13 Dose: 1 mg Rosuvastatin Calcium (Crestor) 20 mg PO HS [facility] Last Admin: 02/14/17 21:13 Dose: 20 mg - Labs Labs: 02/14/17 07:12 02/15/17 08:16 PT 15.3 SECONDS (9.7-12.2) H 02/09/17 13:36 INR 1.4 02/09/17 13:36 APTT 40 SECONDS (21-34) H 02/09/17 13:36 Assessment and Plan (1) Infection due to ESBL-producing Escherichia coli Status: Acute (2) Atrial flutter Status: Acute (3) Closed head injury Status: Acute (4) Hemiparesis Status: Acute
--- NOTE | 2017-02-15 22:56 | PN ---
DATE: SUBJECTIVE: Patient's daughter was at the bedside when I went in and she was saying that the patient is complaining of pain in the chest. However, this patient is confused and it is unclear and she also has left hemiplegia. She was complaining there is an ulcer on her heel, which I could not even see. She is on meropenem for the UTI. We will follow that tomorrow. PHYSICAL EXAMINATION: VITAL SIGNS: T-max was 98.7, pulse 75, blood pressure 115/70, respirations are 20. They were trying to do EKG, and her exam was unchanged however. LUNGS: Clear. HEART: S1 and S2 is regular. ABDOMEN: Soft, nontender. She did had left hemiplegia. LABORATORY DATA: Remains stable with hemoglobin 10.4, and her creatinine is 0.3 and I am looking for another repeat urine, so that I can decide about the antibiotics and she also went for a lumbar spine MRI. She has been complaining of back pain and has moderate to mild severe compression deformity of L1 without evidence of bone marrow edema suggestive of old fracture, moderate degenerative disk disease, bony retropulsion of T12, L1, so she does have disease in the spine and is being followed. Walt Fitzgerald MD
[2017-02-15 23:16] LABS: RBC URINE 68 /hpf (0-3); TRANSITIONAL EPITHIAL < 1 /hpf (0-3); URINE BACTERIA FEW (<OCC); URINE BILIRUBIN NEGATIVE (NEGATIVE); URINE BLOOD 3+ (NEGATIVE); URINE COLOR Straw (YELLOW); URINE GLUCOSE (UA) NORMAL (Normal); URINE KETONE TRACE mg/dL (NEGATIVE); URINE LEUKOCYTE ESTERASE 3+ Leu/uL (Negative); URINE PROTEIN NEGATIVE (NEGATIVE); URINE UROBILINOGEN NORMAL mg/dL (0.2-1.0); WBC URINE 40 /hpf (0-5)
[2017-02-16] MEDS: Meropenem 1 GM in Sodium Chloride 0.9% 100 ML IVPB SCH ×2 (00:28→12:24)
[2017-02-16] MEDS: Sodium Chloride 0.9% 1,000 ML IV SCH ×2 (02:10→11:22)
--- NOTE | 2017-02-16 07:53 | CP.PCM.PN ---
Subjective - Date & Time of Evaluation Date of Evaluation: 02/15/17 Time of Evaluation: 15:00 - Subjective Subjective: feeling fine c/o left sided pain ( post stroke per daughter ) daughter at bedside more awake and responsive HR controlled Objective - Vital Signs/Intake and Output Vital Signs (last 24 hours): Temp Pulse Resp BP Pulse Ox 98.1 F 80 20 115/71 99 02/15/17 23:50 02/16/17 01:00 02/15/17 23:50 02/15/17 23:50 02/15/17 23:50 - Medications Medications: Current Medications Apixaban (Eliquis) 2.5 mg PO BID [facility] Last Admin: 02/15/17 18:14 Dose: 2.5 mg Clotrimazole (Lotrimin 1%) 1 gm TOP DAILY [facility] Collagenase (Santyl) 0 gm TOP DAILY [facility] Last Admin: 02/15/17 10:48 Dose: 1 applic Digoxin (Lanoxin) 0.25 mg IVP DAILY@1800 [facility] Last Admin: 02/15/17 18:14 Dose: 0.25 mg Diltiazem HCl (Cardizem) 60 mg PO Q6 [facility] Last Admin: 02/16/17 06:00 Dose: Not Given Docusate Sodium (Colace) 100 mg PO BID [facility] Last Admin: 02/15/17 18:14 Dose: 100 mg Meropenem 1 gm/ Sodium (Chloride) 100 mls @ 100 mls/hr IVPB Q12H [facility] Last Admin: 02/16/17 00:28 Dose: 100 mls/hr Sodium Chloride (Sodium Chloride 0.9%) 1,000 mls @ 75 mls/hr IV .[id number] [facility] Last Admin: 02/16/17 02:10 Dose: Not Given Lorazepam (Ativan) 0.25 mg IVP Q6H PRN PRN Reason: Anxiety Last Admin: 02/16/17 04:00 Dose: 0.25 mg Metoprolol Tartrate (Lopressor) 25 mg PO BID [facility] Last Admin: 02/15/17 18:14 Dose: 25 mg Morphine Sulfate (Morphine) 1 mg IVP Q8 PRN PRN Reason: Pain, severe (8-10) Last Admin: 02/15/17 15:13 Dose: 1 mg Rosuvastatin Calcium (Crestor) 20 mg PO HS [facility] Last Admin: 02/15/17 22:07 Dose: 20 mg - Labs Labs: 02/14/17 07:12 02/15/17 08:16 PT 15.3 SECONDS (9.7-12.2) H 02/09/17 13:36 INR 1.4 02/09/17 13:36 APTT 40 SECONDS (21-34) H 02/09/17 13:36 - Constitutional Appears: Well - Head Exam Head Exam: ATRAUMATIC, NORMAL INSPECTION, NORMOCEPHALIC - Eye Exam Eye Exam: EOMI, Normal appearance, PERRL Pupil Exam: NORMAL ACCOMODATION, PERRL - ENT Exam ENT Exam: Mucous Membranes Moist, Normal Exam - Neck Exam Neck Exam: Full ROM, Normal Inspection. absent: Lymphadenopathy - Respiratory Exam Respiratory Exam: Clear to Ausculation Bilateral, NORMAL BREATHING PATTERN - Cardiovascular Exam Cardiovascular Exam: Irregular Rhythm, +S1, +S2, Murmur - GI/Abdominal Exam GI & Abdominal Exam: Soft, Normal Bowel Sounds. absent: Tenderness - Extremities Exam Extremities Exam: Normal Capillary Refill, Normal Inspection. absent: Joint Swelling, Pedal Edema - Back Exam Back Exam: NORMAL INSPECTION - Neurological Exam Neurological Exam: Alert, Awake Neuro motor strength exam: Left Upper Extremity: 2/1, Left Lower Extremity: 2/1 - Psychiatric Exam Psychiatric exam: Flat Affect, Normal Mood - Skin Skin Exam: Dry, Intact, Normal Color, Warm Assessment and Plan (1) Rapid atrial fibrillation Assessment & Plan: rate controlled on CCB and metoprolol dig x 1 given cont with eliquis Status: Acute (2) Dehydration Assessment & Plan: IVF hydration Status: Acute (3) Infection due to ESBL-producing Escherichia coli Assessment & Plan: On abx Status: Acute (4) Transient hypotension Status: Acute (5) UTI (urinary tract infection) Status: Acute
[2017-02-16] MEDS: Collagenase 250 Units/gm Ointment(30 gm) TOP SCH (11:20)
[2017-02-16] MEDS: Clotrimazole 1% Cream 15 GM TUBE TOP SCH (11:20)
[2017-02-16 11:57] LABS: BASO % 0.5 % (0.0-2.0); EOS # 0.3 K/uL (0.0-0.7); EOS % 4.7 % (0.0-4.0); HEMATOCRIT 34.4 % (34.0-47.0); LYMPH # 1.1 K/uL (1.0-4.3); LYMPH % 20.7 % (20.0-40.0); MEAN CORPUSCULAR HEMOGLOBIN 32.3 pg (27.0-31.0); MONO # 0.7 K/uL (0.0-0.8); RED CELL DISTRIBUTION WIDTH 18.9 % (11.5-14.5); WHITE BLOOD COUNT 5.5 K/uL (4.8-10.8)
[2017-02-16 12:08] LABS: CHLORIDE 105 mmol/L (98-107); POTASSIUM 3.2 mmol/L (3.6-5.2); SODIUM 139 mmol/L (132-148)
[2017-02-16 12:10] LABS: ALB/GLOB RATIO 0.9 (1.0-2.1); ALKALINE PHOSPHATASE 123 U/L (38-126); AST/SGOT 35 U/L (14-36); BILIRUBIN,TOTAL 0.6 mg/dL (0.2-1.3); CARBON DIOXIDE 25 mmol/L (22-30); GFR AFRICAN-AMERICAN > 60; TOTAL PROTEIN 5.3 g/dL (6.3-8.3)
[2017-02-16 12:11] LABS: ALT/SGPT 33 U/L (9-52); CALCIUM 7.5 mg/dl (8.6-10.4); GLUCOSE,RANDOM 66 mg/dL (65-105)
[2017-02-16 12:12] LABS: BLOOD UREA NITROGEN < 2 mg/dL (7-17)
--- NOTE | 2017-02-16 17:02 | CP.PCM.PN ---
Subjective - Date & Time of Evaluation Date of Evaluation: 02/16/17 Time of Evaluation: 03:45 - Subjective Subjective: dictated Objective - Vital Signs/Intake and Output Vital Signs (last 24 hours): Temp Pulse Resp BP Pulse Ox 98.6 F 96 H 20 131/86 93 L 02/16/17 15:00 02/16/17 15:00 02/16/17 15:00 02/16/17 15:00 02/16/17 15:00 Intake and Output: 02/16/17 02/16/17 06:59 18:59 Intake Total 810 Balance 810 - Medications Medications: Current Medications Apixaban (Eliquis) 2.5 mg PO BID [facility] Last Admin: 02/16/17 11:19 Dose: 2.5 mg Clotrimazole (Lotrimin 1%) 1 gm TOP DAILY [facility] Last Admin: 02/16/17 11:20 Dose: Not Given Collagenase (Santyl) 0 gm TOP DAILY [facility] Last Admin: 02/16/17 11:20 Dose: 1 applic Digoxin (Lanoxin) 0.25 mg IVP DAILY@1800 [facility] Last Admin: 02/15/17 18:14 Dose: 0.25 mg Diltiazem HCl (Cardizem) 60 mg PO Q6 [facility] Last Admin: 02/16/17 11:19 Dose: 60 mg Docusate Sodium (Colace) 100 mg PO BID [facility] Last Admin: 02/16/17 11:18 Dose: 100 mg Meropenem 1 gm/ Sodium (Chloride) 100 mls @ 100 mls/hr IVPB Q12H [facility] Last Admin: 02/16/17 12:24 Dose: 100 mls/hr Sodium Chloride (Sodium Chloride 0.9%) 1,000 mls @ 75 mls/hr IV .[id number] [facility] Last Admin: 02/16/17 11:22 Dose: 75 mls/hr Potassium Chloride (Potassium Chloride 20 Meq/100 Ml) 20 meq in 100 mls @ 50 mls/hr IVPB ONCE ONE Stop: 02/16/17 17:59 Lorazepam (Ativan) 0.25 mg IVP Q6H PRN PRN Reason: Anxiety Last Admin: 02/16/17 04:00 Dose: 0.25 mg Metoprolol Tartrate (Lopressor) 25 mg PO BID [facility] Last Admin: 02/16/17 11:18 Dose: 25 mg Morphine Sulfate (Morphine) 1 mg IVP Q8 PRN PRN Reason: Pain, severe (8-10) Last Admin: 02/16/17 12:25 Dose: 1 mg Rosuvastatin Calcium (Crestor) 20 mg PO HS [facility] Last Admin: 02/15/17 22:07 Dose: 20 mg - Labs Labs: 02/16/17 10:45 02/16/17 10:45 PT 15.3 SECONDS (9.7-12.2) H 02/09/17 13:36 INR 1.4 02/09/17 13:36 APTT 40 SECONDS (21-34) H 02/09/17 13:36 Assessment and Plan (1) Infection due to ESBL-producing Escherichia coli Status: Acute (2) Atrial flutter Status: Acute (3) Closed head injury Status: Acute (4) Hemiparesis Status: Acute
--- NOTE | 2017-02-16 17:35 | CP.PCM.PN ---
<Kelly Huertas - Last Filed: 02/16/17 17:35> Subjective - Date & Time of Evaluation Date of Evaluation: 02/16/17 Time of Evaluation: 07:50 - Subjective Subjective: Medicine Progress Note: Patient seen and examined at bedside in the AM. Patient is sleeping and look comfortable. Per nurse the patient was a bit feisty overnight as she could nto fall asleep. Per nurse the patient does not want to take the oral medications. Further ROS unavailable due to previous CVA. Objective - Vital Signs/Intake and Output Vital Signs (last 24 hours): Temp Pulse Resp BP Pulse Ox 98.6 F 96 H 20 131/86 93 L 02/16/17 15:00 02/16/17 15:00 02/16/17 15:00 02/16/17 15:00 02/16/17 15:00 Intake and Output: 02/16/17 02/16/17 06:59 18:59 Intake Total 810 Balance 810 - Medications Medications: Current Medications Apixaban (Eliquis) 2.5 mg PO BID [facility] Last Admin: 02/16/17 11:19 Dose: 2.5 mg Clotrimazole (Lotrimin 1%) 1 gm TOP DAILY [facility] Last Admin: 02/16/17 11:20 Dose: Not Given Collagenase (Santyl) 0 gm TOP DAILY [facility] Last Admin: 02/16/17 11:20 Dose: 1 applic Digoxin (Lanoxin) 0.25 mg IVP DAILY@1800 [facility] Last Admin: 02/15/17 18:14 Dose: 0.25 mg Diltiazem HCl (Cardizem) 60 mg PO Q6 [facility] Last Admin: 02/16/17 11:19 Dose: 60 mg Docusate Sodium (Colace) 100 mg PO BID [facility] Last Admin: 02/16/17 11:18 Dose: 100 mg Meropenem 1 gm/ Sodium (Chloride) 100 mls @ 100 mls/hr IVPB Q12H [facility] Last Admin: 02/16/17 12:24 Dose: 100 mls/hr Sodium Chloride (Sodium Chloride 0.9%) 1,000 mls @ 75 mls/hr IV .[id number] [facility] Last Admin: 02/16/17 11:22 Dose: 75 mls/hr Potassium Chloride (Potassium Chloride 20 Meq/100 Ml) 20 meq in 100 mls @ 50 mls/hr IVPB ONCE ONE Stop: 02/16/17 17:59 Lorazepam (Ativan) 0.25 mg IVP Q6H PRN PRN Reason: Anxiety Last Admin: 02/16/17 04:00 Dose: 0.25 mg Metoprolol Tartrate (Lopressor) 25 mg PO BID [facility] Last Admin: 02/16/17 11:18 Dose: 25 mg Morphine Sulfate (Morphine) 1 mg IVP Q8 PRN PRN Reason: Pain, severe (8-10) Last Admin: 02/16/17 12:25 Dose: 1 mg Rosuvastatin Calcium (Crestor) 20 mg PO HS [facility] Last Admin: 02/15/17 22:07 Dose: 20 mg - Labs Labs: 02/16/17 10:45 02/16/17 10:45 PT 15.3 SECONDS (9.7-12.2) H 02/09/17 13:36 INR 1.4 02/09/17 13:36 APTT 40 SECONDS (21-34) H 02/09/17 13:36 - Constitutional Appears: Chronically Ill - Head Exam Head Exam: ATRAUMATIC, NORMAL INSPECTION, NORMOCEPHALIC - Eye Exam Eye Exam: Normal appearance - ENT Exam ENT Exam: Mucous Membranes Moist - Respiratory Exam Respiratory Exam: Clear to Ausculation Bilateral, NORMAL BREATHING PATTERN - Cardiovascular Exam Cardiovascular Exam: Irregular Rhythm (afib ). absent: REGULAR RHYTHM, RRR - GI/Abdominal Exam GI & Abdominal Exam: Soft, Normal Bowel Sounds - Extremities Exam Extremities Exam: Normal Inspection. absent: Joint Swelling, Pedal Edema, Tenderness - Neurological Exam Neurological Exam: Alert, Awake. absent: Oriented x3 - Skin Skin Exam: Normal Color, Warm Assessment and Plan - Assessment and Plan (Free Text) Assessment: 1.) AMS secondary 2/2 UTI (ESBL) - Head CT: No acute intracranial findings by standard CT criteria including hemorrhage or fracture. Chronic right MCA distribution infarct - Cervical Spine CT: No fracture - Chest/Abdomen/Pelvis CT: 1. A moderate to severe compression fracture T7 vertebral body is with a severe L1-2 but a compression fracture. Age of these fractures is indeterminate. L1 compression fracture results and retropulsion of the upper endplate to cause a central canal stenosis. Prominent urinary bladder distension with the bladder otherwise unremarkable appearing. * NS @75 * ID Dr. Fitzgerald --> help appreciated * Meropenem 1g Q12 (02/11) * blood culture negative * repeat blood culture - negative - preliminary * f/u repeat urine culture 2.) History of Afib cardiology consult Dr. Reddy --> help appreciated - ECHO - EF 56%, Afib * Eliquis 2.5 mg BID - to start 02/10 * Cardizem 30 mg Q6 * Dig IV 0.25mg @ 1800 3.) History of CAD * Crestor 20mg 4.) History of Heel Ulcer * wound care * podiatry consulted: Dr. Roland --> help appreciated 5.) Left leg and foot pain Ortho consulted: Dr. Oneill --> help appreciated - foot xray: no radiographic evidence of osteomyelitis - left hip xray: no evidence of acute fracture or dislocation - MRI showed significant compression. Patient has been bed bound since her stroke and has multiple comorbidities. * morphine 1 mg q8h prn 6.) Hypokalemia * IV KCl 20mg twice 7.) Prophylaxis * Pepcid 20mg QD * Toradol IV 30mg Q6 * Eliquis 2.5 mg BID * Colace 100mg BID <Bernard Coates H - Last Filed: 02/16/17 18:52> Objective - Vital Signs/Intake and Output Vital Signs (last 24 hours): Temp Pulse Resp BP Pulse Ox 98.6 F 96 H 20 162/68 H 93 L 02/16/17 15:00 02/16/17 15:00 02/16/17 15:00 02/16/17 18:22 02/16/17 15:00 Intake and Output: 02/16/17 02/16/17 06:59 18:59 Intake Total 810 Balance 810 - Medications Medications: Current Medications Apixaban (Eliquis) 2.5 mg PO BID [facility] Last Admin: 02/16/17 18:21 Dose: 2.5 mg Clotrimazole (Lotrimin 1%) 1 gm TOP DAILY [facility] Last Admin: 02/16/17 11:20 Dose: Not Given Collagenase (Santyl) 0 gm TOP DAILY [facility] Last Admin: 02/16/17 11:20 Dose: 1 applic Digoxin (Lanoxin) 0.25 mg IVP DAILY@1800 [facility] Last Admin: 02/16/17 18:22 Dose: 0.25 mg Diltiazem HCl (Cardizem) 60 mg PO Q6 [facility] Last Admin: 02/16/17 18:21 Dose: 60 mg Docusate Sodium (Colace) 100 mg PO BID [facility] Last Admin: 02/16/17 11:18 Dose: 100 mg Meropenem 1 gm/ Sodium (Chloride) 100 mls @ 100 mls/hr IVPB Q12H [facility] Last Admin: 02/16/17 12:24 Dose: 100 mls/hr Sodium Chloride (Sodium Chloride 0.9%) 1,000 mls @ 75 mls/hr IV .[id number] [facility] Last Admin: 02/16/17 11:22 Dose: 75 mls/hr Lorazepam (Ativan) 0.25 mg IVP Q6H PRN PRN Reason: Anxiety Last Admin: 02/16/17 04:00 Dose: 0.25 mg Metoprolol Tartrate (Lopressor) 25 mg PO BID [facility] Last Admin: 02/16/17 18:22 Dose: 25 mg Morphine Sulfate (Morphine) 1 mg IVP Q8 PRN PRN Reason: Pain, severe (8-10) Last Admin: 02/16/17 12:25 Dose: 1 mg Rosuvastatin Calcium (Crestor) 20 mg PO HS [facility] Last Admin: 02/15/17 22:07 Dose: 20 mg - Labs Labs: 02/16/17 10:45 02/16/17 10:45 PT 15.3 SECONDS (9.7-12.2) H 02/09/17 13:36 INR 1.4 02/09/17 13:36 APTT 40 SECONDS (21-34) H 02/09/17 13:36 Attending/Attestation - Attestation I have personally seen and examined this patient.: Yes I have fully participated in the care of the patient.: Yes I have reviewed all pertinent clinical information, including history, physical exam and plan: Yes Notes (Text): Medical Attending: Patient was seen and examined by me. Agree with the above note by the resident. The patient's family members were present at bedside as well. We discussed the E coli found in the cultures. Currently the patient is on IV Meropenom Q12 Pending for urine culture repeat. The repeat blood cultures are negative Per discussion with family, the patient has not walked for quite some time now. They have been taking care of her at home. I explained to them that likely once the urine culture returns and is negative that we would consider at that point of discharging her thank you Bernard Coates
[2017-02-16] MEDS: Digoxin 500 mcg/2ml (0.5 mg/2ml) Inj IVP SCH (18:22)
--- NOTE | 2017-02-16 18:36 | CP.PCM.PN ---
Subjective - Date & Time of Evaluation Date of Evaluation: 02/16/17 Time of Evaluation: 18:34 - Subjective Subjective: lethargic and confused today Objective - Vital Signs/Intake and Output Vital Signs (last 24 hours): Temp Pulse Resp BP Pulse Ox 98.6 F 96 H 20 162/68 H 93 L 02/16/17 15:00 02/16/17 15:00 02/16/17 15:00 02/16/17 18:22 02/16/17 15:00 Intake and Output: 02/16/17 02/16/17 06:59 18:59 Intake Total 810 Balance 810 - Medications Medications: Current Medications Apixaban (Eliquis) 2.5 mg PO BID [facility] Last Admin: 02/16/17 18:21 Dose: 2.5 mg Clotrimazole (Lotrimin 1%) 1 gm TOP DAILY [facility] Last Admin: 02/16/17 11:20 Dose: Not Given Collagenase (Santyl) 0 gm TOP DAILY [facility] Last Admin: 02/16/17 11:20 Dose: 1 applic Digoxin (Lanoxin) 0.25 mg IVP DAILY@1800 [facility] Last Admin: 02/16/17 18:22 Dose: 0.25 mg Diltiazem HCl (Cardizem) 60 mg PO Q6 [facility] Last Admin: 02/16/17 18:21 Dose: 60 mg Docusate Sodium (Colace) 100 mg PO BID [facility] Last Admin: 02/16/17 11:18 Dose: 100 mg Meropenem 1 gm/ Sodium (Chloride) 100 mls @ 100 mls/hr IVPB Q12H [facility] Last Admin: 02/16/17 12:24 Dose: 100 mls/hr Sodium Chloride (Sodium Chloride 0.9%) 1,000 mls @ 75 mls/hr IV .[id number] [facility] Last Admin: 02/16/17 11:22 Dose: 75 mls/hr Lorazepam (Ativan) 0.25 mg IVP Q6H PRN PRN Reason: Anxiety Last Admin: 02/16/17 04:00 Dose: 0.25 mg Metoprolol Tartrate (Lopressor) 25 mg PO BID [facility] Last Admin: 02/16/17 18:22 Dose: 25 mg Morphine Sulfate (Morphine) 1 mg IVP Q8 PRN PRN Reason: Pain, severe (8-10) Last Admin: 02/16/17 12:25 Dose: 1 mg Rosuvastatin Calcium (Crestor) 20 mg PO HS [facility] Last Admin: 02/15/17 22:07 Dose: 20 mg - Labs Labs: 02/16/17 10:45 02/16/17 10:45 PT 15.3 SECONDS (9.7-12.2) H 02/09/17 13:36 INR 1.4 02/09/17 13:36 APTT 40 SECONDS (21-34) H 02/09/17 13:36 - Constitutional Appears: Well, No Acute Distress - Head Exam Head Exam: ATRAUMATIC, NORMAL INSPECTION, NORMOCEPHALIC - Eye Exam Eye Exam: EOMI, Normal appearance, PERRL Pupil Exam: NORMAL ACCOMODATION, PERRL - ENT Exam ENT Exam: Mucous Membranes Moist, Normal Exam - Neck Exam Neck Exam: Full ROM, Normal Inspection. absent: Lymphadenopathy - Respiratory Exam Respiratory Exam: Clear to Ausculation Bilateral, NORMAL BREATHING PATTERN - Cardiovascular Exam Cardiovascular Exam: REGULAR RHYTHM, +S1, +S2, Murmur - GI/Abdominal Exam GI & Abdominal Exam: Soft, Normal Bowel Sounds. absent: Tenderness - Extremities Exam Extremities Exam: Full ROM, Normal Capillary Refill, Normal Inspection. absent : Joint Swelling, Pedal Edema - Back Exam Back Exam: NORMAL INSPECTION - Neurological Exam Neurological Exam: Alert, Awake, CN II-XII Intact, Oriented x3 Neuro motor strength exam: Left Upper Extremity: 2/1, Left Lower Extremity: 2/1 - Psychiatric Exam Psychiatric exam: Flat Affect, Normal Mood - Skin Skin Exam: Dry, Intact, Normal Color, Warm Assessment and Plan (1) Rapid atrial fibrillation Assessment & Plan: cont with BB and CCB cont eliquis Status: Acute (2) Dehydration Assessment & Plan: IVF hydration Status: Acute (3) Infection due to ESBL-producing Escherichia coli Assessment & Plan: abx Status: Acute (4) Transient hypotension Status: Acute (5) UTI (urinary tract infection) Status: Acute
--- NOTE | 2017-02-16 22:52 | CARD ---
APPROVED REPORT EKG Measurement Heart [id number] <Conclusion> Atrial fibrillation Left axis deviation Right bundle branch block Abnormal ECG
[2017-02-17] MEDS: Meropenem 1 GM in Sodium Chloride 0.9% 100 ML IVPB SCH ×2 (00:45→12:53)
--- NOTE | 2017-02-17 02:33 | PN ---
ADDENDUM PHYSICAL EXAMINATION GENERAL: The patient keeps on mumbling. She is stable, in no acute respiratory distress.. VITAL SIGNS: T-max is 98.6, pulse 96, blood pressure is 131/86, and saturations only 93%. HEENT: Head is atraumatic. LUNGS: Clear. HEART: S1 and S2 is regular. ABDOMEN: Soft, nontender. No guarding, no rigidity present. EXTREMITIES: She has left hemiplegia with resting on the heel. She was seen by Dr. Reddy. She has had old CVA. Her white count is unremarkable. She has also history of atrial fib and is on blood thinner and has acute fracture of T7 vertebra with severe L1 and L2 compression fractures, so she remains with pain, and has UTI. Walt Fitzgerald MD
[2017-02-17] MEDS: Sodium Chloride 0.9% 1,000 ML IV SCH ×2 (04:17→17:36)
[2017-02-17 07:34] LABS: BASO % 0.6 % (0.0-2.0); EOS # 0.1 K/uL (0.0-0.7); EOS % 2.1 % (0.0-4.0); HEMATOCRIT 31.6 % (34.0-47.0); LYMPH # 0.9 K/uL (1.0-4.3); LYMPH % 16.4 % (20.0-40.0); MEAN CELL VOLUME 93.8 fL (81.0-99.0); MEAN CORPUSCULAR HEMOGLOBIN 32.5 pg (27.0-31.0); MEAN CORPUSCULAR HGB CONC 34.7 g/dL (33.0-37.0); MEAN PLATELET VOLUME 7.7 fL (7.2-11.7); MONO # 0.8 K/uL (0.0-0.8); MONO % 15.3 % (0.0-10.0); NRBC % 0.1 % (0.0-2.0); RED CELL DISTRIBUTION WIDTH 18.7 % (11.5-14.5); WHITE BLOOD COUNT 5.6 K/uL (4.8-10.8)
[2017-02-17 07:40] LABS: ALB/GLOB RATIO 0.9 (1.0-2.1); ALKALINE PHOSPHATASE 110 U/L (38-126); ALT/SGPT 29 U/L (9-52); AST/SGOT 31 U/L (14-36); BILIRUBIN,TOTAL 0.5 mg/dL (0.2-1.3); CALCIUM 7.8 mg/dl (8.6-10.4); CARBON DIOXIDE 25 mmol/L (22-30); CHLORIDE 102 mmol/L (98-107); GFR AFRICAN-AMERICAN > 60; GLUCOSE,RANDOM 79 mg/dL (65-105); MAGNESIUM 1.6 mg/dL (1.6-2.3); PHOSPHOROUS 2.1 mg/dL (2.5-4.5); POTASSIUM 3.5 mmol/L (3.6-5.2); SODIUM 135 mmol/L (132-148); TOTAL PROTEIN 4.8 g/dL (6.3-8.3)
[2017-02-17 07:46] LABS: BLOOD UREA NITROGEN < 2 mg/dL (7-17)
--- NOTE | 2017-02-17 09:11 | CP.PCM.PN ---
<Troy Arvizu - Last Filed: 02/17/17 09:09> Subjective - Date & Time of Evaluation Date of Evaluation: 02/17/17 Time of Evaluation: 09:09 - Subjective Subjective: PGY1 Note for Dr. Coates HPI: Patient seen and examined at bedside. Looks comfortable. No complaints at this time. Patient is unable to provide ROS due to Hx of stroke. States she has same chest pain that is reproducible on exam. Objective - Vital Signs/Intake and Output Vital Signs (last 24 hours): Temp Pulse Resp BP Pulse Ox 98.8 F 72 20 99/56 L 100 02/17/17 07:40 02/17/17 07:40 02/17/17 07:40 02/17/17 07:40 02/17/17 07:40 Intake and Output: 02/17/17 02/17/17 06:59 18:59 Intake Total 725 Balance 725 - Medications Medications: Current Medications Apixaban (Eliquis) 2.5 mg PO BID [facility] Last Admin: 02/16/17 18:21 Dose: 2.5 mg Clotrimazole (Lotrimin 1%) 1 gm TOP DAILY [facility] Last Admin: 02/16/17 11:20 Dose: Not Given Collagenase (Santyl) 0 gm TOP DAILY [facility] Last Admin: 02/16/17 11:20 Dose: 1 applic Digoxin (Lanoxin) 0.25 mg IVP DAILY@1800 [facility] Last Admin: 02/16/17 18:22 Dose: 0.25 mg Diltiazem HCl (Cardizem) 60 mg PO Q6 [facility] Last Admin: 02/17/17 06:28 Dose: 60 mg Docusate Sodium (Colace) 100 mg PO BID [facility] Last Admin: 02/16/17 18:35 Dose: 100 mg Meropenem 1 gm/ Sodium (Chloride) 100 mls @ 100 mls/hr IVPB Q12H [facility] Last Admin: 02/17/17 00:45 Dose: 100 mls/hr Sodium Chloride (Sodium Chloride 0.9%) 1,000 mls @ 75 mls/hr IV .[id number] [facility] Last Admin: 02/17/17 04:17 Dose: 75 mls/hr Lorazepam (Ativan) 0.25 mg IVP Q6H PRN PRN Reason: Anxiety Last Admin: 02/16/17 04:00 Dose: 0.25 mg Metoprolol Tartrate (Lopressor) 25 mg PO BID [facility] Last Admin: 02/16/17 18:22 Dose: 25 mg Morphine Sulfate (Morphine) 1 mg IVP Q8 PRN PRN Reason: Pain, severe (8-10) Last Admin: 02/16/17 18:26 Dose: 1 mg Rosuvastatin Calcium (Crestor) 20 mg PO HS [facility] Last Admin: 02/16/17 21:35 Dose: 20 mg - Labs Labs: 02/17/17 07:10 02/17/17 07:10 PT 15.3 SECONDS (9.7-12.2) H 02/09/17 13:36 INR 1.4 02/09/17 13:36 APTT 40 SECONDS (21-34) H 02/09/17 13:36 - Constitutional Appears: Non-toxic, No Acute Distress, Chronically Ill - Head Exam Head Exam: ATRAUMATIC, NORMAL INSPECTION, NORMOCEPHALIC - Eye Exam Eye Exam: EOMI Pupil Exam: NORMAL ACCOMODATION, PERRL - ENT Exam ENT Exam: Mucous Membranes Moist - Respiratory Exam Respiratory Exam: Clear to Ausculation Bilateral, NORMAL BREATHING PATTERN - Cardiovascular Exam Cardiovascular Exam: Irregular Rhythm. absent: Bradycardia, Tachycardia - GI/Abdominal Exam GI & Abdominal Exam: Soft, Normal Bowel Sounds. absent: Distended, Tenderness - Extremities Exam Extremities Exam: absent: Calf Tenderness, Joint Swelling, Tenderness - Back Exam Back Exam: absent: CVA tenderness (L), CVA tenderness (R) - Neurological Exam Neurological Exam: Alert, Awake. absent: Oriented x3 - Skin Skin Exam: Dry, Intact, Normal Color, Warm Assessment and Plan - Assessment and Plan (Free Text) Assessment: 1.) AMS secondary 2/2 UTI (ESBL) - Head CT: No acute intracranial findings by standard CT criteria including hemorrhage or fracture. Chronic right MCA distribution infarct - Cervical Spine CT: No fracture - Chest/Abdomen/Pelvis CT: 1. A moderate to severe compression fracture T7 vertebral body is with a severe L1-2 but a compression fracture. Age of these fractures is indeterminate. L1 compression fracture results and retropulsion of the upper endplate to cause a central canal stenosis. Prominent urinary bladder distension with the bladder otherwise unremarkable appearing. * NS @75 * ID Dr. Fitzgerald --> help appreciated * Meropenem 1g Q12 (02/11) * blood culture negative * repeat blood culture - negative - preliminary * f/u repeat urine culture 2.) History of Afib cardiology consult Dr. Reddy --> help appreciated - ECHO - EF 56%, Afib * Eliquis 2.5 mg BID - to start 02/10 * Cardizem 30 mg Q6 * Dig IV 0.25mg @ 1800 3.) History of CAD * Crestor 20mg 4.) History of Heel Ulcer * wound care * podiatry consulted: Dr. Roland --> help appreciated 5.) Left leg and foot pain Ortho consulted: Dr. Oneill --> help appreciated - foot xray: no radiographic evidence of osteomyelitis - left hip xray: no evidence of acute fracture or dislocation - MRI showed significant compression. Patient has been bed bound since her stroke and has multiple comorbidities. * morphine 1 mg q8h prn 6.) Hypokalemia * IV KCl 20mg twice 7.) Prophylaxis * Pepcid 20mg QD * Toradol IV 30mg Q6 * Eliquis 2.5 mg BID * Colace 100mg BID <Bernard Coates H - Last Filed: 02/17/17 10:33> Objective - Vital Signs/Intake and Output Vital Signs (last 24 hours): Temp Pulse Resp BP Pulse Ox 98.8 F 72 20 99/56 L 100 02/17/17 07:40 02/17/17 07:40 02/17/17 07:40 02/17/17 10:01 02/17/17 07:40 Intake and Output: 02/17/17 02/17/17 06:59 18:59 Intake Total 725 Balance 725 - Medications Medications: Current Medications Apixaban (Eliquis) 2.5 mg PO BID [facility] Last Admin: 02/17/17 10:07 Dose: 2.5 mg Clotrimazole (Lotrimin 1%) 1 gm TOP DAILY [facility] Last Admin: 02/17/17 10:10 Dose: 1 applic Collagenase (Santyl) 0 gm TOP DAILY [facility] Last Admin: 02/17/17 10:12 Dose: 1 applic Digoxin (Lanoxin) 0.25 mg IVP DAILY@1800 [facility] Last Admin: 02/16/17 18:22 Dose: 0.25 mg Diltiazem HCl (Cardizem) 60 mg PO Q6 [facility] Last Admin: 02/17/17 06:28 Dose: 60 mg Docusate Sodium (Colace) 100 mg PO BID [facility] Last Admin: 02/17/17 10:01 Dose: 100 mg Meropenem 1 gm/ Sodium (Chloride) 100 mls @ 100 mls/hr IVPB Q12H [facility] Last Admin: 02/17/17 00:45 Dose: 100 mls/hr Sodium Chloride (Sodium Chloride 0.9%) 1,000 mls @ 75 mls/hr IV .[id number] [facility] Last Admin: 02/17/17 04:17 Dose: 75 mls/hr Lorazepam (Ativan) 0.25 mg IVP Q6H PRN PRN Reason: Anxiety Last Admin: 02/16/17 04:00 Dose: 0.25 mg Metoprolol Tartrate (Lopressor) 25 mg PO BID [facility] Last Admin: 02/17/17 10:01 Dose: 25 mg Morphine Sulfate (Morphine) 1 mg IVP Q8 PRN PRN Reason: Pain, severe (8-10) Last Admin: 02/17/17 10:17 Dose: 1 mg Rosuvastatin Calcium (Crestor) 20 mg PO HS [facility] Last Admin: 02/16/17 21:35 Dose: 20 mg - Labs Labs: 02/17/17 07:10 02/17/17 07:10 PT 15.3 SECONDS (9.7-12.2) H 02/09/17 13:36 INR 1.4 02/09/17 13:36 APTT 40 SECONDS (21-34) H 02/09/17 13:36 Attending/Attestation - Attestation I have personally seen and examined this patient.: Yes I have fully participated in the care of the patient.: Yes I have reviewed all pertinent clinical information, including history, physical exam and plan: Yes Notes (Text): 02/17/17 10:30 Medical Attending: Patient was seen and examined by me. Reviewed the above note by the resident The patient this morning was awake, and also very agitated. HR on telemetry is 90s to 120s and irregular. She did take the lopressor as well as cardizem PO. We are still pending on the urine culture thank you Bernard Coates
[2017-02-17] MEDS ORDERED: Metoprolol 1 mg/ml Inj IVP ONE (09:58)
[2017-02-17] MEDS: Clotrimazole 1% Cream 15 GM TUBE TOP SCH (10:10)
[2017-02-17] MEDS: Collagenase 250 Units/gm Ointment(30 gm) TOP SCH (10:12)
[2017-02-17] MEDS: Digoxin 500 mcg/2ml (0.5 mg/2ml) Inj IVP SCH (17:38)
--- NOTE | 2017-02-17 20:24 | CP.PCM.PN ---
Subjective - Date & Time of Evaluation Date of Evaluation: 02/17/17 Time of Evaluation: 18:00 - Subjective Subjective: Podiatry Progress Note- Dr. Hilliard 86 y/o female patient was seen at bedside today for left plantar heel ulceration. Pt could not answer to questions. Howevere patient does admit to pain when asked to the foot. Dressing is c/d/i with offloading boots intact. Objective - Vital Signs/Intake and Output Vital Signs (last 24 hours): Temp Pulse Resp BP Pulse Ox 98.4 F 73 18 93/47 L 95 02/17/17 18:54 02/17/17 18:54 02/17/17 18:54 02/17/17 18:54 02/17/17 18:54 Intake and Output: 02/17/17 02/18/17 18:59 06:59 Intake Total 1625 Balance 1625 - Medications Medications: Current Medications Apixaban (Eliquis) 2.5 mg PO BID [facility] Last Admin: 02/17/17 17:38 Dose: 2.5 mg Clotrimazole (Lotrimin 1%) 1 gm TOP DAILY [facility] Last Admin: 02/17/17 10:10 Dose: 1 applic Collagenase (Santyl) 0 gm TOP DAILY [facility] Last Admin: 02/17/17 10:12 Dose: 1 applic Digoxin (Lanoxin) 0.25 mg IVP DAILY@1800 [facility] Last Admin: 02/17/17 17:38 Dose: 0.25 mg Diltiazem HCl (Cardizem) 60 mg PO Q6 [facility] Last Admin: 02/17/17 17:37 Dose: 60 mg Docusate Sodium (Colace) 100 mg PO BID [facility] Last Admin: 02/17/17 17:37 Dose: 100 mg Meropenem 1 gm/ Sodium (Chloride) 100 mls @ 100 mls/hr IVPB Q12H [facility] Last Admin: 02/17/17 12:53 Dose: 100 mls/hr Sodium Chloride (Sodium Chloride 0.9%) 1,000 mls @ 75 mls/hr IV .[id number] [facility] Last Admin: 02/17/17 17:36 Dose: 75 mls/hr Lorazepam (Ativan) 0.25 mg IVP Q6H PRN PRN Reason: Anxiety Last Admin: 02/17/17 16:53 Dose: 0.25 mg Metoprolol Tartrate (Lopressor) 25 mg PO BID [facility] Last Admin: 02/17/17 17:37 Dose: 25 mg Morphine Sulfate (Morphine) 1 mg IVP Q8 PRN PRN Reason: Pain, severe (8-10) Last Admin: 02/17/17 10:17 Dose: 1 mg Rosuvastatin Calcium (Crestor) 20 mg PO HS [facility] Last Admin: 02/16/17 21:35 Dose: 20 mg - Labs Labs: 02/17/17 07:10 02/17/17 07:10 PT 15.3 SECONDS (9.7-12.2) H 02/09/17 13:36 INR 1.4 02/09/17 13:36 APTT 40 SECONDS (21-34) H 02/09/17 13:36 - Constitutional Appears: Well, Non-toxic, No Acute Distress - Extremities Exam Additional comments: Left lower extremity exam: Vasc: DP/PT pulses palpable, skin temp runs warm to cool (proximal to distal), cap refill < 3sec to all digits, no pedal edema noted Neuro: light and sharp touch intact Derm: An approximately 3.0cm x 1.2 cm x 0.1 cm ulceration noted to posteroplantar left heel with a fibrotic base, the periwound is granular, with healing noted to distal aspect of wound with new skin growing in over ulceration. No malodor, no active drainage, no tunneling, no undermining, no fluctuance, no probe to bone. No clinical signs of infection present. Ortho: minimal tenderness to palpation of left plantar posterior heel ulceration - Psychiatric Exam Psychiatric exam: Normal Affect, Normal Mood Assessment and Plan - Assessment and Plan (Free Text) Assessment: 86 year old female with superficial left heel ulceration 2/2 to pressure Plan: Pt seen and evaluated at bedside Discussed plan with attending Dr. Hilliard Chart, labs, vitals reviewed: afebrile, no leukocytosis Left heel cleansed with sterile normal saline, santyl and DSD applied Offloading boots to be worn at all times in bed Continue IV abx Patient to f/u in podiatry clinic upon D/C Podiatry will continue to follow while in house
[2017-02-17] MEDS: Vitamins A & D Oint UD Foilpak TOP SCH (22:59)
[2017-02-18 00:33] VITALS: RESP 20
--- NOTE | 2017-02-18 00:34 | CP.PCM.PN ---
<Troy Arvizu - Last Filed: 02/18/17 00:28> Subjective - Date & Time of Evaluation Date of Evaluation: 02/18/17 Time of Evaluation: 00:28 - Subjective Subjective: PGY1 Note for Dr. Coates HPI: Patient seen and examined at bedside. Looks comfortable. No complaints at this time. Patient is unable to provide ROS due to Hx of stroke. States she has same chest pain that is reproducible on exam. Family at bedside. Objective - Vital Signs/Intake and Output Vital Signs (last 24 hours): Temp Pulse Resp BP Pulse Ox 98.4 F 73 18 93/47 L 95 02/17/17 18:54 02/17/17 18:54 02/17/17 18:54 02/17/17 18:54 02/17/17 18:54 Intake and Output: 02/17/17 02/18/17 18:59 06:59 Intake Total 1625 Balance 1625 - Medications Medications: Current Medications Apixaban (Eliquis) 2.5 mg PO BID [facility] Last Admin: 02/17/17 17:38 Dose: 2.5 mg Clotrimazole (Lotrimin 1%) 1 gm TOP DAILY [facility] Last Admin: 02/17/17 10:10 Dose: 1 applic Collagenase (Santyl) 0 gm TOP DAILY [facility] Last Admin: 02/17/17 10:12 Dose: 1 applic Digoxin (Lanoxin) 0.25 mg IVP DAILY@1800 [facility] Last Admin: 02/17/17 17:38 Dose: 0.25 mg Diltiazem HCl (Cardizem) 60 mg PO Q6 [facility] Last Admin: 02/17/17 23:54 Dose: 60 mg Docusate Sodium (Colace) 100 mg PO BID [facility] Last Admin: 02/17/17 17:37 Dose: 100 mg Meropenem 1 gm/ Sodium (Chloride) 100 mls @ 100 mls/hr IVPB Q12H [facility] Last Admin: 02/17/17 12:53 Dose: 100 mls/hr Sodium Chloride (Sodium Chloride 0.9%) 1,000 mls @ 75 mls/hr IV .[id number] [facility] Last Admin: 02/17/17 17:36 Dose: 75 mls/hr Lorazepam (Ativan) 0.25 mg IVP Q6H PRN PRN Reason: Anxiety Last Admin: 02/17/17 16:53 Dose: 0.25 mg Metoprolol Tartrate (Lopressor) 25 mg PO BID [facility] Last Admin: 02/17/17 17:37 Dose: 25 mg Morphine Sulfate (Morphine) 1 mg IVP Q8 PRN PRN Reason: Pain, severe (8-10) Last Admin: 02/17/17 21:53 Dose: 1 mg Rosuvastatin Calcium (Crestor) 20 mg PO HS [facility] Last Admin: 02/17/17 22:59 Dose: 20 mg Vitamin A (Vitamin A & D Oint Ud Foilpak) 1 ea TOP BID [facility] Last Admin: 02/17/17 22:59 Dose: 1 ea - Labs Labs: 02/17/17 07:10 02/17/17 07:10 PT 15.3 SECONDS (9.7-12.2) H 02/09/17 13:36 INR 1.4 02/09/17 13:36 APTT 40 SECONDS (21-34) H 02/09/17 13:36 - Constitutional Appears: Non-toxic, No Acute Distress, Chronically Ill - Head Exam Head Exam: ATRAUMATIC, NORMAL INSPECTION, NORMOCEPHALIC - Eye Exam Eye Exam: EOMI - ENT Exam ENT Exam: Mucous Membranes Moist - Respiratory Exam Respiratory Exam: Clear to Ausculation Bilateral, NORMAL BREATHING PATTERN - Cardiovascular Exam Cardiovascular Exam: Irregular Rhythm - GI/Abdominal Exam GI & Abdominal Exam: Soft, Normal Bowel Sounds. absent: Distended, Tenderness - Extremities Exam Extremities Exam: absent: Joint Swelling, Tenderness - Back Exam Back Exam: absent: CVA tenderness (L), CVA tenderness (R) Additional comments: 2 sacral decubs stage 2 approx 2-3 cm each. - Neurological Exam Neurological Exam: Altered - Skin Skin Exam: Dry, Intact, Normal Color, Warm Assessment and Plan - Assessment and Plan (Free Text) Assessment: 1.) AMS secondary 2/2 UTI (ESBL) - Head CT: No acute intracranial findings by standard CT criteria including hemorrhage or fracture. Chronic right MCA distribution infarct - Cervical Spine CT: No fracture - Chest/Abdomen/Pelvis CT: 1. A moderate to severe compression fracture T7 vertebral body is with a severe L1-2 but a compression fracture. Age of these fractures is indeterminate. L1 compression fracture results and retropulsion of the upper endplate to cause a central canal stenosis. Prominent urinary bladder distension with the bladder otherwise unremarkable appearing. * NS @75 * ID Dr. Fitzgerald --> help appreciated * Meropenem 1g Q12 (02/11) * blood culture negative * repeat blood culture - negative - preliminary * f/u repeat urine culture 2.) History of Afib cardiology consult Dr. 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 Roland --> help appreciated 7.) Left leg and foot pain Ortho consulted: Dr. Oneill --> help appreciated - foot xray: no radiographic evidence of osteomyelitis - left hip xray: no evidence of acute fracture or dislocation - MRI showed significant compression. Patient has been bed bound since her stroke and has multiple comorbidities. * morphine 1 mg q8h prn 8.) Hypokalemia * IV KCl 20mg twice 9.) Prophylaxis * Pepcid 20mg QD * Toradol IV 30mg Q6 * Eliquis 2.5 mg BID * Colace 100mg BID <Bernard Coates H - Last Filed: 02/18/17 10:31> Objective - Vital Signs/Intake and Output Vital Signs (last 24 hours): Temp Pulse Resp BP Pulse Ox 98.7 F 93 H 20 123/75 95 02/18/17 08:51 02/18/17 08:51 02/18/17 08:51 02/18/17 08:51 02/18/17 08:51 - Medications Medications: Current Medications Apixaban (Eliquis) 2.5 mg PO BID [facility] Last Admin: 02/17/17 17:38 Dose: 2.5 mg Clotrimazole (Lotrimin 1%) 1 gm TOP DAILY [facility] Last Admin: 02/17/17 10:10 Dose: 1 applic Collagenase (Santyl) 0 gm TOP DAILY [facility] Last Admin: 02/17/17 10:12 Dose: 1 applic Digoxin (Lanoxin) 0.25 mg IVP DAILY@1800 [facility] Last Admin: 02/17/17 17:38 Dose: 0.25 mg Diltiazem HCl (Cardizem) 60 mg PO Q6 [facility] Last Admin: 02/18/17 05:42 Dose: 60 mg Docusate Sodium (Colace) 100 mg PO BID [facility] Last Admin: 02/17/17 17:37 Dose: 100 mg Meropenem 1 gm/ Sodium (Chloride) 100 mls @ 100 mls/hr IVPB Q12H [facility] Last Admin: 02/18/17 00:00 Dose: 100 mls/hr Sodium Chloride (Sodium Chloride 0.9%) 1,000 mls @ 75 mls/hr IV .[id number] [facility] Last Admin: 02/18/17 09:04 Dose: 75 mls/hr Lorazepam (Ativan) 0.25 mg IVP Q6H PRN PRN Reason: Anxiety Last Admin: 02/17/17 16:53 Dose: 0.25 mg Metoprolol Tartrate (Lopressor) 25 mg PO BID [facility] Last Admin: 02/17/17 17:37 Dose: 25 mg Morphine Sulfate (Morphine) 1 mg IVP Q8 PRN PRN Reason: Pain, severe (8-10) Last Admin: 02/17/17 21:53 Dose: 1 mg Rosuvastatin Calcium (Crestor) 20 mg PO HS [facility] Last Admin: 02/17/17 22:59 Dose: 20 mg Vitamin A (Vitamin A & D Oint Ud Foilpak) 1 ea TOP BID [facility] Last Admin: 02/17/17 22:59 Dose: 1 ea - Labs Labs: 02/17/17 07:10 02/18/17 08:08 PT 15.3 SECONDS (9.7-12.2) H 02/09/17 13:36 INR 1.4 02/09/17 13:36 APTT 40 SECONDS (21-34) H 02/09/17 13:36 Attending/Attestation - Attestation I have personally seen and examined this patient.: Yes I have fully participated in the care of the patient.: Yes I have reviewed all pertinent clinical information, including history, physical exam and plan: Yes Notes (Text): Medical Attending: Patient was seen and examined by me. Agree with the above note by the resident The patient was NOT agitated and not yelling when I saw her this morning. She did acknowledge my presence however she did not follow any commands Per review of telemtry she did not have any runs of atrial fibrillation with RVR this morning like she did yesterday. However yesterday she was very agitated. The repeat blood cultures are now negative 72hrs and the repeat urine cultures are negative as well. WBC stable, afebrile. So will see if we can discharge today. thank you Bernard Coates
[2017-02-18] MEDS: Sodium Chloride 0.9% 1,000 ML IV SCH ×3 (08:19→21:12)
[2017-02-18 08:36] LABS: CHLORIDE 102 mmol/L (98-107); POTASSIUM 3.3 mmol/L (3.6-5.2); SODIUM 136 mmol/L (132-148)
[2017-02-18 08:38] LABS: ALB/GLOB RATIO 0.9 (1.0-2.1); ALKALINE PHOSPHATASE 104 U/L (38-126); AST/SGOT 31 U/L (14-36); BILIRUBIN,TOTAL 0.6 mg/dL (0.2-1.3); CARBON DIOXIDE 25 mmol/L (22-30); GFR AFRICAN-AMERICAN > 60; TOTAL PROTEIN 4.9 g/dL (6.3-8.3)
[2017-02-18 08:39] LABS: ALT/SGPT 31 U/L (9-52); CALCIUM 7.6 mg/dl (8.6-10.4); GLUCOSE,RANDOM 63 mg/dL (65-105); MAGNESIUM 1.6 mg/dL (1.6-2.3); PHOSPHOROUS 2.3 mg/dL (2.5-4.5)
[2017-02-18 08:41] LABS: BLOOD UREA NITROGEN 2 mg/dL (7-17)
[2017-02-18] MEDS ORDERED: Potassium Chloride 20 mEq ER Tab PO ONE (11:16)
[2017-02-18 11:20] LABS: BASO % 0.3 % (0.0-2.0); EOS # 0.2 K/uL (0.0-0.7); EOS % 3.3 % (0.0-4.0); HEMATOCRIT 30.5 % (34.0-47.0); LYMPH # 1.4 K/uL (1.0-4.3); LYMPH % 29.6 % (20.0-40.0); MEAN CELL VOLUME 94.1 fL (81.0-99.0); MEAN PLATELET VOLUME 8.1 fL (7.2-11.7); MONO # 0.9 K/uL (0.0-0.8); MONO % 20.3 % (0.0-10.0); NRBC % 0.1 % (0.0-2.0); PLATELET COUNT 153 K/uL (130-400); RED CELL DISTRIBUTION WIDTH 18.4 % (11.5-14.5); WHITE BLOOD COUNT 4.6 K/uL (4.8-10.8)
[2017-02-18] MEDS: Vitamins A & D Oint UD Foilpak TOP SCH ×2 (11:41→18:11)
[2017-02-18] MEDS: Clotrimazole 1% Cream 15 GM TUBE TOP SCH (11:42)
[2017-02-18] MEDS: Collagenase 250 Units/gm Ointment(30 gm) TOP SCH (11:42)
[2017-02-18 11:47] LABS: ACANTHOCYTES SLIGHT; EOSINOPHIL 4 % (0-4); NEUTROPHIL 49 % (50-75); TOTAL CELLS COUNTED 100
[2017-02-18] MEDS: Meropenem 1 GM in Sodium Chloride 0.9% 100 ML IVPB SCH ×2 (12:18)
[2017-02-18] MEDS: Digoxin 500 mcg/2ml (0.5 mg/2ml) Inj IVP SCH (18:11)
[2017-02-19] MEDS: Meropenem 1 GM in Sodium Chloride 0.9% 100 ML IVPB SCH ×2 (00:04→12:00)
[2017-02-19] MEDS: Sodium Chloride 0.9% 1,000 ML IV SCH ×2 (00:05→10:17)
[2017-02-19 08:48] LABS: MAGNESIUM 1.6 mg/dL (1.6-2.3); PHOSPHOROUS 2.1 mg/dL (2.5-4.5)
[2017-02-19] MEDS ORDERED: Potassium & Sodium Phosphate PO ONE (09:00)
[2017-02-19] MEDS: Vitamins A & D Oint UD Foilpak TOP SCH ×2 (10:10→17:31)
[2017-02-19] MEDS: Collagenase 250 Units/gm Ointment(30 gm) TOP SCH (10:12)
[2017-02-19] MEDS: Clotrimazole 1% Cream 15 GM TUBE TOP SCH (10:13)
--- NOTE | 2017-02-19 10:55 | CP.PCM.PN ---
Subjective - Date & Time of Evaluation Date of Evaluation: 02/19/17 Time of Evaluation: 07:30 - Subjective Subjective: Patient sleeping, when awakened, confused, does not complain of pain. Review of Systems - Review of Systems Systems not reviewed;Unavailable: Dementia Objective - Vital Signs/Intake and Output Vital Signs (last 24 hours): Temp Pulse Resp BP Pulse Ox 97.8 F 74 20 99/61 L 98 02/19/17 08:00 02/19/17 10:10 02/19/17 08:00 02/19/17 10:11 02/19/17 08:00 Intake and Output: 02/19/17 02/19/17 06:59 18:59 Intake Total 900 Balance 900 - Medications Medications: Current Medications Apixaban (Eliquis) 2.5 mg PO BID [facility] Last Admin: 02/19/17 10:11 Dose: 2.5 mg Clotrimazole (Lotrimin 1%) 1 gm TOP DAILY [facility] Last Admin: 02/19/17 10:13 Dose: 1 applic Collagenase (Santyl) 0 gm TOP DAILY [facility] Last Admin: 02/19/17 10:12 Dose: 1 applic Digoxin (Lanoxin) 0.25 mg IVP DAILY@1800 [facility] Last Admin: 02/18/17 18:11 Dose: 0.25 mg Diltiazem HCl (Cardizem) 60 mg PO Q6 [facility] Last Admin: 02/19/17 05:15 Dose: 60 mg Docusate Sodium (Colace) 100 mg PO BID [facility] Last Admin: 02/19/17 10:10 Dose: 100 mg Meropenem 1 gm/ Sodium (Chloride) 100 mls @ 100 mls/hr IVPB Q12H [facility] Last Admin: 02/19/17 00:04 Dose: 100 mls/hr Sodium Chloride (Sodium Chloride 0.9%) 1,000 mls @ 75 mls/hr IV .[id number] [facility] Last Admin: 02/19/17 10:17 Dose: Not Given Lorazepam (Ativan) 0.25 mg IVP Q6H PRN PRN Reason: Anxiety Last Admin: 02/19/17 01:39 Dose: 0.25 mg Metoprolol Tartrate (Lopressor) 25 mg PO BID [facility] Last Admin: 02/19/17 10:11 Dose: Not Given Rosuvastatin Calcium (Crestor) 20 mg PO HS [facility] Last Admin: 02/18/17 21:12 Dose: 20 mg Vitamin A (Vitamin A & D Oint Ud Foilpak) 1 ea TOP BID [facility] Last Admin: 02/19/17 10:10 Dose: 1 ea - Labs Labs: 02/18/17 11:14 02/18/17 08:08 PT 15.3 SECONDS (9.7-12.2) H 02/09/17 13:36 INR 1.4 02/09/17 13:36 APTT 40 SECONDS (21-34) H 02/09/17 13:36 - Constitutional Appears: Well, No Acute Distress - Head Exam Head Exam: ATRAUMATIC - Extremities Exam Additional comments: calves soft no obvious tenderness and appears neg homans, no pain with ROM left hip or knee - Back Exam Back Exam: vertebral tenderness - Neurological Exam Additional comments: does not follow commands - Psychiatric Exam Additional comments: calm - Skin Skin Exam: Dry, Intact, Normal Color, Warm Assessment and Plan (1) Compression fracture of L1 lumbar vertebra Assessment & Plan: Patient comfortable, improving compression fracture old per MRI neurosurgery consult recommended no orthopedic issues, ortho stable for d/c patient can f/u prn with Dr. Oneill d/w Dr. Oneill, agrees with above Status: Acute (2) Leg pain, left Status: Resolved (3) Spondylolisthesis at L5-S1 level Status: Chronic
--- NOTE | 2017-02-19 14:35 | CP.PCM.PN ---
Objective - Vital Signs/Intake and Output Vital Signs (last 24 hours): Temp Pulse Resp BP Pulse Ox 97.8 F 74 20 99/61 L 98 02/19/17 08:00 02/19/17 10:10 02/19/17 08:00 02/19/17 10:11 02/19/17 08:00 Intake and Output: 02/19/17 02/19/17 06:59 18:59 Intake Total 900 Balance 900 - Medications Medications: Current Medications Apixaban (Eliquis) 2.5 mg PO BID [facility] Last Admin: 02/19/17 10:11 Dose: 2.5 mg Clotrimazole (Lotrimin 1%) 1 gm TOP DAILY [facility] Last Admin: 02/19/17 10:13 Dose: 1 applic Collagenase (Santyl) 0 gm TOP DAILY [facility] Last Admin: 02/19/17 10:12 Dose: 1 applic Digoxin (Lanoxin) 0.25 mg IVP DAILY@1800 [facility] Last Admin: 02/18/17 18:11 Dose: 0.25 mg Diltiazem HCl (Cardizem) 60 mg PO Q6 [facility] Last Admin: 02/19/17 13:26 Dose: 60 mg Docusate Sodium (Colace) 100 mg PO BID [facility] Last Admin: 02/19/17 10:10 Dose: 100 mg Meropenem 1 gm/ Sodium (Chloride) 100 mls @ 100 mls/hr IVPB Q12H [facility] Last Admin: 02/19/17 00:04 Dose: 100 mls/hr Sodium Chloride (Sodium Chloride 0.9%) 1,000 mls @ 75 mls/hr IV .[id number] [facility] Last Admin: 02/19/17 10:17 Dose: Not Given Lorazepam (Ativan) 0.25 mg IVP Q6H PRN PRN Reason: Anxiety Last Admin: 02/19/17 01:39 Dose: 0.25 mg Metoprolol Tartrate (Lopressor) 25 mg PO BID [facility] Last Admin: 02/19/17 10:11 Dose: Not Given Rosuvastatin Calcium (Crestor) 20 mg PO HS [facility] Last Admin: 02/18/17 21:12 Dose: 20 mg Vitamin A (Vitamin A & D Oint Ud Foilpak) 1 ea TOP BID [facility] Last Admin: 02/19/17 10:10 Dose: 1 ea - Labs Labs: 02/18/17 11:14 02/18/17 08:08 PT 15.3 SECONDS (9.7-12.2) H 02/09/17 13:36 INR 1.4 02/09/17 13:36 APTT 40 SECONDS (21-34) H 02/09/17 13:36
--- NOTE | 2017-02-19 14:41 | CP.PCM.PN ---
Subjective - Date & Time of Evaluation Date of Evaluation: 02/19/17 Time of Evaluation: 12:15 - Subjective Subjective: Podiatry Progress Note- Dr. Hilliard 86 y/o female patient was seen at bedside today for f/u of left plantar heel ulceration. Pt unable to answer questions at this time, however does say she has pain to left foot and leg today. No acute events overnight. Offloading boots seen intact to both heels. Objective - Vital Signs/Intake and Output Vital Signs (last 24 hours): Temp Pulse Resp BP Pulse Ox 97.8 F 74 20 99/61 L 98 02/19/17 08:00 02/19/17 10:10 02/19/17 08:00 02/19/17 10:11 02/19/17 08:00 Intake and Output: 02/19/17 02/19/17 06:59 18:59 Intake Total 900 Balance 900 - Medications Medications: Current Medications Apixaban (Eliquis) 2.5 mg PO BID [facility] Last Admin: 02/19/17 10:11 Dose: 2.5 mg Clotrimazole (Lotrimin 1%) 1 gm TOP DAILY [facility] Last Admin: 02/19/17 10:13 Dose: 1 applic Collagenase (Santyl) 0 gm TOP DAILY [facility] Last Admin: 02/19/17 10:12 Dose: 1 applic Digoxin (Lanoxin) 0.25 mg IVP DAILY@1800 [facility] Last Admin: 02/18/17 18:11 Dose: 0.25 mg Diltiazem HCl (Cardizem) 60 mg PO Q6 [facility] Last Admin: 02/19/17 13:26 Dose: 60 mg Docusate Sodium (Colace) 100 mg PO BID [facility] Last Admin: 02/19/17 10:10 Dose: 100 mg Meropenem 1 gm/ Sodium (Chloride) 100 mls @ 100 mls/hr IVPB Q12H [facility] Last Admin: 02/19/17 00:04 Dose: 100 mls/hr Sodium Chloride (Sodium Chloride 0.9%) 1,000 mls @ 75 mls/hr IV .[id number] [facility] Last Admin: 02/19/17 10:17 Dose: Not Given Lorazepam (Ativan) 0.25 mg IVP Q6H PRN PRN Reason: Anxiety Last Admin: 02/19/17 01:39 Dose: 0.25 mg Metoprolol Tartrate (Lopressor) 25 mg PO BID [facility] Last Admin: 02/19/17 10:11 Dose: Not Given Rosuvastatin Calcium (Crestor) 20 mg PO HS [facility] Last Admin: 02/18/17 21:12 Dose: 20 mg Vitamin A (Vitamin A & D Oint Ud Foilpak) 1 ea TOP BID [facility] Last Admin: 02/19/17 10:10 Dose: 1 ea - Labs Labs: 02/18/17 11:14 02/18/17 08:08 PT 15.3 SECONDS (9.7-12.2) H 02/09/17 13:36 INR 1.4 02/09/17 13:36 APTT 40 SECONDS (21-34) H 02/09/17 13:36 - Constitutional Appears: Non-toxic, No Acute Distress - Extremities Exam Extremities Exam: absent: Calf Tenderness Additional comments: Left lower extremity exam: Vasc: DP/PT pulses palpable, skin temp runs warm to cool (proximal to distal), cap refill < 3sec to all digits, no pedal edema noted Neuro: light and sharp touch intact Derm: An approximately 3.0cm x 1.2 cm x 0.1 cm ulceration noted to posteroplantar left heel with a fibrotic base, the periwound is granular, with healing noted to distal aspect of wound with new skin growing in over ulceration. No malodor, no active drainage, no tunneling, no undermining, no fluctuance, no probe to bone. No clinical signs of infection present. Ortho: minimal tenderness to palpation of left plantar posterior heel ulceration - Psychiatric Exam Additional comments: unable to assess Assessment and Plan - Assessment and Plan (Free Text) Assessment: 86 year old female with superficial left heel ulceration 2/2 to pressure Plan: Pt S&E Discussed plan with attending Dr. Hilliard Chart, labs, vitals reviewed: afebrile, no leukocytosis Left heel cleansed with sterile normal saline, santyl and DSD applied Offloading boots to be worn at all times in bed Continue IV abx as per ID Patient to f/u in podiatry clinic upon D/C Will follow
--- NOTE | 2017-02-19 16:01 | CP.PCM.PN ---
<Aldair Garcia - Last Filed: 02/19/17 18:09> Subjective - Date & Time of Evaluation Date of Evaluation: 02/19/17 Time of Evaluation: 08:15 - Subjective Subjective: PGY1 Medicine Note for Dr. Baer Patient seen and examined at bedside this morning. She is altered at baseline due to previous hx of stroke. Patient is not making any sense with speech. Appears comfortable. ROS is unattainable. Objective - Vital Signs/Intake and Output Vital Signs (last 24 hours): Temp Pulse Resp BP Pulse Ox 97.8 F 74 20 99/61 L 98 02/19/17 08:00 02/19/17 10:10 02/19/17 08:00 02/19/17 10:11 02/19/17 08:00 Intake and Output: 02/19/17 02/19/17 06:59 18:59 Intake Total 900 1080 Balance 900 1080 - Medications Medications: Current Medications Apixaban (Eliquis) 2.5 mg PO BID [facility] Last Admin: 02/19/17 10:11 Dose: 2.5 mg Clotrimazole (Lotrimin 1%) 1 gm TOP DAILY [facility] Last Admin: 02/19/17 10:13 Dose: 1 applic Collagenase (Santyl) 0 gm TOP DAILY [facility] Last Admin: 02/19/17 10:12 Dose: 1 applic Digoxin (Lanoxin) 0.25 mg IVP DAILY@1800 [facility] Last Admin: 02/18/17 18:11 Dose: 0.25 mg Diltiazem HCl (Cardizem) 60 mg PO Q6 [facility] Last Admin: 02/19/17 13:26 Dose: 60 mg Docusate Sodium (Colace) 100 mg PO BID [facility] Last Admin: 02/19/17 10:10 Dose: 100 mg Meropenem 1 gm/ Sodium (Chloride) 100 mls @ 100 mls/hr IVPB Q12H [facility] Last Admin: 02/19/17 00:04 Dose: 100 mls/hr Sodium Chloride (Sodium Chloride 0.9%) 1,000 mls @ 75 mls/hr IV .[id number] [facility] Last Admin: 02/19/17 10:17 Dose: Not Given Lorazepam (Ativan) 0.25 mg IVP Q6H PRN PRN Reason: Anxiety Last Admin: 02/19/17 01:39 Dose: 0.25 mg Metoprolol Tartrate (Lopressor) 25 mg PO BID [facility] Last Admin: 02/19/17 10:11 Dose: Not Given Rosuvastatin Calcium (Crestor) 20 mg PO HS [facility] Last Admin: 02/18/17 21:12 Dose: 20 mg Vitamin A (Vitamin A & D Oint Ud Foilpak) 1 ea TOP BID [facility] Last Admin: 02/19/17 10:10 Dose: 1 ea - Labs Labs: 02/18/17 11:14 02/18/17 08:08 PT 15.3 SECONDS (9.7-12.2) H 02/09/17 13:36 INR 1.4 02/09/17 13:36 APTT 40 SECONDS (21-34) H 02/09/17 13:36 - Constitutional Appears: Non-toxic, No Acute Distress - Head Exam Head Exam: ATRAUMATIC, NORMOCEPHALIC - Eye Exam Eye Exam: EOMI, Normal appearance - ENT Exam ENT Exam: Mucous Membranes Moist - Respiratory Exam Respiratory Exam: Clear to Ausculation Bilateral, NORMAL BREATHING PATTERN. absent: Accessory Muscle Use, Respiratory Distress - Cardiovascular Exam Cardiovascular Exam: REGULAR RHYTHM, +S1, +S2 - GI/Abdominal Exam GI & Abdominal Exam: Soft, Normal Bowel Sounds. absent: Distended, Guarding, Rigid, Tenderness - Extremities Exam Extremities Exam: Normal Capillary Refill. absent: Calf Tenderness, Tenderness - Back Exam Additional comments: Sacral Decub ulcer - Neurological Exam Neurological Exam: Altered (baseline), Awake. absent: Oriented x3 - Skin Skin Exam: Rash (groin) Additional comments: sacral decub Assessment and Plan - Assessment and Plan (Free Text) Assessment: 1.) AMS secondary 2/2 UTI (ESBL) - Head CT: No acute intracranial findings by standard CT criteria including hemorrhage or fracture. Chronic right MCA distribution infarct - Cervical Spine CT: No fracture - Chest/Abdomen/Pelvis CT: 1. A moderate to severe compression fracture T7 vertebral body is with a severe L1-2 but a compression fracture. Age of these fractures is indeterminate. L1 compression fracture results and retropulsion of the upper endplate to cause a central canal stenosis. Prominent urinary bladder distension with the bladder otherwise unremarkable appearing. * NS @75 * ID Dr. Fitzgerald --> help appreciated * Meropenem 1g Q12 (02/11) * blood culture negative * repeat blood culture - negative - preliminary * repeat urine culture - negative 2.) History of Afib cardiology consult Dr. Reddy --> help appreciated - ECHO - EF 56%, Afib * Eliquis 2.5 mg BID - to start 02/10 * Cardizem 30 mg Q6 * Dig IV 0.25mg @ 1800 * Lopressor 25mg PO BID - morning dose held due to SBP in 90's 3.) Sacral Decubs * 2 stage 2 meausuring approx 2-3 cm each * Consulted wound care * medihoney Q12 until wound care sees the patient * Turn Q2 4.) Rash * Rash in groin area most likely 2/2 chronic moisture as the patient is incontinent * instructed nurse to keep checking for when the bed needs to be changes in order to keep patient dry * A/D ointment Q12 5.) History of CAD * Crestor 20mg 6.) History of Heel Ulcer * wound care * podiatry consulted: Dr. Roland --> help appreciated 7.) Left leg and foot pain Ortho consulted: Dr. Oneill --> help appreciated - foot xray: no radiographic evidence of osteomyelitis - left hip xray: no evidence of acute fracture or dislocation - MRI showed significant compression. Patient has been bed bound since her stroke and has multiple comorbidities. * morphine 1 mg q8h prn 8.) Hypokalemia * IV KCl 20mg twice 9.) Prophylaxis * Pepcid 20mg QD * Toradol IV 30mg Q6 * Eliquis 2.5 mg BID * Colace 100mg BID Case discussed with Dr. Keyur Mendozan PGY1 <Ezekiel Baer - Last Filed: 02/20/17 17:46> Objective - Vital Signs/Intake and Output Vital Signs (last 24 hours): Temp Pulse Resp BP Pulse Ox 99.2 F 69 20 107/72 97 02/20/17 16:00 02/20/17 16:00 02/20/17 16:00 02/20/17 17:43 02/20/17 16:00 Intake and Output: 02/20/17 02/20/17 06:59 18:59 Intake Total 700 Balance 700 - Medications Medications: Current Medications Apixaban (Eliquis) 2.5 mg PO BID [facility] Last Admin: 02/20/17 17:43 Dose: 2.5 mg Clotrimazole (Lotrimin 1%) 1 gm TOP DAILY [facility] Last Admin: 02/20/17 10:42 Dose: 1 applic Collagenase (Santyl) 0 gm TOP DAILY [facility] Last Admin: 02/20/17 10:42 Dose: 1 applic Digoxin (Lanoxin) 0.25 mg IVP DAILY@1800 [facility] Last Admin: 02/20/17 17:42 Dose: Not Given Diltiazem HCl (Cardizem) 60 mg PO Q6 [facility] Last Admin: 02/20/17 17:43 Dose: 60 mg Docusate Sodium (Colace) 100 mg PO BID [facility] Last Admin: 02/20/17 17:43 Dose: 100 mg Sodium Chloride (Sodium Chloride 0.9%) 1,000 mls @ 75 mls/hr IV .[id number] [facility] Last Admin: 02/20/17 06:19 Dose: 75 mls/hr Lorazepam (Ativan) 0.25 mg IVP Q6H PRN PRN Reason: Anxiety Last Admin: 02/19/17 22:01 Dose: 0.25 mg Metoprolol Tartrate (Lopressor) 25 mg PO BID [facility] Last Admin: 02/20/17 17:43 Dose: 25 mg Rosuvastatin Calcium (Crestor) 20 mg PO HS [facility] Last Admin: 02/19/17 22:01 Dose: 20 mg Vitamin A (Vitamin A & D Oint Ud Foilpak) 1 ea TOP BID [facility] Last Admin: 02/20/17 17:43 Dose: 1 ea - Labs Labs: 02/20/17 11:27 02/20/17 11:27 PT 15.3 SECONDS (9.7-12.2) H 02/09/17 13:36 INR 1.4 02/09/17 13:36 APTT 40 SECONDS (21-34) H 02/09/17 13:36 Attending/Attestation - Attestation I have personally seen and examined this patient.: Yes I have fully participated in the care of the patient.: Yes I have reviewed all pertinent clinical information, including history, physical exam and plan: Yes Notes (Text): 02/20/17 17:46 Patient was seen and examined at bedside with the resident Patient appears confused Continue antibiotics for ESBL UTI. I discussed the plan of care with the resident and agree with the assessment and plan documented.
[2017-02-19] MEDS: Digoxin 500 mcg/2ml (0.5 mg/2ml) Inj IVP SCH (17:32)
[2017-02-19 17:33] VITALS: PULSE 75
--- NOTE | 2017-02-19 21:08 | CP.PCM.PN ---
Subjective - Date & Time of Evaluation Date of Evaluation: 02/19/17 Time of Evaluation: 04:00 - Subjective Subjective: dictated Objective - Vital Signs/Intake and Output Vital Signs (last 24 hours): Temp Pulse Resp BP Pulse Ox 98.8 F 96 H 20 108/74 94 L 02/19/17 15:10 02/19/17 19:13 02/19/17 15:10 02/19/17 19:13 02/19/17 15:10 Intake and Output: 02/19/17 02/20/17 18:59 06:59 Intake Total 1080 Balance 1080 - Medications Medications: Current Medications Apixaban (Eliquis) 2.5 mg PO BID [facility] Last Admin: 02/19/17 17:31 Dose: 2.5 mg Clotrimazole (Lotrimin 1%) 1 gm TOP DAILY [facility] Last Admin: 02/19/17 10:13 Dose: 1 applic Collagenase (Santyl) 0 gm TOP DAILY [facility] Last Admin: 02/19/17 10:12 Dose: 1 applic Digoxin (Lanoxin) 0.25 mg IVP DAILY@1800 [facility] Last Admin: 02/19/17 17:32 Dose: 0.25 mg Diltiazem HCl (Cardizem) 60 mg PO Q6 [facility] Last Admin: 02/19/17 19:00 Dose: 60 mg Docusate Sodium (Colace) 100 mg PO BID [facility] Last Admin: 02/19/17 17:31 Dose: 100 mg Sodium Chloride (Sodium Chloride 0.9%) 1,000 mls @ 75 mls/hr IV .[id number] [facility] Last Admin: 02/19/17 10:17 Dose: Not Given Lorazepam (Ativan) 0.25 mg IVP Q6H PRN PRN Reason: Anxiety Last Admin: 02/19/17 01:39 Dose: 0.25 mg Metoprolol Tartrate (Lopressor) 25 mg PO BID [facility] Last Admin: 02/19/17 17:31 Dose: 25 mg Rosuvastatin Calcium (Crestor) 20 mg PO HS [facility] Last Admin: 02/18/17 21:12 Dose: 20 mg Vitamin A (Vitamin A & D Oint Ud Foilpak) 1 ea TOP BID [facility] Last Admin: 02/19/17 17:31 Dose: 1 ea - Labs Labs: 02/18/17 11:14 02/18/17 08:08 PT 15.3 SECONDS (9.7-12.2) H 02/09/17 13:36 INR 1.4 02/09/17 13:36 APTT 40 SECONDS (21-34) H 02/09/17 13:36 Assessment and Plan (1) Infection due to ESBL-producing Escherichia coli Status: Acute (2) Atrial flutter Status: Acute (3) Closed head injury Status: Acute (4) Hemiparesis Status: Acute
--- NOTE | 2017-02-19 21:55 | CARD ---
APPROVED REPORT EKG Measurement Heart [id number] <Conclusion> Atrial fibrillation with premature ventricular or aberrantly conducted complexes Low voltage QRS Right bundle branch block Left anterior fascicular block Bifascicular block Cannot rule out Anterior infarct, age undetermined Abnormal ECG
--- NOTE | 2017-02-19 23:50 | CP.PCM.PN ---
Subjective - Date & Time of Evaluation Date of Evaluation: 02/19/17 Time of Evaluation: 11:00 - Subjective Subjective: laying in bed contact precautions for ESBL in urine confused HR controlled Objective - Vital Signs/Intake and Output Vital Signs (last 24 hours): Temp Pulse Resp BP Pulse Ox 98.8 F 96 H 20 108/74 94 L 02/19/17 15:10 02/19/17 19:13 02/19/17 15:10 02/19/17 19:13 02/19/17 15:10 Intake and Output: 02/19/17 02/20/17 18:59 06:59 Intake Total 1080 Balance 1080 - Medications Medications: Current Medications Apixaban (Eliquis) 2.5 mg PO BID [facility] Last Admin: 02/19/17 17:31 Dose: 2.5 mg Clotrimazole (Lotrimin 1%) 1 gm TOP DAILY [facility] Last Admin: 02/19/17 10:13 Dose: 1 applic Collagenase (Santyl) 0 gm TOP DAILY [facility] Last Admin: 02/19/17 10:12 Dose: 1 applic Digoxin (Lanoxin) 0.25 mg IVP DAILY@1800 [facility] Last Admin: 02/19/17 17:32 Dose: 0.25 mg Diltiazem HCl (Cardizem) 60 mg PO Q6 [facility] Last Admin: 02/19/17 19:00 Dose: 60 mg Docusate Sodium (Colace) 100 mg PO BID [facility] Last Admin: 02/19/17 17:31 Dose: 100 mg Sodium Chloride (Sodium Chloride 0.9%) 1,000 mls @ 75 mls/hr IV .[id number] [facility] Last Admin: 02/19/17 10:17 Dose: Not Given Lorazepam (Ativan) 0.25 mg IVP Q6H PRN PRN Reason: Anxiety Last Admin: 02/19/17 22:01 Dose: 0.25 mg Metoprolol Tartrate (Lopressor) 25 mg PO BID [facility] Last Admin: 02/19/17 17:31 Dose: 25 mg Rosuvastatin Calcium (Crestor) 20 mg PO HS [facility] Last Admin: 02/19/17 22:01 Dose: 20 mg Vitamin A (Vitamin A & D Oint Ud Foilpak) 1 ea TOP BID [facility] Last Admin: 02/19/17 17:31 Dose: 1 ea - Labs Labs: 02/18/17 11:14 02/18/17 08:08 PT 15.3 SECONDS (9.7-12.2) H 02/09/17 13:36 INR 1.4 02/09/17 13:36 APTT 40 SECONDS (21-34) H 02/09/17 13:36 - Constitutional Appears: Well, Confused - Head Exam Head Exam: ATRAUMATIC, NORMAL INSPECTION, NORMOCEPHALIC - Eye Exam Eye Exam: EOMI, Normal appearance, PERRL Pupil Exam: NORMAL ACCOMODATION, PERRL - ENT Exam ENT Exam: Mucous Membranes Moist, Normal Exam - Neck Exam Neck Exam: Full ROM, Normal Inspection. absent: Lymphadenopathy - Respiratory Exam Respiratory Exam: Clear to Ausculation Bilateral, NORMAL BREATHING PATTERN - Cardiovascular Exam Cardiovascular Exam: Irregular Rhythm, +S1, +S2, Murmur - GI/Abdominal Exam GI & Abdominal Exam: Soft, Normal Bowel Sounds. absent: Tenderness - Extremities Exam Extremities Exam: Full ROM, Normal Capillary Refill, Normal Inspection. absent : Joint Swelling, Pedal Edema - Back Exam Back Exam: NORMAL INSPECTION - Neurological Exam Neurological Exam: Awake, CN II-XII Intact - Psychiatric Exam Psychiatric exam: Flat Affect, Normal Mood - Skin Skin Exam: Dry, Intact, Normal Color, Warm Assessment and Plan (1) Rapid atrial fibrillation Assessment & Plan: HR controlled on CCB and metoprolol on eliquis Status: Acute (2) Dehydration Assessment & Plan: IVF hydration improving Status: Acute (3) Infection due to ESBL-producing Escherichia coli Assessment & Plan: On abx and contact precautions Status: Acute (4) Transient hypotension Status: Acute (5) UTI (urinary tract infection) Status: Acute
--- NOTE | 2017-02-20 02:37 | PN ---
INFECTIOUS DISEASE FOLLOWUP PHYSICAL EXAMINATION: VITAL SIGNS: T-max is 98.8, pulse 77, blood pressure is 117/71, and respirations are 20. NECK: Supple. LUNGS: Clear. HEART: S1 and S2 is regular. ABDOMEN: Soft, nontender. No guarding. No rigidity present. EXTREMITIES: Has left hemiplegia, has both side foot protectors. Podiatry note is noted. The patient completed antibiotic, meropenem. Urine culture is negative from . She received antibiotic from the admission time. She came in with altered mental status. I saw her on the , to continue local wound care for the foot with local wound care and better nutrition and vitamin supplements so that it can heal; however, she has left hemiplegia and needs to be monitored with the internal audit consultant. We will discontinue meropenem at this time and supplement electrolytes as I see her potassium has been running low. Walt Fitzgerald MD
[2017-02-20] MEDS: Sodium Chloride 0.9% 1,000 ML IV SCH (06:19)
[2017-02-20 08:17] VITALS: O2SAT 97
--- NOTE | 2017-02-20 08:35 | CP.PCM.PN ---
Subjective - Date & Time of Evaluation Date of Evaluation: 02/20/17 Time of Evaluation: 08:34 - Subjective Subjective: no issues overnight HR stable Objective - Vital Signs/Intake and Output Vital Signs (last 24 hours): Temp Pulse Resp BP Pulse Ox 97.6 F 80 20 111/74 97 02/20/17 08:00 02/20/17 08:00 02/20/17 08:00 02/20/17 08:00 02/20/17 08:00 Intake and Output: 02/20/17 02/20/17 06:59 18:59 Intake Total 700 Balance 700 - Medications Medications: Current Medications Apixaban (Eliquis) 2.5 mg PO BID [facility] Last Admin: 02/19/17 17:31 Dose: 2.5 mg Clotrimazole (Lotrimin 1%) 1 gm TOP DAILY [facility] Last Admin: 02/19/17 10:13 Dose: 1 applic Collagenase (Santyl) 0 gm TOP DAILY [facility] Last Admin: 02/19/17 10:12 Dose: 1 applic Digoxin (Lanoxin) 0.25 mg IVP DAILY@1800 [facility] Last Admin: 02/19/17 17:32 Dose: 0.25 mg Diltiazem HCl (Cardizem) 60 mg PO Q6 [facility] Last Admin: 02/20/17 06:26 Dose: 60 mg Docusate Sodium (Colace) 100 mg PO BID [facility] Last Admin: 02/19/17 17:31 Dose: 100 mg Sodium Chloride (Sodium Chloride 0.9%) 1,000 mls @ 75 mls/hr IV .[id number] [facility] Last Admin: 02/20/17 06:19 Dose: 75 mls/hr Lorazepam (Ativan) 0.25 mg IVP Q6H PRN PRN Reason: Anxiety Last Admin: 02/19/17 22:01 Dose: 0.25 mg Metoprolol Tartrate (Lopressor) 25 mg PO BID [facility] Last Admin: 02/19/17 17:31 Dose: 25 mg Rosuvastatin Calcium (Crestor) 20 mg PO HS [facility] Last Admin: 02/19/17 22:01 Dose: 20 mg Vitamin A (Vitamin A & D Oint Ud Foilpak) 1 ea TOP BID [facility] Last Admin: 02/19/17 17:31 Dose: 1 ea - Labs Labs: 02/18/17 11:14 02/18/17 08:08 PT 15.3 SECONDS (9.7-12.2) H 02/09/17 13:36 INR 1.4 02/09/17 13:36 APTT 40 SECONDS (21-34) H 02/09/17 13:36 - Constitutional Appears: Well - Head Exam Head Exam: ATRAUMATIC, NORMAL INSPECTION, NORMOCEPHALIC - Eye Exam Eye Exam: EOMI, Normal appearance, PERRL Pupil Exam: NORMAL ACCOMODATION, PERRL - ENT Exam ENT Exam: Mucous Membranes Moist, Normal Exam - Neck Exam Neck Exam: Full ROM, Normal Inspection. absent: Lymphadenopathy - Respiratory Exam Respiratory Exam: Clear to Ausculation Bilateral, NORMAL BREATHING PATTERN - Cardiovascular Exam Cardiovascular Exam: Irregular Rhythm, +S1, +S2, Murmur - GI/Abdominal Exam GI & Abdominal Exam: Soft, Normal Bowel Sounds. absent: Tenderness - Extremities Exam Extremities Exam: Full ROM, Normal Capillary Refill, Normal Inspection. absent : Joint Swelling, Pedal Edema - Back Exam Back Exam: NORMAL INSPECTION - Neurological Exam Neurological Exam: Awake, CN II-XII Intact Neuro motor strength exam: Left Upper Extremity: 2/1, Left Lower Extremity: 2/1 - Psychiatric Exam Psychiatric exam: Normal Affect, Normal Mood - Skin Skin Exam: Dry, Intact, Normal Color, Warm Assessment and Plan (1) Rapid atrial fibrillation Assessment & Plan: Rate controlled on BB and CCB on low dose eliquis stable for dc Status: Acute (2) Dehydration Assessment & Plan: improved Status: Acute (3) Infection due to ESBL-producing Escherichia coli Assessment & Plan: Abx per primary team Status: Acute (4) Transient hypotension Status: Acute (5) UTI (urinary tract infection) Status: Acute
--- NOTE | 2017-02-20 09:37 | CP.PCM.PN ---
Subjective - Date & Time of Evaluation Date of Evaluation: 02/20/17 Time of Evaluation: 09:34 - Subjective Subjective: Patient sleeping, moves a little when awakened, but does not open eyes today. Review of Systems - Review of Systems Systems not reviewed;Unavailable: Dementia Objective - Vital Signs/Intake and Output Vital Signs (last 24 hours): Temp Pulse Resp BP Pulse Ox 97.6 F 68 20 111/74 97 02/20/17 08:00 02/20/17 08:00 02/20/17 08:00 02/20/17 08:00 02/20/17 08:00 Intake and Output: 02/20/17 02/20/17 06:59 18:59 Intake Total 700 Balance 700 - Medications Medications: Current Medications Apixaban (Eliquis) 2.5 mg PO BID [facility] Last Admin: 02/19/17 17:31 Dose: 2.5 mg Clotrimazole (Lotrimin 1%) 1 gm TOP DAILY [facility] Last Admin: 02/19/17 10:13 Dose: 1 applic Collagenase (Santyl) 0 gm TOP DAILY [facility] Last Admin: 02/19/17 10:12 Dose: 1 applic Digoxin (Lanoxin) 0.25 mg IVP DAILY@1800 [facility] Last Admin: 02/19/17 17:32 Dose: 0.25 mg Diltiazem HCl (Cardizem) 60 mg PO Q6 [facility] Last Admin: 02/20/17 06:26 Dose: 60 mg Docusate Sodium (Colace) 100 mg PO BID [facility] Last Admin: 02/19/17 17:31 Dose: 100 mg Sodium Chloride (Sodium Chloride 0.9%) 1,000 mls @ 75 mls/hr IV .[id number] [facility] Last Admin: 02/20/17 06:19 Dose: 75 mls/hr Lorazepam (Ativan) 0.25 mg IVP Q6H PRN PRN Reason: Anxiety Last Admin: 02/19/17 22:01 Dose: 0.25 mg Metoprolol Tartrate (Lopressor) 25 mg PO BID [facility] Last Admin: 02/19/17 17:31 Dose: 25 mg Rosuvastatin Calcium (Crestor) 20 mg PO HS [facility] Last Admin: 02/19/17 22:01 Dose: 20 mg Vitamin A (Vitamin A & D Oint Ud Foilpak) 1 ea TOP BID [facility] Last Admin: 02/19/17 17:31 Dose: 1 ea - Labs Labs: 02/18/17 11:14 02/18/17 08:08 PT 15.3 SECONDS (9.7-12.2) H 02/09/17 13:36 INR 1.4 02/09/17 13:36 APTT 40 SECONDS (21-34) H 02/09/17 13:36 - Head Exam Head Exam: ATRAUMATIC, NORMAL INSPECTION - Respiratory Exam Respiratory Exam: NORMAL BREATHING PATTERN - Extremities Exam Additional comments: heel protectors intact, does not seem to be in pain with PROM LLE - Back Exam Back Exam: NORMAL INSPECTION - Neurological Exam Neurological Exam: Altered Additional comments: does not follow commands - Skin Skin Exam: Dry, Intact, Normal Color, Warm Assessment and Plan (1) Compression fracture of L1 lumbar vertebra Assessment & Plan: old per MRI recommend neurosurgery consultation patient not alert today patient non ambulator orthopedically stable for discharge patient to f/u prn Dr. 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
[2017-02-20] MEDS: Vitamins A & D Oint UD Foilpak TOP SCH ×2 (10:41→17:43)
[2017-02-20] MEDS: Clotrimazole 1% Cream 15 GM TUBE TOP SCH (10:42)
[2017-02-20] MEDS: Collagenase 250 Units/gm Ointment(30 gm) TOP SCH (10:42)
[2017-02-20 11:37] LABS: BASO % 0.4 % (0.0-2.0); EOS # 0.1 K/uL (0.0-0.7); EOS % 2.9 % (0.0-4.0); HEMATOCRIT 29.3 % (34.0-47.0); LYMPH # 0.7 K/uL (1.0-4.3); LYMPH % 24.1 % (20.0-40.0); MEAN CORPUSCULAR HGB CONC 34.4 g/dL (33.0-37.0); MEAN PLATELET VOLUME 8.2 fL (7.2-11.7); MONO # 0.5 K/uL (0.0-0.8); MONO % 15.1 % (0.0-10.0); RED CELL DISTRIBUTION WIDTH 17.9 % (11.5-14.5); WHITE BLOOD COUNT 3.1 K/uL (4.8-10.8)
[2017-02-20 11:55] LABS: ALKALINE PHOSPHATASE 88 U/L (38-126); ALT/SGPT 27 U/L (9-52); AST/SGOT 30 U/L (14-36); BILIRUBIN,TOTAL 0.5 mg/dL (0.2-1.3); BLOOD UREA NITROGEN 3 mg/dL (7-17); CALCIUM 7.6 mg/dl (8.6-10.4); CARBON DIOXIDE 28 mmol/L (22-30); CHLORIDE 103 mmol/L (98-107); GFR AFRICAN-AMERICAN > 60; GLUCOSE,RANDOM 71 mg/dL (65-105); POTASSIUM 3.3 mmol/L (3.6-5.2); SODIUM 136 mmol/L (132-148); TOTAL PROTEIN 4.4 g/dL (6.3-8.3)
[2017-02-20 12:18] LABS: ALB/GLOB RATIO 0.8 (1.0-2.1)
[2017-02-20] MEDS ORDERED: Potassium Chloride 20 mEq/15 ml LIQ UD PO ONE ×2 (15:30→16:36)
[2017-02-20 17:00] VITALS: PULSE 69; TEMP 99.2
[2017-02-20] MEDS: Digoxin 500 mcg/2ml (0.5 mg/2ml) Inj IVP SCH (17:42)
[2017-02-20 17:43] VITALS: BP 107/72
--- NOTE | 2017-02-20 18:40 | CP.PCM.DIS ---
<Aldair Garcia - Last Filed: 03/01/17 15:55> Provider - Provider Date of Admission: 02/09/17 18:11 Attending physician: Ezekiel Baer MD Time Spent in preparation of Discharge (in minutes): 30 Hospital Course - Lab Results Lab Results: Micro Results 02/14/17 07:00 Blood Blood Culture - Final NO GROWTH AFTER 5 DAYS 02/14/17 07:00 Blood Gram Stain - Final TEST NOT PERFORMED 02/14/17 Unknown Blood Blood Culture - Final NO GROWTH AFTER 5 DAYS 02/14/17 Unknown Blood Gram Stain - Final TEST NOT PERFORMED 02/15/17 22:30 Urine,Catheterized Urine Culture - Final No Growth (<1,000 CFU/ML) 02/09/17 13:30 Blood Blood Culture - Final NO GROWTH AFTER 5 DAYS 02/09/17 13:30 Blood Gram Stain - Final TEST NOT PERFORMED 02/09/17 16:35 Blood Blood Culture - Final NO GROWTH AFTER 5 DAYS 02/09/17 16:35 Blood Gram Stain - Final TEST NOT PERFORMED 02/09/17 22:58 Urine,Gleason Urine Culture - Final Escherichia Coli 02/09/17 16:22 Urine,Catheterized Urine Culture - Final Escherichia Coli Most Recent Lab Values WBC 3.1 K/uL (4.8-10.8) L 02/20/17 11:27 RBC 3.15 Mil/uL (3.80-5.20) L 02/20/17 11:27 Hgb 10.1 g/dL (11.0-16.0) L 02/20/17 11:27 Hct 29.3 % (34.0-47.0) L 02/20/17 11:27 MCV 93.0 fL (81.0-99.0) 02/20/17 11:27 MCH 32.0 pg (27.0-31.0) H 02/20/17 11:27 MCHC 34.4 g/dL (33.0-37.0) 02/20/17 11:27 RDW 17.9 % (11.5-14.5) H 02/20/17 11:27 Plt Count 158 K/uL (130-400) 02/20/17 11:27 MPV 8.2 fL (7.2-11.7) 02/20/17 11:27 Neut % (Auto) 57.5 % (50.0-75.0) 02/20/17 11:27 Lymph % (Auto) 24.1 % (20.0-40.0) 02/20/17 11:27 [place] % (Auto) 15.1 % (0.0-10.0) H 02/20/17 11:27 Eos % (Auto) 2.9 % (0.0-4.0) 02/20/17 11:27 Baso % (Auto) 0.4 % (0.0-2.0) 02/20/17 11:27 Neut # 1.8 K/uL (1.8-7.0) 02/20/17 11:27 Lymph # 0.7 K/uL (1.0-4.3) L 02/20/17 11:27 [place] # 0.5 K/uL (0.0-0.8) 02/20/17 11:27 Eos # 0.1 K/uL (0.0-0.7) 02/20/17 11:27 Baso # 0.0 K/uL (0.0-0.2) 02/20/17 11:27 Neutrophils % (Manual) 49 % (50-75) L 02/18/17 11:14 Lymphocytes % (Manual) 29 % (20-40) 02/18/17 11:14 Monocytes % (Manual) 18 % (0-10) H 02/18/17 11:14 Eosinophils % (Manual) 4 % (0-4) 02/18/17 11:14 Platelet Estimate Normal (NORMAL) 02/18/17 11:14 Poikilocytosis (manual Slight 02/18/17 11:14 Anisocytosis (manual) Slight 02/18/17 11:14 Acanthocytes (Spur) Slight 02/18/17 11:14 PT 15.3 SECONDS (9.7-12.2) H 02/09/17 13:36 INR 1.4 02/09/17 13:36 APTT 40 SECONDS (21-34) H 02/09/17 13:36 Puncture Site Rra 02/10/17 18:45 pCO2 21 mm/Hg (35-45) L 02/10/17 18:45 pO2 162 mm/Hg (80-100) H 02/10/17 18:45 HCO3 18.6 mmol/L (21-28) L 02/10/17 18:45 ABG pH 7.43 (7.35-7.45) 02/10/17 18:45 ABG Total CO2 14.5 mmol/L (22-28) L 02/10/17 18:45 ABG O2 Saturation 105.5 % (95-98) H 02/10/17 18:45 ABG Base Excess -8.2 mmol/L (-2.0-3.0) L 02/10/17 18:45 Fredi Test Na 02/10/17 18:45 ABG Potassium 7.5 mmol/L (3.6-5.2) H* 02/10/17 18:45 VBG pH 7.29 (7.32-7.43) L 02/09/17 16:45 VBG pCO2 44 mmHg (40-60) 02/09/17 16:45 VBG HCO3 18.6 mmol/L 02/09/17 16:45 VBG Total CO2 22.6 mmol/L (22-28) 02/09/17 16:45 VBG O2 Sat (Calc) 20.3 % (40-65) L 02/09/17 16:45 VBG Base Excess -5.3 mmol/L (0.0-2.0) L 02/09/17 16:45 VBG Potassium 3.8 mmol/L (3.6-5.2) 02/09/17 16:45 A-a O2 Difference -39.0 mm/Hg 02/10/17 18:45 Respiratory Index -0.2 02/10/17 18:45 Sodium 137.0 mmol/l (132-148) 02/10/17 18:45 Chloride 122.0 mmol/L (98-107) H 02/10/17 18:45 Glucose 79 mg/dl (65-105) 02/10/17 18:45 Lactate 1.1 mmol/L (0.7-2.1) 02/10/17 18:45 FiO2 21.0 % 02/10/17 18:45 Crit Value Called To [facility] nurse beulah 02/10/17 18:45 Crit Value Called By Ranjit monahan 02/10/17 18:45 Crit Value Read Back Y 02/10/17 18:45 Blood Gas Notified Time 1854 02/10/17 18:45 Sodium 136 mmol/L (132-148) 02/20/17 11:27 Potassium 3.3 mmol/L (3.6-5.2) L 02/20/17 11:27 Chloride 103 mmol/L (98-107) 02/20/17 11:27 Carbon Dioxide 28 mmol/L (22-30) 02/20/17 11:27 Anion Gap 8 (10-20) L 02/20/17 11:27 BUN 3 mg/dL (7-17) L 02/20/17 11:27 Creatinine 0.3 MG/DL (0.7-1.2) L 02/20/17 11:27 Est GFR ( Amer) > 60 02/20/17 11:27 Est GFR (Non-Af Amer) > 60 02/20/17 11:27 POC Glucose (mg/dL) 109 mg/dL (65-110) 02/16/17 21:12 Random Glucose 71 mg/dL (65-105) 02/20/17 11:27 Calcium 7.6 mg/dl (8.6-10.4) L 02/20/17 11:27 Phosphorus 2.1 mg/dL (2.5-4.5) L 02/19/17 08:25 Magnesium 1.6 mg/dL (1.6-2.3) 02/19/17 08:25 Total Bilirubin 0.5 mg/dL (0.2-1.3) 02/20/17 11:27 AST 30 U/L (14-36) 02/20/17 11:27 ALT 27 U/L (9-52) 02/20/17 11:27 Alkaline Phosphatase 88 U/L (38-126) 02/20/17 11:27 Total Creatine Kinase 34 U/L (30-135) 02/09/17 13:36 CK-MB (Mass) 0.68 ng/mL (0.0-3.38) 02/09/17 13:36 Troponin I, Quant < 0.0120 ng/mL (0.00-0.120) 02/09/17 13:36 NT-Pro-B Natriuret Pep 5120 pg/mL (0-900) H 02/09/17 13:36 Total Protein 4.4 g/dL (6.3-8.3) L 02/20/17 11:27 Albumin 2.0 g/dL (3.5-5.0) L 02/20/17 11:27 Globulin 2.4 gm/dL (2.2-3.9) 02/20/17 11:27 Albumin/Globulin Ratio 0.8 (1.0-2.1) L 02/20/17 11:27 Arterial Blood Potassium 7.5 mmol/L (3.6-5.2) H* 02/10/17 18:45 Venous Blood Potassium 3.8 mmol/L (3.6-5.2) 02/09/17 16:45 Urine Color Straw (YELLOW) 02/15/17 23:03 Urine Clarity Clear (Clear) 02/15/17 23:03 Urine pH 8.0 (5.0-8.0) 02/15/17 23:03 Ur Specific [place] 1.008 (1.003-1.030) 02/15/17 23:03 Urine Protein Negative mg/dL (NEGATIVE) 02/15/17 23:03 Urine Glucose (UA) Normal mg/dL (Normal) 02/15/17 23:03 Urine Ketones Trace mg/dL (NEGATIVE) 02/15/17 23:03 Urine Blood 3+ (NEGATIVE) H 02/15/17 23:03 Urine Nitrate Negative (NEGATIVE) 02/15/17 23:03 Urine Bilirubin Negative (NEGATIVE) 02/15/17 23:03 Urine Urobilinogen Normal mg/dL (0.2-1.0) 02/15/17 23:03 Ur Leukocyte Esterase 3+ Esequiel/uL (Negative) H 02/15/17 23:03 Urine WBC (Auto) 40 /hpf (0-5) H 02/15/17 23:03 Urine RBC (Auto) 68 /hpf (0-3) H 02/15/17 23:03 Ur Squamous Epith Cells < 1 /hpf (0-5) 02/15/17 23:03 Ur Transition Epith Cell < 1 /hpf (0-3) 02/15/17 23:03 Urine Bacteria Few (<OCC) H 02/15/17 23:03 C. difficile Ag & Toxin Negative (NEGATIVE) 02/18/17 20:05 - Hospital Course Hospital Course: As per admission documentation 02/09/17, Patient is a 86 y/o with a PMH a stroke, HLD, Afib, [place] who presents to the emergency room due to altered mental status and low blood pressure. The daughter states they were at the health clinic earlier today when they went to give a urine sample and it was found to have blood and due to her altered mental status they sent the patient to the ER. The daughter states that about 2 days ago she did fall while sitting to her side and did hit her head but did not loose consciousness. Per daughter she did not bring her mom to the ER because she knew she had the appointment at the clinic in a few days. Since then she has been complaining of pain on urination. Per the daughter the patient asks her to use the bathroom and does urinate on her own but sometimes does urinate in the bed. Per daughter the mother is usually better mentally and this is not her baseline. Per daughter the patient has not had fever, nausea, vomiting, constipation or diarrhea. The daughter states since she was hospitalized 3 months ago for her stroke she has lost about 20lbs. Hospital Course Patient was admitted for altered mental status, believed to be 2/2 UTI vs s/p fall. Ortho consulted, Dr. Oneill, for left leg and foot pain. Podiatry consulted, Dr. Roland, for heel ulcer. Infectious Disease consulted, Dr. Fitzgerald , for +ESBL UTI. Cardiology Consulted, Dr. Reddy, for hx of afib. ECHO (02/09/17): EF 56%, pt is in afib, limiting the evaluation of EF, diastolic function and severity of valvular disease. Mild concentric LVH. left atrium severely dilated. right atrium mildly dilated. aortic valve is mildly to moderately sclerotic. aortic valve is mildly calcified. Mitral annular calcification is mild. Mitral regurgitation is mild. Mild tricuspid regurgitation. Head CT: No acute intracranial findings by standard CT criteria including hemorrhage or fracture. Chronic right MCA distribution infarct again evident; age-related neuro degenerative changes are identified; no significant interval change appreciated Cervical Spine CT: No fracture or spondylolisthesis appreciable or suspicious lytic or blastic change. Mild to moderate multilevel cervical spondylosis noted with a few advanced neural foraminal stenosis identified at C4 and C5 root foramina left side only. Chest/Abdomen/Pelvis CT: 1. A moderate to severe compression fracture T7 vertebral body is with a severe L1-2 but a compression fracture. Age of these fractures is indeterminate. L1 compression fracture results and retropulsion of the upper endplate to cause a central canal stenosis. No additional potential acute fracture appreciable throughout the main of the chest abdomen or pelvis. Old healed left 9th rib fractures appreciated. A likely degenerate spondylolisthesis at L5-S1 is appreciated, minimal. 2. No pleural or pericardial effusion or evidence of pulmonary contusion the chest. No obvious CT pattern of abdominal visceral injury as well. No pneumoperitoneum or hemoperitoneum identified. 3. Sigmoid diverticulosis without diverticulitis. 4. Prior cholecystectomy suggested. Clinically correlate. 5. Prior hysterectomy. 6. Prominent urinary bladder distension with the bladder otherwise unremarkable appearing. Lumbar Spine MRI: Moderate to mildly severe compression deformity of L1 vertebral body without evidence of bone marrow edema suggestive of old fracture. Moderate degenerative disc changes. Bony retropulsion at T12-L1 associated with mild to moderate spinal stenosis. Osteophyte disc bulge complex at L4-L5 associated with posterior ligament hypertrophy which resulting in mild-to- moderate spinal stenosis. Moderate size disc bulge associated with posterior ligament and facet joint hypertrophy at L5-S1 which resulting in moderate to mildly severe spinal stenosis. foot xray: no radiographic evidence of osteomyelitis left hip xray: no evidence of acute fracture or dislocation Patient urine culture grew positive for ESBL. Started on meropenem 1 gm q12h on 02/11/17. Repeat urine culture 02/15/17 was negative. Meropenem was discontinued on 02/19/17. Blood cultures were negative on 02/11/17 and 02/15/17. Patient was stable throughout the rest of her stay. Patient was instructed to follow up with her PMD at the neighborhood clinic at [facility] within one week after discharge. She was given Santyl topical cream for stage 2 sacral decub. Discharge Instructions 02/20/17, Patient is be discharged home as per Dr. Baer. Patient is to follow up with the [facility] at [facility] within one week. If any new or worsening symptoms occur, please return to the hospital. Discharge Prescription Collagenase (Santyl) Topical - apply to affected area Continue home medications as instructed by prescribing physician. Eliquis 2.5 mg PO BID Carizem 60mg PO Q6H Metoprolol Succinate 50mg PO BID Lipitor 10 mg PO daily Gabapentin 300mg PO BID Colace 100mg PO BID - Date & Time of H&P Date of H&P: 02/09/17 Time of H&P: 22:50 Discharge Exam - Head Exam Head Exam: ATRAUMATIC, NORMAL INSPECTION, NORMOCEPHALIC - Eye Exam Eye Exam: EOMI, Normal appearance - ENT Exam ENT Exam: Mucous Membranes Moist - Respiratory Exam Respiratory Exam: Clear to PA & Lateral, NORMAL BREATHING PATTERN. absent: Accessory Muscle Use, Respiratory Distress - Cardiovascular Exam Cardiovascular Exam: REGULAR RHYTHM, +S1, +S2 - GI/Abdominal Exam GI & Abdominal Exam: Normal Bowel Sounds, Soft. absent: Distended, Firm, Guarding - Extremities Exam Extremities exam: normal capillary refill, pedal pulses present - Back Exam Additional comments: stage 2 sacral decub 2-3cm - Neurological Exam Neurological exam: Alert, Altered (baseline) - Skin Skin Exam: Dry, Warm Discharge Plan - Discharge Medications Prescriptions: Apixaban [Eliquis] 2.5 mg PO BID #60 tab Atorvastatin [Lipitor] 10 mg PO ONCE 30 Days #30 tab Collagenase [Santyl] 1 bottle TOP DAILY #1 tube [id number] [Cardizem] 60 mg PO Q6 30 Days tab Docusate [Colace] 100 mg PO BID #60 cap Gabapentin [Neurontin] 300 mg PO BID #60 cap Metoprolol Tartrate [Lopressor] 50 mg PO BID #60 tab - Follow Up Plan Condition: GOOD Disposition: HOME/ ROUTINE Instructions: Collagenase (On the skin), Atrial Flutter (DC), Dehydration (DC) , Urinary Tract Infection in Women (DC), Head Injury (DC), Hypotension (DC), Extended Spectrum Beta Lactamase (GEN) Additional Instructions: Patient is be discharged home as per Dr. Baer. Patient is to follow up with the neighborhood clinic at [facility] within one week. If any new or worsening symptoms occur, please return to the hospital. Discharge Prescription Collagenase (Santyl) Topical - apply to affected area Continue home medications as instructed by prescribing physician. Eliquis 2.5 mg PO BID Carizem 60mg PO Q6H Metoprolol Succinate 50mg PO BID Lipitor 10 mg PO daily Gabapentin 300mg PO BID Colace 100mg PO BID Referrals: [facility] [Outside] <Ezekiel Baer - Last Filed: 03/05/17 18:58> Provider - Provider Date of Admission: 02/09/17 18:11 Attending physician: Ezekiel Baer MD Hospital Course - Lab Results Lab Results: Micro Results 02/14/17 07:00 Blood Blood Culture - Final NO GROWTH AFTER 5 DAYS 02/14/17 07:00 Blood Gram Stain - Final TEST NOT PERFORMED 02/14/17 Unknown Blood Blood Culture - Final NO GROWTH AFTER 5 DAYS 02/14/17 Unknown Blood Gram Stain - Final TEST NOT PERFORMED 02/15/17 22:30 Urine,Catheterized Urine Culture - Final No Growth (<1,000 CFU/ML) 02/09/17 13:30 Blood Blood Culture - Final NO GROWTH AFTER 5 DAYS 02/09/17 13:30 Blood Gram Stain - Final TEST NOT PERFORMED 02/09/17 16:35 Blood Blood Culture - Final NO GROWTH AFTER 5 DAYS 02/09/17 16:35 Blood Gram Stain - Final TEST NOT PERFORMED 02/09/17 22:58 Urine,Gleason Urine Culture - Final Escherichia Coli 02/09/17 16:22 Urine,Catheterized Urine Culture - Final Escherichia Coli Most Recent Lab Values WBC 3.1 K/uL (4.8-10.8) L 02/20/17 11:27 RBC 3.15 Mil/uL (3.80-5.20) L 02/20/17 11:27 Hgb 10.1 g/dL (11.0-16.0) L 02/20/17 11:27 Hct 29.3 % (34.0-47.0) L 02/20/17 11:27 MCV 93.0 fL (81.0-99.0) 02/20/17 11:27 MCH 32.0 pg (27.0-31.0) H 02/20/17 11:27 MCHC 34.4 g/dL (33.0-37.0) 02/20/17 11:27 RDW 17.9 % (11.5-14.5) H 02/20/17 11:27 Plt Count 158 K/uL (130-400) 02/20/17 11:27 MPV 8.2 fL (7.2-11.7) 02/20/17 11:27 Neut % (Auto) 57.5 % (50.0-75.0) 02/20/17 11:27 Lymph % (Auto) 24.1 % (20.0-40.0) 02/20/17 11:27 [place] % (Auto) 15.1 % (0.0-10.0) H 02/20/17 11:27 Eos % (Auto) 2.9 % (0.0-4.0) 02/20/17 11:27 Baso % (Auto) 0.4 % (0.0-2.0) 02/20/17 11:27 Neut # 1.8 K/uL (1.8-7.0) 02/20/17 11:27 Lymph # 0.7 K/uL (1.0-4.3) L 02/20/17 11:27 [place] # 0.5 K/uL (0.0-0.8) 02/20/17 11: Eos # 0.1 K/uL (0.0-0.7) 02/20/17 11: Baso # 0.0 K/uL (0.0-0.2) 02/20/17 11:27 Neutrophils % (Manual) 49 % (50-75) L 02/18/17 11:14 Lymphocytes % (Manual) 29 % (20-40) 02/18/17 11:14 Monocytes % (Manual) 18 % (0-10) H 02/18/17 11:14 Eosinophils % (Manual) 4 % (0-4) 02/18/17 11:14 Platelet Estimate Normal (NORMAL) 02/18/17 11:14 Poikilocytosis (manual Slight 02/18/17 11:14 Anisocytosis (manual) Slight 02/18/17 11:14 Acanthocytes (Spur) Slight 02/18/17 11:14 PT 15.3 SECONDS (9.7-12.2) H 02/09/17 13:36 INR 1.4 02/09/17 13:36 APTT 40 SECONDS (21-34) H 02/09/17 13:36 Puncture Site Rra 02/10/17 18:45 pCO2 21 mm/Hg (35-45) L 02/10/17 18:45 pO2 162 mm/Hg (80-100) H 02/10/17 18:45 HCO3 18.6 mmol/L (21-28) L 02/10/17 18:45 ABG pH 7.43 (7.35-7.45) 02/10/17 18:45 ABG Total CO2 14.5 mmol/L (22-28) L 02/10/17 18:45 ABG O2 Saturation 105.5 % (95-98) H 02/10/17 18:45 ABG Base Excess -8.2 mmol/L (-2.0-3.0) L 02/10/17 18:45 Fredi Test Na 02/10/17 18:45 ABG Potassium 7.5 mmol/L (3.6-5.2) H* 02/10/17 18:45 VBG pH 7.29 (7.32-7.43) L 02/09/17 16:45 VBG pCO2 44 mmHg (40-60) 02/09/17 16:45 VBG HCO3 18.6 mmol/L 02/09/17 16:45 VBG Total CO2 22.6 mmol/L (22-28) 02/09/17 16:45 VBG O2 Sat (Calc) 20.3 % (40-65) L 02/09/17 16:45 VBG Base Excess -5.3 mmol/L (0.0-2.0) L 02/09/17 16:45 VBG Potassium 3.8 mmol/L (3.6-5.2) 02/09/17 16:45 A-a O2 Difference -39.0 mm/Hg 02/10/17 18:45 Respiratory Index -0.2 02/10/17 18:45 Sodium 137.0 mmol/l (132-148) 02/10/17 18:45 Chloride 122.0 mmol/L (98-107) H 02/10/17 18:45 Glucose 79 mg/dl (65-105) 02/10/17 18:45 Lactate 1.1 mmol/L (0.7-2.1) 02/10/17 18:45 FiO2 21.0 % 02/10/17 18:45 Crit Value Called To [facility] nurse beulah 02/10/17 18:45 Crit Value Called By Ranjit monahan 02/10/17 18:45 Crit Value Read Back Y 02/10/17 18:45 Blood Gas Notified Time 1854 02/10/17 18:45 Sodium 136 mmol/L (132-148) 02/20/17 11:27 Potassium 3.3 mmol/L (3.6-5.2) L 02/20/17 11:27 Chloride 103 mmol/L (98-107) 02/20/17 11:27 Carbon Dioxide 28 mmol/L (22-30) 02/20/17 11:27 Anion Gap 8 (10-20) L 02/20/17 11:27 BUN 3 mg/dL (7-17) L 02/20/17 11:27 Creatinine 0.3 MG/DL (0.7-1.2) L 02/20/17 11:27 Est GFR ( Amer) > 60 02/20/17 11:27 Est GFR (Non-Af Amer) > 60 02/20/17 11:27 POC Glucose (mg/dL) 109 mg/dL (65-110) 02/16/17 21:12 Random Glucose 71 mg/dL (65-105) 02/20/17 11:27 Calcium 7.6 mg/dl (8.6-10.4) L 02/20/17 11:27 Phosphorus 2.1 mg/dL (2.5-4.5) L 02/19/17 08:25 Magnesium 1.6 mg/dL (1.6-2.3) 02/19/17 08:25 Total Bilirubin 0.5 mg/dL (0.2-1.3) 02/20/17 11:27 AST 30 U/L (14-36) 02/20/17 11:27 ALT 27 U/L (9-52) 02/20/17 11:27 Alkaline Phosphatase 88 U/L (38-126) 02/20/17 11:27 Total Creatine Kinase 34 U/L (30-135) 02/09/17 13:36 CK-MB (Mass) 0.68 ng/mL (0.0-3.38) 02/09/17 13:36 Troponin I, Quant < 0.0120 ng/mL (0.00-0.120) 02/09/17 13:36 NT-Pro-B Natriuret Pep 5120 pg/mL (0-900) H 02/09/17 13:36 Total Protein 4.4 g/dL (6.3-8.3) L 02/20/17 11:27 Albumin 2.0 g/dL (3.5-5.0) L 02/20/17 11:27 Globulin 2.4 gm/dL (2.2-3.9) 02/20/17 11:27 Albumin/Globulin Ratio 0.8 (1.0-2.1) L 02/20/17 11:27 Arterial Blood Potassium 7.5 mmol/L (3.6-5.2) H* 02/10/17 18:45 Venous Blood Potassium 3.8 mmol/L (3.6-5.2) 02/09/17 16:45 Urine Color Straw (YELLOW) 02/15/17 23:03 Urine Clarity Clear (Clear) 02/15/17 23:03 Urine pH 8.0 (5.0-8.0) 02/15/17 23:03 Ur Specific [place] 1.008 (1.003-1.030) 02/15/17 23:03 Urine Protein Negative mg/dL (NEGATIVE) 02/15/17 23:03 Urine Glucose (UA) Normal mg/dL (Normal) 02/15/17 23:03 Urine Ketones Trace mg/dL (NEGATIVE) 02/15/17 23:03 Urine Blood 3+ (NEGATIVE) H 02/15/17 23:03 Urine Nitrate Negative (NEGATIVE) 02/15/17 23:03 Urine Bilirubin Negative (NEGATIVE) 02/15/17 23:03 Urine Urobilinogen Normal mg/dL (0.2-1.0) 02/15/17 23:03 Ur Leukocyte Esterase 3+ Esequiel/uL (Negative) H 02/15/17 23:03 Urine WBC (Auto) 40 /hpf (0-5) H 02/15/17 23:03 Urine RBC (Auto) 68 /hpf (0-3) H 02/15/17 23:03 Ur Squamous Epith Cells < 1 /hpf (0-5) 02/15/17 23:03 Ur Transition Epith Cell < 1 /hpf (0-3) 02/15/17 23:03 Urine Bacteria Few (<OCC) H 02/15/17 23:03 C. difficile Ag & Toxin Negative (NEGATIVE) 02/18/17 20:05 Attending/Attestation - Attestation I have personally seen and examined this patient.: Yes I have fully participated in the care of the patient.: Yes I have reviewed all pertinent clinical information, including history, physical exam and plan: Yes Notes (Text): 03/05/17 18:58 I agree with the discharge summary by the resident.
--- NOTE | 2017-02-20 21:47 | CP.PCM.PN ---
<GLYNN JAUREGUI - Last Filed: 02/20/17 21:44> Subjective - Date & Time of Evaluation Date of Evaluation: 02/20/17 Time of Evaluation: 14:00 - Subjective Subjective: Glynn Jauregui DO PGY1 - Cardiology Progress Note for Dr. Reddy Patient seen and examined at bedside. Patient remains very confused, constantly repeating her daughter's name. Denies any chest pain when prompted, but did not answer further questions. Objective - Vital Signs/Intake and Output Vital Signs (last 24 hours): Temp Pulse Resp BP Pulse Ox 99.2 F 69 20 107/72 97 02/20/17 16:00 02/20/17 16:00 02/20/17 16:00 02/20/17 17:43 02/20/17 16:00 Intake and Output: 02/20/17 02/21/17 18:59 06:59 Intake Total 120 Balance 120 - Labs Labs: 02/20/17 11:27 02/20/17 11:27 PT 15.3 SECONDS (9.7-12.2) H 02/09/17 13:36 INR 1.4 02/09/17 13:36 APTT 40 SECONDS (21-34) H 02/09/17 13:36 - Constitutional Appears: Non-toxic, No Acute Distress, Confused - Head Exam Head Exam: ATRAUMATIC, NORMOCEPHALIC - Eye Exam Eye Exam: EOMI, Normal appearance - Neck Exam Neck Exam: Full ROM - Respiratory Exam Respiratory Exam: Clear to Ausculation Bilateral, NORMAL BREATHING PATTERN - Cardiovascular Exam Cardiovascular Exam: RRR, +S1, +S2 - GI/Abdominal Exam GI & Abdominal Exam: Soft. absent: Guarding, Rigid - Extremities Exam Extremities Exam: absent: Calf Tenderness, Pedal Edema - Neurological Exam Neurological Exam: Alert, Awake. absent: Oriented x3 - Skin Skin Exam: Dry, Intact Assessment and Plan (1) Rapid atrial fibrillation Assessment & Plan: Patient did not have any RVR events overnight HR currently stable; controlled on BB and CCB Continue eliquis for anticoagulation for stroke prevention Patient to be discharged today per primary team; should continue current regimen Status: Acute (2) Infection due to ESBL-producing Escherichia coli Assessment & Plan: Was on IV Abx in hospital Discharge course of Abx per primary team Status: Acute <Farhat Reddy - Last Filed: 03/29/17 13:44> Objective - Vital Signs/Intake and Output Vital Signs (last 24 hours): Temp Pulse Resp BP Pulse Ox 99.2 F 69 20 107/72 97 02/20/17 16:00 02/20/17 16:00 02/20/17 16:00 02/20/17 17:43 02/20/17 16:00 - Labs Labs: 02/20/17 11:27 02/20/17 11:27 PT 15.3 SECONDS (9.7-12.2) H 02/09/17 13:36 INR 1.4 02/09/17 13:36 APTT 40 SECONDS (21-34) H 02/09/17 13:36 Assessment and Plan (1) Rapid atrial fibrillation Status: Acute (2) Dehydration Status: Acute (3) Infection due to ESBL-producing Escherichia coli Status: Acute (4) Transient hypotension Status: Acute (5) UTI (urinary tract infection) Status: Acute Attending/Attestation - Attestation I have personally seen and examined this patient.: Yes I have fully participated in the care of the patient.: Yes I have reviewed all pertinent clinical information, including history, physical exam and plan: Yes
== END 2017-02-20 20:25 | disposition home or self-care (01) | DRG 569 ==
LOC: C.ER 12:38 → C.9E 18:11 → C.9I 02-10 05:57 → C.5S 02-13 22:16
PROVIDERS: ADMIT Internal Medicine; ATTEND Internal Medicine
DX: N39.0 Urinary tract infection, site not specified (principal); G70.00 Myasthenia gravis without (acute) exacerbation; G92 Toxic encephalopathy; L89.153 Pressure ulcer of sacral region, stage 3; D68.32 Hemorrhagic disorder due to extrinsic circulating anticoagulants; E86.0 Dehydration; L89.623 Pressure ulcer of left heel, stage 3; M48.56XA Collapsed vertebra, not elsewhere classified, lumbar region, initial encounter for fracture; I69.354 Hemiplegia and hemiparesis following cerebral infarction affecting left non-dominant side; F03.90 Unspecified dementia, unspecified severity, without behavioral disturbance, psychotic disturbance, mood disturbance, and anxiety; E87.6 Hypokalemia; R32 Unspecified urinary incontinence; M48.02 Spinal stenosis, cervical region; I48.2 Chronic atrial fibrillation; B96.20 Unspecified Escherichia coli [E. coli] as the cause of diseases classified elsewhere; E78.5 Hyperlipidemia, unspecified; I25.10 Atherosclerotic heart disease of native coronary artery without angina pectoris; Z16.12 Extended spectrum beta lactamase (ESBL) resistance; K57.30 Diverticulosis of large intestine without perforation or abscess without bleeding; M16.12 Unilateral primary osteoarthritis, left hip; M17.9 Osteoarthritis of knee, unspecified; M43.17 Spondylolisthesis, lumbosacral region; M47.812 Spondylosis without myelopathy or radiculopathy, cervical region; M81.0 Age-related osteoporosis without current pathological fracture; M48.05 Spinal stenosis, thoracolumbar region; R21 Rash and other nonspecific skin eruption; Z79.01 Long term (current) use of anticoagulants; M48.07 Spinal stenosis, lumbosacral region; R31.9 Hematuria, unspecified; T45.515A Adverse effect of anticoagulants, initial encounter; S09.90XA Unspecified injury of head, initial encounter; W19.XXXA Unspecified fall, initial encounter; Z74.01 Bed confinement status